=== PATIENT | female | born 1945 | race Caucasian/White ===

== ENCOUNTER → 2016-10-05 | Outpatient (CLI) | payer OTHER ==
[~2016-10-05] MED LIST: ACET-1311 PO; ADVIN50050 INH; AMLO-114 PO; ASCA500 PO; ASCO1CAP3 PO; BACL10TA PO; CALCTAB5 PO; CEFD1CAP14 PO; CEFD300C2 PO; CHOL1CAP57 PO; CLC100X PO; CLON0.2T PO; CRDCD120 PO; DILT120C68 PO; DOCU-94 PO; FELO5TAB PO; FLM4 PO; FRS/40 PO; GABA-113 PO; HYDR500C PO; HYDR500C3 PO; IPRA1AER2 INH; LEVO25TA PO; METO50TA16 PO; MONT1TAB5 PO; OXYBPOW PO; OXYBUTYNIN PO; OXYC1TAB3 PO; POLY335019 PO; POLY335040 PO; POTA20TA16 PO; TRAM-10 PO; ULT50 PO; VENL100T2 PO; VTMD1000 PO; ZNTT/150 PO; [UNRECOGNIZED DRUG - OTHER] PO; metoprolol PO
[2016-10-05 08:37] LABS: BASO % 0.1 %; BASO ABS # 0.01 K/uL (0-0.2); COMPLETE YES; HEMATOCRIT 39.6 % (37-47); IG% 0.4 %; LYMPH % 28.3 %; LYMPH ABS # 2.22 K/uL (1.2-3.4); MEAN CELL VOLUME 96.8 fL (80-100); MEAN CORPUSCULAR HGB CONC 34.1 g/dl (32-36); MEAN PLATELET VOLUME 9.8 fL (7.4-10.4); MONO % 12.8 %; NEUT % 56.4 %; PLATELET COUNT 373 K/uL (130-400); RED BLOOD COUNT 4.09 M/uL (4.2-5.4); WHITE BLOOD COUNT 7.84 K/uL (4.8-10.8)
[2016-10-05 08:49] LABS: ALT/SGPT 16 U/L (12-78); BLOOD UREA NITROGEN 21 mg/dl (7-18); BUN/CREATININE RATIO 21.6 (10-20); CARBON DIOXIDE 27 mmol/L (21-32); CHLORIDE 106 mmol/L (98-107); CREATININE 0.97 mg/dl (0.60-1.20); GLUCOSE 85 mg/dl (70-99); POTASSIUM 3.3 mmol/L (3.5-5.1); SODIUM 143 mmol/L (136-145)
[2016-10-05 08:52] LABS: ALB/GLOB RATIO 0.9 (0.9-2); ALKALINE PHOSPHATASE 112 U/L (45-117); AST/SGOT 15 U/L (15-37)
== END ==
LOC: C.LABCC 08:25
PROVIDERS: ATTEND Internal Medicine
DX: D64.89 Other specified anemias (principal)

== ENCOUNTER → 2016-10-27 | Outpatient (CLI) | payer OTHER ==
[2016-10-27 08:24] LABS: THYROID STIMULATING HORMONE 2.61 uIu/ml (0.300-4.500)
== END ==
LOC: C.LABCC 07:38
PROVIDERS: ATTEND Internal Medicine
DX: E03.9 Hypothyroidism, unspecified (principal)

== ENCOUNTER → 2016-11-24 | Outpatient (CLI) | payer OTHER ==
[2016-11-24 18:48] LABS: URINE APPEARANCE CLOUDY (CLEAR); URINE BILIRUBIN NEG (NEG); URINE COLOR YELLOW; URINE NITRITE POS (NEG); URINE SPECIFIC GRAVITY 1.022 (1.000-1.030); UROBILINOGEN NEG (NEG)
[2016-11-24 18:53] LABS: MANUAL MICROSCOPIC REQUIRED? NO; REVIEW REQ? YES
== END ==
LOC: C.LABCC 17:38
PROVIDERS: ATTEND Internal Medicine
DX: M54.5 Low back pain (principal)

== ENCOUNTER → 2016-11-25 | Outpatient (CLI) | payer OTHER ==
[2016-11-25 08:49] LABS: HEMATOCRIT 37.7 % (37-47); MEAN CELL VOLUME 97.7 fL (80-100); MEAN CORPUSCULAR HEMOGLOBIN 33.7 pg (25-34); MEAN CORPUSCULAR HGB CONC 34.5 g/dl (32-36); MEAN PLATELET VOLUME 10.4 fL (7.4-10.4); PLATELET COUNT 359 K/uL (130-400); RED BLOOD COUNT 3.86 M/uL (4.2-5.4); WHITE BLOOD COUNT 8.18 K/uL (4.8-10.8)
[2016-11-25 08:56] LABS: ALT/SGPT 14 U/L (12-78); BLOOD UREA NITROGEN 26 mg/dl (7-18); BUN/CREATININE RATIO 26.9 (10-20); CARBON DIOXIDE 28 mmol/L (21-32); CHLORIDE 104 mmol/L (98-107); CREATININE 0.98 mg/dl (0.60-1.20); GLUCOSE 89 mg/dl (70-99); POTASSIUM 2.9 mmol/L (3.5-5.1); SODIUM 141 mmol/L (136-145)
[2016-11-25 08:59] LABS: ALB/GLOB RATIO 0.7 (0.9-2); ALKALINE PHOSPHATASE 112 U/L (45-117); AST/SGOT 14 U/L (15-37)
== END ==
LOC: C.LABCC 08:07
PROVIDERS: ATTEND Internal Medicine
DX: M54.5 Low back pain (principal)

== ENCOUNTER → 2016-11-27 | Outpatient (CLI) | payer OTHER ==
[2016-11-27 08:57] LABS: MEAN CELL VOLUME 95.4 fL (80-100); MEAN CORPUSCULAR HEMOGLOBIN 32.5 pg (25-34); MEAN CORPUSCULAR HGB CONC 34.1 g/dl (32-36); MEAN PLATELET VOLUME 9.9 fL (7.4-10.4); PLATELET COUNT 370 K/uL (130-400); RED BLOOD COUNT 3.88 M/uL (4.2-5.4); WHITE BLOOD COUNT 8.35 K/uL (4.8-10.8)
[2016-11-27 09:10] LABS: ALT/SGPT 13 U/L (12-78); BLOOD UREA NITROGEN 23 mg/dl (7-18); BUN/CREATININE RATIO 25.3 (10-20); CALCIUM 9.3 mg/dl (8.5-10.1); CARBON DIOXIDE 27 mmol/L (21-32); CHLORIDE 105 mmol/L (98-107); GLUCOSE 87 mg/dl (70-99); POTASSIUM 3.1 mmol/L (3.5-5.1); SODIUM 141 mmol/L (136-145)
[2016-11-27 09:13] LABS: ALB/GLOB RATIO 0.6 (0.9-2); ALKALINE PHOSPHATASE 119 U/L (45-117); AST/SGOT 13 U/L (15-37)
--- NOTE | 2016-12-02 11:09 | CODING QUERY MEDICAL NECESSITY ---
SUPPORTING DIAGNOSIS NEEDED A supporting diagnosis is required for the test/procedure performed on this patient in order for us to be reimbursed by the patient's insurance. Please provide a supporting diagnosis for the following test/procedure listed below next to the test name along with your signature. *If there is no additional diagnosis for this patient that would support the following test/procedure please document that below next to the test/procedure. Test(s)/Procedure(s) that require a supporting diagnosis: DOS 11/27 * Vitamin D DIAGNOSIS: Provider Signature: Date: Thank you Myrtle Griffin [facility] Information Management Once completed, please kindly fax back to [phone] For questions please call [phone]
== END ==
LOC: C.LABCC 08:35
PROVIDERS: ATTEND Internal Medicine
DX: R60.9 Edema, unspecified (principal); R63.5 Abnormal weight gain; I10 Essential (primary) hypertension; R33.9 Retention of urine, unspecified; N26.1 Atrophy of kidney (terminal)

== ENCOUNTER → 2016-12-03 | Outpatient (CLI) | payer OTHER ==
[2016-12-03 09:06] LABS: BLOOD UREA NITROGEN 17 mg/dl (7-18); BUN/CREATININE RATIO 21.4 (10-20); CALCIUM 9.2 mg/dl (8.5-10.1); CARBON DIOXIDE 28 mmol/L (21-32); CHLORIDE 106 mmol/L (98-107); CREATININE 0.78 mg/dl (0.60-1.20); GLUCOSE 88 mg/dl (70-99); POTASSIUM 3.6 mmol/L (3.5-5.1); SODIUM 141 mmol/L (136-145)
== END ==
LOC: C.LABCC 08:12
PROVIDERS: ATTEND Internal Medicine
DX: E87.6 Hypokalemia (principal)

== ENCOUNTER → 2016-12-07 | Outpatient (CLI) | payer OTHER ==
[~2016-12-07] MED LIST changes: -CRDCD120 PO; +DILT120C50 PO
[2016-12-07 08:46] LABS: BLOOD UREA NITROGEN 17 mg/dl (7-18); BUN/CREATININE RATIO 20.9 (10-20); CARBON DIOXIDE 28 mmol/L (21-32); CHLORIDE 105 mmol/L (98-107); GLUCOSE 90 mg/dl (70-99); POTASSIUM 3.2 mmol/L (3.5-5.1); SODIUM 143 mmol/L (136-145)
== END ==
LOC: C.LABCC 08:12
PROVIDERS: ATTEND Internal Medicine
DX: E87.6 Hypokalemia (principal)

== ENCOUNTER → 2016-12-15 | Outpatient (CLI) | payer OTHER ==
[2016-12-15 09:09] LABS: BLOOD UREA NITROGEN 21 mg/dl (7-18); BUN/CREATININE RATIO 24.1 (10-20); CALCIUM 8.8 mg/dl (8.5-10.1); CARBON DIOXIDE 27 mmol/L (21-32); CHLORIDE 106 mmol/L (98-107); CREATININE 0.86 mg/dl (0.60-1.20); GLUCOSE 86 mg/dl (70-99); POTASSIUM 3.5 mmol/L (3.5-5.1); SODIUM 142 mmol/L (136-145)
== END ==
LOC: C.LABCC 08:30
PROVIDERS: ATTEND Internal Medicine
DX: E87.6 Hypokalemia (principal)

== ENCOUNTER 2017-03-24 10:15 | Inpatient (IN) | payer OTHER ==
[2017-03-24] VITALS (9 sets, daily range): BP systolic 113–139; BP diastolic 69–100; PULSE 99–144; TEMP 37.1–37.6; O2SAT 92–95; Ht 152.4 cm; Wt 70.9 kg
[~2017-03-24] VITALS: Ht 152.4 cm; Wt 70.9 kg
[~2017-03-24 10:15] MED LIST changes: -ASCA500 PO; -CEFD1CAP14 PO; -CEFD300C2 PO; -CRDCD120 PO; -DILT120C68 PO; -DOCU-94 PO; -HYDR500C3 PO; -METO50TA16 PO; -OXYBUTYNIN PO; -OXYC1TAB3 PO; -POLY335019 PO; -POTA20TA16 PO; -ULT50 PO; -VTMD1000 PO
[2017-03-24] MEDS ORDERED: POTA20TA16 PO (10:50)
[2017-03-24] MEDS ORDERED: IBUPROFEN 600 MG TAB PO STA (10:59)
[2017-03-24 11:05] LABS: BASO % 0.1 %; BASO ABS # 0.02 K/uL (0-0.2); COMPLETE YES; HEMATOCRIT 36.8 % (37-47); IG% 0.3 %; LYMPH % 5.7 %; LYMPH ABS # 0.91 K/uL (1.2-3.4); MEAN CELL VOLUME 98.9 fL (80-100); MEAN CORPUSCULAR HEMOGLOBIN 32.8 pg (25-34); MEAN CORPUSCULAR HGB CONC 33.2 g/dl (32-36); MEAN PLATELET VOLUME 9.8 fL (7.4-10.4); MONO % 8.4 %; NEUT % 85.5 %; PLATELET COUNT 293 K/uL (130-400); RED BLOOD COUNT 3.72 M/uL (4.2-5.4); WHITE BLOOD COUNT 15.98 K/uL (4.8-10.8)
[2017-03-24 11:22] LABS: ALT/SGPT 36 U/L (12-78); BLOOD UREA NITROGEN 30 mg/dl (7-18); BUN/CREATININE RATIO 18.9 (10-20); CALCIUM 9.5 mg/dl (8.5-10.1); CARBON DIOXIDE 26 mmol/L (21-32); CHLORIDE 103 mmol/L (98-107); GLUCOSE 114 mg/dl (70-99); POTASSIUM 3.8 mmol/L (3.5-5.1); SODIUM 137 mmol/L (136-145)
[2017-03-24 11:27] LABS: ALB/GLOB RATIO 0.6 (0.9-2); ALKALINE PHOSPHATASE 135 U/L (45-117); AST/SGOT 31 U/L (15-37)
[2017-03-24 11:40] LABS: MANUAL MICROSCOPIC REQUIRED? YES; URINE APPEARANCE SL CLOUDY (CLEAR); URINE BILIRUBIN NEG (NEG); URINE COLOR YELLOW; URINE NITRITE POS (NEG); URINE PH 7.5 (4.5-7.5); URINE SPECIFIC GRAVITY 1.015 (1.000-1.030); UROBILINOGEN NEG (NEG)
[2017-03-24 11:49] LABS: SULFASALICYLIC ACID POS (NEG)
[2017-03-24 11:50] LABS: REVIEW REQ? NO; URINE BACTERIA 2+ (NEG); URINE RBC 0-4 /hpf (0-4); URINE WBC >30 /hpf (0-5); ZZURINE CULT IF INDIC CATH YES
--- NOTE | 2017-03-24 12:11 | DIAGNOSTIC IMAGING REPORT ---
CHEST 2 VIEWS ROUTINE CLINICAL HISTORY: Back pain. COMPARISON STUDY: Chest radiograph April 22, 2016. FINDINGS: Incidental note is made of an anterior cervical spine fusion. There is no pneumothorax or pleural effusion. Mild left basilar opacity favors atelectasis. Interstitial prominence is unchanged. There is no evidence for pulmonary edema. Cardiomediastinal silhouette is stable. IMPRESSION: No acute cardiopulmonary findings. No significant change in appearance of the chest. Electronically signed by: Eddy Sellers M.D. 03/24/2017 12:09 PM Dictated Date/Time: 03/24/2017 12:08 PM
--- NOTE | 2017-03-24 12:11 | DIAGNOSTIC IMAGING REPORT ---
PELVIS 1 OR 2 VIEW ROUTINE HISTORY: 72 years Female acute back and pelvic pain status post fall. COMPARISON: CT abdomen and pelvis 01/24/2016 TECHNIQUE: Single AP view the pelvis FINDINGS: There are 2 cannulated screws seen fixating a remote subcapital left femoral fracture. No evidence of hardware complication. There is moderate to severe left and moderate right degenerative changes of the bilateral hips. The bones are moderately demineralized which limits evaluation for acute nondisplaced fracture. No acute fracture or dislocation is identified. Degenerative changes are also noted within the lower lumbar spine. Moderate volume of formed stool seen within the rectosigmoid. Vascular calcifications are seen. IMPRESSION: 1. Moderate bone demineralization limits evaluation for acute nondisplaced fracture. 2. No acute fracture or dislocation is identified. The above report was generated using voice recognition software. It may contain grammatical, syntax or spelling errors. Electronically signed by: Harsha Sams M.D. 03/24/2017 12:09 PM Dictated Date/Time: 03/24/2017 12:07 PM
[2017-03-24] MEDS ORDERED: CIPROFLOXACIN 400MG / 200ML D5W IV STA (12:56)
--- NOTE | 2017-03-24 13:31 | EMERGENCY ROOM VISIT NOTE ---
History Report prepared by Sofia: Urszula Acuna Under the Supervision of: Dr. Dre Olmos M.D. First contact with patient: 10:49 Chief Complaint: ILLNESS Stated Complaint: Altered Mental Status History of Present Illness The patient is a 72 year old female who presents to the Emergency Room with complaints of multiple falls over the past 2 days. The patient presents to the ED by EMS from [facility]. She is there because she has difficulty walking. She can ambulate with a walker. She has been there for 3 years. She fell 2 times yesterday and 1 time today. She reports back pain and hip pain. The pain is worst in her upper back. She has been taking Tylenol to no significant relief. She has had some cough recently. She denies any fever or chills. She has a history of COPD, hepatitis C, and bipolar disorder. The patient is normally on room air. She had an O2 sat of 76% yesterday and was started on 4 L oxygen. Source of History: patient Onset: 2 days Position: other (global) Quality: other (fall) Timing: other (multiple) Associated Symptoms: + cough, + back pain, No fevers, No chills Note: Pt reports hip pain. Review of Systems All systems have been listed, reviewed, and are negative other than those previously mentioned. Please see Additional Medical History Sheet. Past Medical & Surgical Medical Problems: (1) Altered mental status (2) Anemia (3) Cervical disc disease (4) Hypercalcemia (5) Iron deficiency anemia (6) Mental status change (7) Urinary incontinence (8) Urosepsis (9) UTI (urinary tract infection) Surgical Problems: (1) Status post hip surgery Social History Problems: (1) Hepatitis C Family History Diabetes mellitus Hypertension Social History Smoking Status: Current Every Day Smoker Alcohol Use: none Drug Use: none Marital Status: single Housing Status: assisted living Occupation Status: disabled Current/Historical Medications Scheduled Acetaminophen (Tylenol), 650 MG PO Q4 Amlodipine (Norvasc), 10 MG PO QAM Ascorbic Acid (Vitamin C), 500 MG PO BID Baclofen (Lioresal), 5 MG PO QPM Calcium (Caltrate), 600 MG PO QAM Cholecalciferol (Vitamin D3), 1 CAP PO HS Docusate Sodium (Colace), 100 MG PO QPM Felodipine (Plendil Er), 10 MG PO HS Fluticasone Prop/Salmeterol (Advair Diskus 500-50 Mcg/Dose), 1 PUFF INH BID Furosemide (Lasix), 40 MG PO BID Gabapentin (Neurontin), 300 MG PO TID Hydroxyurea (Hydrea), 500 MG PO 3XWK Ipratropium-Albuterol (Combivent Respimat), 1 PUFFS INH Q6 Levothyroxine Sodium (Synthroid), 25 MCG PO QAM Montelukast Sodium (Montelukast Sodium), 10 MG PO QPM Oxybutynin Chloride (Oxybutinin Chloride), 5 MG PO TID Polyethylene (Miralax Powder Packet), 17 GM PO QAM Potassium Ext Rel (Klor-Con), 40 MEQ PO BID Ranitidine (Zantac), 150 MG PO HS Tamsulosin HCl (Tamsulosin HCl), 0.4 MG PO HS Venlafaxine Hcl (Effexor), 187.5 MG PO HS [Thera-Beta Carotene], 1 TAB PO HS [metoprolol], 75 MG PO BID Scheduled PRN Tramadol (Ultram), 50 MG PO Q12 PRN for Pain Allergies Coded Allergies: Dust Mite Extract (Verified Allergy, Unknown, DUST MITES, 03/24/17) Hydrochlorothiazide (Verified Allergy, Unknown, PT UNSURE, 03/24/17) POLLEN (Verified Allergy, Unknown, HAYFEVER, 03/24/17) Penicillins (Verified Allergy, Unknown, PT UNSURE, 03/24/17) Physical Exam Vital Signs Date Time Temp Pulse Resp B/P (MAP) Pulse Ox O2 Delivery O2 Flow Rate FiO2 03/24/17 14:12 99 20 147/76 92 Nasal Cannula 2.0 03/24/17 13:10 93 Nasal Cannula 2.0 03/24/17 13:06 112 20 147/76 89 Room Air 03/24/17 12:58 90 Room Air 03/24/17 12:57 103 03/24/17 12:32 36.9 03/24/17 12:01 102 20 147/76 94 Nasal Cannula 2.0 03/24/17 10:33 92 Nasal Cannula 2.0 03/24/17 10:32 92 Nasal Cannula 2.0 03/24/17 10:31 37.9 91 22 145/77 88 Room Air 03/24/17 10:21 92 Physical Exam GENERAL: Patient is confused, but oriented to time, place, and person. Patient follows commands. Patient does not appear toxic. Patient is adequately hydrated and well-nourished. SKIN: No erythema, pallor, cyanosis or rash HEENT: Normal head, pupils equal, reactive to light and accommodation. Ears normal. Oral cavity and posterior pharynx appear normal. Neck: Without adenopathy, no neck vein distention. LUNGS: Clear to auscultation. No wheezes, no rales, no rhonchi. HEART: Irregularly irregular rhythm. ABDOMEN: No masses, no rebound, no hepatomegaly or splenomegaly. Two scars on mid abdomen. BACK: Patient has no signs of trauma or erythema, no deformity seen. EXTREMITIES: No signs of trauma. No pedal or pretibial edema. No calf or thigh tenderness. NEUROLOGIC: Cranial nerves II-XII within normal limits. No gross motor sensory function deficits. Medical Decision & Procedures ER Provider Diagnostic Interpretation: X ray results are stated below per my interpretation and the radiologist's interpretation. PELVIS 1 OR 2 VIEW ROUTINE HISTORY: 72 years Female acute back and pelvic pain status post fall. COMPARISON: CT abdomen and pelvis 01/24/2016 TECHNIQUE: Single AP view the pelvis FINDINGS: There are 2 cannulated screws seen fixating a remote subcapital left femoral fracture. No evidence of hardware complication. There is moderate to severe left and moderate right degenerative changes of the bilateral hips. The bones are moderately demineralized which limits evaluation for acute nondisplaced fracture. No acute fracture or dislocation is identified. Degenerative changes are also noted within the lower lumbar spine. Moderate volume of formed stool seen within the rectosigmoid. Vascular calcifications are seen. IMPRESSION: 1. Moderate bone demineralization limits evaluation for acute nondisplaced fracture. 2. No acute fracture or dislocation is identified. The above report was generated using voice recognition software. It may contain grammatical, syntax or spelling errors. Electronically signed by: Harsha Sams M.D. 03/24/2017 12:09 PM Dictated Date/Time: 03/24/2017 12:07 PM CHEST 2 VIEWS ROUTINE CLINICAL HISTORY: Back pain. COMPARISON STUDY: Chest radiograph April 22, 2016. FINDINGS: Incidental note is made of an anterior cervical spine fusion. There is no pneumothorax or pleural effusion. Mild left basilar opacity favors atelectasis. Interstitial prominence is unchanged. There is no evidence for pulmonary edema. Cardiomediastinal silhouette is stable. IMPRESSION: No acute cardiopulmonary findings. No significant change in appearance of the chest. Electronically signed by: Eddy Sellers M.D. 03/24/2017 12:09 PM Dictated Date/Time: 03/24/2017 12:08 PM Laboratory Results 03/24/17 10:25 Red Blood Count 3.72, Mean Corpuscular Volume 98.9, Mean Corpuscular Hemoglobin 32.8, Mean Corpuscular Hemoglobin Concent 33.2, Mean Platelet Volume 9.8, Neutrophils (%) (Auto) 85.5, Lymphocytes (%) (Auto) 5.7, Monocytes (%) (Auto) 8.4, Eosinophils (%) (Auto) 0.0, Basophils (%) (Auto) 0.1, Neutrophils # (Auto) 13.66, Lymphocytes # (Auto) 0.91, Monocytes # (Auto) 1.35, Eosinophils # (Auto) 0.00, Basophils # (Auto) 0.02 03/24/17 10:25 Test 03/24/17 10:25 03/24/17 11:11 03/24/17 11:21 White Blood Count 15.98 K/uL (4.8-10.8) Red Blood Count 3.72 M/uL (4.2-5.4) Hemoglobin 12.2 g/dL (12.0-16.0) Hematocrit 36.8 % (37-47) Mean Corpuscular Volume 98.9 fL (80-100) Mean Corpuscular Hemoglobin 32.8 pg (25-34) Mean Corpuscular Hemoglobin Concent 33.2 g/dl (32-36) Platelet Count 293 K/uL (130-400) Mean Platelet Volume 9.8 fL (7.4-10.4) Neutrophils (%) (Auto) 85.5 % Lymphocytes (%) (Auto) 5.7 % Monocytes (%) (Auto) 8.4 % Eosinophils (%) (Auto) 0.0 % Basophils (%) (Auto) 0.1 % Neutrophils # (Auto) 13.66 K/uL (1.4-6.5) Lymphocytes # (Auto) 0.91 K/uL (1.2-3.4) Monocytes # (Auto) 1.35 K/uL (0.11-0.59) Eosinophils # (Auto) 0.00 K/uL (0-0.5) Basophils # (Auto) 0.02 K/uL (0-0.2) RDW Standard Deviation 53.7 fL (36.4-46.3) RDW Coefficient of Variation 14.9 % (11.5-14.5) Immature Granulocyte % (Auto) 0.3 % Immature Granulocyte # (Auto) 0.04 K/uL (0.00-0.02) Anion Gap 8.0 mmol/L (3-11) Est Creatinine Clear Calc Drug Dose 28.6 ml/min Estimated GFR () 37.4 Estimated GFR (Non- 32.3 BUN/Creatinine Ratio 18.9 (10-20) Calcium Level 9.5 mg/dl (8.5-10.1) Total Bilirubin 0.3 mg/dl (0.2-1) Aspartate Amino Transf (AST/SGOT) 31 U/L (15-37) Alanine Aminotransferase (ALT/SGPT) 36 U/L (12-78) Alkaline Phosphatase 135 U/L (45-117) Troponin I < 0.015 ng/ml (0-0.045) Total Protein 7.8 gm/dl (6.4-8.2) Albumin 3.0 gm/dl (3.4-5.0) Globulin 4.8 gm/dl (2.5-4.0) Albumin/Globulin Ratio 0.6 (0.9-2) Lactic Acid Level 0.8 mmol/L (0.4-2.0) Urine Color YELLOW Urine Appearance SL CLOUDY (CLEAR) Urine pH 7.5 (4.5-7.5) Urine Specific [place] 1.015 (1.000-1.030) Urine Protein 2+ (NEG) Urine Glucose (UA) NEG (NEG) Urine Ketones NEG (NEG) Urine Occult Blood 2+ (NEG) Urine Nitrite POS (NEG) Urine Bilirubin NEG (NEG) Urine Urobilinogen NEG (NEG) Urine Leukocyte Esterase LARGE (NEG) Urine RBC 0-4 /hpf (0-4) Urine WBC >30 /hpf (0-5) Urine Epithelial Cells 0-5 /lpf (0-5) Urine Bacteria 2+ (NEG) Laboratory results as stated above per my review. Medications Administered Medications (Trade) Dose Ordered Sig/[place] Route Start Time Stop Time Status Last Admin Dose Admin Ibuprofen (Motrin Tab) 600 mg NOW STAT PO 03/24/17 10:59 03/24/17 11:00 DC 03/24/17 11:08 600 MG Ciprofloxacin/ Dextrose (Cipro / D5W) 400 mg NOW STAT IV 03/24/17 12:56 03/24/17 12:57 DC 03/24/17 13:06 400 MG ECG Indication: other (fall) Rate (beats per minute): 87 Rhythm: sinus rhythm Findings: PAC, no acute ischemic change, other (bigeminy) ED Course 1053: Past medical records reviewed. The patient was evaluated in room A12B. A complete history and physical examination was performed. 1059: Ibuprofen 600 mg PO. 1256: Ciprofloxacin/Dextrose 400 mg IV. 1311: I discussed the patient's case with ISAAC Quiles - hospitalist. The patient will be evaluated for further management. Medical Decision Nurses notes reviewed. Medical history sheet reviewed. Differential diagnosis includes but is not limited to: musculoskeletal back pain, pneumonia, hypoxemia , CVA, TIA, metabolic disorder. The patient was sent here from [facility] with slight mental status change and hypoxemia. The patient is currently alert and oriented 3. Her pulse ox fell below 90% whenever she she was taken off oxygen. Urinalysis reveals a urinary tract infection. Her white count is elevated. Other labs were also evaluated. Please see above. Patient does not appear to have pneumonia. Her lactic acid is not elevated. I discussed care with the patient and with the hospitalist. The patient was started on IV ciprofloxacin here in the ED. Patient will require further evaluation and treatment in the hospital. Medication Reconcilliation Current Medication List: was personally reviewed by me Blood Pressure Screening Patient's blood pressure: Elevated blood pressure Will be addressed by hospitalist. Consults Time Called: 1308 Consulting Physician: ISAAC Quiles - hospitalist Returned Call: [phone] I discussed the patient's case with her. The patient will be evaluated for further management. Impression Primary Impression: UTI (urinary tract infection) Additional Impressions: Hypoxemia Leukocytosis Scribe Attestation The scribe's documentation has been prepared under my direction and personally reviewed by me in its entirety. I confirm that the note above accurately reflects all work, treatment, procedures, and medical decision making performed by me. Departure Information Dispostion Being Evaluated By Hospitalist Referrals [facility] (PCP) Patient Instructions My [facility] Health Problem Qualifiers
[2017-03-24] MEDS ORDERED: POLYETHYLENE (MIRALAX) 17 GM PACK PO PRN (14:15)
[2017-03-24] MEDS ORDERED: ONDANSETRON INJ 2 MG/ML 2 ML VIAL IV PRN (14:15)
[2017-03-24] MEDS ORDERED: CHOL1CAP57 PO (14:20)
[2017-03-24] MEDS ORDERED: FELO5TAB PO (14:20)
[2017-03-24] MEDS ORDERED: BISACODYL 10 MG SUPP PR STA (14:35)
[2017-03-24] MEDS ORDERED: DILTIAZEM HCL 5 MG/ML 5 ML VIAL ONE (15:04)
[2017-03-24] MEDS ORDERED: TRAM-10 PO (15:08)
[2017-03-24] MEDS ORDERED: DILTIAZEM BOLUS / DRIP IV STA (15:13)
[2017-03-24] MEDS ORDERED: NURSING VERBAL MED ORDER ONE (15:15)
--- NOTE | 2017-03-24 15:15 | History and Physical ---
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 The patient is awake and able to answer some of my questions. She reports remembering falling yesterday once in the morning and twice in the afternoon. She was sitting in a wheelchair and slid forward, she did not lose consciousness or feel dizzy or lightheaded prior to this, she did not sustain and trauma or injury to the head. She does complain of bilateral hip pain currently. She had like she had a fever yesterday although nobody to the temperature. She has been afebrile in the ER it is diaphoretic on exam. She t is unsure of the last time the harris catheter was changed. She did not take any of her morning medications per med rec from SNF. Here in the ER pelvis x-ray was obtained and shows . Moderate bone demineralization limits evaluation for acute nondisplaced fracture. 2. No acute fracture or dislocation is identified. Leukocytosis of 15.90, her creatinine is elevated at 1.6 with a baseline of 0.8. Patient is acutely tachycardic in the 120s while it at bedside laying flat, it it acutely increases when she is set up to listen to posterior lung spencer in the 150s to 160s. She is currently satting 93% on 2 L, and does not wear supplement oxygen at baseline. UA positive for nitrate large esterase, WBC >30, and 2+ bacteria. Past Medical/Surgical History Medical Problems: (1) Anemia Status: Chronic (2) Cervical disc disease Status: Chronic (3) Iron deficiency anemia Status: Chronic (4) Urinary incontinence Status: Chronic leukoencephalopathy and possible PLANT [employer] MACHIN[employer] VALUER lymphoma anemia of chronic disease cervical disk disease chronic hep C hx of PE hx of stroke hypercalcemia hx of esophageal ulcers left hydronephrosis in Jul 2016 with chronic indwelling harris hx of depression with suicidal attempt via narcotic pill overdose Surgical Problems: (1) Status post hip surgery Status: Resolved Back surgery C section Exploratory Lap with gastric surgery Neck surgery for cervical disk disease Family History Diabetes mellitus Hypertension Social History Smoking Status: Current Every Day Smoker Drug Use: marijuana, other (narcotic pill abuse hx) Marital Status: single [facility] status[facility] Occupational Status: disabled Immunizations History of Influenza Vaccine: Yes Influenza Vaccine Date: Apr 07, 2013 History of Tetanus Vaccine?: No History of Pneumococcal: Yes Pneumococcal Date: Apr 07, 2013 History of Hepatitis B Vaccine: No Multi-Drug Resistant Organisms History of MDRO: No Allergies Coded Allergies: Dust Mite Extract (Verified Allergy, Unknown, DUST MITES, 03/24/17) Hydrochlorothiazide (Verified Allergy, Unknown, PT UNSURE, 03/24/17) POLLEN (Verified Allergy, Unknown, HAYFEVER, 03/24/17) Home Medications Scheduled Acetaminophen (Tylenol), 650 MG PO Q4 Amlodipine (Norvasc), 10 MG PO QAM Ascorbic Acid (Vitamin C), 500 MG PO BID Baclofen (Lioresal), 5 MG PO QPM Calcium (Caltrate), 600 MG PO QAM Cholecalciferol (Vitamin D3), 2 CAP PO HS Docusate Sodium (Colace), 100 MG PO QPM Felodipine (Plendil Er), 2.5 MG PO HS Fluticasone Prop/Salmeterol (Advair Diskus 500-50 Mcg/Dose), 1 PUFF INH BID Furosemide (Lasix), 40 MG PO BID Gabapentin (Neurontin), 300 MG PO TID Hydroxyurea (Hydrea), 500 MG PO 3XWK Ipratropium-Albuterol (Combivent Respimat), 1 PUFFS INH Q6 Levothyroxine Sodium (Synthroid), 25 MCG PO QAM Montelukast Sodium (Montelukast Sodium), 10 MG PO QPM Oxybutynin Chloride (Oxybutinin Chloride), 5 MG PO TID Polyethylene (Miralax Powder Packet), 17 GM PO QAM Potassium Ext Rel (Klor-Con), 40 MEQ PO BID Ranitidine (Zantac), 150 MG PO HS Tamsulosin HCl (Tamsulosin HCl), 0.4 MG PO HS Venlafaxine Hcl (Effexor), 187.5 MG PO HS [Thera-Beta Carotene], 1 TAB PO HS [metoprolol], 75 MG PO BID Scheduled PRN Tramadol (Ultram), 1 TAB PO BID PRN for Pain Review of Systems Constitutional: + fever + sweats or chills Eyes: No diplopia, no worsening or blurred vision ENT: normal hearing, no trouble swallowing Respiratory: No cough, sputum, dyspnea at rest or on exertion Cardiovascular: No chest pain, tightness or palpitations Abdomen: No pain, nausea, vomiting, diarrhea or constipation : Indwelling Harris in place Musculoskeletal: No joint pain, calf pain, swelling Neurologic: + weakness, uses wheelchair at baseline. No numbness/tingling Psychiatric: No anxiety or depression Skin: No rash or itch Physical Exam Vital Signs Date Time Temp Pulse Resp B/P (MAP) Pulse Ox O2 Delivery O2 Flow Rate FiO2 03/24/17 14:12 99 20 147/76 92 Nasal Cannula 2.0 03/24/17 13:10 93 Nasal Cannula 2.0 03/24/17 13:08 88 Room Air 03/24/17 13:06 112 20 147/76 89 Room Air 03/24/17 12:58 90 Room Air 03/24/17 12:57 103 03/24/17 12:32 36.9 03/24/17 12:01 102 20 147/76 94 Nasal Cannula 2.0 03/24/17 10:33 92 Nasal Cannula 2.0 03/24/17 10:32 92 Nasal Cannula 2.0 03/24/17 10:31 37.9 91 22 145/77 88 Room Air 03/24/17 10:21 92 General: awakens to verbal stimuli, alert at times but falls asleep easily during exam, no apparent distress Head: Normocephalic, atraumatic ENT: PERRL, EOMI, no pharyngeal exudate, mucous membranes moist Chest: Diminished breath sounds throughout, on 2 L via NC, no adventitious breath sounds Cardiac: + Tachycardic with few extra beats but NSR, no murmur, no JVD, normal peripheral pulses, good capillary refill Abdominal: NABS x 4 quadrants, soft, nontender to palpation, no rebound, guarding or tenderness Extremities: Normal inspection, no peripheral edema or erythema, calfs nontender to palpation Skin: no ecchymosis or skin tears from fall Neuro: Awake, oriented to place and time, knows why she came to the hospital, speech is clear, no peripheral sensory deficits Diagnostics Laboratory Results Results Past 24 Hours Test 03/24/17 10:25 03/24/17 11:11 03/24/17 11:21 Range/Units White Blood Count 15.98 4.8-10.8 K/uL Red Blood Count 3.72 4.2-5.4 M/uL Hemoglobin 12.2 12.0-16.0 g/dL Hematocrit 36.8 37-47 % Mean Corpuscular Volume 98.9 80-100 fL Mean Corpuscular Hemoglobin 32.8 25-34 pg Mean Corpuscular Hemoglobin Concent 33.2 32-36 g/dl Platelet Count 293 130-400 K/uL Mean Platelet Volume 9.8 7.4-10.4 fL Neutrophils (%) (Auto) 85.5 % Lymphocytes (%) (Auto) 5.7 % Monocytes (%) (Auto) 8.4 % Eosinophils (%) (Auto) 0.0 % Basophils (%) (Auto) 0.1 % Neutrophils # (Auto) 13.66 1.4-6.5 K/uL Lymphocytes # (Auto) 0.91 1.2-3.4 K/uL Monocytes # (Auto) 1.35 0.11-0.59 K/uL Eosinophils # (Auto) 0.00 0-0.5 K/uL Basophils # (Auto) 0.02 0-0.2 K/uL RDW Standard Deviation 53.7 36.4-46.3 fL RDW Coefficient of Variation 14.9 11.5-14.5 % Immature Granulocyte % (Auto) 0.3 % Immature Granulocyte # (Auto) 0.04 0.00-0.02 K/uL Sodium Level 137 136-145 mmol/L Potassium Level 3.8 3.5-5.1 mmol/L Chloride Level 103 98-107 mmol/L Carbon Dioxide Level 26 21-32 mmol/L Anion Gap 8.0 3-11 mmol/L Blood Urea Nitrogen 30 7-18 mg/dl Creatinine 1.60 0.60-1.20 mg/dl Est Creatinine Clear Calc Drug Dose 28.6 ml/min Estimated GFR () 37.4 Estimated GFR (Non- 32.3 BUN/Creatinine Ratio 18.9 10-20 Random Glucose 114 70-99 mg/dl Calcium Level 9.5 8.5-10.1 mg/dl Total Bilirubin 0.3 0.2-1 mg/dl Aspartate Amino Transf (AST/SGOT) 31 15-37 U/L Alanine Aminotransferase (ALT/SGPT) 36 12-78 U/L Alkaline Phosphatase 135 45-117 U/L Troponin I < 0.015 0-0.045 ng/ml Total Protein 7.8 6.4-8.2 gm/dl Albumin 3.0 3.4-5.0 gm/dl Globulin 4.8 2.5-4.0 gm/dl Albumin/Globulin Ratio 0.6 0.9-2 Lactic Acid Level 0.8 0.4-2.0 mmol/L Urine Color YELLOW Urine Appearance SL CLOUDY CLEAR Urine pH 7.5 4.5-7.5 Urine Specific [place] 1.015 1.000-1.030 Urine Protein 2+ NEG Urine Glucose (UA) NEG NEG Urine Ketones NEG NEG Urine Occult Blood 2+ NEG Urine Nitrite POS NEG Urine Bilirubin NEG NEG Urine Urobilinogen NEG NEG Urine Leukocyte Esterase LARGE NEG Urine RBC 0-4 0-4 /hpf Urine WBC >30 0-5 /hpf Urine Epithelial Cells 0-5 0-5 /lpf Urine Bacteria 2+ NEG Microbiology Results 03/24/17 Blood Culture, Received Pending 03/24/17 Blood Culture, Received Pending 03/24/17 Urine Culture, Received Pending Diagnostic Radiology PELVIS 1 OR 2 VIEW ROUTINE HISTORY: 72 years Female acute back and pelvic pain status post fall. COMPARISON: CT abdomen and pelvis 01/24/2016 TECHNIQUE: Single AP view the pelvis FINDINGS: There are 2 cannulated screws seen fixating a remote subcapital left femoral fracture. No evidence of hardware complication. There is moderate to severe left and moderate right degenerative changes of the bilateral hips. The bones are moderately demineralized which limits evaluation for acute nondisplaced fracture. No acute fracture or dislocation is identified. Degenerative changes are also noted within the lower lumbar spine. Moderate volume of formed stool seen within the rectosigmoid. Vascular calcifications are seen. IMPRESSION: 1. Moderate bone demineralization limits evaluation for acute nondisplaced fracture. 2. No acute fracture or dislocation is identified. The above report was generated using voice recognition software. It may contain grammatical, syntax or spelling errors. Electronically signed by: Harsha Sams M.D. 03/24/2017 12:09 PM Dictated Date/Time: 03/24/2017 12:07 PM The status of this report is Signed. CHEST 2 VIEWS ROUTINE CLINICAL HISTORY: Back pain. COMPARISON STUDY: Chest radiograph April 22, 2016. FINDINGS: Incidental note is made of an anterior cervical spine fusion. There is no pneumothorax or pleural effusion. Mild left basilar opacity favors atelectasis. Interstitial prominence is unchanged. There is no evidence for pulmonary edema. Cardiomediastinal silhouette is stable. IMPRESSION: No acute cardiopulmonary findings. No significant change in appearance of the chest. Electronically signed by: Eddy Sellers M.D. 03/24/2017 12:09 PM Dictated Date/Time: 03/24/2017 12:08 PM The status of this report is Signed. 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 Urosepsis -Admit to telemetry for tachycardia and O2 monitoring - UA is grossly dirty, follow urine culture - Patient was started on Cipro in the ER, continue for now - Blood cultures obtained after first dose of Cipro given, follow, lactic acid was negative - Leukocytosis 15.98 - CXR reviewed showing mild left basilar opacity favors atelectasis - will order repeat CXR for tomorrow morning with complaints of hypoxia at SNF, possible that there could be pneumonia but more likely that this is urosepsis. Tachycardia in the setting of essential hypertension New onset afib with RVR - Patient did not receive any morning medications today, will give 1 dose of metoprolol tartrate 75 mg now, and continue metoprolol tartrate 75 mg BID - 12-lead EKG repeat ordered and showing afib with RVR - Continue amlodipine 10 mg daily, patient is also on felodipine 2.5 mg QHS - unsure why she is on both of these agents - Started on cardizem 5 mg IV, continue gtt and increase by 5 mg every 15 min until target HR < 100. - 2D echo ordered - Cardiology consult placed MONA Chronic indwelling catheter - Patient baseline of 0.8, acutely elevated at 1.6 - IVF with NSS at 100ml/hr - Hold Lasix and other nephrotoxins - Consult urology as she follows with Dr. 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 Hypothyroidism - Continue levothyroxine 25 g Depression Bipolar disorder - continue Effexor XR 187.5 mg daily at bedtime - Patient has a history of drug use: During her last admission in January 2016 seen she attempted suicide via narcotic overdose and marijuana metabolites found in urine. With her altered mental status will check a drug screen to rule out this cause. - Holding DISPLAY TRIMMER tramadol with AMS. GERD - Continue ranitidine 150 mg daily DVT prophylaxis: Teds, SCDs, subcutaneous heparin CODE STATUS: DO NOT RESUSCITATE Disposition: [facility]/OT jamarcus CM to assist with discharge planning Level of Care Telemetry Resuscitation Status DO NOT RESUSCITATE VTE Prophylaxis VTE Risk Assessment Done? Y/N: Yes Risk Level: Low Given or contraindicated: Unfractionated heparin SQ, T.E.D. Stockings, SCD's Reviewed: Pt Seen/Exam by Me History Physician [employer] Note: I interviewed and examined the patient. Discussed with RALPH España and agree with findings and plan as documented in the note. Any exceptions or clarifications are listed here: Pt presented with altered mental status and hypoxia to 88% with several falls at the NH today. Found to have a UTI, low grade fever, and then subsequently went into rapid atrial fibrillation in the ER. She denies CP or SOB, no palpitations. Started her on a diltiazem gtt in the ER. No previous h/o A-fib that she is aware of. Vital sreviewed, rapid a-fib on ECG and tele Irreg irreg, tachycardic, no murmur Lungs with exp wheezes, decreased BS Abd +BS soft NT ND Ext no edema 72 yo chronically ill-appearing female here with UTI and sepsis, and new onset rapid atrial fibrillation. -diltiazem gtt and hold her amlodipine and filiodipine from home (and unclear why on two different calcium channel blockers-needs to be clarified with NH) -check ECHO and Consult Cardiology, trend troponin, hopefully will convert back to NSR on her own after treatment of infection -treat with Rocephin for UTI and follow cultures -need to ensure Harris was changed out since admission -She DOES NOT HAVE PLANT AND MACHINERY VALUER LYMPHOMA, she has a h/o myeloproliferative disorder, treated with Hydrea--> unclear if has had any f/u with Hematology since 2014 Documented By: Kelly Hines
[2017-03-24] MEDS: DILTIAZEM HCL INJ 125 MG in DEXTROSE 5% 100ML IV PRN ×5 (15:20→21:36)
[2017-03-24] MEDS ORDERED: ACETAMINOPHEN 325 MG TAB PO SCH (16:00)
[2017-03-24] MEDS ORDERED: CEFTRIAXONE SOD INJ 2000 MG in DEXTROSE 5% 50ML IV SCH (16:30)
[2017-03-24] MEDS: SODIUM CHLORIDE 0.9% 1000ML 1,000 ML IV SCH (17:05)
[2017-03-24] MEDS ORDERED: BISACODYL 10 MG SUPP ONE (17:33)
[2017-03-24] MEDS: METOPROLOL TARTRATE 25 MG TAB PO SCH (18:53)
[2017-03-24] MEDS: HYDROXYUREA 500 MG CAP PO SCH (18:56)
[2017-03-24 19:15] LABS: PROTHROMBIN TIME (PATIENT) 10.7 SECONDS (9.0-12.0)
[2017-03-24] MEDS: IPRATROPIUM BROMIDE/ALBUTEROL respimat INH INH SCH (19:30)
[2017-03-24 19:43] LABS: BENZODIAZEPINE, URINE NEG (NEG); COCAINE,URINE NEG (NEG); PHENCYCLIDINE, URINE NEG (NEG)
[2017-03-24] MEDS: FLUTICASONE/SALMETEROL (ADVAIR) 500/50 INH 14 PUFF INH SCH (20:32)
[2017-03-24] MEDS: ASCORBIC ACID 500 MG TAB PO SCH (20:32)
[2017-03-24] MEDS: MONTELUKAST SOD 10 MG TAB PO SCH (20:33)
[2017-03-24] MEDS: DOCUSATE SODIUM 100 MG CAP PO SCH (20:33)
[2017-03-24] MEDS: BACLOFEN 10 MG TAB PO SCH (20:33)
[2017-03-24] MEDS: TAMSULOSIN HCL 0.4 MG CAP PO SCH (20:35)
[2017-03-24] MEDS: GABAPENTIN 300 MG CAP PO SCH (20:35)
[2017-03-24] MEDS: RANITIDINE HCL 150 MG TAB PO SCH (20:35)
[2017-03-24] MEDS: VENLAFAXINE HCL XR 37.5 MG CAPXR PO SCH (20:36)
[2017-03-24] MEDS ORDERED: CIPROFLOXACIN / D5W 400 MG in PREMIXED IN D5W 200 ML IV SCH (21:00)
[2017-03-24] MEDS ORDERED: FELODIPINE 2.5 MG TABCR PO SCH (21:00)
[2017-03-24] MEDS: CHOLECALCIFEROL 1000 INTER.UNIT TAB PO SCH (21:21)
[2017-03-24] MEDS: HEPARIN SOD 5000 UNIT/0.5 ML CARP SQ SCH (21:23)
[2017-03-25] VITALS (21 sets, daily range): BP systolic 92–144; BP diastolic 51–88; PULSE 78–113; TEMP 36.8–37.6; O2SAT 85–95
[2017-03-25] MEDS: DILTIAZEM HCL INJ 125 MG in DEXTROSE 5% 100ML IV PRN ×2 (01:18→19:02)
[2017-03-25] MEDS: HEPARIN SOD 5000 UNIT/0.5 ML CARP SQ SCH ×3 (05:35→22:13)
[2017-03-25] MEDS: SODIUM CHLORIDE 0.9% 1000ML 1,000 ML IV SCH ×3 (05:36→22:41)
[2017-03-25] MEDS: LEVOTHYROXINE 25 MCG TAB PO SCH (05:37)
[2017-03-25] MEDS: IPRATROPIUM BROMIDE/ALBUTEROL respimat INH INH SCH ×5 (06:00→23:48)
[2017-03-25] MEDS ORDERED: PERFLUTREN LIPID MICROSPHERE (DEFINITY) IV ONE (06:51)
[2017-03-25 06:53] LABS: EOS % 0.1 %; HEMATOCRIT 36.5 % (37-47); IG% 0.3 %; LYMPH % 6.6 %; LYMPH ABS # 0.78 K/uL (1.2-3.4); MEAN CELL VOLUME 98.1 fL (80-100); MEAN CORPUSCULAR HEMOGLOBIN 32.3 pg (25-34); MEAN CORPUSCULAR HGB CONC 32.9 g/dl (32-36); MEAN PLATELET VOLUME 10.1 fL (7.4-10.4); MONO % 9.3 %; NEUT % 83.7 %; PLATELET COUNT 268 K/uL (130-400); RED BLOOD COUNT 3.72 M/uL (4.2-5.4); WHITE BLOOD COUNT 11.86 K/uL (4.8-10.8)
[2017-03-25 07:23] LABS: BUN/CREATININE RATIO 19.7 (10-20); CALCIUM 8.7 mg/dl (8.5-10.1); CREATININE 1.4 mg/dl (0.60-1.20); POTASSIUM 3.4 mmol/L (3.5-5.1)
[2017-03-25 07:34] LABS: COMPLETE YES
[2017-03-25] MEDS: POLYETHYLENE (MIRALAX) 17 GM PACK PO SCH (08:14)
[2017-03-25] MEDS: FLUTICASONE/SALMETEROL (ADVAIR) 500/50 INH 14 PUFF INH SCH ×2 (08:14→21:02)
[2017-03-25] MEDS: GABAPENTIN 300 MG CAP PO SCH ×3 (08:14→21:06)
[2017-03-25] MEDS: ASCORBIC ACID 500 MG TAB PO SCH ×2 (08:15→21:07)
[2017-03-25] MEDS: METOPROLOL TARTRATE 25 MG TAB PO SCH ×2 (08:15→21:05)
[2017-03-25] MEDS ORDERED: AMLODIPINE BESYLATE 5 MG TAB PO SCH (09:00)
[2017-03-25] MEDS ORDERED: DIGOXIN IV 250 MCG in SYRINGE 9 ML IV ONE ×2 (09:15→12:00)
[2017-03-25] MEDS ORDERED: POTASSIUM CHLORIDE 20 MEQ TABCR PO ONE (09:30)
[2017-03-25] MEDS: CALCIUM 600MG + VIT D 400 IU TAB PO SCH (09:52)
--- NOTE | 2017-03-25 09:55 | Urology Consultation ---
History General Date of Service: Mar 25, 2017. Chief Complaint: chronic schuster, UTI Primary Care Physician: Braeden Ojeda Pt seen a urologist before?: Yes (Dr. Kirby) If yes, why?: hydronephrosis, History of Present Illness 72 yo female admitted s/p fall. Suspected sepsis. UC&S preliminarily growing Proteus. Blood cultures pending. She has a chronic indwelling schuster catheter. Last saw Dr. Kirby in July 2016 for hydronephrosis. Resolved after schuster placement, and she has had a chronic indwelling schuster since that time. She is slightly confused this morning, but does know that she is in [place] and it is 2017. Temp of 37.6 this morning. White count has improved to 11.86. Cr is now 1.4. 1.6 on admission. Baseline of 0.8 previously noted. Schuster in place draining clear, yellow urine. Laboratory Last 24 Hours Test 03/24/17 10:25 03/24/17 11:11 03/24/17 11:21 03/24/17 18:10 White Blood Count 15.98 K/uL Red Blood Count 3.72 M/uL Hemoglobin 12.2 g/dL Hematocrit 36.8 % Mean Corpuscular Volume 98.9 fL Mean Corpuscular Hemoglobin 32.8 pg Mean Corpuscular Hemoglobin Concent 33.2 g/dl Platelet Count 293 K/uL Mean Platelet Volume 9.8 fL Neutrophils (%) (Auto) 85.5 % Lymphocytes (%) (Auto) 5.7 % Monocytes (%) (Auto) 8.4 % Eosinophils (%) (Auto) 0.0 % Basophils (%) (Auto) 0.1 % Neutrophils # (Auto) 13.66 K/uL Lymphocytes # (Auto) 0.91 K/uL Monocytes # (Auto) 1.35 K/uL Eosinophils # (Auto) 0.00 K/uL Basophils # (Auto) 0.02 K/uL RDW Standard Deviation 53.7 fL RDW Coefficient of Variation 14.9 % Immature Granulocyte % (Auto) 0.3 % Immature Granulocyte # (Auto) 0.04 K/uL Prothrombin Time 10.7 SECONDS Prothromb Time International Ratio 1.0 Sodium Level 137 mmol/L Potassium Level 3.8 mmol/L Chloride Level 103 mmol/L Carbon Dioxide Level 26 mmol/L Anion Gap 8.0 mmol/L Blood Urea Nitrogen 30 mg/dl Creatinine 1.60 mg/dl Est Creatinine Clear Calc Drug Dose 28.6 ml/min Estimated GFR () 37.4 Estimated GFR (Non- 32.3 BUN/Creatinine Ratio 18.9 Random Glucose 114 mg/dl Calcium Level 9.5 mg/dl Total Bilirubin 0.3 mg/dl Aspartate Amino Transf (AST/SGOT) 31 U/L Alanine Aminotransferase (ALT/SGPT) 36 U/L Alkaline Phosphatase 135 U/L Troponin I < 0.015 ng/ml < 0.015 ng/ml Total Protein 7.8 gm/dl Albumin 3.0 gm/dl Globulin 4.8 gm/dl Albumin/Globulin Ratio 0.6 Lactic Acid Level 0.8 mmol/L Urine Color YELLOW Urine Appearance SL CLOUDY Urine pH 7.5 Urine Specific [place] 1.015 Urine Protein 2+ Urine Glucose (UA) NEG Urine Ketones NEG Urine Occult Blood 2+ Urine Nitrite POS Urine Bilirubin NEG Urine Urobilinogen NEG Urine Leukocyte Esterase LARGE Urine RBC 0-4 /hpf Urine WBC >30 /hpf Urine Epithelial Cells 0-5 /lpf Urine Bacteria 2+ Test 03/25/17 01:52 03/25/17 06:20 Troponin I < 0.015 ng/ml White Blood Count 11.86 K/uL Red Blood Count 3.72 M/uL Hemoglobin 12.0 g/dL Hematocrit 36.5 % Mean Corpuscular Volume 98.1 fL Mean Corpuscular Hemoglobin 32.3 pg Mean Corpuscular Hemoglobin Concent 32.9 g/dl Platelet Count 268 K/uL Mean Platelet Volume 10.1 fL Neutrophils (%) (Auto) 83.7 % Lymphocytes (%) (Auto) 6.6 % Monocytes (%) (Auto) 9.3 % Eosinophils (%) (Auto) 0.1 % Basophils (%) (Auto) 0.0 % Neutrophils # (Auto) 9.94 K/uL Lymphocytes # (Auto) 0.78 K/uL Monocytes # (Auto) 1.10 K/uL Eosinophils # (Auto) 0.01 K/uL Basophils # (Auto) 0.00 K/uL RDW Standard Deviation 52.0 fL RDW Coefficient of Variation 14.7 % Immature Granulocyte % (Auto) 0.3 % Immature Granulocyte # (Auto) 0.03 K/uL Red Blood Cell Morphology Unremarkable Sodium Level 139 mmol/L Potassium Level 3.4 mmol/L Chloride Level 105 mmol/L Carbon Dioxide Level 25 mmol/L Anion Gap 9.0 mmol/L Blood Urea Nitrogen 28 mg/dl Creatinine 1.40 mg/dl Est Creatinine Clear Calc Drug Dose 32.9 ml/min Estimated GFR () 44.0 Estimated GFR (Non- 38.0 BUN/Creatinine Ratio 19.7 Random Glucose 103 mg/dl Calcium Level 8.7 mg/dl Problem List Medical Problems: (1) Altered mental status Status: Acute (2) Hypoxemia Status: Acute (3) Leukocytosis Status: Acute Past History CVA/TIA/stroke, depression (with suicidal attempt with narcotic pill overdose), pulmonary embolism, other (anemia, iron deficiency anemia, incontinence, chronic hep C, hypercalcemia, hx of esophageal ulcers, 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) Past Surgical History: , exploratory laparotomy (with gastric surgery) , orthopedic surgery (hip surgery), spinal surgery Family History Diabetes mellitus Hypertension Social History Hx Tobacco Use In Past Year?: Yes Smoking: other (current everyday smoker) Drug use: marijuana, other (narcotic pills abuse) Marital status: single Housing status: prison Occupation status: disabled Immunizations History of Influenza Vaccine: Yes Influenza Vaccine Date: Apr 07, 2013 History of Tetanus Vaccine?: No History of Pneumococcal: Yes Pneumococcal Date: Apr 07, 2013 History of Hepatitis B Vaccine: No History of MDRO No Allergies Coded Allergies: Dust Mite Extract (Verified Allergy, Unknown, DUST MITES, 03/24/17) Hydrochlorothiazide (Verified Allergy, Unknown, PT UNSURE, 03/24/17) POLLEN (Verified Allergy, Unknown, HAYFEVER, 03/24/17) Medications Home Medications: Home Meds and Scripts Medications Dose Route/Sig Max Daily Dose Days Date Category Dose Instructions Ultram (Tramadol HCl) 50 Mg Tab 1 Tab PO BID PRN 30 03/24/17 Reported Vitamin D3 (Cholecalciferol) 1,000 Unit Cap 2 Cap PO HS 30 03/24/17 Rx Plendil Er (Felodipine) 5 Mg Tab 2.5 Mg PO HS 30 03/24/17 Rx Oxybutinin Chloride (Oxybutynin Chloride) 1 Pow Pow 5 Mg PO TID 03/24/17 Reported Klor-Con (Potassium Chloride) 20 Meq Tabcr 40 Meq PO BID 03/24/17 Reported Lasix (Furosemide) 40 Mg Tab 40 Mg PO BID 11/23/16 Reported [metoprolol] 75 Mg PO BID 11/23/16 Reported Neurontin (Gabapentin) 300 Mg Cap 300 Mg PO TID 11/23/16 Reported Tylenol (Acetaminophen) 325 Mg Tab 650 Mg PO Q4 05/04/16 Reported [Thera-Beta Carotene] 1 Tab PO HS 04/22/16 Reported Tamsulosin HCl 0.4 Mg Cap 0.4 Mg PO HS 04/22/16 Reported Norvasc (Amlodipine Besylate) 10 Mg Tab 10 Mg PO QAM 04/22/16 Reported Montelukast Sodium 10 Mg Tab 10 Mg PO QPM 01/13/16 Reported Synthroid (Levothyroxine Sodium) 25 Mcg Tab 25 Mcg PO QAM 01/13/16 Reported Effexor (Venlafaxine Hcl) 100 Mg Tab 187.5 Mg PO HS 01/12/16 Reported Zantac (Ranitidine HCl) 150 Mg Tab 150 Mg PO HS 07/02/15 Reported Hydrea (Hydroxyurea) 500 Mg Cap 500 Mg PO 3XWK 09/26/14 Reported Mon, Wed, Fri HOLD IF WBC < 6.000 Lioresal (Baclofen) 10 Mg Tab 5 Mg PO QPM 07/24/14 Reported Vitamin C (Ascorbic Acid) 500 Mg Cap 500 Mg PO BID 05/29/14 Reported Colace (Docusate Sodium) 100 Mg Cap 100 Mg PO QPM 04/01/14 Reported Advair Diskus 500-50 Mcg/Dose (Fluticasone Prop/Salmeterol) 14 Puff/1 Inhaler Aerp 1 Puff INH BID 01/12/14 Reported Caltrate (Calcium) 600 Mg Tab 600 Mg PO QAM 11/06/13 Reported Combivent Respimat (Ipratropium-Albuterol) 1 Aer Aer 1 Puffs INH Q6 11/06/13 Reported GIVE WHILE AWAKE Miralax Powder Packet (Polyethylene) 17 Gm Pack 17 Gm PO QAM 09/27/13 Reported Inpatient Medications: Current Inpatient Medications Medications (Trade) Dose Ordered Sig/[place] Route Start Time Stop Time Status Last Admin Dose Admin Heparin Sodium (Porcine) (Heparin Sq 5000 Unit/0.5ml) 5,000 unit Q8 SQ 03/24/17 22:00 04/23/17 21:59 03/25/17 05:35 5,000 UNIT Sodium Chloride 1,000 ml @ 100 mls/hr Q10H IV 03/24/17 14:06 04/23/17 14:05 03/25/17 05:36 100 MLS/HR Acetaminophen (Tylenol Tab) 650 mg Q4H PRN PO 03/24/17 14:15 04/23/17 14:14 Ondansetron HCl (Zofran Inj) 4 mg Q6H PRN IV 03/24/17 14:15 04/23/17 14:14 Polyethylene (Miralax Powder Packet) 17 gm DAILY PRN PO 03/24/17 14:15 04/23/17 14:14 Baclofen (Lioresal Tab) 5 mg QPM PO 03/24/17 21:00 04/23/17 20:59 03/24/17 20:33 5 MG Docusate Sodium (coLACE CAP) 100 mg QPM PO 03/24/17 21:00 04/23/17 20:59 03/24/17 20:33 100 MG Felodipine (Plendil Tabcr) 2.5 mg HS PO 03/24/17 21:00 04/23/17 20:59 Future Hold 03/24/17 21:21 2.5 MG Salmeterol Xinafoate/ Fluticasone (Advair Diskus 500/50 Inh) 1 puff BID INH 03/24/17 21:00 04/23/17 20:59 03/25/17 08:14 1 PUFF Gabapentin (Neurontin Cap) 300 mg TID PO 03/24/17 21:00 04/23/17 20:59 03/25/17 08:14 300 MG Hydroxyurea (Hydrea Cap) 500 mg MoWeFr@0900 PO 03/24/17 18:00 04/23/17 17:59 03/24/17 18:56 500 MG Albuterol/ Ipratropium (Combivent Respimat Inh) 1 puffs Q6 INH 03/24/17 18:00 04/23/17 17:59 Levothyroxine Sodium (Synthroid Tab) 25 mcg DAILYBB PO 03/25/17 06:00 04/24/17 06:59 03/25/17 05:37 25 MCG Montelukast Sodium (Singulair Tab) 10 mg QPM PO 03/24/17 21:00 04/23/17 20:59 03/24/17 20:33 10 MG Polyethylene (Miralax Powder Packet) 17 gm QAM PO 03/25/17 09:00 04/24/17 08:59 03/25/17 08:14 17 GM Ranitidine HCl (zANTac TAB) 150 mg HS PO 03/24/17 21:00 04/23/17 20:59 03/24/17 20:35 150 MG Tamsulosin HCl (Flomax Cap) 0.4 mg HS PO 03/24/17 21:00 04/23/17 20:59 03/24/17 20:35 0.4 MG Venlafaxine HCl (effeXOR EXTENDED REL CAP) 187.5 mg HS PO 03/24/17 21:00 04/23/17 20:59 03/24/17 20:36 187.5 MG Ascorbic Acid (Vitamin C Tab) 500 mg BID PO 03/24/17 21:00 04/23/17 20:59 03/25/17 08:15 500 MG Calcium/Vitamin D (Caltrate Plus Tab) 1 tab QAM PO 03/25/17 09:00 04/24/17 08:59 Cholecalciferol (Vitamin D Tab) 2,000 inter.unit HS PO 03/24/17 21:00 04/23/17 20:59 03/24/17 21:21 2,000 INTER.UNIT Metoprolol Tartrate (Lopressor Tab) 75 mg BID PO 03/24/17 18:00 04/23/17 17:59 03/25/17 08:15 75 MG Diltiazem HCl 125 mg/Dextrose 125 ml @ 0 mls/hr Q0M PRN IV 03/24/17 15:15 04/23/17 15:14 03/25/17 01:18 10 MLS/HR Ceftriaxone Sodium 2000 mg/ Dextrose 70 ml @ 140 mls/hr Q24H IV 03/24/17 16:30 04/03/17 16:29 03/24/17 17:05 140 MLS/HR Potassium Chloride (Klor-Con Tab) 20 meq QAM ONCE PO 03/25/17 09:30 03/25/17 09:31 Digoxin 250 mcg/ Syringe 10 ml @ 2 mls/min TODAY@1200 ONCE IV 03/25/17 12:00 03/25/17 12:04 Digoxin (Lanoxin Tab) 0.125 mg TODAY@1600 ONCE PO 03/26/17 16:00 03/26/17 16:01 Review of Systems Review of Systems Constitutional: No fever, No chills Eyes: No double vision Neurological: No dizzy Endocrine: No excessive thirst Gastrointestinal: No abdominal pain, No nausea, No vomiting Cardiovascular: No chest pain Respiratory: + shortness of breath (O2 sat of 88. Nasal cannula O2 started by RN during my visit. Hospitalist to be notified. ) Skin: No rash Musculoskeletal: + arthritis Female : No painful urination, No blood in urine Physical Exam Vital Signs: Vital Signs Past 12 Hours Date Time Temp Pulse Resp B/P (MAP) Pulse Ox O2 Delivery O2 Flow Rate FiO2 03/25/17 07:35 37.6 113 20 124/72 (89) 93 Mask 2.0 03/25/17 04:12 123/67 (85) 03/25/17 04:00 Oxymask 2.0 03/25/17 03:40 36.9 106 20 98/67 (77) 92 Mask 03/24/17 23:59 Oxymask 2.0 03/24/17 23:49 37.6 99 20 125/90 (102) 93 Mask Physical Exam: General Appearance: no apparent distress Eyes: bilateral eyes normal inspection ENT: hearing grossly normal Neck: no JVD Respiratory/Chest: no respiratory distress, no accessory muscle use Cardiovascular: no JVD Extremities: normal inspection Neurologic/Psychiatric: alert, normal mood/affect Skin: warm/dry Assessment & Plan Assessment & Plan A/P: UTI, chronic indwelling schuster catheter, hx of hydronephrosis, ARF Continue IV abx pending culture sensitivities. Given her hx of hydronephrosis and current renal insufficiency, will check a CT of the abd/pelvis to r/o hydro or stone. Will leave schuster catheter in place for now. Thanks for the consult. Will continue to follow along with primary service at this time.
--- NOTE | 2017-03-25 10:35 | Clinical Documentation Query ---
QUERY 1 OF [address] LONGO, In your clinical opinion is this patient being managed for: ( x ) UTI due to chronic schuster catheter ( ) Other explanation of clinical findings (Please Explain) ( ) Unable to determine (Please Define) ( ) Need to Discuss ( ) Not Agree The medical record reflects the following clinical findings, treatment, and risk factors. Clinical Indicators: 72 yo female presenting with UTI and sepsis. Noted to have a chronic Schuster catheter. Treatment: IV cipro, blood and urine cx, IV rocephin, urology consult, IV fluids, change schuster catheter Risk Factors:chronic schuster catheter QUERY 2 OF 2 In your clinical opinion is this patient being managed for: ( x) Metabolic encephalopathy ( ) Other explanation of clinical findings (Please Explain) ( ) Unable to determine (Please Define) ( ) Need to Discuss ( ) Not Agree The medical record reflects the following clinical findings, treatment, and risk factors. Clinical Indicators: Documentation reflects pt with confusion. O2 sat 88% on RA in ER, WBC 15.98, Cr 1.60. Tachycardic with heart rate as high as 144 Treatment: tele, IV cipro, IV rocephin, IV fluids, change schuster, cardiology and urology consults, IV cardizem, O2 support Risk Factors: hypoxia, sepsis, UTI, Afib RVR, MONA Please clarify and document your clinical opinion in the progress notes and discharge summary. Terms such as "probable", "suspected", "likely", "questionable", "possible", or "still to be ruled out" are acceptable. IF IN AGREEMENT, YOU MUST DOCUMENT ABOVE DIAGNOSTIC STATEMENT IN DAILY PROGRESS NOTES AND DISCHARGE SUMMARY. This document is not part of the patient's record. Thank You, Crista Manrique, RN [phone]
--- NOTE | 2017-03-25 10:56 | DIAGNOSTIC IMAGING REPORT ---
ABD/PELVIS WITHOUT FOR STONE CLINICAL HISTORY: 72 years-old Female presenting with sepsis, ARF, hx of hydro. TECHNIQUE: Multidetector CT of the abdomen and pelvis was performed without the use of intravenous contrast. IV contrast: None. A dose lowering technique was used consistent with the principles of ALARA (as low as reasonably achievable). COMPARISON: CT from 01/24/2016. CT DOSE: The estimated cumulative dose is 926.33 mGycm. FINDINGS: House Shorer topogram: 2 lag screws across the left femoral neck noted, the more inferior of which is not flush with the cortical surface. Lung bases: Dependent consolidation bilaterally. Normal heart size. No pericardial or pleural effusion. Aortic valve calcification. Liver: Normal morphology. Normal density. Few parenchymal calcifications noted, possibly prior granulomatous disease. Biliary: No gross evidence of significant biliary ductal dilatation. Layering density within the gallbladder likely indicate sludge. Pancreas: Coarse calcification may be present within the uncinate, nonspecific and possibly vascular in etiology. Spleen: Normal. Adrenal glands: Normal. Kidneys and ureters: Severe atrophy of the right kidney relative to the left. Multiple nonobstructing calculi noted within the left renal collecting system at the lower pole, the largest measuring 7 mm. Mild left pelvocaliectasis. Dilatation of the proximal left ureter with 2 adjacent stones, the larger measuring 7 mm and the smaller immediately superior to this. Distal left ureter clear of calculi is not significantly distended. Gastrointestinal tract: Moderate stool burden throughout the normal caliber colon. No significant bowel wall thickening. No significant distention of small bowel. No bowel obstruction. Peritoneal cavity: No free fluid or intraperitoneal gas. Bladder: Decompressed with a Cotto catheter. Pelvic organs: Normal uterus. No adnexal masses. Vasculature: Atherosclerosis of the abdominal aorta. Focal outpouching along the left posterior-lateral aspect in the infrarenal aorta. This outpouching extends 10 mm beyond the expected confines of the lumen along proximally 12 mm of the circumference. No periaortic inflammatory change to suggest rupture. Lymph nodes: No enlarged lymph nodes in the abdomen or pelvis. Abdominal wall: Normal. Musculoskeletal: Sclerosis and mild erosive changes noted with near complete loss of disc height at T8-9. No other significant degenerative change. 2 lag screws noted across the left femoral neck. IMPRESSION: 1. Sclerosis and mild erosive changes with complete loss of disc height at T8-9. This appearance may represent erosive degenerative change, although discitis osteomyelitis could also have this appearance in the appropriate clinical setting. Further evaluation with contrast-enhanced MR of the spine could be obtained if clinically warranted. 2. Dependent bibasilar consolidation may represent atelectasis. 3. Mild left hydronephrosis with obstructing 7 mm proximal left ureteral calculus. Adjacent smaller proximal left ureteral calculus. Additional nonobstructing left renal calculi. 4. Severe atrophy of the right kidney. 5. 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 No periaortic inflammatory change to suggest rupture. The report will be called/faxed according to standard departmental protocol. Electronically signed by: Asad Mina M.D. 03/25/2017 10:55 AM Dictated Date/Time: 03/25/2017 10:39 AM
--- NOTE | 2017-03-25 11:14 | Cardiology Consultation ---
Cardiology Consultation Date of Consultation: Mar 25, 2017. Requesting Physician: Dr. España Reason for Consultation: Atrial fibrillation with rapid ventricular response Pt evaluation today including: conversation w/ patient, physical exam, lab review, review of studies, review of inpatient medication list History of Present Illness This is a 72-year-old woman with a history of hepatitis, pulmonary emboli, bipolar disorder with depression, myeloproliferative disorder, hypertension and COPD. She also has history of renal insufficiency. She does have a history of atrial fibrillation which was identified on September 2013 admission, although there is no mention of it in her discharge summary from that admission. She was however discharged on metoprolol 100 mg twice a day from that admission. Her presentation now was prompted by an altered mental status and 3 falls within the last 2 days. She denies loss of consciousness but apparently slid out of her wheelchair and did not sustain any significant injury. In the emergency room she was observed to have atrial fibrillation with a rapid heart rate, this appears to be paroxysmal. She was started on intravenous Cardizem. She is on 2 different calcium blockers at [facility], amlodipine and felodipine, but not on any AV fabiana blocking medications. She does answer questions, but does not appear to be oriented in the room this morning. She tells me she can feel her heart beat, but she cannot describe it. She denies chest discomfort or shortness of breath. She doesn't recall having palpitations in the past. Past Medical/Surgical History (1) Anemia (2) Monoclonal B-cell lymphocytosis of unknown significance (3) Thrombocytopenia (4) Hypercalcemia (5) Atrial flutter Family History Diabetes mellitus Hypertension Social History Smoking Status: Current Every Day Smoker History of Alcohol Use: No Review of Systems Constitutional: No fever, No weight loss, No weakness Respiratory: No cough, No wheezing, No shortness of breath, No dyspnea on exertion Cardiac: No chest pain, No orthopnea, No PND, No edema, No palpitations Abdomen: No pain, No nausea, No vomiting, No diarrhea, No GI bleeding Female : No problem reported Neurologic: No paralysis, No weakness, No numbness/tingling, No balance problems Heme: No abnormal bleeding/bruising, No clotting problems Endo: No fatigue Skin: No problem reported Her review of systems may not be reliable due to mental status issues All Other Systems: Reviewed and Negative Allergies Coded Allergies: Dust Mite Extract (Verified Allergy, Unknown, DUST MITES, 03/24/17) Hydrochlorothiazide (Verified Allergy, Unknown, PT UNSURE, 03/24/17) POLLEN (Verified Allergy, Unknown, HAYFEVER, 03/24/17) Medications Current Inpatient Medications Medications (Trade) Dose Ordered Sig/Lee Ann Route Start Time Stop Time Status Last Admin Dose Admin Heparin Sodium (Porcine) (Heparin Sq 5000 Unit/0.5ml) 5,000 unit Q8 SQ 03/24/17 22:00 04/23/17 21:59 03/25/17 05:35 5,000 UNIT Sodium Chloride 1,000 ml @ 100 mls/hr Q10H IV 03/24/17 14:06 04/23/17 14:05 03/25/17 05:36 100 MLS/HR Acetaminophen (Tylenol Tab) 650 mg Q4H PRN PO 03/24/17 14:15 04/23/17 14:14 Ondansetron HCl (Zofran Inj) 4 mg Q6H PRN IV 03/24/17 14:15 04/23/17 14:14 Polyethylene (Miralax Powder Packet) 17 gm DAILY PRN PO 03/24/17 14:15 04/23/17 14:14 Baclofen (Lioresal Tab) 5 mg QPM PO 03/24/17 21:00 04/23/17 20:59 03/24/17 20:33 5 MG Docusate Sodium (coLACE CAP) 100 mg QPM PO 03/24/17 21:00 04/23/17 20:59 03/24/17 20:33 100 MG Felodipine (Plendil Tabcr) 2.5 mg HS PO 03/24/17 21:00 04/23/17 20:59 Future Hold 03/24/17 21:21 2.5 MG Salmeterol Xinafoate/ Fluticasone (Advair Diskus 500/50 Inh) 1 puff BID INH 03/24/17 21:00 04/23/17 20:59 03/25/17 08:14 1 PUFF Gabapentin (Neurontin Cap) 300 mg TID PO 03/24/17 21:00 04/23/17 20:59 03/25/17 08:14 300 MG Hydroxyurea (Hydrea Cap) 500 mg MoWeFr@0900 PO 03/24/17 18:00 8/18/17 17:59 03/24/17 18:56 500 MG Albuterol/ Ipratropium (Combivent Respimat Inh) 1 puffs Q6 INH 03/24/17 18:00 04/23/17 17:59 Levothyroxine Sodium (Synthroid Tab) 25 mcg DAILYBB PO 03/25/17 06:00 04/24/17 06:59 03/25/17 05:37 25 MCG Montelukast Sodium (Singulair Tab) 10 mg QPM PO 03/24/17 21:00 04/23/17 20:59 03/24/17 20:33 10 MG Polyethylene (Miralax Powder Packet) 17 gm QAM PO 03/25/17 09:00 04/24/17 08:59 03/25/17 08:14 17 GM Ranitidine HCl (zANTac TAB) 150 mg HS PO 03/24/17 21:00 04/23/17 20:59 03/24/17 20:35 150 MG Tamsulosin HCl (Flomax Cap) 0.4 mg HS PO 03/24/17 21:00 04/23/17 20:59 03/24/17 20:35 0.4 MG Venlafaxine HCl (effeXOR EXTENDED REL CAP) 187.5 mg HS PO 03/24/17 21:00 04/23/17 20:59 03/24/17 20:36 187.5 MG Ascorbic Acid (Vitamin C Tab) 500 mg BID PO 03/24/17 21:00 04/23/17 20:59 03/25/17 08:15 500 MG Calcium/Vitamin D (Caltrate Plus Tab) 1 tab QAM PO 03/25/17 09:00 04/24/17 08:59 03/25/17 09:52 1 TAB Cholecalciferol (Vitamin D Tab) 2,000 inter.unit HS PO 03/24/17 21:00 04/23/17 20:59 03/24/17 21:21 2,000 INTER.UNIT Metoprolol Tartrate (Lopressor Tab) 75 mg BID PO 03/24/17 18:00 04/23/17 17:59 03/25/17 08:15 75 MG Diltiazem HCl 125 mg/Dextrose 125 ml @ 0 mls/hr Q0M PRN IV 03/24/17 15:15 04/23/17 15:14 03/25/17 01:18 10 MLS/HR Ceftriaxone Sodium 2000 mg/ Dextrose 70 ml @ 140 mls/hr Q24H IV 03/24/17 16:30 04/03/17 16:29 03/24/17 17:05 140 MLS/HR Digoxin 250 mcg/ Syringe 10 ml @ 2 mls/min TODAY@1200 ONCE IV 03/25/17 12:00 03/25/17 12:04 Digoxin (Lanoxin Tab) 0.125 mg TODAY@1600 ONCE PO 03/26/17 16:00 03/26/17 16:01 Physical Exam Vital Signs Past 12 Hours Date Time Temp Pulse Resp B/P (MAP) Pulse Ox O2 Delivery O2 Flow Rate FiO2 03/25/17 09:53 113 03/25/17 08:00 Nasal Cannula 03/25/17 07:35 37.6 113 20 124/72 (89) 93 Mask 2.0 03/25/17 04:12 123/67 (85) 03/25/17 04:00 Oxymask 2.0 03/25/17 03:40 36.9 106 20 98/67 (77) 92 Mask 03/24/17 23:59 Oxymask 2.0 03/24/17 23:49 37.6 99 20 125/90 (102) 93 Mask Constitutional: Level of Distress: mild distress Psychiatric: Mental Status: active & alert Head: normocephalic Eyes: EOM: EOMI ENMT: normal ENT inspection, hearing grossly normal Neck: supple, no masses Lungs: Respiratory effort: no dyspnea, good air movement Auscultation: breath sounds normal, no wheezing, dry rales/crackles Cardiovascular: Heart Auscultation: no murmurs, no rubs, no gallops, tachycardia, irregular rate rhythm Peripheral Pulses: Bruits: none appreciated Abdomen: Bowel Sounds: normal Inspection & Palpation: soft, no tenderness, guarding & rebound, no masses Musculoskeletal: normal strength (5/5 throughout) Extremities: no edema Neurologic: Cranial Nerves: grossly intact Sensation: grossly intact Data Laboratory Results: Last 24 Hours Test 03/24/17 11:11 03/24/17 11:21 03/24/17 18:10 03/25/17 01:52 Lactic Acid Level 0.8 mmol/L Urine Color YELLOW Urine Appearance SL CLOUDY Urine pH 7.5 Urine Specific [place] 1.015 Urine Protein 2+ Urine Glucose (UA) NEG Urine Ketones NEG Urine Occult Blood 2+ Urine Nitrite POS Urine Bilirubin NEG Urine Urobilinogen NEG Urine Leukocyte Esterase LARGE Urine RBC 0-4 /hpf Urine WBC >30 /hpf Urine Epithelial Cells 0-5 /lpf Urine Bacteria 2+ Troponin I < 0.015 ng/ml < 0.015 ng/ml Test 03/25/17 06:20 White Blood Count 11.86 K/uL Red Blood Count 3.72 M/uL Hemoglobin 12.0 g/dL Hematocrit 36.5 % Mean Corpuscular Volume 98.1 fL Mean Corpuscular Hemoglobin 32.3 pg Mean Corpuscular Hemoglobin Concent 32.9 g/dl Platelet Count 268 K/uL Mean Platelet Volume 10.1 fL Neutrophils (%) (Auto) 83.7 % Lymphocytes (%) (Auto) 6.6 % Monocytes (%) (Auto) 9.3 % Eosinophils (%) (Auto) 0.1 % Basophils (%) (Auto) 0.0 % Neutrophils # (Auto) 9.94 K/uL Lymphocytes # (Auto) 0.78 K/uL Monocytes # (Auto) 1.10 K/uL Eosinophils # (Auto) 0.01 K/uL Basophils # (Auto) 0.00 K/uL RDW Standard Deviation 52.0 fL RDW Coefficient of Variation 14.7 % Immature Granulocyte % (Auto) 0.3 % Immature Granulocyte # (Auto) 0.03 K/uL Red Blood Cell Morphology Unremarkable Sodium Level 139 mmol/L Potassium Level 3.4 mmol/L Chloride Level 105 mmol/L Carbon Dioxide Level 25 mmol/L Anion Gap 9.0 mmol/L Blood Urea Nitrogen 28 mg/dl Creatinine 1.40 mg/dl Est Creatinine Clear Calc Drug Dose 32.9 ml/min Estimated GFR () 44.0 Estimated GFR (Non- 38.0 BUN/Creatinine Ratio 19.7 Random Glucose 103 mg/dl Calcium Level 8.7 mg/dl Imaging: No evidence of congestive heart failure or other significant abnormality. EKG: Several echocardiograms are available for review, one shows atrial fibrillation converting to sinus rhythm toward the end of the recording, the other shows atrial fibrillation with rapid ventricular response. No acute changes. Telemetry reviewed: Initially she was in sinus rhythm followed quickly by atrial fibrillation with a rapid ventricular response on arrival. The rate as been variable since on intravenous Cardizem. She has had intermittent episodes of sinus rhythm in addition to her atrial fibrillation. Assessment & Plan #1. Atrial fibrillation with rapid ventricular response, paroxysmal: She has a history of atrial fibrillation, he was identified in September 2013, and I suspect she has had it in the interim as well although perhaps not documented. Options include rate control versus rhythm control, plus anticoagulation. I would recommend rate control at the moment, on Cardizem 10 mg per hour in addition to her beta blockade she does not have adequate rate control. I'm going to go up to 15 mg per hour now and add digoxin (her blood pressure is borderline low at times) was a loading dose of 0.5 mg today. If we do not get adequate rate control at this we can go up on the diltiazem or increase her beta blockade. If we have difficulty with rate control or if we develop bradycardia during sinus rhythm we will need to consider rhythm control (I would use amiodarone) or pacemaker implantation with creation of AV block. For now however I will try rate control. Thank you for allowing me to participate in her care.
--- NOTE | 2017-03-25 11:22 | Hospitalist Progress Note ---
Hospitalist Progress Note Date of Service Mar 25, 2017. (Venecia Lucas ., PA-C) Subjective Pt evaluation today including: conversation w/ patient, conversation w/ family (son- on phone), physical exam, chart review, lab review, review of studies, review of inpatient medication list Voiding: schuster catheter in place (draining concentrated yellow urine ) Patient voices no complaints this AM. Admits to frequent falls over the last few days. States she just fell out of her wheelchair. Does not know how/why she fell. Admits to bilateral lower extremity and neck pain due to falls. +weakness. Oriented to person/place, knows why she presented to the hospital. Tolerated breakfast well. Patient denies any fever, chills, sweats, lightheadedness, dizziness, vision changes, CP, palpitations, edema, SOB, wheezing, cough, abdominal pain, nausea, vomiting, diarrhea, urinary symptoms, melena, numbness/tingling, anxiety/ depression, active bleeding, or new skin discoloration/changes. (Venecia Lucas ., PA-C) Medications Current Inpatient Medications Medications (Trade) Dose Ordered Sig/Lee Ann Route Start Time Stop Time Status Last Admin Dose Admin Heparin Sodium (Porcine) (Heparin Sq 5000 Unit/0.5ml) 5,000 unit Q8 SQ 03/24/17 22:00 04/23/17 21:59 03/25/17 05:35 5,000 UNIT Sodium Chloride 1,000 ml @ 100 mls/hr Q10H IV 03/24/17 14:06 04/23/17 14:05 03/25/17 05:36 100 MLS/HR Acetaminophen (Tylenol Tab) 650 mg Q4H PRN PO 03/24/17 14:15 04/23/17 14:14 Ondansetron HCl (Zofran Inj) 4 mg Q6H PRN IV 03/24/17 14:15 04/23/17 14:14 Polyethylene (Miralax Powder Packet) 17 gm DAILY PRN PO 03/24/17 14:15 04/23/17 14:14 Baclofen (Lioresal Tab) 5 mg QPM PO 03/24/17 21:00 04/23/17 20:59 03/24/17 20:33 5 MG Docusate Sodium (coLACE CAP) 100 mg QPM PO 03/24/17 21:00 04/23/17 20:59 03/24/17 20:33 100 MG Felodipine (Plendil Tabcr) 2.5 mg HS PO 03/24/17 21:00 04/23/17 20:59 Future Hold 03/24/17 21:21 2.5 MG Salmeterol Xinafoate/ Fluticasone (Advair Diskus 500/50 Inh) 1 puff BID INH 03/24/17 21:00 04/23/17 20:59 03/25/17 08:14 1 PUFF Gabapentin (Neurontin Cap) 300 mg TID PO 03/24/17 21:00 04/23/17 20:59 03/25/17 08:14 300 MG Hydroxyurea (Hydrea Cap) 500 mg MoWeFr@0900 PO 03/24/17 18:00 04/23/17 17:59 03/24/17 18:56 500 MG Albuterol/ Ipratropium (Combivent Respimat Inh) 1 puffs Q6 INH 03/24/17 18:00 04/23/17 17:59 Levothyroxine Sodium (Synthroid Tab) 25 mcg DAILYBB PO 03/25/17 06:00 04/24/17 06:59 03/25/17 05:37 25 MCG Montelukast Sodium (Singulair Tab) 10 mg QPM PO 03/24/17 21:00 04/23/17 20:59 03/24/17 20:33 10 MG Polyethylene (Miralax Powder Packet) 17 gm QAM PO 03/25/17 09:00 04/24/17 08:59 03/25/17 08:14 17 GM Ranitidine HCl (zANTac TAB) 150 mg HS PO 03/24/17 21:00 04/23/17 20:59 03/24/17 20:35 150 MG Tamsulosin HCl (Flomax Cap) 0.4 mg HS PO 03/24/17 21:00 04/23/17 20:59 03/24/17 20:35 0.4 MG Venlafaxine HCl (effeXOR EXTENDED REL CAP) 187.5 mg HS PO 03/24/17 21:00 04/23/17 20:59 03/24/17 20:36 187.5 MG Ascorbic Acid (Vitamin C Tab) 500 mg BID PO 03/24/17 21:00 04/23/17 20:59 03/25/17 08:15 500 MG Calcium/Vitamin D (Caltrate Plus Tab) 1 tab QAM PO 03/25/17 09:00 04/24/17 08:59 03/25/17 09:52 1 TAB Cholecalciferol (Vitamin D Tab) 2,000 inter.unit HS PO 03/24/17 21:00 04/23/17 20:59 03/24/17 21:21 2,000 INTER.UNIT Metoprolol Tartrate (Lopressor Tab) 75 mg BID PO 03/24/17 18:00 04/23/17 17:59 03/25/17 08:15 75 MG Diltiazem HCl 125 mg/Dextrose 125 ml @ 0 mls/hr Q0M PRN IV 03/24/17 15:15 04/23/17 15:14 03/25/17 01:18 10 MLS/HR Ceftriaxone Sodium 2000 mg/ Dextrose 70 ml @ 140 mls/hr Q24H IV 03/24/17 16:30 04/03/17 16:29 03/24/17 17:05 140 MLS/HR Digoxin 250 mcg/ Syringe 10 ml @ 2 mls/min TODAY@1200 ONCE IV 03/25/17 12:00 03/25/17 12:04 Digoxin (Lanoxin Tab) 0.125 mg TODAY@1600 ONCE PO 03/26/17 16:00 03/26/17 16:01 (Venecia Lucas, PA-C) Objective Vital Signs Date Time Temp Pulse Resp B/P (MAP) Pulse Ox O2 Delivery O2 Flow Rate FiO2 03/25/17 09:53 113 03/25/17 08:00 Nasal Cannula 03/25/17 07:35 37.6 113 20 124/72 (89) 93 Mask 2.0 03/25/17 04:12 123/67 (85) 03/25/17 04:00 Oxymask 2.0 03/25/17 03:40 36.9 106 20 98/67 (77) 92 Mask 03/24/17 23:59 Oxymask 2.0 03/24/17 23:49 37.6 99 20 125/90 (102) 93 Mask 03/24/17 20:00 94 Oxymask 2.0 03/24/17 19:52 37.4 121 18 139/89 (106) 94 Nasal Cannula 2.0 03/24/17 18:57 124 138/69 (92) 95 Oxymask 2.0 03/24/17 17:34 125 124/92 (103) 03/24/17 17:06 144 118/100 (106) 03/24/17 16:55 113/74 (87) 03/24/17 16:18 94 Nasal Cannula 2.0 03/24/17 16:13 37.1 138 21 131/75 (93) 92 03/24/17 15:46 98 20 120/74 92 Nasal Cannula 2.0 03/24/17 15:40 109 20 128/74 91 Nasal Cannula 2.0 03/24/17 15:35 122 20 89/64 92 Nasal Cannula 2.0 03/24/17 15:20 95 20 106/78 92 Nasal Cannula 2.0 03/24/17 15:09 97 20 104/65 93 Nasal Cannula 2.0 03/24/17 14:47 92 20 137/73 94 Nasal Cannula 2.0 03/24/17 14:12 99 20 147/76 92 Nasal Cannula 2.0 03/24/17 13:10 93 Nasal Cannula 2.0 03/24/17 13:08 88 Room Air 03/24/17 13:06 112 20 147/76 89 Room Air 03/24/17 12:58 90 Room Air 03/24/17 12:57 103 03/24/17 12:32 36.9 03/24/17 12:01 102 20 147/76 94 Nasal Cannula 2.0 (Venecia Lucas, PA-C) Physical Exam General Appearance: no apparent distress, + pertinent finding (2L O2 NC ) Eyes: PERRL ENT: hearing grossly normal Neck: supple Respiratory/Chest: no respiratory distress, no accessory muscle use, + decreased breath sounds Cardiovascular: + irregularly irregular (rate controlled ) Abdomen: normal bowel sounds, non tender, soft Extremities: normal range of motion, no pedal edema, no calf tenderness Neurologic/Psychiatric: alert, normal mood/affect Skin: normal color, warm/dry, no rash (Venecia Lucas, PA-C) Laboratory Results Last 24 Hours Test 03/24/17 11:11 03/24/17 11:21 03/24/17 18:10 03/25/17 01:52 Lactic Acid Level 0.8 mmol/L Urine Color YELLOW Urine Appearance SL CLOUDY Urine pH 7.5 Urine Specific [place] 1.015 Urine Protein 2+ Urine Glucose (UA) NEG Urine Ketones NEG Urine Occult Blood 2+ Urine Nitrite POS Urine Bilirubin NEG Urine Urobilinogen NEG Urine Leukocyte Esterase LARGE Urine RBC 0-4 /hpf Urine WBC >30 /hpf Urine Epithelial Cells 0-5 /lpf Urine Bacteria 2+ Troponin I < 0.015 ng/ml < 0.015 ng/ml Test 03/25/17 06:20 White Blood Count 11.86 K/uL Red Blood Count 3.72 M/uL Hemoglobin 12.0 g/dL Hematocrit 36.5 % Mean Corpuscular Volume 98.1 fL Mean Corpuscular Hemoglobin 32.3 pg Mean Corpuscular Hemoglobin Concent 32.9 g/dl Platelet Count 268 K/uL Mean Platelet Volume 10.1 fL Neutrophils (%) (Auto) 83.7 % Lymphocytes (%) (Auto) 6.6 % Monocytes (%) (Auto) 9.3 % Eosinophils (%) (Auto) 0.1 % Basophils (%) (Auto) 0.0 % Neutrophils # (Auto) 9.94 K/uL Lymphocytes # (Auto) 0.78 K/uL Monocytes # (Auto) 1.10 K/uL Eosinophils # (Auto) 0.01 K/uL Basophils # (Auto) 0.00 K/uL RDW Standard Deviation 52.0 fL RDW Coefficient of Variation 14.7 % Immature Granulocyte % (Auto) 0.3 % Immature Granulocyte # (Auto) 0.03 K/uL Red Blood Cell Morphology Unremarkable Sodium Level 139 mmol/L Potassium Level 3.4 mmol/L Chloride Level 105 mmol/L Carbon Dioxide Level 25 mmol/L Anion Gap 9.0 mmol/L Blood Urea Nitrogen 28 mg/dl Creatinine 1.40 mg/dl Est Creatinine Clear Calc Drug Dose 32.9 ml/min Estimated GFR () 44.0 Estimated GFR (Non- 38.0 BUN/Creatinine Ratio 19.7 Random Glucose 103 mg/dl Calcium Level 8.7 mg/dl (Venecia Lucas, RONANC) Assessment and Plan This is 72 y/o F with PMHx of HTN, COPD, anemia of chronic disease, cervical disk disease, chronic hep C, hx of PE, hx of stroke, hypercalcemia, hx of esophageal ulcers, left hydronephrosis in Jul 2016 with chronic indwelling schuster , hx of depression with suicidal attempt via narcotic pill overdose, who presents from [facility] s/p 3 falls in the past two days and altered mental status. Metabolic encephalopathy, likely secondary to urosepsis: - Admit to telemetry for cardiac monitoring- a.fib, rate trending down - UCx- growing Proteus species - IV Cipro 400 mg x1 dose on 03/24 in ED- d/'d; IV Rocephin 2g started on 03/24- d /c'd; IV Ertapenem started in 03/25 -- Leukocytosis- IMPROVING, follow CBC - BCx pending; lactic acid negative - Consult infectious disease, appreciate recommendations Paroxysmal a.fib w/ RVR, likely secondary to acute infectious process: - Tele for cardiac monitoring - IV Cardizem gtt protocol - Continue Metoprolol 75 mg BID - Check mag level tomorrow AM - ECHO - Cardiology consult, appreciate recommendations -- Rate control w/ IV Cardizem and IV Digoxin 250 mcg x2 doses, then PO Digoxin 0.125 mg x1 dose- if unsuccessful, rhythm control vs pacemaker Mild hypokalemia: Replace w/ 20 mEq KCL x1 on 03/25- follow PRP and replace PRN Acute hypoxic respiratory failure, likely secondary to sepsis, vs less likely PNA, COPD exacerbation, or PE/chronic COPD: - O2 protocol, wean as tolerated- currently requiring 2L NC- does NOT wear O2 supplement at home - CXR on 03/24- mild left basilar opacity favors atelectasis. No acute cardiopulmonary findings. No significant change in appearance of the chest -- Repeat CXR on 03/25- negative for acute processes - Abdominal/pelvic CT on 03/25- Dependent bibasilar consolidation may represent atelectasis. - h/o PE/CVA- on no outpatient anticoagulation- low threshold, continue to monitor; if O2 does not improve, consider CTA - Continue Advair and Combivent MONA on CKD stage III, baseline Cr. 0.8- IMPROVING/chronic indwelling catheter- changed 03/24: - IVF with NSS at 100ml/hr - Lasix 40 mg BID held- monitor I&Os and daily weights, watch for fluid overload - Continue Flomax 0.4 mg QHS - Consult urology, appreciate recommendations -- CT of the abd/pelvis to r/o hydro or stone- Mild left hydronephrosis with obstructing 7 mm proximal left ureteral calculus. -- Planning for L cysto/stent on 03/25 HTN- STABLE: Hold Amlodipine 10 mg daily and Felodipine 2.5 mg HS due IV Cardizem drip Hypothyroidism: - Continue Levothyroxine 25 mcg daily - TSH on 03/24/17- WNL Depression, bipolar disorder- STABLE: - Continue Effexor XR 187.5 mg HS - h/o drug use- drug screen negative h/o myeloproliferative disorder: Continue Hydrea 500 mg M,W,F Cervical disk disease: - Tramadol 50 mg BID PRN held due to AMS - Continue Baclofen 5 mg HS, Gabapentin 300 mg TID GERD, h/o esophageal ulcers: Continue Ranitidine 150 mg daily DVT prophylaxis: Heparin SQ q8 hrs Code Status: LEVEL V, DNR Disposition: Resident of [facility]- return once medically stable- social media community manager following (Venecia Lucas ., PA-C) PA Physician Supervision Note: I interviewed and examined the patient. Discussed with Venecia Lucas PAC and agree with findings and plan as documented in the note. Any exceptions or clarifications are listed here: None Patient is much more appropriate and oriented, she has no real complaints, she is updated on her plan of care including the hydronephrosis and renal stone Vital signs are reviewed she remains in A. 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, anemia of chronic disease, cervical disk disease, chronic hep C, hx of PE, hx of stroke, hypercalcemia, hx of esophageal ulcers, left hydronephrosis in Jul 2016 with chronic indwelling schuster, hx of depression with suicidal attempt via narcotic pill overdose Metabolic encephalopathy from uti associated with chronic schuster catheter use New onset afib with RVR metoprolol tartrate 75 mg BID, cardiology consult is adding digoxin OMNA IVF - Hold Lasix and other nephrotoxins, does have history of a left- sided hydronephrosis last July associated with UTI and MONA Flomax 0.4 mg QHS, CT shows left sided hydro and stone. 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 GERD ranitidine 150 mg daily DVT prophylaxis: Teds, SCDs, subcutaneous heparin CODE STATUS: DO NOT RESUSCITATE Disposition: Patient from [facility], PT/OT eval's, CM to assist with discharge planning Documented By: Brady Hall (Brady Hall M.D.)
[2017-03-25] MEDS ORDERED: ERTAPENEM IV 1 GM in SODIUM CHLOR 0.9% AD-VAN 50ML 50 ML IV SCH (13:00)
--- NOTE | 2017-03-25 14:04 | DIAGNOSTIC IMAGING REPORT ---
CHEST 2 VIEWS ROUTINE CLINICAL HISTORY: assess for pneumonia dyspnea COMPARISON STUDY: No previous studies for comparison. FINDINGS: Mild bibasilar platelike atelectasis. Heart top limits normal terms of size. Upper lungs are clear. IMPRESSION: Mild basilar atelectasis. Otherwise negative study. The above report was generated using voice recognition software. It may contain grammatical, syntax or spelling errors. Electronically signed by: Nikolas Parada M.D. 03/25/2017 2:02 PM Dictated Date/Time: 03/25/2017 1:49 PM
--- NOTE | 2017-03-25 15:02 | ECHOCARDIOGRAM REPORT ---
*NOTICE TO RECEIVING REPUBLICAN AGENCY This information is strictly Confidential and protected under [place] law. [place] law prohibits you from making any further disclosure of this information unless further disclosure is expressly permitted by the written consent of the person to whom it pertains or is authorized by law. A general authorization for the release of medical or other information is not sufficient for this purpose. Hospital accepts no responsibility if the information is made available to any other person, INCLUDING THE PATIENT. Interpretation Summary * Name: BRAULIO BUSBY Study Date: 03/25/2017 06:33 AM * Patient Location: [facility] HR: 121 * : 1945 (M/d/yyyy) Gender: Female Height: 60 in * Age: 72 yrs Ethnicity: [place] Weight: 154 lb * Ordering Physician: Bianca España * Referring Physician: Braeden Ojeda * Performed By: Jarvis Styles RCS * * Reason For Study: A-Fib * BSA: 1.7 * -- Conclusions -- * Left ventricular systolic function is normal. * The left atrium is mildly dilated. * The right atrium is mild to moderately dilated. Procedure Details * The study was technically difficult. * A contrast injection of Definity was performed to improve assessment of LV function. * Contrast was injected into an intravenous site in the left arm. * One vial of Definity ultrasound contrast was diluted in normal saline to a total volume of 10 ml. A total of '3' ml of solution was administered during imaging. * Lot # [id number] of Definity utilized for procedure. * Expiration date 1A. * The attending nurse who injected the contrast agent was Agnes Pope RN. * Overall image quallity was sub-optimal. Left Ventricle * The left ventricle is normal in size. * There is normal left ventricular wall thickness. * Ejection Fraction = >70 %. * Left ventricular systolic function is normal. Right Ventricle * The right ventricle is grossly normal size. * The right ventricular systolic function is normal. Atria * The left atrium is mildly dilated. * The right atrium is mild to moderately dilated. Mitral Valve * The mitral valve is grossly normal. * There is no mitral regurgitation noted. Tricuspid Valve * The tricuspid valve is not well visualized. Aortic Valve * The aortic valve is not well visualized. * No hemodynamically significant valvular aortic stenosis. * There is no significant aortic regurgitation. Great Vessels * The aortic root is normal size. Pericardium/Pleural * There is no pericardial effusion. MMode 2D Measurements and Calculations IVSd 0.82 cm LVIDd 3.7 cm LVIDs 2.0 cm LVPWd 0.97 cm IVS/LVPW 0.84 FS 45.4 % EDV(Teich) 57.0 ml ESV(Teich) 12.8 ml EF(Teich) 77.6 % EDV(cubed) 49.4 ml ESV(cubed) 8.0 ml EF(cubed) 83.7 % LV mass(C)d 94.5 grams LV mass(C)dI 56.6 grams/m\S\2 SV(Teich) 44.2 ml SI(Teich) 26.5 ml/m\S\2 SV(cubed) 41.4 ml SI(cubed) 24.8 ml/m\S\2 Ao root diam 3.0 cm Ao root area 6.9 cm\S\2 LVOT diam 2.0 cm LVOT area 3.0 cm\S\2 LVAd ap4 18.8 cm\S\2 LVLd ap4 7.7 cm EDV(MOD-sp4) 37.7 ml EDV(sp4-el) 38.7 ml LVAs ap4 6.7 cm\S\2 LVLs ap4 6.7 cm ESV(MOD-sp4) 6.0 ml ESV(sp4-el) 5.7 ml EF(MOD-sp4) 84.0 % EF(sp4-el) 85.4 % LVAd ap2 18.8 cm\S\2 LVLd ap2 7.6 cm EDV(MOD-sp2) 38.5 ml EDV(sp2-el) 39.5 ml LVAs ap2 9.4 cm\S\2 LVLs ap2 6.3 cm ESV(MOD-sp2) 11.8 ml ESV(sp2-el) 11.9 ml EF(MOD-sp2) 69.2 % EF(sp2-el) 69.8 % LVLd %diff -1.85 % EDV(MOD-bp) 38.3 ml LVLs %diff -5.68 % ESV(MOD-bp) 8.5 ml EF(MOD-bp) 77.8 % SV(MOD-sp4) 31.7 ml SI(MOD-sp4) 19.0 ml/m\S\2 SV(MOD-sp2) 26.6 ml SI(MOD-sp2) 15.9 ml/m\S\2 SV(MOD-bp) 29.8 ml SI(MOD-bp) 17.9 ml/m\S\2 SV(sp4-el) 33.0 ml SI(sp4-el) 19.8 ml/m\S\2 SV(sp2-el) 27.6 ml SI(sp2-el) 16.5 ml/m\S\2 Doppler Measurements and Calculations Ao V2 max 101.9 cm/sec Ao max PG 4.2 mmHg Ao max PG (full) 1.7 mmHg NATALEE(V,A) 2.3 cm\S\2 NATALEE(V,D) 2.3 cm\S\2 LV V1 max PG 2.4 mmHg LV V1 max 77.8 cm/sec
[2017-03-25] MEDS ORDERED: FENTANYL CITRATE INJ 50 MCG/1 ML 2 ML VIAL ONE (17:28)
[2017-03-25] MEDS ORDERED: MIDAZOLAM HCL 1 MG/ML 2ML VIAL ONE (17:29)
[2017-03-25] MEDS ORDERED: CONRAY 30% 150ML BOTTLE ONE (17:32)
--- NOTE | 2017-03-25 17:32 | History & Physical Bridge Note ---
H&P Re-Evaluation Bridge Note: I have examined the patient, reviewed the History & Physical and in the interval since the performance of the History & Physical I have noted the following changes of clinical significance: No changes noted
--- NOTE | 2017-03-25 18:33 | [facility] Post Operative Brief Note ---
Immediate Operative Summary Operative Date Mar 25, 2017. Pre-Operative Diagnosis Obstructing left proximal left ureteral stone with urosepsis Post-Operative Diagnosis Same Procedure(s) Performed Cystoscopy, Left Ureteral Stent Insertion Surgeon Dr. Kirby Collection Coordinator Surgeon(s) none Estimated Blood Loss 0mL Findings left hydronephrosis Specimens none, Per Surgeon Drains 6x26 left stent Anesthesia gen Complication(s) None Disposition Recovery Room / PACU
[2017-03-25] MEDS ORDERED: PROPOFOL IV EMULSION 10 MG/ML 20 ML VIAL IV ONE (18:39)
--- NOTE | 2017-03-25 18:42 | DIAGNOSTIC IMAGING REPORT ---
FLUOROSCOPIC IMAGES FROM LEFT RETROGRADE EXAM CLINICAL HISTORY: Cystoscopy. Stent placement. COMPARISON STUDY: CT of the abdomen and pelvis March 25, 2017. Fluoroscopy time: 35.7 seconds. FINDINGS: Single fluoroscopic image from a left retrograde exam demonstrates a left ureteral stent within a left lower pole calyx. There is left hydronephrosis. IMPRESSION: Fluoroscopic images from left retrograde exam with stent insertion. Electronically signed by: Eddy Sellers M.D. 03/25/2017 6:41 PM Dictated Date/Time: 03/25/2017 6:39 PM
--- NOTE | 2017-03-25 18:47 | Anesthesiology Progress Note ---
Anesthesia Post Op Note Date & Time Mar 25, 2017 at 18:47 Vital Signs Pain Intensity: 8.0 Vital Signs Past 12 Hours Date Time Temp Pulse Resp B/P (MAP) Pulse Ox O2 Delivery O2 Flow Rate FiO2 03/25/17 16:00 Nasal Cannula 03/25/17 15:44 37.3 106 18 101/81 (88) 95 Nasal Cannula 2.0 03/25/17 15:30 37.3 102 18 101/81 94 Nasal Cannula 2.0 03/25/17 14:53 95 92 03/25/17 12:00 Nasal Cannula 03/25/17 11:41 82 03/25/17 11:09 36.9 82 20 92/62 (72) 91 High Flow Oxygen 03/25/17 09:53 113 03/25/17 08:00 Nasal Cannula 03/25/17 07:35 37.6 113 20 124/72 (89) 93 Mask 2.0 Notes Mental Status: alert / awake / arousable, participated in evaluation Pt Amnestic to Procedure: Yes Nausea / Vomiting: adequately controlled Pain: adequately controlled Airway Patency, RR, SpO2: stable & adequate BP & HR: stable & adequate Hydration State: stable & adequate Anesthetic Complications: no major complications apparent
--- NOTE | 2017-03-25 18:59 | [facility] Operative Report ---
Operative Report Operative Date Mar 25, 2017. Pre-Operative Diagnosis Obstructing left proximal left ureteral stone with urosepsis Post-Operative Diagnosis Same Procedure(s) Performed Cystoscopy, Left Ureteral Stent Insertion Surgeon Dr. Kirby Tariff Clerk Surgeon(s) none Estimated Blood Loss 0mL Findings Cystoscopic exam revealed a normal urethra and bladder showed some inflammation there were no bladder tumors seen. Left retrograde showed an obstructing 7 mm proximal stone with hydronephrosis Specimens none, Per Surgeon Drains 6x26 left stent Anesthesia gen Complication(s) None Disposition Recovery Room / PACU Indications Patient is a 72 year-old white female was admitted to the hospital with urosepsis secondary to a 7 mm proximal left ureteral stone. She is being brought to the operating room for left stent placement. Description of Procedure After the induction of an adequate general anesthesia and appropriate timeout patient was placed in the dorsal lithotomy position. Lower abdomen and genitalia were prepped with Hibiclens draped in a sterile fashion. Using a 22 Urdu cystoscope routine cystoscopic exam was performed with the above-noted findings. Next using a 5 Urdu open-ended catheter left retrograde pyelogram was performed and then through this catheter a 0.038 guidewire was passed up the left ureter to position in the renal pelvis confirmed by fluoroscopy. A 6 Urdu by 26 cm stent was then passed over the guidewire under fluoroscopic guidance still positioned in the renal pelvis confirmed by fluoroscopy. The guidewire was removed and there was good curl at the bladder level. The cystoscope was then removed and a Cotto catheter was placed and hooked to gravity drainage. All needle sponge and instrument counts were correct at the end of the case. The patient tolerated the procedure well and was taken to the recovery room in stable condition I attest to the content of the Intraoperative Record and any orders documented therein. Any exceptions are noted below.
[2017-03-25] MEDS: DOCUSATE SODIUM 100 MG CAP PO SCH (21:02)
[2017-03-25] MEDS: VENLAFAXINE HCL XR 37.5 MG CAPXR PO SCH (21:04)
[2017-03-25] MEDS: TAMSULOSIN HCL 0.4 MG CAP PO SCH (21:04)
[2017-03-25] MEDS: BACLOFEN 10 MG TAB PO SCH (21:05)
[2017-03-25] MEDS: RANITIDINE HCL 150 MG TAB PO SCH (21:06)
[2017-03-25] MEDS: MONTELUKAST SOD 10 MG TAB PO SCH (21:06)
[2017-03-25] MEDS: CHOLECALCIFEROL 1000 INTER.UNIT TAB PO SCH (21:08)
[2017-03-26] VITALS (8 sets, daily range): BP systolic 122–150; BP diastolic 59–80; PULSE 57–80; TEMP 36.8–37.6; O2SAT 93–96
[2017-03-26] MEDS: IPRATROPIUM BROMIDE/ALBUTEROL respimat INH INH SCH ×4 (06:11→23:48)
[2017-03-26] MEDS: LEVOTHYROXINE 25 MCG TAB PO SCH (06:11)
[2017-03-26] MEDS: HEPARIN SOD 5000 UNIT/0.5 ML CARP SQ SCH ×3 (06:13→22:02)
[2017-03-26 06:27] LABS: COMPLETE YES; EOS % 1.5 %; HEMATOCRIT 31.6 % (37-47); IG% 0.3 %; LYMPH % 13.4 %; LYMPH ABS # 0.96 K/uL (1.2-3.4); MEAN CELL VOLUME 99.4 fL (80-100); MEAN CORPUSCULAR HEMOGLOBIN 32.4 pg (25-34); MEAN CORPUSCULAR HGB CONC 32.6 g/dl (32-36); MEAN PLATELET VOLUME 9.9 fL (7.4-10.4); MONO % 16.4 %; NEUT % 68.4 %; PLATELET COUNT 260 K/uL (130-400); RED BLOOD COUNT 3.18 M/uL (4.2-5.4); WHITE BLOOD COUNT 7.14 K/uL (4.8-10.8)
[2017-03-26 06:51] LABS: CALCIUM 8.1 mg/dl (8.5-10.1); CREATININE 1.1 mg/dl (0.60-1.20); MAGNESIUM 2.1 mg/dl (1.8-2.4); POTASSIUM 3.5 mmol/L (3.5-5.1)
[2017-03-26] MEDS: ASCORBIC ACID 500 MG TAB PO SCH ×2 (07:42→20:56)
[2017-03-26] MEDS: FLUTICASONE/SALMETEROL (ADVAIR) 500/50 INH 14 PUFF INH SCH ×2 (07:42→20:56)
[2017-03-26] MEDS: POLYETHYLENE (MIRALAX) 17 GM PACK PO SCH (07:42)
[2017-03-26] MEDS: GABAPENTIN 300 MG CAP PO SCH ×3 (07:43→20:56)
[2017-03-26] MEDS: HYDROXYUREA 500 MG CAP PO SCH (07:43)
[2017-03-26] MEDS: CALCIUM 600MG + VIT D 400 IU TAB PO SCH (07:44)
[2017-03-26] MEDS: METOPROLOL TARTRATE 25 MG TAB PO SCH ×2 (07:44→20:57)
--- NOTE | 2017-03-26 08:03 | Anesthesiology Progress Note ---
Anesthesia Post Op Note Date & Time Mar 26, 2017 at 08:02 Vital Signs Pain Intensity: 0 Vital Signs Past 12 Hours Date Time Temp Pulse Resp B/P (MAP) Pulse Ox O2 Delivery O2 Flow Rate FiO2 03/26/17 07:43 37.0 78 16 141/72 (95) 96 3.0 03/26/17 04:00 93 Nasal Cannula 2.0 03/26/17 03:28 37.2 78 20 145/80 (101) 93 Room Air 03/26/17 00:03 37.6 80 21 141/61 (87) 94 Nasal Cannula 3.0 03/26/17 00:00 94 Nasal Cannula 2.0 03/25/17 23:00 78 21 137/73 (94) 94 03/25/17 22:30 81 19 142/74 (96) 85 03/25/17 22:15 83 20 133/73 (93) 85 03/25/17 22:01 85 19 132/79 (96) 88 03/25/17 21:46 94 23 134/81 (98) 88 03/25/17 21:31 95 18 144/74 (97) 88 03/25/17 21:01 88 24 112/51 (71) 89 03/25/17 20:47 90 16 128/73 (91) 88 03/25/17 20:47 90 16 128/73 (91) 88 03/25/17 20:45 90 17 90 03/25/17 20:30 88 15 129/82 (98) 86 03/25/17 20:15 86 17 119/71 (87) 95 Notes Mental Status: alert / awake / arousable, participated in evaluation Pt Amnestic to Procedure: Yes Nausea / Vomiting: adequately controlled Pain: adequately controlled Airway Patency, RR, SpO2: stable & adequate BP & HR: stable & adequate Hydration State: stable & adequate Anesthetic Complications: no major complications apparent
--- NOTE | 2017-03-26 08:23 | Cardiology Follow-Up ---
Subjective Date of Service: Mar 26, 2017. Pt evaluation today including: conversation w/ patient, physical exam, lab review, review of studies, review of inpatient medication list History of Present Illness This is a 72-year-old woman with a history of hepatitis, pulmonary emboli, bipolar disorder with depression, myeloproliferative disorder, hypertension and COPD. She also has history of renal insufficiency. She does have a history of atrial fibrillation which was identified on September 2013 admission, although there is no mention of it in her discharge summary from that admission. She was however discharged on metoprolol 100 mg twice a day from that admission. Her presentation now was prompted by an altered mental status and 3 falls within the last 2 days. She denies loss of consciousness but apparently slid out of her wheelchair and did not sustain any significant injury. In the emergency room she was observed to have atrial fibrillation with a rapid heart rate, this appears to be paroxysmal. She was started on intravenous Cardizem. She is on 2 different calcium blockers at [facility], amlodipine and felodipine, but not on any AV fabiana blocking medications. She is in good spirits today, she has no complaints.. She denies chest discomfort or shortness of breath. She doesn't recall having palpitations now or in the past. Social History Smoking Status: Current Every Day Smoker History of Alcohol Use: No Review of Systems Respiratory: No cough, No wheezing, No shortness of breath, No dyspnea on exertion Cardiac: No chest pain, No orthopnea, No PND, No edema, No palpitations Her review of systems may not be reliable due to mental status issues Medications Cardiovascular: Item Value Date Time Metoprolol 75 mg 03/24/17 1800 Tartrate BID/PO 03/26/17 0744 (Lopressor Tab) Diltiazem HCl 125 125 ml @ 0 mls/hr 03/24/17 1515 mg/Dextrose .Q0M PRN/IV 03/25/17 1902 Objective Vital Signs Past 12 Hours Date Time Temp Pulse Resp B/P (MAP) Pulse Ox O2 Delivery O2 Flow Rate FiO2 03/26/17 07:43 37.0 78 16 141/72 (95) 96 3.0 03/26/17 04:00 93 Nasal Cannula 2.0 03/26/17 03:28 37.2 78 20 145/80 (101) 93 Room Air 03/26/17 00:03 37.6 80 21 141/61 (87) 94 Nasal Cannula 3.0 03/26/17 00:00 94 Nasal Cannula 2.0 03/25/17 23:00 78 21 137/73 (94) 94 03/25/17 22:30 81 19 142/74 (96) 85 03/25/17 22:15 83 20 133/73 (93) 85 03/25/17 22:01 85 19 132/79 (96) 88 03/25/17 21:46 94 23 134/81 (98) 88 03/25/17 21:31 95 18 144/74 (97) 88 03/25/17 21:01 88 24 112/51 (71) 89 03/25/17 20:47 90 16 128/73 (91) 88 03/25/17 20:47 90 16 128/73 (91) 88 03/25/17 20:45 90 17 90 03/25/17 20:30 88 15 129/82 (98) 86 Last Recorded Weight-Kilograms: 73.000 Physical Exam Constitutional: Level of Distress: mild distress Lungs: Respiratory effort: no dyspnea, good air movement Auscultation: breath sounds normal, no wheezing, dry rales/crackles Cardiovascular: Heart Auscultation: RRR, no murmurs, no rubs, no gallops Peripheral Pulses: Bruits: none appreciated Extremities: no edema Data Laboratory Results: Last 24 Hours Test 03/26/17 06:09 White Blood Count 7.14 K/uL Red Blood Count 3.18 M/uL Hemoglobin 10.3 g/dL Hematocrit 31.6 % Mean Corpuscular Volume 99.4 fL Mean Corpuscular Hemoglobin 32.4 pg Mean Corpuscular Hemoglobin Concent 32.6 g/dl Platelet Count 260 K/uL Mean Platelet Volume 9.9 fL Neutrophils (%) (Auto) 68.4 % Lymphocytes (%) (Auto) 13.4 % Monocytes (%) (Auto) 16.4 % Eosinophils (%) (Auto) 1.5 % Basophils (%) (Auto) 0.0 % Neutrophils # (Auto) 4.88 K/uL Lymphocytes # (Auto) 0.96 K/uL Monocytes # (Auto) 1.17 K/uL Eosinophils # (Auto) 0.11 K/uL Basophils # (Auto) 0.00 K/uL RDW Standard Deviation 53.6 fL RDW Coefficient of Variation 14.7 % Immature Granulocyte % (Auto) 0.3 % Immature Granulocyte # (Auto) 0.02 K/uL Sodium Level 144 mmol/L Potassium Level 3.5 mmol/L Chloride Level 113 mmol/L Carbon Dioxide Level 23 mmol/L Anion Gap 8.0 mmol/L Blood Urea Nitrogen 24 mg/dl Creatinine 1.10 mg/dl Est Creatinine Clear Calc Drug Dose 42.4 ml/min Estimated GFR () 58.9 Estimated GFR (Non- 50.8 BUN/Creatinine Ratio 22.0 Random Glucose 95 mg/dl Calcium Level 8.1 mg/dl Magnesium Level 2.1 mg/dl Digoxin Level 1.0 ng/ml Imaging: Echocardiography shows normal left ventricular systolic function with mild left atrial dilatation. Telemetry reviewed: Atrial fibrillation yesterday afternoon with a well- controlled heart rate after addition of digoxin and on IV diltiazem and oral beta blockade. Overnight in sinus rhythm. Assessment and Plan #1. Atrial fibrillation with rapid ventricular response, paroxysmal: She has a history of atrial fibrillation, this was identified in September 2013, and I suspect she has had it in the interim as well although perhaps not documented or symptomatic. Options include rate control versus rhythm control, plus anticoagulation. I would recommend rate control, on Cardizem 5 mg per hour in addition to her beta blockade and digoxin she seems to have adequate rate control. I am going to discontinue her IV diltiazem and add an oral dose, I will start with a low dose and I would recommend giving her digoxin 0.125 mg Wednesday and Wednesday (starting today) and continuing her beta blockade. Thank you for allowing me to participate in her care.
[2017-03-26] MEDS ORDERED: DIGOXIN 0.125 MG TAB PO ONE ×2 (09:15→16:00)
--- NOTE | 2017-03-26 10:19 | Medical Consult ---
Consultation Date of Consultation: Mar 26, 2017. Attending Physician: Brady Hall M.D. Reason for Consultation: Invanz History of Present Illness Patient is a 72-year-old female who presented to the emergency department with multiple falls prior to admission. The patient resides at [facility] Due to difficulty with walking. She states that prior to admission, she became very weak and fatigued. Since admission, the patient had blood cultures which are showing no growth. She had a urine culture which is growing Proteus mirabilis which is resistant to quinolones and Bactrim only. Her white blood cell count on admission was 15.98. Her creatinine was mildly elevated to 1.60. The patient did have an abdominal/pelvic CT scan completed which showed sclerosis and mild erosive changes of the ANDRE 8 to T9 disc space along with mild left hydronephrosis with obstructing a 7 mm left ureteral calculus. The patient states that she has no history of prior stones that she knows of. She denies previous fever, sweats, or chills. She has had low-grade fever on and off since admission. She was placed on IV ertapenem pending urine culture results. She overall is feeling much improved. Past Medical/Surgical History Medical Problems: (1) Altered mental status Status: Acute (2) Hypoxemia Status: Acute (3) Leukocytosis Status: Acute Medical Problems: (1) Altered mental status (2) Anemia (3) Anemia (4) Atrial flutter (5) Cervical disc disease (6) Hypercalcemia (7) Iron deficiency anemia (8) Mental status change (9) Monoclonal B-cell lymphocytosis of unknown significance (10) Thrombocytopenia (11) Urinary incontinence (12) Urosepsis (13) UTI (urinary tract infection) Surgical Problems: (1) Status post hip surgery Social History Problems: (1) Hepatitis C Family History Diabetes mellitus Hypertension Noncontributory Social History Smoking Status: Current Every Day Smoker Drug Use: marijuana, other (narcotic pill abuse hx) Marital Status: single Housing Status: assisted living Occupation Status: disabled Allergies Coded Allergies: Dust Mite Extract (Verified Allergy, Unknown, DUST MITES, 04/02/17) Hydrochlorothiazide (Verified Allergy, Unknown, PT UNSURE, 04/02/17) POLLEN (Verified Allergy, Unknown, HAYFEVER, 04/02/17) Home Medications Reported Home Medications Medications Dose Route/Sig Max Daily Dose Days Date Category Dose Instructions Ultram (Tramadol HCl) 50 Mg Tab 1 Tab PO BID PRN 30 03/24/17 Reported Vitamin D3 (Cholecalciferol) 1,000 Unit Cap 2 Cap PO HS 30 03/24/17 Rx Plendil Er (Felodipine) 5 Mg Tab 2.5 Mg PO HS 30 03/24/17 Rx Oxybutinin Chloride (Oxybutynin Chloride) 1 Pow Pow 5 Mg PO TID 03/24/17 Reported Klor-Con (Potassium Chloride) 20 Meq Tabcr 40 Meq PO BID 03/24/17 Reported Lasix (Furosemide) 40 Mg Tab 40 Mg PO BID 11/23/16 Reported [metoprolol] 75 Mg PO BID 11/23/16 Reported Neurontin (Gabapentin) 300 Mg Cap 300 Mg PO TID 11/23/16 Reported Tylenol (Acetaminophen) 325 Mg Tab 650 Mg PO Q4 05/04/16 Reported [Thera-Beta Carotene] 1 Tab PO HS 04/22/16 Reported Tamsulosin HCl 0.4 Mg Cap 0.4 Mg PO HS 04/22/16 Reported Norvasc (Amlodipine Besylate) 10 Mg Tab 10 Mg PO QAM 04/22/16 Reported Montelukast Sodium 10 Mg Tab 10 Mg PO QPM 01/13/16 Reported Synthroid (Levothyroxine Sodium) 25 Mcg Tab 25 Mcg PO QAM 01/13/16 Reported Effexor (Venlafaxine Hcl) 100 Mg Tab 187.5 Mg PO HS 01/12/16 Reported Zantac (Ranitidine HCl) 150 Mg Tab 150 Mg PO HS 07/02/15 Reported Hydrea (Hydroxyurea) 500 Mg Cap 500 Mg PO 3XWK 09/26/14 Reported Mon, Wed, Fri HOLD IF WBC < 6.000 Lioresal (Baclofen) 10 Mg Tab 5 Mg PO QPM 07/24/14 Reported Vitamin C (Ascorbic Acid) 500 Mg Cap 500 Mg PO BID 05/29/14 Reported Colace (Docusate Sodium) 100 Mg Cap 100 Mg PO QPM 04/01/14 Reported Advair Diskus 500-50 Mcg/Dose (Fluticasone Prop/Salmeterol) 14 Puff/1 Inhaler Aerp 1 Puff INH BID 01/12/14 Reported Caltrate (Calcium) 600 Mg Tab 600 Mg PO QAM 11/06/13 Reported Combivent Respimat (Ipratropium-Albuterol) 1 Aer Aer 1 Puffs INH Q6 11/06/13 Reported GIVE WHILE AWAKE Miralax Powder Packet (Polyethylene) 17 Gm Pack 17 Gm PO QAM 09/27/13 Reported Current Inpatient Medications Current Inpatient Medications Medications (Trade) Dose Ordered Sig/Lee Ann Route Start Time Stop Time Status Last Admin Dose Admin Heparin Sodium (Porcine) (Heparin Sq 5000 Unit/0.5ml) 5,000 unit Q8 SQ 03/24/17 22:00 04/23/17 21:59 03/26/17 06:13 5,000 UNIT Sodium Chloride 1,000 ml @ 100 mls/hr Q10H IV 03/24/17 14:06 04/23/17 14:05 03/25/17 22:41 100 MLS/HR Acetaminophen (Tylenol Tab) 650 mg Q4H PRN PO 03/24/17 14:15 04/23/17 14:14 Ondansetron HCl (Zofran Inj) 4 mg Q6H PRN IV 03/24/17 14:15 04/23/17 14:14 Polyethylene (Miralax Powder Packet) 17 gm DAILY PRN PO 03/24/17 14:15 04/23/17 14:14 Baclofen (Lioresal Tab) 5 mg QPM PO 03/24/17 21:00 04/23/17 20:59 03/25/17 21:05 5 MG Docusate Sodium (coLACE CAP) 100 mg QPM PO 03/24/17 21:00 04/23/17 20:59 03/25/17 21:02 100 MG Felodipine (Plendil Tabcr) 2.5 mg HS PO 03/24/17 21:00 04/23/17 20:59 Future Hold 03/24/17 21:21 2.5 MG Salmeterol Xinafoate/ Fluticasone (Advair Diskus 500/50 Inh) 1 puff BID INH 03/24/17 21:00 04/23/17 20:59 03/26/17 07:42 1 PUFF Gabapentin (Neurontin Cap) 300 mg TID PO 03/24/17 21:00 04/23/17 20:59 03/26/17 07:43 300 MG Hydroxyurea (Hydrea Cap) 500 mg MoWeFr@0900 PO 03/24/17 18:00 04/23/17 17:59 03/26/17 07:43 500 MG Albuterol/ Ipratropium (Combivent Respimat Inh) 1 puffs Q6 INH 03/24/17 18:00 04/23/17 17:59 03/26/17 06:11 1 PUFFS Levothyroxine Sodium (Synthroid Tab) 25 mcg DAILYBB PO 03/25/17 06:00 04/24/17 06:59 03/26/17 06:11 25 MCG Montelukast Sodium (Singulair Tab) 10 mg QPM PO 03/24/17 21:00 04/23/17 20:59 03/25/17 21:06 10 MG Polyethylene (Miralax Powder Packet) 17 gm QAM PO 03/25/17 09:00 04/24/17 08:59 03/26/17 07:42 17 GM Ranitidine HCl (zANTac TAB) 150 mg HS PO 03/24/17 21:00 04/23/17 20:59 03/25/17 21:06 150 MG Tamsulosin HCl (Flomax Cap) 0.4 mg HS PO 03/24/17 21:00 04/23/17 20:59 03/25/17 21:04 0.4 MG Venlafaxine HCl (effeXOR EXTENDED REL CAP) 187.5 mg HS PO 03/24/17 21:00 04/23/17 20:59 03/25/17 21:04 187.5 MG Ascorbic Acid (Vitamin C Tab) 500 mg BID PO 03/24/17 21:00 04/23/17 20:59 03/26/17 07:42 500 MG Calcium/Vitamin D (Caltrate Plus Tab) 1 tab QAM PO 03/25/17 09:00 04/24/17 08:59 03/26/17 07:44 1 TAB Cholecalciferol (Vitamin D Tab) 2,000 inter.unit HS PO 03/24/17 21:00 04/23/17 20:59 03/25/17 21:08 2,000 INTER.UNIT Metoprolol Tartrate (Lopressor Tab) 75 mg BID PO 03/24/17 18:00 04/23/17 17:59 03/26/17 07:44 75 MG Digoxin (Lanoxin Tab) 0.125 mg TODAY@1600 ONCE PO 03/26/17 16:00 03/26/17 16:01 Ertapenem 1 gm/ Sodium Chloride 50 ml @ 100 mls/hr Q24H IV 03/25/17 13:00 04/04/17 12:59 03/25/17 13:15 100 MLS/HR Diltiazem HCl (Cardizem Cd Cap) 120 mg QAM PO 03/26/17 09:00 04/25/17 08:59 Review of Systems Constitutional: + fever (mild), + weakness, + fatigue, No chills Eyes: No worsening of vision ENT: No hearing loss Respiratory: No cough, No shortness of breath Cardiovascular: No chest pain Abdomen: No pain, No nausea, No vomiting Musculoskeletal: + muscle pain (legs), No joint pain Genitourinary - Female: + problem reported (chronic Cotto cath x 1 year) Neurologic: No numbness/tingling Integumentary: No rash, No itch Physical Exam Date Time Temp Pulse Resp B/P (MAP) Pulse Ox O2 Delivery O2 Flow Rate FiO2 03/26/17 08:00 Nasal Cannula 03/26/17 07:43 37.0 78 16 141/72 (95) 96 3.0 03/26/17 04:00 93 Nasal Cannula 2.0 03/26/17 03:28 37.2 78 20 145/80 (101) 93 Room Air 03/26/17 00:03 37.6 80 21 141/61 (87) 94 Nasal Cannula 3.0 03/26/17 00:00 94 Nasal Cannula 2.0 03/25/17 23:00 78 21 137/73 (94) 94 03/25/17 22:30 81 19 142/74 (96) 85 03/25/17 22:15 83 20 133/73 (93) 85 03/25/17 22:01 85 19 132/79 (96) 88 03/25/17 21:46 94 23 134/81 (98) 88 03/25/17 21:31 95 18 144/74 (97) 88 03/25/17 21:01 88 24 112/51 (71) 89 03/25/17 20:47 90 16 128/73 (91) 88 03/25/17 20:47 90 16 128/73 (91) 88 20/17 20:45 90 17 90 7/20/17 20:30 88 15 129/82 (98) 86 720/17 20:15 86 17 119/71 (87) 95 720/17 20:01 36.9 91 15 112/85 (94) 94 7/20/17 20:00 93 Nasal Cannula 20/17 19:45 36.8 96 18 129/88 (102) 93 Nasal Cannula 2.0 2017 19:32 91 15 20/17 19:32 92 15 93 720/17 19:30 37.6 720/17 19:27 84 19 720/17 19:27 85 19 94 720/17 19:22 91 17 720/17 19:22 89 17 95 20/17 19:21 122/66 720/17 19:17 93 16 20/17 19:17 94 16 91 20/17 19:16 121/79 720/17 19:12 100 15 20/17 19:12 95 15 90 20/17 19:11 116/67 20/17 19:08 37.6 20/17 19:07 97 19 20/17 19:07 90 19 95 20/17 19:06 122/62 720/17 19:03 94 18 94 20/17 19:03 97 18 20/17 19:01 115/92 720/17 18:58 95 15 20/17 18:58 95 15 92 720/17 18:57 122 19 20/17 18:57 94 19 94 7/20/17 18:56 105/84 720/17 18:52 95 20 95 7/20/17 18:52 96 20 7/20/17 18:51 112/73 720/17 18:47 94 23 95 7/20/17 18:47 116 23 7/20/17 18:46 117/67 7/20/17 18:44 95 19 94 7/20/17 18:44 108 19 7/20/17 18:41 123/68 720/17 18:39 96 16 7/20/17 18:39 94 16 96 7/20/17 18:36 109/70 03/25/17 18:34 94 22 93 03/25/17 18:34 106 22 03/25/17 18:31 118/72 03/25/17 18:29 97 14 03/25/17 18:29 94 14 101/80 94 03/25/17 18:29 37.6 94 16 118/72 96 Mask 10 03/25/17 16:00 Nasal Cannula 03/25/17 15:44 37.3 106 18 101/81 (88) 95 Nasal Cannula 2.0 03/25/17 15:30 37.3 102 18 101/81 94 Nasal Cannula 2.0 03/25/17 14:53 95 92 03/25/17 12:00 Nasal Cannula 03/25/17 11:41 82 03/25/17 11:09 36.9 82 20 92/62 (72) 91 High Flow Oxygen General Appearance: WD/WN, no apparent distress Head: normocephalic, atraumatic Eyes: normal inspection, sclerae normal ENT: hearing grossly normal Neck: supple, trachea midline Respiratory/Chest: chest non-tender, normal breath sounds, no respiratory distress, no accessory muscle use, + wheezing (very mild bilateral bases) Cardiovascular: regular rate, rhythm Abdomen/GI: normal bowel sounds, non tender, soft Back: normal inspection Extremities/Musculoskelatal: + pertinent finding (very mild edema of b/l feet) Neurologic/Psych: alert, normal mood/affect Skin: normal color, warm/dry, no rash Laboratory Results RUN DATE: 03/26/17 [facility] LAB PAGE 1 RUN TIME: 806 Specimen Inquiry PATIENT: BRAULIO BUSBY LOC: Jaun U # : [id number] AGE/SX: 72/F ROOM: [facility] REG : 03/24/[address]: Brady Hall M : 1945 BED: 1 DIS : STATUS: ADM IN TLOC: SPEC #: [id number] SHIVANI: 03/24/17 STATUS: RES REQ #: [id number] RECD: 03/24/[address]: Dre Olmos M.D. SOURCE: URINE CATH ENTR: 03/24/171154 SAI DR: Braeden Ojeda [facility]: ORDERED: CULTURE UR CATH Procedure Result Verified Site URINE CULTURE Preliminary 07/21/17-0807 Organism 1 PROTEUS MIRABILIS COLONY COUNT >100,000 CFU/ml SENS SENSITIVITY TO FOLLOW 1. PROTEUS MIRABILIS Target Route Dose RX AB Cost M.I.C. IQ ------ ----- ------ -- ------ -------- - ------ TRIMET/SULFA R >2/38 AMPICILLIN S <=8 AMPICILLIN/SUL S <=8/4 CEFAZOLIN S <=8 CEFOTAXIME S <=2 CEFTRIAXONE S <=1 CEFEPIME S <=4 CEFUROXIME S <=4 GENTAMICIN S <=4 TOBRAMYCIN S <=4 AMIKACIN S <=16 CIPROFLOXACIN R >2 LEVOFLOXACIN R >4 ERTAPENEM S <=1 PIP/TAZO S <=16 S = SENSITIVE I = INTERMEDIATE R = RESISTANT Item Value Date Time Urine Culture - Preliminary Resulted 03/24/17 1121 Urine,Catheterized Proteus Mirabilis Blood Culture - Preliminary Resulted 03/24/17 1030 Blood NO GROWTH TO DATE. Blood Culture - Preliminary Resulted 03/24/17 1025 Blood NO GROWTH TO DATE. MRSA DNA Surveillance Screen - Final Complete 03/24/17 0000 Nasal Specimen Negative for MRSA by DNA Probe ABD/PELVIS WITHOUT FOR STONE CLINICAL HISTORY: 72 years-old Female presenting with sepsis, ARF, hx of hydro. TECHNIQUE: Multidetector CT of the abdomen and pelvis was performed without the use of intravenous contrast. IV contrast: None. A dose lowering technique was used consistent with the principles of ALARA (as low as reasonably achievable). COMPARISON: CT from 01/24/2016. CT DOSE: The estimated cumulative dose is 926.33 mGycm. FINDINGS: Reservoir Caretaker topogram: 2 lag screws across the left femoral neck noted, the more inferior of which is not flush with the cortical surface. Lung bases: Dependent consolidation bilaterally. Normal heart size. No pericardial or pleural effusion. Aortic valve calcification. Liver: Normal morphology. Normal density. Few parenchymal calcifications noted, possibly prior granulomatous disease. Biliary: No gross evidence of significant biliary ductal dilatation. Layering density within the gallbladder likely indicate sludge. Pancreas: Coarse calcification may be present within the uncinate, nonspecific and possibly vascular in etiology. Spleen: Normal. Adrenal glands: Normal. Kidneys and ureters: Severe atrophy of the right kidney relative to the left. Multiple nonobstructing calculi noted within the left renal collecting system at the lower pole, the largest measuring 7 mm. Mild left pelvocaliectasis. Dilatation of the proximal left ureter with 2 adjacent stones, the larger measuring 7 mm and the smaller immediately superior to this. Distal left ureter clear of calculi is not significantly distended. Gastrointestinal tract: Moderate stool burden throughout the normal caliber colon. No significant bowel wall thickening. No significant distention of small bowel. No bowel obstruction. Peritoneal cavity: No free fluid or intraperitoneal gas. Bladder: Decompressed with a Cotto catheter. Pelvic organs: Normal uterus. No adnexal masses. Vasculature: Atherosclerosis of the abdominal aorta. Focal outpouching along the left posterior-lateral aspect in the infrarenal aorta. This outpouching extends 10 mm beyond the expected confines of the lumen along proximally 12 mm of the circumference. No periaortic inflammatory change to suggest rupture. Lymph nodes: No enlarged lymph nodes in the abdomen or pelvis. Abdominal wall: Normal. Musculoskeletal: Sclerosis and mild erosive changes noted with near complete loss of disc height at T8-9. No other significant degenerative change. 2 lag screws noted across the left femoral neck. IMPRESSION: 1. Sclerosis and mild erosive changes with complete loss of disc height at T8-9. This appearance may represent erosive degenerative change, although discitis osteomyelitis could also have this appearance in the appropriate clinical setting. Further evaluation with contrast-enhanced MR of the spine could be obtained if clinically warranted. 2. Dependent bibasilar consolidation may represent atelectasis. 3. Mild left hydronephrosis with obstructing 7 mm proximal left ureteral calculus. Adjacent smaller proximal left ureteral calculus. Additional nonobstructing left renal calculi. 4. Severe atrophy of the right kidney. 5. 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 No periaortic inflammatory change to suggest rupture. The report will be called/faxed according to standard departmental protocol. Last 24 Hours Test 03/26/17 06:09 White Blood Count 7.14 K/uL Red Blood Count 3.18 M/uL Hemoglobin 10.3 g/dL Hematocrit 31.6 % Mean Corpuscular Volume 99.4 fL Mean Corpuscular Hemoglobin 32.4 pg Mean Corpuscular Hemoglobin Concent 32.6 g/dl Platelet Count 260 K/uL Mean Platelet Volume 9.9 fL Neutrophils (%) (Auto) 68.4 % Lymphocytes (%) (Auto) 13.4 % Monocytes (%) (Auto) 16.4 % Eosinophils (%) (Auto) 1.5 % Basophils (%) (Auto) 0.0 % Neutrophils # (Auto) 4.88 K/uL Lymphocytes # (Auto) 0.96 K/uL Monocytes # (Auto) 1.17 K/uL Eosinophils # (Auto) 0.11 K/uL Basophils # (Auto) 0.00 K/uL RDW Standard Deviation 53.6 fL RDW Coefficient of Variation 14.7 % Immature Granulocyte % (Auto) 0.3 % Immature Granulocyte # (Auto) 0.02 K/uL Sodium Level 144 mmol/L Potassium Level 3.5 mmol/L Chloride Level 113 mmol/L Carbon Dioxide Level 23 mmol/L Anion Gap 8.0 mmol/L Blood Urea Nitrogen 24 mg/dl Creatinine 1.10 mg/dl Est Creatinine Clear Calc Drug Dose 42.4 ml/min Estimated GFR () 58.9 Estimated GFR (Non- 50.8 BUN/Creatinine Ratio 22.0 Random Glucose 95 mg/dl Calcium Level 8.1 mg/dl Magnesium Level 2.1 mg/dl Digoxin Level 1.0 ng/ml Assessment & Plan Patient with Proteus UTI, obstructing left renal stone s/p stent placement, and possible infected renal stone/stones. The patient has had the same proteus multiple times in her urine over the past 6 months. She is currently on IV Invanz. Will change to IV Ceftriaxone. Likely will be able to transition to PO Omnicef if she tolerates this medication and continues to improve. She will need 14 days total. We will follow. Case reviewed and agree with above assessment.
[2017-03-26] MEDS: DILTIAZEM HCL 120 MG CAPCR PO SCH (10:29)
[2017-03-26] MEDS: SODIUM CHLORIDE 0.9% 1000ML 1,000 ML IV SCH ×2 (10:31→16:06)
--- NOTE | 2017-03-26 10:55 | Progress Note ---
Subjective Date of Service: Mar 26, 2017. Subjective Pt evaluation today including: conversation w/ patient, chart review, lab review 72 year old female s/p cystoscopy with left ureteral stent placement for urosepsis by Dr. Kirby last evening. She is doing better post op. Sitting up in chair, tolerating diet. Denies stent discomfort. Nausea or vomiting. Reviewed chart- Had low grade temp over night 37.6 Her white count has normalized. Creatinine also has normalized. ID was consulted and is treating her proteus infection. Stopped IV Invanz and started IV ceftriaxone with the hopes of transitioning to oral Omnicef. Chronic indwelling schuster. Problem List Medical Problems: (1) Altered mental status Status: Acute (2) Hypoxemia Status: Acute (3) Leukocytosis Status: Acute Review of Systems Constitutional: + see HPI, No chills Respiratory: No cough, No shortness of breath Cardiac: No chest pain Abdomen: + see HPI, No pain, No nausea Female : + see HPI (Schuster) Heme: No abnormal bleeding/bruising Objective Vital Signs Date Time Temp Pulse Resp B/P (MAP) Pulse Ox O2 Delivery O2 Flow Rate FiO2 03/26/17 10:28 78 03/26/17 08:00 Nasal Cannula 03/26/17 07:43 37.0 78 16 141/72 (95) 96 3.0 03/26/17 04:00 93 Nasal Cannula 2.0 03/26/17 03:28 37.2 78 20 145/80 (101) 93 Room Air 03/26/17 00:03 37.6 80 21 141/61 (87) 94 Nasal Cannula 3.0 03/26/17 00:00 94 Nasal Cannula 2.0 03/25/17 23:00 78 21 137/73 (94) 94 03/25/17 22:30 81 19 142/74 (96) 85 03/25/17 22:15 83 20 133/73 (93) 85 03/25/17 22:01 85 19 132/79 (96) 88 03/25/17 21:46 94 23 134/81 (98) 88 03/25/17 21:31 95 18 144/74 (97) 88 03/25/17 21:01 88 24 112/51 (71) 89 03/25/17 20:47 90 16 128/73 (91) 88 7/20/17 20:47 90 16 128/73 (91) 88 720/17 20:45 90 17 90 720/17 20:30 88 15 129/82 (98) 86 720/17 20:15 86 17 119/71 (87) 95 720/17 20:01 36.9 91 15 112/85 (94) 94 720/17 20:00 93 Nasal Cannula 17 19:45 36.8 96 18 129/88 (102) 93 Nasal Cannula 2.0 20/17 19:32 91 15 720/17 19:32 92 15 93 720/17 19:30 37.6 20/17 19:27 84 19 720/17 19:27 85 19 94 20/17 19:22 91 17 20/17 19:22 89 17 95 20/17 19:21 122/66 20/17 19:17 93 16 03/25/17 19:17 94 16 91 2017 19:16 121/79 20/17 19:12 100 15 20/17 19:12 95 15 90 20/17 19:11 116/67 20/17 19:08 37.6 03/25/17 19:07 97 19 03/25/17 19:07 90 19 95 20/17 19:06 122/62 20/17 19:03 94 18 94 20/17 19:03 97 18 17 19:01 115/92 720/17 18:58 95 15 20/17 18:58 95 15 92 20/17 18:57 122 19 20/17 18:57 94 19 94 720/17 18:56 105/84 720/17 18:52 95 20 95 720/17 18:52 96 20 /20/17 18:51 112/73 720/17 18:47 94 23 95 7/20/17 18:47 116 23 720/17 18:46 117/67 720/17 18:44 95 19 94 720/17 18:44 108 19 720/17 18:41 123/68 720/17 18:39 96 16 7/20/17 18:39 94 16 96 03/25/17 18:36 109/70 03/25/17 18:34 94 22 93 03/25/17 18:34 106 22 03/25/17 18:31 118/72 03/25/17 18:29 97 14 03/25/17 18:29 94 14 101/80 94 03/25/17 18:29 37.6 94 16 118/72 96 Mask 10 03/25/17 16:00 Nasal Cannula 03/25/17 15:44 37.3 106 18 101/81 (88) 95 Nasal Cannula 2.0 03/25/17 15:30 37.3 102 18 101/81 94 Nasal Cannula 2.0 03/25/17 14:53 95 92 03/25/17 12:00 Nasal Cannula 03/25/17 11:41 82 03/25/17 11:09 36.9 82 20 92/62 (72) 91 High Flow Oxygen Physical Exam General Appearance: WD/WN, no apparent distress ENT: hearing grossly normal Respiratory/Chest: no respiratory distress, no accessory muscle use Extremities: no calf tenderness Neurologic/Psychiatric: alert, normal mood/affect Skin: warm/dry Laboratory Results Last 24 Hours Test 03/26/17 06:09 White Blood Count 7.14 K/uL Red Blood Count 3.18 M/uL Hemoglobin 10.3 g/dL Hematocrit 31.6 % Mean Corpuscular Volume 99.4 fL Mean Corpuscular Hemoglobin 32.4 pg Mean Corpuscular Hemoglobin Concent 32.6 g/dl Platelet Count 260 K/uL Mean Platelet Volume 9.9 fL Neutrophils (%) (Auto) 68.4 % Lymphocytes (%) (Auto) 13.4 % Monocytes (%) (Auto) 16.4 % Eosinophils (%) (Auto) 1.5 % Basophils (%) (Auto) 0.0 % Neutrophils # (Auto) 4.88 K/uL Lymphocytes # (Auto) 0.96 K/uL Monocytes # (Auto) 1.17 K/uL Eosinophils # (Auto) 0.11 K/uL Basophils # (Auto) 0.00 K/uL RDW Standard Deviation 53.6 fL RDW Coefficient of Variation 14.7 % Immature Granulocyte % (Auto) 0.3 % Immature Granulocyte # (Auto) 0.02 K/uL Sodium Level 144 mmol/L Potassium Level 3.5 mmol/L Chloride Level 113 mmol/L Carbon Dioxide Level 23 mmol/L Anion Gap 8.0 mmol/L Blood Urea Nitrogen 24 mg/dl Creatinine 1.10 mg/dl Est Creatinine Clear Calc Drug Dose 42.4 ml/min Estimated GFR () 58.9 Estimated GFR (Non- 50.8 BUN/Creatinine Ratio 22.0 Random Glucose 95 mg/dl Calcium Level 8.1 mg/dl Magnesium Level 2.1 mg/dl Digoxin Level 1.0 ng/ml Assessment and Plan Left ureteral stone, urosepsis, s/p left ureteral stent. She continues to improve since stent placement. Tolerating stent well. ID following infection. Recommend observation until afebrile for 24 hours. We will treat her stone on an outpt basis. Our office will call her to set appointment. Continued [facility] stay due to: fever, multiple IV medications needed
[2017-03-26] MEDS: CEFTRIAXONE SOD INJ 2,000 MG in DEXTROSE 5% 50ML 50 ML IV SCH (12:21)
--- NOTE | 2017-03-26 13:10 | Hospitalist Progress Note ---
Hospitalist Progress Note Date of Service Mar 26, 2017. (Venecia Lucas ., PA-C) Subjective Pt evaluation today including: conversation w/ patient, physical exam, chart review, lab review, review of studies, review of inpatient medication list Voiding: schuster catheter in place (draining clear/yellow urine ) Patient states she is feeling well this AM. Sitting in bedside chair w/ 3L NC O2. Oriented to person/place. Can state why she came to the hospital. Lower extremity pain has completely resolved. She is eating and drinking OK. Patient denies any fever, chills, sweats, lightheadedness, dizziness, vision changes, CP, palpitations, edema, SOB, wheezing, cough, abdominal pain, nausea, vomiting, diarrhea, urinary symptoms, melena, numbness/tingling, weakness, muscle/joint pain, anxiety/depression, active bleeding, or new skin discoloration/changes. Talked to RN: patient doing well, no acute events. Trying to wean from O2. (Venecia Lucas ., PA-C) Medications Current Inpatient Medications Medications (Trade) Dose Ordered Sig/Lee Ann Route Start Time Stop Time Status Last Admin Dose Admin Heparin Sodium (Porcine) (Heparin Sq 5000 Unit/0.5ml) 5,000 unit Q8 SQ 03/24/17 22:00 04/23/17 21:59 03/26/17 06:13 5,000 UNIT Sodium Chloride 1,000 ml @ 100 mls/hr Q10H IV 03/24/17 14:06 04/23/17 14:05 03/26/17 10:31 100 MLS/HR Acetaminophen (Tylenol Tab) 650 mg Q4H PRN PO 03/24/17 14:15 04/23/17 14:14 Ondansetron HCl (Zofran Inj) 4 mg Q6H PRN IV 03/24/17 14:15 04/23/17 14:14 Polyethylene (Miralax Powder Packet) 17 gm DAILY PRN PO 03/24/17 14:15 04/23/17 14:14 Baclofen (Lioresal Tab) 5 mg QPM PO 03/24/17 21:00 04/23/17 20:59 03/25/17 21:05 5 MG Docusate Sodium (coLACE CAP) 100 mg QPM PO 03/24/17 21:00 04/23/17 20:59 03/25/17 21:02 100 MG Felodipine (Plendil Tabcr) 2.5 mg HS PO 03/24/17 21:00 04/23/17 20:59 Future Hold 03/24/17 21:21 2.5 MG Salmeterol Xinafoate/ Fluticasone (Advair Diskus 500/50 Inh) 1 puff BID INH 03/24/17 21:00 04/23/17 20:59 03/26/17 07:42 1 PUFF Gabapentin (Neurontin Cap) 300 mg TID PO 03/24/17 21:00 04/23/17 20:59 03/26/17 07:43 300 MG Hydroxyurea (Hydrea Cap) 500 mg MoWeFr@0900 PO 03/24/17 18:00 04/23/17 17:59 03/26/17 07:43 500 MG Albuterol/ Ipratropium (Combivent Respimat Inh) 1 puffs Q6 INH 03/24/17 18:00 04/23/17 17:59 03/26/17 12:21 1 PUFFS Levothyroxine Sodium (Synthroid Tab) 25 mcg DAILYBB PO 03/25/17 06:00 04/24/17 06:59 03/26/17 06:11 25 MCG Montelukast Sodium (Singulair Tab) 10 mg QPM PO 03/24/17 21:00 04/23/17 20:59 03/25/17 21:06 10 MG Polyethylene (Miralax Powder Packet) 17 gm QAM PO 03/25/17 09:00 04/24/17 08:59 03/26/17 07:42 17 GM Ranitidine HCl (zANTac TAB) 150 mg HS PO 03/24/17 21:00 04/23/17 20:59 03/25/17 21:06 150 MG Tamsulosin HCl (Flomax Cap) 0.4 mg HS PO 03/24/17 21:00 04/23/17 20:59 03/25/17 21:04 0.4 MG Venlafaxine HCl (effeXOR EXTENDED REL CAP) 187.5 mg HS PO 03/24/17 21:00 04/23/17 20:59 03/25/17 21:04 187.5 MG Ascorbic Acid (Vitamin C Tab) 500 mg BID PO 03/24/17 21:00 04/23/17 20:59 03/26/17 07:42 500 MG Calcium/Vitamin D (Caltrate Plus Tab) 1 tab QAM PO 03/25/17 09:00 04/24/17 08:59 03/26/17 07:44 1 TAB Cholecalciferol (Vitamin D Tab) 2,000 inter.unit HS PO 03/24/17 21:00 04/23/17 20:59 03/25/17 21:08 2,000 INTER.UNIT Metoprolol Tartrate (Lopressor Tab) 75 mg BID PO 03/24/17 18:00 04/23/17 17:59 03/26/17 07:44 75 MG Digoxin (Lanoxin Tab) 0.125 mg TODAY@1600 ONCE PO 03/26/17 16:00 03/26/17 16:01 Diltiazem HCl (Cardizem Cd Cap) 120 mg QAM PO 03/26/17 09:00 04/25/17 08:59 03/26/17 10:29 120 MG Ceftriaxone Sodium 2000 mg/ Dextrose 70 ml @ 100 mls/hr Q24H IV 03/26/17 12:00 04/05/17 11:59 03/26/17 12:21 100 MLS/HR (Venecia Lucas, PA-C) Objective Vital Signs Date Time Temp Pulse Resp B/P (MAP) Pulse Ox O2 Delivery O2 Flow Rate FiO2 03/26/17 12:00 Nasal Cannula 03/26/17 11:06 37.1 65 18 122/59 (80) 93 3.0 03/26/17 10:28 78 03/26/17 08:00 Nasal Cannula 03/26/17 07:43 37.0 78 16 141/72 (95) 96 3.0 03/26/17 04:00 93 Nasal Cannula 2.0 03/26/17 03:28 37.2 78 20 145/80 (101) 93 Room Air 03/26/17 00:03 37.6 80 21 141/61 (87) 94 Nasal Cannula 3.0 03/26/17 00:00 94 Nasal Cannula 2.0 03/25/17 23:00 78 21 137/73 (94) 94 03/25/17 22:30 81 19 142/74 (96) 85 7/20/17 22:15 83 20 133/73 (93) 85 720/17 22:01 85 19 132/79 (96) 88 720/17 21:46 94 23 134/81 (98) 88 720/17 21:31 95 18 144/74 (97) 88 72017 21:01 88 24 112/51 (71) 89 720/17 20:47 90 16 128/73 (91) 88 720/17 20:47 90 16 128/73 (91) 88 720/17 20:45 90 17 90 72017 20:30 88 15 129/82 (98) 86 2017 20:15 86 17 119/71 (87) 95 17 20:01 36.9 91 15 112/85 (94) 94 2017 20:00 93 Nasal Cannula 03/25/17 19:45 36.8 96 18 129/88 (102) 93 Nasal Cannula 2.0 03/25/17 19:32 91 15 03/25/17 19:32 92 15 93 17 19:30 37.6 03/25/17 19:27 84 19 20 19:27 85 19 94 03/25/17 19:22 91 17 03/25/17 19:22 89 17 95 17 19:21 122/66 2017 19:17 93 16 17 19:17 94 16 91 17 19:16 121/79 17 19:12 100 15 17 19:12 95 15 90 2017 19:11 116/67 20/17 19:08 37.6 17 19:07 97 19 20/17 19:07 90 19 95 2017 19:06 122/62 17 19:03 94 18 94 2017 19:03 97 18 2017 19:01 115/92 2017 18:58 95 15 20/17 18:58 95 15 92 2017 18:57 122 19 2017 18:57 94 19 94 2017 18:56 105/84 03/25/17 18:52 95 20 95 03/25/17 18:52 96 20 03/25/17 18:51 112/73 03/25/17 18:47 94 23 95 03/25/17 18:47 116 23 03/25/17 18:46 117/67 03/25/17 18:44 95 19 94 03/25/17 18:44 108 19 03/25/17 18:41 123/68 03/25/17 18:39 96 16 03/25/17 18:39 94 16 96 03/25/17 18:36 109/70 03/25/17 18:34 94 22 93 03/25/17 18:34 106 22 03/25/17 18:31 118/72 03/25/17 18:29 97 14 03/25/17 18:29 94 14 101/80 94 03/25/17 18:29 37.6 94 16 118/72 96 Mask 10 03/25/17 16:00 Nasal Cannula 03/25/17 15:44 37.3 106 18 101/81 (88) 95 Nasal Cannula 2.0 03/25/17 15:30 37.3 102 18 101/81 94 Nasal Cannula 2.0 03/25/17 14:53 95 92 (Venecia Lucas ., PA-C) Physical Exam General Appearance: no apparent distress, + pertinent finding (3L O2 NC) Eyes: normal inspection, PERRL ENT: hearing grossly normal Neck: supple Respiratory/Chest: lungs clear, no respiratory distress, no accessory muscle use, + decreased breath sounds Cardiovascular: regular rate, rhythm Abdomen: normal bowel sounds, non tender, soft Extremities: non-tender, no pedal edema, no calf tenderness Neurologic/Psychiatric: alert, normal mood/affect Skin: normal color, warm/dry, no rash (Venecia Lucas ., PA-C) Laboratory Results Last 24 Hours Test 03/26/17 06:09 White Blood Count 7.14 K/uL Red Blood Count 3.18 M/uL Hemoglobin 10.3 g/dL Hematocrit 31.6 % Mean Corpuscular Volume 99.4 fL Mean Corpuscular Hemoglobin 32.4 pg Mean Corpuscular Hemoglobin Concent 32.6 g/dl Platelet Count 260 K/uL Mean Platelet Volume 9.9 fL Neutrophils (%) (Auto) 68.4 % Lymphocytes (%) (Auto) 13.4 % Monocytes (%) (Auto) 16.4 % Eosinophils (%) (Auto) 1.5 % Basophils (%) (Auto) 0.0 % Neutrophils # (Auto) 4.88 K/uL Lymphocytes # (Auto) 0.96 K/uL Monocytes # (Auto) 1.17 K/uL Eosinophils # (Auto) 0.11 K/uL Basophils # (Auto) 0.00 K/uL RDW Standard Deviation 53.6 fL RDW Coefficient of Variation 14.7 % Immature Granulocyte % (Auto) 0.3 % Immature Granulocyte # (Auto) 0.02 K/uL Sodium Level 144 mmol/L Potassium Level 3.5 mmol/L Chloride Level 113 mmol/L Carbon Dioxide Level 23 mmol/L Anion Gap 8.0 mmol/L Blood Urea Nitrogen 24 mg/dl Creatinine 1.10 mg/dl Est Creatinine Clear Calc Drug Dose 42.4 ml/min Estimated GFR () 58.9 Estimated GFR (Non- 50.8 BUN/Creatinine Ratio 22.0 Random Glucose 95 mg/dl Calcium Level 8.1 mg/dl Magnesium Level 2.1 mg/dl Digoxin Level 1.0 ng/ml (Venecia Lucas, PA-C) Assessment and Plan This is 72 y/o F with PMHx of HTN, COPD, anemia of chronic disease, cervical disk disease, chronic hep C, hx of PE, hx of stroke, hypercalcemia, hx of esophageal ulcers, left hydronephrosis in Jul 2016 with chronic indwelling schuster , hx of depression with suicidal attempt via narcotic pill overdose, who presents from [place] s/p 3 falls in the past two days and altered mental status. Metabolic encephalopathy, likely secondary to sepsis from chronic indwelling Schuster associated UTI- IMPROVING: - Admit to telemetry for cardiac monitoring- converted to NSR on 03/25 @2157- rate maintained at NSR in the 60s - UCx- growing Proteus mirabilis - IV Cipro 400 mg x1 dose on 03/24 in ED- d/'d; IV Rocephin 2g started on 03/24- d /c'd; IV Ertapenem 03/25-03/26 -- Leukocytosis- RESOLVED -- ID consulted, appreciate recommendations- transitioned back to IV Rocephin on 03/26, likely transition to PO Omnicef- complete 14 days of treatment (last day 04/07) - BCx- NGTD; lactic acid negative Paroxysmal a.fib w/ RVR, likely secondary to acute infectious process- CONVERTED ON 03/25: - Tele for cardiac monitoring - IV Cardizem gtt protocol- d/c'd on 03/26- started Cardizem 120 mg QAM - Continue Metoprolol 75 mg BID - Mag level- WNL - ECHO on 03/24- * Left ventricular systolic function is normal. * The left atrium is mildly dilated. * The right atrium is mild to moderately dilated. - Cardiology consult, appreciate recommendations -- Rate control w/ IV Cardizem and IV Digoxin 250 mcg x2 doses, then PO Digoxin 0.125 mg x1 dose- if unsuccessful, rhythm control vs pacemaker -- Transition to oral regimen on 03/26- Cardizem 120 mg QAM, Metoprolol 75 mg BID, and Digoxin 0.125 mcg on MWF Mild hypokalemia- RESOLVED: Replace w/ 20 mEq KCL x1 on 03/25- follow PRP and replace PRN Acute hypoxic respiratory failure, likely secondary to sepsis vs ?baseline vs less likely PNA, COPD exacerbation, or PE/chronic COPD: - O2 protocol, wean as tolerated- currently requiring 2L NC- does NOT wear O2 supplement at home - CXR on 03/24- mild left basilar opacity favors atelectasis. No acute cardiopulmonary findings. No significant change in appearance of the chest -- Repeat CXR on 03/25- negative for acute processes - Abdominal/pelvic CT on 03/25- Dependent bibasilar consolidation may represent atelectasis. - h/o PE/CVA- on no outpatient anticoagulation- low threshold, continue to monitor; if O2 does not improve, consider CTA - Continue Advair and Combivent MONA on CKD stage III, baseline Cr. 0.8- IMPROVING/chronic indwelling catheter- changed 03/24: - IVF with NSS at 100ml/hr - Lasix 40 mg BID held- monitor I&Os and daily weights, watch for fluid overload - Continue Flomax 0.4 mg QHS - Consult urology, appreciate recommendations -- CT of the abd/pelvis to r/o hydro or stone- Mild left hydronephrosis with obstructing 7 mm proximal left ureteral calculus. -- L cysto/stent on 03/25 -- Remain inpatient until afebrile for 24 hrs, f/u outpatient HTN- STABLE: Hold Amlodipine 10 mg daily and Felodipine 2.5 mg HS due IV Cardizem drip Hypothyroidism: - Continue Levothyroxine 25 mcg daily - TSH on 03/24/17- WNL Depression, bipolar disorder- STABLE: - Continue Effexor XR 187.5 mg HS - h/o drug use- drug screen negative h/o myeloproliferative disorder: Continue Hydrea 500 mg M,W,F Cervical disk disease: - Tramadol 50 mg BID PRN held due to AMS - Continue Baclofen 5 mg HS, Gabapentin 300 mg TID GERD, h/o esophageal ulcers: Continue Ranitidine 150 mg daily DVT prophylaxis: Heparin SQ q8 hrs Code Status: LEVEL V, DNR Disposition: Resident of [facility]- return once medically stable, hopefully within the next 1-2 days- psychiatric social worker supervisor following (Venecia Lucas ., PASalazarC) PA Physician Supervision Note: I interviewed and examined the patient. Discussed with Venecia PALACIOS and agree with findings and plan as documented in the note. 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
[2017-03-26] MEDS: DOCUSATE SODIUM 100 MG CAP PO SCH (20:58)
[2017-03-26] MEDS: RANITIDINE HCL 150 MG TAB PO SCH (20:58)
[2017-03-26] MEDS: MONTELUKAST SOD 10 MG TAB PO SCH (20:58)
[2017-03-26] MEDS: BACLOFEN 10 MG TAB PO SCH (20:58)
[2017-03-26] MEDS: TAMSULOSIN HCL 0.4 MG CAP PO SCH (20:59)
[2017-03-26] MEDS: CHOLECALCIFEROL 1000 INTER.UNIT TAB PO SCH (21:00)
[2017-03-26] MEDS: VENLAFAXINE HCL XR 37.5 MG CAPXR PO SCH (21:00)
[2017-03-26] MEDS: ACETAMINOPHEN 325 MG TAB PO PRN (22:37)
[2017-03-27 00:01] VITALS: BP 132/71; PULSE 59; TEMP 36.8; O2SAT 92
[2017-03-27 04:26] VITALS: BP 147/66; PULSE 59; TEMP 36.8; O2SAT 93
[2017-03-27] MEDS: SODIUM CHLORIDE 0.9% 1000ML 1,000 ML IV SCH ×2 (04:59→12:06)
[2017-03-27] MEDS: HEPARIN SOD 5000 UNIT/0.5 ML CARP SQ SCH (05:00)
[2017-03-27] MEDS: LEVOTHYROXINE 25 MCG TAB PO SCH (05:00)
[2017-03-27] MEDS: IPRATROPIUM BROMIDE/ALBUTEROL respimat INH INH SCH ×2 (05:00→13:41)
[2017-03-27 06:27] LABS: BASO % 0.1 %; EOS % 2.3 %; HEMATOCRIT 32.7 % (37-47); IG% 0.8 %; LYMPH % 9.9 %; LYMPH ABS # 0.72 K/uL (1.2-3.4); MEAN CORPUSCULAR HEMOGLOBIN 32.7 pg (25-34); MEAN CORPUSCULAR HGB CONC 32.7 g/dl (32-36); MEAN PLATELET VOLUME 9.8 fL (7.4-10.4); MONO % 16.2 %; NEUT % 70.7 %; PLATELET COUNT 261 K/uL (130-400); RED BLOOD COUNT 3.27 M/uL (4.2-5.4); WHITE BLOOD COUNT 7.24 K/uL (4.8-10.8)
[2017-03-27 06:28] LABS: BASO ABS # 0.01 K/uL (0-0.2); COMPLETE YES
[2017-03-27 07:09] LABS: CALCIUM 8.4 mg/dl (8.5-10.1); CREATININE 0.97 mg/dl (0.60-1.20); POTASSIUM 3.1 mmol/L (3.5-5.1)
[2017-03-27 07:16] VITALS: BP 135/59; PULSE 61; TEMP 36.8; O2SAT 93
[2017-03-27] MEDS: FLUTICASONE/SALMETEROL (ADVAIR) 500/50 INH 14 PUFF INH SCH (07:41)
[2017-03-27] MEDS: METOPROLOL TARTRATE 25 MG TAB PO SCH (07:42)
[2017-03-27] MEDS: DILTIAZEM HCL 120 MG CAPCR PO SCH (07:43)
[2017-03-27] MEDS: CALCIUM 600MG + VIT D 400 IU TAB PO SCH (07:43)
[2017-03-27] MEDS: ASCORBIC ACID 500 MG TAB PO SCH (07:43)
[2017-03-27] MEDS: GABAPENTIN 300 MG CAP PO SCH ×2 (07:44→14:00)
[2017-03-27] MEDS: POLYETHYLENE (MIRALAX) 17 GM PACK PO SCH (07:44)
[2017-03-27] MEDS: ACETAMINOPHEN 325 MG TAB PO PRN ×2 (07:47→13:43)
--- NOTE | 2017-03-27 10:47 | Progress Note ---
Subjective Date of Service: Mar 27, 2017. Subjective Pt evaluation today including: conversation w/ patient, physical exam, chart review, lab review Voiding: schuster catheter in place s/p cysto and stent for stone and urosepsis - has improved appropriately - presumably nearing baseline function 03/27/17 06:07 Red Blood Count 3.27, Mean Corpuscular Volume 100.0, Mean Corpuscular Hemoglobin 32.7, Mean Corpuscular Hemoglobin Concent 32.7, Mean Platelet Volume 9.8, Neutrophils (%) (Auto) 70.7, Lymphocytes (%) (Auto) 9.9, Monocytes (%) ( Auto) 16.2, Eosinophils (%) (Auto) 2.3, Basophils (%) (Auto) 0.1, Neutrophils # (Auto) 5.11, Lymphocytes # (Auto) 0.72, Monocytes # (Auto) 1.17, Eosinophils # ( Auto) 0.17, Basophils # (Auto) 0.01 03/27/17 06:07 Test 03/27/17 06:07 White Blood Count 7.24 K/uL (4.8-10.8) Red Blood Count 3.27 M/uL (4.2-5.4) Hemoglobin 10.7 g/dL (12.0-16.0) Hematocrit 32.7 % (37-47) Mean Corpuscular Volume 100.0 fL (80-100) Mean Corpuscular Hemoglobin 32.7 pg (25-34) Mean Corpuscular Hemoglobin Concent 32.7 g/dl (32-36) Platelet Count 261 K/uL (130-400) Mean Platelet Volume 9.8 fL (7.4-10.4) Neutrophils (%) (Auto) 70.7 % Lymphocytes (%) (Auto) 9.9 % Monocytes (%) (Auto) 16.2 % Eosinophils (%) (Auto) 2.3 % Basophils (%) (Auto) 0.1 % Neutrophils # (Auto) 5.11 K/uL (1.4-6.5) Lymphocytes # (Auto) 0.72 K/uL (1.2-3.4) Monocytes # (Auto) 1.17 K/uL (0.11-0.59) Eosinophils # (Auto) 0.17 K/uL (0-0.5) Basophils # (Auto) 0.01 K/uL (0-0.2) RDW Standard Deviation 53.4 fL (36.4-46.3) RDW Coefficient of Variation 14.6 % (11.5-14.5) Immature Granulocyte % (Auto) 0.8 % Immature Granulocyte # (Auto) 0.06 K/uL (0.00-0.02) Anion Gap 10.0 mmol/L (3-11) Est Creatinine Clear Calc Drug Dose 47.4 ml/min Estimated GFR () 68.6 Estimated GFR (Non- 59.2 BUN/Creatinine Ratio 18.0 (10-20) Calcium Level 8.4 mg/dl (8.5-10.1) Vital Signs Past 12 Hours Date Time Temp Pulse Resp B/P (MAP) Pulse Ox O2 Delivery O2 Flow Rate FiO2 03/27/17 08:00 Nasal Cannula 1.0 03/27/17 07:16 36.8 61 20 135/59 (84) 93 Nasal Cannula 2.0 03/27/17 04:26 36.8 59 17 147/66 (93) 93 Nasal Cannula 1.0 03/27/17 04:00 Nasal Cannula 1.0 03/27/17 00:01 36.8 59 17 132/71 (91) 92 Nasal Cannula 1.0 03/27/17 00:00 Nasal Cannula 1.0 Problem List Medical Problems: (1) Altered mental status Status: Acute (2) Hypoxemia Status: Acute (3) Leukocytosis Status: Acute Review of Systems Constitutional: No see HPI, No fever, No chills, No sweats, No weight loss, No weakness, No fatigue, No problem reported Eyes: No see HPI, No worsening of vision, No eye pain, No redness, No discharge , No diplopia, No problem reported Cardiac: No see HPI, No chest pain, No orthopnea, No PND, No edema, No claudication, No palpitations, No problem reported Abdomen: No see HPI, No pain, No nausea, No vomiting, No diarrhea, No constipation, No GI bleeding, No problem reported Objective Vital Signs Date Time Temp Pulse Resp B/P (MAP) Pulse Ox O2 Delivery O2 Flow Rate FiO2 03/27/17 08:00 Nasal Cannula 1.0 03/27/17 07:16 36.8 61 20 135/59 (84) 93 Nasal Cannula 2.0 03/27/17 04:26 36.8 59 17 147/66 (93) 93 Nasal Cannula 1.0 03/27/17 04:00 Nasal Cannula 1.0 03/27/17 00:01 36.8 59 17 132/71 (91) 92 Nasal Cannula 1.0 03/27/17 00:00 Nasal Cannula 1.0 03/26/17 20:00 Nasal Cannula 03/26/17 19:47 36.8 67 18 150/67 (94) 94 Nasal Cannula 2.0 03/26/17 16:00 Nasal Cannula 03/26/17 15:55 37.1 57 20 135/61 (85) 93 Nasal Cannula 2.0 03/26/17 15:17 65 03/26/17 12:00 Nasal Cannula 03/26/17 11:06 37.1 65 18 122/59 (80) 93 3.0 Physical Exam General Appearance: no apparent distress Eyes: normal inspection ENT: hearing grossly normal Abdomen: non tender, soft Neurologic/Psychiatric: alert, normal mood/affect, oriented x 3 Skin: warm/dry Laboratory Results Last 24 Hours Test 03/27/17 06:07 White Blood Count 7.24 K/uL Red Blood Count 3.27 M/uL Hemoglobin 10.7 g/dL Hematocrit 32.7 % Mean Corpuscular Volume 100.0 fL Mean Corpuscular Hemoglobin 32.7 pg Mean Corpuscular Hemoglobin Concent 32.7 g/dl Platelet Count 261 K/uL Mean Platelet Volume 9.8 fL Neutrophils (%) (Auto) 70.7 % Lymphocytes (%) (Auto) 9.9 % Monocytes (%) (Auto) 16.2 % Eosinophils (%) (Auto) 2.3 % Basophils (%) (Auto) 0.1 % Neutrophils # (Auto) 5.11 K/uL Lymphocytes # (Auto) 0.72 K/uL Monocytes # (Auto) 1.17 K/uL Eosinophils # (Auto) 0.17 K/uL Basophils # (Auto) 0.01 K/uL RDW Standard Deviation 53.4 fL RDW Coefficient of Variation 14.6 % Immature Granulocyte % (Auto) 0.8 % Immature Granulocyte # (Auto) 0.06 K/uL Sodium Level 143 mmol/L Potassium Level 3.1 mmol/L Chloride Level 110 mmol/L Carbon Dioxide Level 23 mmol/L Anion Gap 10.0 mmol/L Blood Urea Nitrogen 18 mg/dl Creatinine 0.97 mg/dl Est Creatinine Clear Calc Drug Dose 47.4 ml/min Estimated GFR () 68.6 Estimated GFR (Non- 59.2 BUN/Creatinine Ratio 18.0 Random Glucose 89 mg/dl Calcium Level 8.4 mg/dl Assessment and Plan Urosepsis and stone s/p stent - d/c to home facility today - cont abx (proteus on culture - senstive to keflex and cerfuroxime orally) - plan for f/u next week to arrange further treatment Continued [facility] stay due to: fever, multiple IV medications needed
[2017-03-27 11:05] VITALS: BP 129/78; PULSE 58; TEMP 36.9; O2SAT 91
[2017-03-27 12:00] VITALS: O2SAT 90
[2017-03-27] MEDS ORDERED: CRDCD120 PO (12:31)
[2017-03-27] MEDS ORDERED: CEFD300C2 PO (12:31)
--- NOTE | 2017-03-27 12:32 | Discharge Instructions ---
Discharge Instructions Date of Service Mar 27, 2017. Admission Reason for Admission: Urosepsis Activity Recommendations . Instructions / Follow-Up Instructions / Follow-Up Call your Primary Care doctor if any of the following symptoms or problems start or get worse: * Shortness of breath or difficulty breathing * Wake up at night short of breath * Chest pain * Cough * Swelling of your hands, feet, or legs * More fatigued or tired with your normal activity * Palpitations - sudden fast heart beats WEIGHT * Weigh yourself every morning after using the bathroom. * Use the same scale. * Wear the same amount of clothing. * Write your weight down on a chart. * Call your Primary Care doctor if you gain more than 2-3 pounds in 1-2 days. MEDICATIONS * Use this discharge instruction sheet for medication instructions. * Take your medications at the time your doctor ordered. * Do not skip a dose of your medicines. * If you miss a dose of medicine, take it as soon as possible, but DO NOT DOUBLE A DOSE. * Read your medicine information when you get home. * Know all of the side effects of your medicine. If in doubt, ask your pharmacist * Call your Primary Care doctor's office if you have any side effects. * Be sure all of your doctors know what medicine and herbs you take (including cold, flu, and herbal medicine). Take the following with you to your follow-up doctor appointments: * Weight Chart * Medication List * List of questions Do not drink excessive alcohol, beer or wine. Current Hospital Diet Patient's current hospital diet: AHA Diet (Heart Healthy) Procedures Procedures Performed: Cystoscopy, Left Ureteral Stent Insertion Medical Emergencies . Who to Call and When: Call 911 or go to the Emergency Room if: * If at any time you feel your situation is an emergency * You have tightness or pain in your chest that does not go away with rest or Nitroglycerin * You are very short of breath even with rest . Non-Emergent Contact . . "Provider Documentation" section prepared by Brady Hall. . VTE Core Measure Inpt VTE Proph given/why not?: Unfractionated heparin SQ, T.E.D. Julianaings, SCD 's
--- NOTE | 2017-03-27 12:43 | Discharge Instructions ---
Discharge Instructions Date of Service Mar 27, 2017. Admission Reason for Admission: Urosepsis Discharge Discharge Diagnosis / Problem: pyelonephritis Discharge Goals Goal(s): Diagnostic testing, Therapeutic intervention Activity Recommendations Activity Level: Assistance Required Therapies: Physical Therapy, Occupational Therapy . Additional Information Patient informed of condition: Yes Advance Directives: Yes DNR: Yes Level of Care: Skilled Communicable Disease: No Prognosis: Stable Schuster Catheter: Yes Instructions / Follow-Up Instructions / Follow-Up This is 72 y/o F with PMHx of HTN, COPD, anemia of chronic disease, cervical disk disease, chronic hep C, hx of PE, hx of stroke, hypercalcemia, hx of esophageal ulcers, left hydronephrosis in Jul 2016 with chronic indwelling schuster , hx of depression with suicidal attempt via narcotic pill overdose, who presents from [facility] s/p 3 falls in the past two days and altered mental status. Metabolic encephalopathy, likely secondary to sepsis from chronic indwelling Schuster associated UTI- - UCx- growing Proteus mirabilis - IV Cipro 400 mg x1 dose on 03/24 in ED- d/'d; IV Rocephin 2g started on 03/24- d /c'd; IV Ertapenem 03/25-03/26 -- Leukocytosis- RESOLVED -- ID consulted, appreciate recommendations- transitioned back to IV Rocephin on 03/26, likely transition to PO cefdinir- complete 14 days of treatment (last day 04/07) Paroxysmal a.fib w/ RVR, likely secondary to acute infectious process- CONVERTED ON 03/25: -transition to Cardizem 120 mg QAM - Continue Metoprolol 75 mg BID - ECHO on 03/24- * Left ventricular systolic function is normal. * The left atrium is mildly dilated. * The right atrium is mild to moderately dilated. - Cardiology consult, appreciate recommendations -- Rate control w/ IV Cardizem and IV Digoxin 250 mcg x2 doses, then PO Digoxin 0.125 mg x1 dose- if unsuccessful, rhythm control vs pacemaker -- Transition to oral regimen on 03/26- Cardizem 120 mg QAM, Metoprolol 75 mg BID, and Digoxin 0.125 mcg on MWF Mild hypokalemia- RESOLVED: Replace w/ 20 mEq KCL x1 on 03/25- follow PRP and replace PRN Acute hypoxic respiratory failure, likely secondary to sepsis vs ?baseline vs less likely PNA, COPD exacerbation, or PE/chronic COPD: - CXR on 03/24- mild left basilar opacity favors atelectasis. No acute cardiopulmonary findings. No significant change in appearance of the chest -- Repeat CXR on 03/25- negative for acute processes - Abdominal/pelvic CT on 03/25- Dependent bibasilar consolidation may represent atelectasis. - h/o PE/CVA- on no outpatient anticoagulation- - Continue Advair and Combivent MONA on CKD stage III, baseline Cr. 0.8- IMPROVING/chronic indwelling catheter- changed 03/24: - Lasix 40 mg BID - Continue Flomax 0.4 mg QHS - Consult urology, - Mild left hydronephrosis with obstructing 7 mm proximal left ureteral calculus. -- L cysto/stent on 03/25, will follow up in office for outpt litho and eventual stent removal HTN- STABLE: stop Amlodipine as started diltiazem, Felodipine 2.5 mg HS Hypothyroidism:Levothyroxine 25 mcg daily Depression, bipolar disorder- STABLE: Effexor XR 187.5 mg HS h/o myeloproliferative disorder: Continue Hydrea 500 mg M,W,F Cervical disk disease: Tramadol 50 mg BID PRN held due to AMS Baclofen 5 mg HS , Gabapentin 300 mg TID GERD, h/o esophageal ulcers: Continue Ranitidine 150 mg daily Code Status: LEVEL V, DNR Disposition: Resident of [facility]- Current Hospital Diet Patient's current hospital diet: AHA Diet (Heart Healthy) Discharge Diet Recommended Diet: Regular Diet Procedures Procedures Performed: Cystoscopy, Left Ureteral Stent Insertion Pending Studies Studies pending at discharge: no Medical Emergencies . Who to Call and When: Medical Emergencies: If at any time you feel your situation is an emergency, please call 911 immediately. . Non-Emergent Contact Non-Emergency issues call your: Urologist (will need urology follow up) Call Non-Emergent contact if: temperature is above 101, your pain is unusual for you . . "Provider Documentation" section prepared by Brady Hall. . Core Measure Problem Core Measures: None
--- NOTE | 2017-03-27 12:45 | Discharge Summary ---
Discharge Summary Date of Service Mar 27, 2017. Discharge Summary Admission Date: Mar 24, 2017 at 14:11 Discharge Date: Mar 27, 2017 [facility]position[facility] Principal Diagnosis: pyelonephritis, afib rvr Immunizations: Have You Had Influenza Vaccine: Yes Influenza Vaccine Date: Apr 07, 2013 History of Tetanus Vaccine?: No History of Pneumococcal: Yes Pneumococcal Date: Apr 07, 2013 History of Hepatitis B Vaccine: No Medication Reconciliation New Medications: Cefdinir (Omnicef) 300 Mg Cap 300 MG PO Q12H for 10 Days, #20 CAP Diltiazem HCl (Diltiazem Cd) 120 Mg Capcr 120 MG PO QAM, #30 DOSE 6 Refills Continued Medications: Acetaminophen (Tylenol) 325 Mg Tab 650 MG PO Q4 Ascorbic Acid (Vitamin C) 500 Mg Cap 500 MG PO BID Baclofen (Lioresal) 10 Mg Tab 5 MG PO QPM Calcium (Caltrate) 600 Mg Tab 600 MG PO QAM Cholecalciferol (Vitamin D3) 1,000 Unit Cap 2 CAP PO HS for 30 Days, #60 TAB Docusate Sodium (Colace) 100 Mg Cap 100 MG PO QPM Felodipine (Plendil Er) 5 Mg Tab 2.5 MG PO HS for 30 Days, #30 TAB Fluticasone Prop/Salmeterol (Advair Diskus 500-50 Mcg/Dose) 14 Puff/1 Inhaler Aerp 1 PUFF INH BID Furosemide (Lasix) 40 Mg Tab 40 MG PO BID Gabapentin (Neurontin) 300 Mg Cap 300 MG PO TID Hydroxyurea (Hydrea) 500 Mg Cap 500 MG PO 3XWK Mon, Wed, Fri HOLD IF WBC < 6.000 Ipratropium-Albuterol (Combivent Respimat) 1 Aer Aer 1 PUFFS INH Q6 GIVE WHILE AWAKE Levothyroxine Sodium (Synthroid) 25 Mcg Tab 25 MCG PO QAM Montelukast Sodium (Montelukast Sodium) 10 Mg Tab 10 MG PO QPM, 3 Refills Oxybutynin Chloride (Oxybutinin Chloride) 1 Pow Pow 5 MG PO TID for CATH Polyethylene (Miralax Powder Packet) 17 Gm Pack 17 GM PO QAM Potassium Ext Rel (Klor-Con) 20 Meq Tabcr 40 MEQ PO BID Ranitidine (Zantac) 150 Mg Tab 150 MG PO HS Tamsulosin HCl (Tamsulosin HCl) 0.4 Mg Cap 0.4 MG PO HS Tramadol (Ultram) 50 Mg Tab 1 TAB PO BID PRN for Pain for 30 Days, #60 TAB Venlafaxine Hcl (Effexor) 100 Mg Tab 187.5 MG PO HS [metoprolol] () 75 MG PO BID [Thera-Beta Carotene] () 1 TAB PO HS Discontinued Medications: Amlodipine (Norvasc) 10 Mg Tab 10 MG PO QAM Discharge Exam Review of Systems: Constitutional: No fever, No chills Respiratory: No cough, No dyspnea on exertion Cardiovascular: No chest pain, No edema Abdomen: No pain, No nausea Physical Exam: General Appearance: WD/WN, + mild distress Eyes: PERRL, EOMI Neck: supple, no JVD Respiratory/Chest: chest non-tender, lungs clear, normal breath sounds Cardiovascular: regular rate, rhythm, no murmur Abdomen / GI: normal bowel sounds, non tender, soft Neurologic/Psychiatric: alert, oriented x 3 Hospital Course This is 72 y/o F with PMHx of HTN, COPD, anemia of chronic disease, cervical disk disease, chronic hep C, hx of PE, hx of stroke, hypercalcemia, hx of esophageal ulcers, left hydronephrosis in Jul 2016 with chronic indwelling schuster , hx of depression with suicidal attempt via narcotic pill overdose, who presents from [facility] s/p 3 falls in the past two days and altered mental status. Metabolic encephalopathy, likely secondary to sepsis from chronic indwelling Schuster associated UTI- - UCx- growing Proteus mirabilis - IV Cipro 400 mg x1 dose on 03/24 in ED- d/'d; IV Rocephin 2g started on 03/24- d /c'd; IV Ertapenem 03/25-03/26 -- Leukocytosis- RESOLVED -- ID consulted, appreciate recommendations- transitioned back to IV Rocephin on 03/26, likely transition to PO cefdinir- complete 14 days of treatment (last day 04/07) Paroxysmal a.fib w/ RVR, likely secondary to acute infectious process- CONVERTED ON 03/25: -transition to Cardizem 120 mg QAM - Continue Metoprolol 75 mg BID - ECHO on 03/24- * Left ventricular systolic function is normal. * The left atrium is mildly dilated. * The right atrium is mild to moderately dilated. - Cardiology consult, appreciate recommendations -- Rate control w/ IV Cardizem and IV Digoxin 250 mcg x2 doses, then PO Digoxin 0.125 mg x1 dose- if unsuccessful, rhythm control vs pacemaker -- Transition to oral regimen on 03/26- Cardizem 120 mg QAM, Metoprolol 75 mg BID, and Digoxin 0.125 mcg on MWF Mild hypokalemia- RESOLVED: Replace w/ 20 mEq KCL x1 on 03/25- follow PRP and replace PRN Acute hypoxic respiratory failure, likely secondary to sepsis vs ?baseline vs less likely PNA, COPD exacerbation, or PE/chronic COPD: - CXR on 03/24- mild left basilar opacity favors atelectasis. No acute cardiopulmonary findings. No significant change in appearance of the chest -- Repeat CXR on 03/25- negative for acute processes - Abdominal/pelvic CT on 03/25- Dependent bibasilar consolidation may represent atelectasis. - h/o PE/CVA- on no outpatient anticoagulation- - Continue Advair and Combivent MONA on CKD stage III, baseline Cr. 0.8- IMPROVING/chronic indwelling catheter- changed 03/24: - Lasix 40 mg BID - Continue Flomax 0.4 mg QHS - Consult urology, - Mild left hydronephrosis with obstructing 7 mm proximal left ureteral calculus. -- L cysto/stent on 03/25, will follow up in office for outpt litho and eventual stent removal HTN- STABLE: stop Amlodipine as started diltiazem, Felodipine 2.5 mg HS Hypothyroidism:Levothyroxine 25 mcg daily Depression, bipolar disorder- STABLE: Effexor XR 187.5 mg HS h/o myeloproliferative disorder: Continue Hydrea 500 mg M,W,F Cervical disk disease: Tramadol 50 mg BID PRN held due to AMS Baclofen 5 mg HS , Gabapentin 300 mg TID GERD, h/o esophageal ulcers: Continue Ranitidine 150 mg daily Code Status: LEVEL V, DNR Disposition: Resident of [facility]- Total Time Spent: Greater than 30 minutes This includes examination of the patient, discharge planning, medication reconciliation, and communication with other providers. Discharge Instructions Please refer to the electronic Patient Visit Report (Discharge Instructions) for additional information.
[2017-03-27] MEDS: CEFTRIAXONE SOD INJ 2,000 MG in DEXTROSE 5% 50ML 50 ML IV SCH (13:43)
[2017-03-27 13:59] VITALS: BP 129/78; PULSE 58; TEMP 36.9; O2SAT 90
[2017-03-27] MEDS ORDERED: ULT50 PO (16:31)
[2017-04-02] MEDS ORDERED: CEFD1CAP14 PO (11:08)
[2017-04-02] MEDS ORDERED: METO50TA16 PO (11:08)
[2017-04-02] MEDS ORDERED: HYDR500C3 PO (11:08)
[2017-04-02] MEDS ORDERED: LEVO25TA PO (11:08)
[2017-04-02] MEDS ORDERED: GABA-113 PO (11:08)
[2017-04-02] MEDS ORDERED: BACL10TA PO (11:08)
[2017-04-02] MEDS ORDERED: FRS/40 PO (11:08)
[2017-04-02] MEDS ORDERED: IPRA1AER2 INH (11:08)
[2017-04-02] MEDS ORDERED: VTMD1000 PO (11:08)
[2017-04-02] MEDS ORDERED: MONT1TAB5 PO (11:08)
[2017-04-02] MEDS ORDERED: ASCA500 PO (11:08)
[2017-04-02] MEDS ORDERED: DILT120C68 PO (11:08)
[2017-04-02] MEDS ORDERED: TRAM-10 PO (11:08)
[2017-04-02] MEDS ORDERED: DOCU-94 PO (11:08)
[2017-04-02] MEDS ORDERED: POLY335019 PO (11:08)
[2017-04-02] MEDS ORDERED: OXYBUTYNIN PO (11:08)
[2017-04-09] MEDS ORDERED: OXYC1TAB3 PO (09:30)
== END 2017-03-27 14:31 | DRG 659 ==
LOC: EDBD 10:15 → C.EDA 10:16 → C.2E 14:11 → ENRESERV 14:41
PROVIDERS: ADMIT Family Medicine; ATTEND Internal Medicine
PROC: 0TH Urinary System, Insertion (ICD-10-PCS; principal; 2017-03-25 12:15)
DX: T83.518A Infection and inflammatory reaction due to other urinary catheter, initial encounter (principal); A41.9 Sepsis, unspecified organism; G93.41 Metabolic encephalopathy; N17.9 Acute kidney failure, unspecified; N39.0 Urinary tract infection, site not specified; D64.9 Anemia, unspecified; B19.20 Unspecified viral hepatitis C without hepatic coma; F17.200 Nicotine dependence, unspecified, uncomplicated; I48.91 Unspecified atrial fibrillation; R41.82 Altered mental status, unspecified; R29.6 Repeated falls

== ENCOUNTER → 2017-03-24 | Outpatient (CLI) | payer OTHER ==
[~2017-03-24] MED LIST changes: +CRDCD120 PO; -DILT120C50 PO
[2017-03-24 09:27] LABS: BASO % 0.1 %; BASO ABS # 0.01 K/uL (0-0.2); COMPLETE YES; HEMATOCRIT 36.9 % (37-47); IG% 0.3 %; LYMPH % 7.3 %; LYMPH ABS # 1.18 K/uL (1.2-3.4); MEAN CELL VOLUME 100.5 fL (80-100); MEAN CORPUSCULAR HEMOGLOBIN 33.2 pg (25-34); MEAN CORPUSCULAR HGB CONC 33.1 g/dl (32-36); MEAN PLATELET VOLUME 10.5 fL (7.4-10.4); MONO % 8.6 %; NEUT % 83.7 %; PLATELET COUNT 292 K/uL (130-400); RED BLOOD COUNT 3.67 M/uL (4.2-5.4); WHITE BLOOD COUNT 16.22 K/uL (4.8-10.8)
[2017-03-24 09:53] LABS: ALT/SGPT 37 U/L (12-78); AST/SGOT 34 U/L (15-37); BLOOD UREA NITROGEN 30 mg/dl (7-18); BUN/CREATININE RATIO 20.1 (10-20); CALCIUM 9.2 mg/dl (8.5-10.1); CARBON DIOXIDE 26 mmol/L (21-32); CHLORIDE 104 mmol/L (98-107); GLUCOSE 102 mg/dl (70-99); POTASSIUM 3.6 mmol/L (3.5-5.1); SODIUM 138 mmol/L (136-145)
[2017-03-24 10:04] LABS: ALB/GLOB RATIO 0.6 (0.9-2); ALKALINE PHOSPHATASE 132 U/L (45-117); THYROID STIMULATING HORMONE 0.881 uIu/ml (0.300-4.500)
== END ==
LOC: C.LABCC 09:10
DX: R41.82 Altered mental status, unspecified (principal); R29.6 Repeated falls

== ENCOUNTER → 2017-03-25 | Outpatient (CLI) | payer OTHER ==
[~2017-03-25] MED LIST changes: +ASCA500 PO; +CEFD1CAP14 PO; +CEFD300C2 PO; -CLON0.2T PO; +CRDCD120 PO; +DILT120C68 PO; +DOCU-94 PO; +HYDR500C3 PO; +METO50TA16 PO; +OXYBUTYNIN PO; +OXYC1TAB3 PO; +POLY335019 PO; +POTA20TA16 PO; +ULT50 PO; +VTMD1000 PO
[2017-03-25 10:34] LABS: MANUAL MICROSCOPIC REQUIRED? YES; URINE APPEARANCE CLEAR (CLEAR); URINE BILIRUBIN NEG (NEG); URINE COLOR YELLOW; URINE NITRITE NEG (NEG); URINE SPECIFIC GRAVITY <= 1.005 (1.000-1.030); UROBILINOGEN NEG (NEG)
[2017-03-25 10:37] LABS: REVIEW REQ? NO
[2017-03-25 10:53] LABS: URINE BACTERIA 1+ (NEG); URINE RBC 0-4 /hpf (0-4)
== END ==
LOC: C.LABCC 09:56
PROVIDERS: ATTEND Internal Medicine
DX: R41.82 Altered mental status, unspecified (principal); Z91.81 History of falling

== ENCOUNTER → 2017-03-31 | Outpatient (CLI) | payer OTHER ==
[~2017-03-31] MED LIST changes: -AMLO-114 PO
[2017-03-31 09:06] LABS: BLOOD UREA NITROGEN 33 mg/dl (7-18); BUN/CREATININE RATIO 27.3 (10-20); CALCIUM 9.4 mg/dl (8.5-10.1); CARBON DIOXIDE 24 mmol/L (21-32); CHLORIDE 109 mmol/L (98-107); GLUCOSE 91 mg/dl (70-99); POTASSIUM 3.8 mmol/L (3.5-5.1); SODIUM 142 mmol/L (136-145)
== END ==
LOC: C.LABCC 07:51
PROVIDERS: ATTEND Internal Medicine
DX: N18.9 Chronic kidney disease, unspecified (principal); N20.0 Calculus of kidney; Z96.0 Presence of urogenital implants

== ENCOUNTER → 2017-03-31 | Outpatient (CLI) | payer OTHER ==
--- NOTE | 2017-03-31 11:40 | DIAGNOSTIC IMAGING REPORT ---
KUB CLINICAL HISTORY: Nephrolithiasis. FINDINGS: 2 AP supine abdominal radiographs are correlated with abdominal CT dated 03/25/2017. There is a nonobstructed abdominal bowel gas pattern noting moderate colonic fecal retention. A left ureteral stent has been placed. There is a questionable 7 mm calcification projecting over the proximal end of the stent seen on one view only. This is located at the level of L4. An 11 mm calcification projects over the lower pole of the left kidney. No calcifications are clearly seen projecting over the right kidney. Phleboliths are observed in the pelvis. The skeletal structures are osteopenic. Lumbar sacral spondylosis is observed. Chronic posttraumatic and postoperative change is seen in the left femur. IMPRESSION: 1. A left ureteral stent has been placed. There is a questionable 7 mm calcification projecting over the proximal end of the stent. This was only seen on one view and may represent the tip of the left transverse process of L4. Clinical correlation will be required. 2. A nonobstructing calculus projects over the lower pole of the left kidney. 3. No right renal calculi are clearly seen. Electronically signed by: Madan Torres M.D. 03/31/2017 11:39 AM Dictated Date/Time: 03/31/2017 11:36 AM
== END ==
LOC: C.RADBC 10:24
PROVIDERS: ATTEND Urology
DX: N20.0 Calculus of kidney (principal); Z96.0 Presence of urogenital implants

== ENCOUNTER → 2017-04-06 | Outpatient (CLI) | payer OTHER ==
[~2017-04-06] MED LIST changes: -ASCO1CAP3 PO; -CALCTAB5 PO; -CEFD300C2 PO; -CHOL1CAP57 PO; -CLC100X PO; -CRDCD120 PO; -HYDR500C PO; -OXYBPOW PO; -POLY335040 PO; -ULT50 PO; -metoprolol PO
[2017-04-06 08:41] LABS: BLOOD UREA NITROGEN 36 mg/dl (7-18); BUN/CREATININE RATIO 30.3 (10-20); CALCIUM 9.7 mg/dl (8.5-10.1); CARBON DIOXIDE 26 mmol/L (21-32); CHLORIDE 109 mmol/L (98-107); GLUCOSE 86 mg/dl (70-99); POTASSIUM 3.8 mmol/L (3.5-5.1); SODIUM 143 mmol/L (136-145)
== END ==
LOC: C.LABCC 07:43
PROVIDERS: ATTEND Internal Medicine
DX: N28.9 Disorder of kidney and ureter, unspecified (principal)

== ENCOUNTER → 2017-04-08 | Outpatient (CLI) | payer OTHER ==
--- NOTE | 2017-04-08 16:01 | DIAGNOSTIC IMAGING REPORT ---
KUB CLINICAL HISTORY: 72 years-old Female presenting with nephrolithiasis. TECHNIQUE: Single supine view of the abdomen was obtained. COMPARISON: 03/31/2017. FINDINGS: Left ureteral calculus remains in place. Previously noted calcification along the proximal course of the stent persists, unchanged in position. Multiple phleboliths again noted. Evaluation of the kidneys for calcification is limited by the presence of moderate stool burden. Nonobstructive bowel gas pattern. Osseous structures are unremarkable for 2 lag screw fixation across the left femoral neck. IMPRESSION: 1. Stable appearance of the calcification along the course of the proximal left ureteral stent, presumed ureteral calculus. 2. Evaluation for renal calculus limited due to extensive stool burden. Electronically signed by: Asad Mina M.D. 04/08/2017 4:00 PM Dictated Date/Time: 04/08/2017 3:58 PM
== END | disposition home or self-care (01) ==
LOC: C.RAD1850 15:09
PROVIDERS: ATTEND Urology
DX: N20.0 Calculus of kidney (principal)

== ENCOUNTER → 2017-04-09 | Day surgery (SDC) | payer OTHER ==
[2017-04-02 11:09] VITALS: Ht 152.4 cm; Wt 69.6 kg
[~2017-04-09] VITALS: Ht 152.4 cm; Wt 69.6 kg
[~2017-04-09] MED LIST changes: +ATROPINE SULFATE 0.1 MG/ML 5ML SYR IV PRN; +CIPROFLOXACIN / D5W 400 MG IV SCH; +EpHEDrine SULFATE INJ 50 MG/ML AMP IV PRN; +EpHEDrine SULFATE INJ 50 MG/ML AMP ONE; +FENTANYL CITRATE INJ 50 MCG/1 ML 2 ML VIAL IV PRN; +FENTANYL CITRATE INJ 50 MCG/1 ML 2 ML VIAL ONE; +FLUMAZENIL 0.1 MG/1 ML 10 ML VIAL IV PRN; +HYDROmorphone INJ 2 MG/ML SYR/VIAL IV PRN; +LABETALOL HCL IV 5 MG/ML 20ML IV PRN; +LACTATED RINGER'S 1000ML 1,000 ML IV SCH; +LIDOCAINE HCL 2% 2 ML VIAL (20MG/ML) ONE; +MEPERIDINE HCL 25 MG/ML CARP IV PRN; +NALOXONE HCL 0.4 MG/1 ML VIAL/CARP IV PRN; +ONDANSETRON INJ 2 MG/ML 2 ML VIAL IV PRN; +ONDANSETRON INJ 2 MG/ML 2 ML VIAL ONE; +OXYCODONE/ACETAMINOPHEN 5-325 TAB ONE; +OXYCODONE/ACETAMINOPHEN 5-325 TAB PO PRN; +PHENYLEPHRINE 100MCG/ML 5ML SYR IV PRN; +PROPOFOL IV EMULSION 10 MG/ML 20 ML VIAL IV ONE; +SODIUM CHLORIDE 0.9% INJ 10 ML VIAL ONE
--- NOTE | 2017-04-09 09:33 | Discharge Instructions ---
Discharge Instructions Date of Service Apr 09, 2017. Admission Reason for Admission: Stones Discharge Discharge Diagnosis / Problem: L ureteral stone with indwelling stent s/p ESWL Discharge Goals Goal(s): Improve function, Improve disease control, Therapeutic intervention Activity Recommendations Activity Limitations: as noted below Lifting Limitations: no more than 25 pounds, gradually increase as tolerated ( over 3 days) Exercise/Sports Limitations: rest today, gradually increase as tolerated (over 3 days) May Resume Sexual Activity: when tolerated Shower/Bathe: no limitations . Instructions / Follow-Up Instructions / Follow-Up Strain urine as instructed Follow-up in office on Apr 20 at 13:10 for possible stent removal - KUB Xray before visit Discharge Diet Recommended Diet: Regular Diet (good fluid intake) Procedures Procedures Performed: Left Extracorporeal Shock Wave Lithotripsy - Ureteral Pending Studies Studies pending at discharge: no Medical Emergencies . Who to Call and When: Medical Emergencies: If at any time you feel your situation is an emergency, please call 911 immediately. . Non-Emergent Contact Non-Emergency issues call your: Urologist Call Non-Emergent contact if: you have a fever, temperature is above 101, your pain is not controlled, your pain is worsening, your pain is unusual for you, your pain is concerning you, you have any medication questions . . "Provider Documentation" section prepared by Kyaw Mckoy. . VTE Core Measure Inpt VTE Proph given/why not?: SCD's [place] Drug Monitoring Program Search Results: patient reviewed within database, see additional documentation (past tramadol Rx noted, last in January 2017)
--- NOTE | 2017-04-09 09:37 | [facility] Post Operative Brief Note ---
Immediate Operative Summary Operative Date Apr 09, 2017. Pre-Operative Diagnosis Left ureteral calculi Post-Operative Diagnosis Same as pre-op Procedure(s) Performed Left Extracorporeal Shock Wave Lithotripsy - Ureteral Surgeon Dr. Levy Mckoy Artificial Candy Maker Surgeon(s) None Estimated Blood Loss 0 mL Findings Excellent fragmentation of stone on fluoro Specimens None Drains Indwelling stent Anesthesia GALMA Complication(s) None Disposition Recovery Room / PACU
--- NOTE | 2017-04-09 09:39 | [facility] Operative Report ---
Operative Report Operative Date Apr 09, 2017. Pre-Operative Diagnosis Left ureteral calculi Post-Operative Diagnosis Same as pre-op Procedure(s) Performed Left Extracorporeal Shock Wave Lithotripsy - Ureteral Surgeon Dr. Levy Mckoy Supervisor Underwriting Clerks Surgeon(s) None Estimated Blood Loss 0 mL Findings Excellent stone fragmentation on fluoro Specimens None Drains Indwelling stent Anesthesia GALMA Complication(s) None Disposition Recovery Room / PACU Indications 72 yo female with indwelling stent, history of ureteral stone and sepsis here for ESWL of residual stone. See H&P for further details. Description of Procedure The patient was brought to the litho suite. He was correctly identified and the stone was visualized on his most recent x-rays. After the correct time out was performed the patient was positioned over the therapy head. An adequate level of anesthesia was administered. The extracorporeal shockwave lithotripsy treatment was then commenced. Please see the [facility] sheet for complete treatment summary. After completion of the procedure the patient was taken to the recovery room in stable condition. I attest to the content of the Intraoperative Record and any orders documented therein. Any exceptions are noted below.
[2017-04-09 10:30] VITALS: TEMP 36.5
--- NOTE | 2017-04-09 10:32 | Anesthesia Progress Nt - [facility] ---
Anesthesia Post Op Note Date & Time Apr 09, 2017 at 10:32 Vital Signs Pain Intensity: 0 Vital Signs Past 12 Hours Date Time Temp Pulse Resp B/P (MAP) Pulse Ox O2 Delivery O2 Flow Rate FiO2 04/09/17 10:16 137/65 04/09/17 10:15 56 16 98 04/09/17 10:15 57 16 04/09/17 10:14 130/65 04/09/17 10:12 62 17 04/09/17 10:12 62 17 89 04/09/17 10:10 37.2 64 14 119/73 92 Room Air 04/09/17 10:07 58 19 04/09/17 10:07 58 19 97 04/09/17 10:06 119/73 04/09/17 10:04 55 16 96 04/09/17 10:04 56 16 04/09/17 10:02 138/57 04/09/17 09:59 58 17 144/78 99 04/09/17 09:59 58 17 04/09/17 09:54 60 19 04/09/17 09:54 60 19 96 04/09/17 09:51 118/68 04/09/17 09:49 67 16 97 04/09/17 09:49 61 16 04/09/17 09:45 112/84 04/09/17 09:44 64 17 95 04/09/17 09:44 64 17 04/09/17 09:41 128/83 04/09/17 09:40 130/58 04/09/17 09:39 59 94 04/09/17 09:39 36.3 58 12 130/58 98 Diffusion Mask 6 04/09/17 09:39 59 04/09/17 07:08 37.4 61 18 124/59 (80) 94 Room Air Notes Mental Status: alert / awake / arousable, participated in evaluation Pt Amnestic to Procedure: Yes Nausea / Vomiting: adequately controlled Pain: adequately controlled Airway Patency, RR, SpO2: stable & adequate BP & HR: stable & adequate Hydration State: stable & adequate Anesthetic Complications: no major complications apparent
[2017-04-09 11:29] VITALS: BP 117/68; PULSE 62; O2SAT 94
== END | disposition home or self-care (01) ==
LOC: X.SURG 06:56
PROVIDERS: ATTEND Urology
DX: N20.0 Calculus of kidney (principal); M19.90 Unspecified osteoarthritis, unspecified site; N26.1 Atrophy of kidney (terminal); J44.9 Chronic obstructive pulmonary disease, unspecified; B18.2 Chronic viral hepatitis C; F32.9 Major depressive disorder, single episode, unspecified; I10 Essential (primary) hypertension; M11.20 Other chondrocalcinosis, unspecified site; J45.909 Unspecified asthma, uncomplicated; Z85.828 Personal history of other malignant neoplasm of skin; Z86.73 Personal history of transient ischemic attack (TIA), and cerebral infarction without residual deficits; Z82.49 Family history of ischemic heart disease and other diseases of the circulatory system; F17.200 Nicotine dependence, unspecified, uncomplicated

== ENCOUNTER → 2017-04-19 | Outpatient (CLI) | payer OTHER ==
[~2017-04-19] MED LIST changes: -ATROPINE SULFATE 0.1 MG/ML 5ML SYR IV PRN; -CEFD1CAP14 PO; -CIPROFLOXACIN / D5W 400 MG IV SCH; -EpHEDrine SULFATE INJ 50 MG/ML AMP IV PRN; -EpHEDrine SULFATE INJ 50 MG/ML AMP ONE; -FENTANYL CITRATE INJ 50 MCG/1 ML 2 ML VIAL IV PRN; -FENTANYL CITRATE INJ 50 MCG/1 ML 2 ML VIAL ONE; -FLUMAZENIL 0.1 MG/1 ML 10 ML VIAL IV PRN; -HYDROmorphone INJ 2 MG/ML SYR/VIAL IV PRN; -LABETALOL HCL IV 5 MG/ML 20ML IV PRN; -LACTATED RINGER'S 1000ML 1,000 ML IV SCH; -LIDOCAINE HCL 2% 2 ML VIAL (20MG/ML) ONE; -MEPERIDINE HCL 25 MG/ML CARP IV PRN; -NALOXONE HCL 0.4 MG/1 ML VIAL/CARP IV PRN; -ONDANSETRON INJ 2 MG/ML 2 ML VIAL IV PRN; -ONDANSETRON INJ 2 MG/ML 2 ML VIAL ONE; -OXYCODONE/ACETAMINOPHEN 5-325 TAB ONE; -OXYCODONE/ACETAMINOPHEN 5-325 TAB PO PRN; -PHENYLEPHRINE 100MCG/ML 5ML SYR IV PRN; -PROPOFOL IV EMULSION 10 MG/ML 20 ML VIAL IV ONE; -SODIUM CHLORIDE 0.9% INJ 10 ML VIAL ONE
--- NOTE | 2017-04-19 13:19 | DIAGNOSTIC IMAGING REPORT ---
KUB CLINICAL HISTORY: 72 years-old Female presenting with kidney stones, low back pain. TECHNIQUE: Single supine view of the abdomen was obtained. COMPARISON: 04/08/2017. FINDINGS: Left double-J ureteral stent remains in place. The previously noted calcification projecting over the proximal left ureter is poorly visualized if it remains present. Moderate stool burden and gaseous distention of the stomach degrade evaluation. Few pelvic phleboliths noted. 2 lag screw fixation across the left femoral neck percent visualized. IMPRESSION: 1. Limited evaluation secondary to moderate stool burden. Previously noted left ureteral calculus is either not well depicted or has passed. Additional previously noted left renal calculi also not well detected. Electronically signed by: Asad Mina M.D. 04/19/2017 1:18 PM Dictated Date/Time: 04/19/2017 1:15 PM
== END | disposition home or self-care (01) ==
LOC: C.RAD 12:41
PROVIDERS: ATTEND Urology
DX: N20.0 Calculus of kidney (principal)

== ENCOUNTER → 2017-04-19 | Outpatient (CLI) | payer OTHER ==
[2017-04-19 10:09] LABS: HEMATOCRIT 33.6 % (37-47); MEAN CELL VOLUME 99.7 fL (80-100); MEAN CORPUSCULAR HEMOGLOBIN 30.9 pg (25-34); MEAN PLATELET VOLUME 9.9 fL (7.4-10.4); PLATELET COUNT 450 K/uL (130-400); RED BLOOD COUNT 3.37 M/uL (4.2-5.4); WHITE BLOOD COUNT 10.57 K/uL (4.8-10.8)
[2017-04-19 10:15] LABS: ALT/SGPT 11 U/L (12-78); BLOOD UREA NITROGEN 24 mg/dl (7-18); BUN/CREATININE RATIO 24.8 (10-20); CALCIUM 9.3 mg/dl (8.5-10.1); CARBON DIOXIDE 27 mmol/L (21-32); CHLORIDE 106 mmol/L (98-107); CREATININE 0.96 mg/dl (0.60-1.20); GLUCOSE 89 mg/dl (70-99); POTASSIUM 3.4 mmol/L (3.5-5.1); SODIUM 140 mmol/L (136-145)
[2017-04-19 10:18] LABS: ALB/GLOB RATIO 0.6 (0.9-2); ALKALINE PHOSPHATASE 117 U/L (45-117); AST/SGOT 12 U/L (15-37)
== END ==
LOC: C.LABCC 09:25
PROVIDERS: ATTEND Internal Medicine
DX: D64.9 Anemia, unspecified (principal); I10 Essential (primary) hypertension; N20.0 Calculus of kidney

== ENCOUNTER → 2017-04-27 | Outpatient (CLI) | payer OTHER ==
[2017-04-27 13:01] LABS: BLOOD UREA NITROGEN 24 mg/dl (7-18); BUN/CREATININE RATIO 24.8 (10-20); CALCIUM 9.1 mg/dl (8.5-10.1); CARBON DIOXIDE 27 mmol/L (21-32); CHLORIDE 107 mmol/L (98-107); CREATININE 0.96 mg/dl (0.60-1.20); GLUCOSE 81 mg/dl (70-99); POTASSIUM 3.7 mmol/L (3.5-5.1); SODIUM 142 mmol/L (136-145)
== END ==
LOC: C.LABCC 12:52
PROVIDERS: ATTEND Internal Medicine
DX: E87.6 Hypokalemia (principal)

== ENCOUNTER → 2017-05-26 | Outpatient (CLI) | payer OTHER ==
--- NOTE | 2017-05-26 13:03 | DIAGNOSTIC IMAGING REPORT ---
KUB CLINICAL HISTORY: Nephrolithiasis. Anemia. Acute kidney injury. COMPARISON STUDY: CT of the abdomen and pelvis March 25, 2017 and KUB April 19, 2017. FINDINGS: 2 cannulated screws within the proximal left femur are noted. 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 The left ureteral stent has been removed since exam of April 19, 2017. Several left renal calculi measure up to 8 mm. The left ureteral calculus shown on prior exams is not visualized on this exam. Pelvic calcifications reflect phleboliths. There is a moderate amount of stool within the colon and rectum. IMPRESSION: 1. Interval removal of left ureteral stent. Previously described left ureteral calculus not identified although could be obscured by stool. 2. Left-sided nephrolithiasis. Electronically signed by: Eddy Sellers M.D. 05/26/2017 1:01 PM Dictated Date/Time: 05/26/2017 12:48 PM
== END | disposition home or self-care (01) ==
LOC: C.LAB1850 12:29
PROVIDERS: ATTEND Urology
DX: D64.9 Anemia, unspecified (principal); N17.9 Acute kidney failure, unspecified; N26.1 Atrophy of kidney (terminal); N20.0 Calculus of kidney; M19.90 Unspecified osteoarthritis, unspecified site

== ENCOUNTER → 2017-06-29 | Outpatient (CLI) | payer OTHER ==
[2017-06-29 08:21] LABS: BLOOD UREA NITROGEN 22 mg/dl (7-18); CREATININE 0.82 mg/dl (0.60-1.20); GLUCOSE 87 mg/dl (70-99)
[2017-06-29 08:22] LABS: BUN/CREATININE RATIO 26.2 (10-20); CARBON DIOXIDE 29 mmol/L (21-32); CHLORIDE 104 mmol/L (98-107); POTASSIUM 3.5 mmol/L (3.5-5.1); SODIUM 140 mmol/L (136-145)
== END ==
LOC: C.LABCC 07:51
PROVIDERS: ATTEND Internal Medicine
DX: M81.0 Age-related osteoporosis without current pathological fracture (principal)

== ENCOUNTER → 2017-10-07 | Outpatient (CLI) | payer OTHER ==
[2017-10-07 08:53] LABS: HEMOGLOBIN 12.9 g/dL (12.0-16.0); MEAN CELL VOLUME 99.2 fL (80-100); MEAN CORPUSCULAR HEMOGLOBIN 32.8 pg (25-34); MEAN CORPUSCULAR HGB CONC 33.1 g/dl (32-36); MEAN PLATELET VOLUME 10.1 fL (7.4-10.4); PLATELET COUNT 315 K/uL (130-400); RED CELL DISTRIBUTION WIDTH CV 15.2 % (11.5-14.5); RED CELL DISTRIBUTION WIDTH SD 55.2 fL (36.4-46.3)
[2017-10-07 08:59] LABS: ALBUMIN 3.3 gm/dl (3.4-5.0); ALT/SGPT 21 U/L (12-78); BLOOD UREA NITROGEN 30 mg/dl (7-18); CARBON DIOXIDE 28 mmol/L (21-32); CREATININE 1.19 mg/dl (0.60-1.20); GLUCOSE 88 mg/dl (70-99); POTASSIUM 3.8 mmol/L (3.5-5.1); SODIUM 139 mmol/L (136-145)
[2017-10-07 09:02] LABS: ALKALINE PHOSPHATASE 89 U/L (45-117); AST/SGOT 17 U/L (15-37); TOTAL PROTEIN 7.5 gm/dl (6.4-8.2)
== END ==
LOC: C.LABCC 08:33
PROVIDERS: ATTEND Internal Medicine
DX: D64.9 Anemia, unspecified (principal); C91.00 Acute lymphoblastic leukemia not having achieved remission

== ENCOUNTER → 2017-11-08 | Outpatient (CLI) | payer OTHER ==
[~2017-11-08] MED LIST changes: -OXYC1TAB3 PO; +RANI150T85 PO; -ZNTT/150 PO
== END ==
LOC: C.LABCC 08:19
PROVIDERS: ATTEND Internal Medicine
DX: E03.9 Hypothyroidism, unspecified (principal)

== ENCOUNTER → 2018-01-24 | Outpatient (CLI) | payer OTHER ==
[~2018-01-24] MED LIST changes: +POTA-639 PO; -POTA20TA16 PO
[2018-01-24 08:56] LABS: BLOOD UREA NITROGEN 24 mg/dl (7-18); CARBON DIOXIDE 26 mmol/L (21-32); CREATININE 0.97 mg/dl (0.60-1.20); GLUCOSE 84 mg/dl (70-99); POTASSIUM 3.5 mmol/L (3.5-5.1); SODIUM 141 mmol/L (136-145)
== END ==
LOC: C.LABCC 08:35
PROVIDERS: ATTEND Internal Medicine
DX: N18.9 Chronic kidney disease, unspecified (principal); I10 Essential (primary) hypertension

== ENCOUNTER 2019-10-31 06:22 | Inpatient (IN) ==
[2019-10-31] MEDS ORDERED: PIPERACILLIN/TAZOBACTAM 4.5 GM/120 ML BAG IV STA (06:52)
[2019-10-31] MEDS ORDERED: SODIUM CHLORIDE 0.9% 1000ML 1,000 ML IV SCH (07:00)
[2019-10-31 07:03] LABS: Hematocrit (blood only) 34.6 % (37-47); Hemoglobin 11.6 g/dL (12.0-16.0); Mean Corpuscular Hemoglobin 31.4 pg (25-34); Mean Corpuscular Hgb Conc 33.5 g/dL (32-36); Mean Corpuscular Volume 93.5 fL (80-100); Mean Platelet Volume 10.6 fL (7.4-10.4); Platelet Count 334 K/uL (130-400); RDW Coefficient of Variation 15.9 % (11.5-14.5); White Blood Count 23.07 K/uL (4.8-10.8)
[2019-10-31 07:08] LABS: Prothrombin Time 10.7 Seconds (9.0-12.0)
[2019-10-31 07:10] LABS: Alanine Aminotransferase 22 U/L (12-78); Albumin Level 2.8 gm/dl (3.4-5.0); Aspartate Aminotransferase 18 U/L (15-37); BUN Creatinine Ratio 24.7 (10-20); Blood Urea Nitrogen 51 mg/dl (7-18); Calcium 9.6 mg/dl (8.5-10.1); Carbon Dioxide 22 mmol/L (21-32); Chloride 106 mmol/L (98-107); Creatinine Clr Calc Pharmacy 22.4 ml/min; Est GFR (African American) 27.2; Est GFR (Non-African American) 23.5; Glucose 116 mg/dl (70-99); Lipase 57 U/L (73-393); Potassium 4.7 mmol/L (3.5-5.1); Sodium 136 mmol/L (136-145)
[2019-10-31 07:15] LABS: Albumin Globulin Ratio 0.5 (0.9-2); Alkaline Phosphatase 253 U/L (45-117); Bilirubin,Total 0.4 mg/dl (0.2-1); Globulin 5.7 gm/dl (2.5-4.0); Total Protein 8.5 gm/dl (6.4-8.2); Troponin I < 0.015 ng/ml (0-0.045)
--- NOTE | 2019-10-31 07:21 | XRay Report ---
XR chest 1V portable CLINICAL HISTORY: fever dyspnea COMPARISON STUDY: 04/22/2016 FINDINGS: Mild cardiomegaly. Platelike atelectasis left lung base. Lungs otherwise appear clear. IMPRESSION: Minimal infiltrate and/or platelike atelectasis left base. ACT 112: Negative or not required by law. The above report was generated using voice recognition software. It may contain grammatical, syntax or spelling errors. Electronically signed by: Nikolas Parada M.D. 10/31/2019 7:20 AM
[2019-10-31 07:29] LABS: Basophils # (auto) 0.02 K/uL (0-0.2); Basophils % (auto) 0.1 %; Eosinophils # (auto) 0.06 K/uL (0-0.5); Eosinophils % (auto) 0.3 %; Immature Granulocytes # (auto) 0.08 K/uL (0.00-0.02); Immature Granulocytes % (auto) 0.3 %; Lymphocytes # (auto) 1.85 K/uL (1.2-3.4); Monocytes # (auto) 2.03 K/uL (0.11-0.59); Monocytes % (auto) 8.8 %; Neutrophils # (auto) 19.03 K/uL (1.4-6.5); Neutrophils % (auto) 82.5 %
[2019-10-31 07:39] LABS: Appearance Urine Turbid (Clear); Bilirubin Urine Negative (Negative); Blood Urine 1+ (Negative); Color Urine Yellow; Glucose Urine UA Negative (Negative); Ketones Urine Negative (Negative); Leukocyte Esterase Urine 2+ (Negative); Nitrite Urine Negative (Negative); Protein Urine 2+ (Negative); Urobilinogen Urine Negative (Negative); pH Urine 6.5 (4.5-7.5)
[2019-10-31 07:48] LABS: Epithelial Cell Urine 0-5 /lpf (0-5)
[2019-10-31 07:49] LABS: Bacteria Urine 4+ (Negative); WBC Urine >30 /hpf (0-5)
[2019-10-31 08:06] LABS: Influenza A virus by PCR Neg for Influ A (Neg); Influenza B virus by PCR Neg for Influ B (Neg)
[2019-10-31] MEDS ORDERED: ERTAPENEM SODIUM 10 ML IV STA (09:51)
--- NOTE | 2019-10-31 10:10 | Emergency Department Note ---
Entered by Christina Quintana acting as a scribe for John Gonzalez DO History of Present Illness General Chief complaint: Altered Mental Status Stated complaint: ALTERED MENTAL STATUS Time Seen by Provider: 10/31/19 06:27 Source: other (Nurse) Mode of arrival: EMS History of Present Illness Onset (ago): hour(s) less than 1 Location: head (Altered Mental Status) Pain Consistency: + other (sudden) Quality: + other (Altered Mental Status) Associated symptoms: + confusion and + fever/chills; no other (abdominal pain) Treatments prior to arrival: other (supplemental oxygen) The patient is a 74 year old female presenting to the Emergency Department via EMS complaining of sudden altered mental status starting less than 1 hour ago. The patients nurse reports that the patient woke up this morning at to receive her morning medications and was confused according to [facility] staff. She states that the patient resides at [facility] and according to staff is normally alert and oriented x 4. She explains that the patients temperature [employer]IST[employer] was 103F. She notes that the patients oxygen saturation dropped to 88% on room air and that the patient normally doesnt use supplemental oxygen. She adds that patient received supplemental oxygen from EMS [employer]. The patient denies abdominal pain. Home Medications Home Medications Medication Instructions Recorded Confirmed Type ascorbic acid (vitamin C) 500 mg 500 mg PO BID cap 07/03/19 10/31/19 History capsule baclofen 10 mg tablet 5 mg PO HS tab 07/03/19 10/31/19 History calcium carbonate 600 mg calcium 600 mg PO QAM tab 07/03/19 10/31/19 History (1,500 mg) tablet docusate sodium 100 mg capsule 100 mg PO HS cap 07/03/19 10/31/19 History furosemide 40 mg tablet 40 mg PO BID tab 07/03/19 10/31/19 History gabapentin 300 mg capsule 300 mg PO TID cap 07/03/19 10/31/19 History levothyroxine 25 mcg tablet 25 mcg PO DAILY tab 07/03/19 10/31/19 History metoprolol tartrate 75 mg tablet 75 mg PO BID tab 07/03/19 10/31/19 History montelukast 10 mg tablet 10 mg PO HS tab 07/03/19 10/31/19 History oxybutynin chloride 5 mg tablet 5 mg PO TID #90 tab 07/03/19 10/31/19 History polyethylene glycol 3350 17 17 g PO DAILY gm 07/03/19 10/31/19 History gram/dose oral powder potassium chloride 20 mEq 40 meq PO BID tab 07/03/19 10/31/19 History tablet,extended release ranitidine HCl 150 mg tablet 150 mg PO HS tab 07/03/19 10/31/19 History tamsulosin 0.4 mg capsule 0.4 mg PO HS cap 07/03/19 10/31/19 History acetaminophen 1,000 mg PO TID 10/31/19 10/31/19 History amiloride 5 mg PO DAILY 10/31/19 10/31/19 History cholecalciferol (vitamin D3) 50 mcg PO HS 10/31/19 10/31/19 History [Vitamin D3] diltiazem HCl 180 mg PO DAILY 10/31/19 10/31/19 History donepezil 10 mg PO HS 10/31/19 10/31/19 History felodipine 2.5 mg PO HS 10/31/19 10/31/19 History fluticasone propion-salmeterol 1 inh INHALATION Q12 10/31/19 10/31/19 History [Advair Diskus] ipratropium-albuterol [Combivent 1 puff INHALATION Q6 10/31/19 10/31/19 History Respimat] therapeutic multivitamin [Thera] 1 tab PO HS 10/31/19 10/31/19 History venlafaxine 37.5 mg PO HS 10/31/19 10/31/19 History venlafaxine 150 mg PO HS 10/31/19 10/31/19 History Allergies Allergy/AdvReac Type Severity Reaction Status Date / Time hydrochlorothiazide Allergy Unknown PT UNSURE Verified 10/31/19 07:02 pollen extracts Allergy Unknown HAYFEVER Verified 10/31/19 07:02 house dust mite Allergy Unknown Verified 10/31/19 07:02 Penicillins Allergy Unknown Verified 10/31/19 07:02 Past Med/Surg History Medical History Atrial fibrillation, rapid (Acute) Atrial flutter (Chronic 09/27/13) Cervical disc disease (Chronic) Hepatitis C (Chronic ~12/1995) Hypotension (Acute) Iron deficiency anemia (Chronic) 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) Sepsis (Acute) Thrombocytopenia (Chronic) Thrombocytosis (Acute) Surgical History History of bilateral carpal tunnel release History of cervical spinal surgery 2006, 2013 History of hip surgery ORIF, LEFT HIP- APRIL 2013 @ [facility] History of laparoscopy Status post hip surgery (Resolved) Family History Other No family history of adverse response to anesthesia No family history of bleeding disorder Social History Preferred Language: Afghan marital status: current occupational status: retired Feels Safe at Home: Yes Smoking Status: Current every day smoker Tobacco Type: cigarettes ; Age Started Using Tobacco: 19 ; Cigarettes Per Day: < 1/2 PPD ; Second Hand Exposure: Yes ; Hx Substance Use: Yes (Patient would not elaborate) Review of Systems See HPI for pertinent positives & negatives. and A total of 10 systems reviewed and were otherwise negative Physical Exam Vital Signs Vital Signs - 24 hr 10/31/19 06:42 10/31/19 07:00 10/31/19 07:04 Temperature 38.5 C H Temperature Source Oral Pulse Rate 88 83 84 Pulse Rate from SpO2 Sensor 84 86 Pulse Rhythm Regular Pulse Strength Normal Respiratory Rate 22 20 20 Respiratory Effort / Characteristics Non-Labored Spontaneous Respiratory Depth Normal Respiratory Pattern Regular Blood Pressure 124/65 128/56 L 128/49 L Blood Pressure Mean 84 80 72 Blood Pressure Position Lying Pulse Oximetry 88 L 98 97 Oxygen Delivery Method Nasal Cannula Oxygen Flow Rate 0 Sepsis Recent Fever Within 48 Hours Yes Sepsis New/Unexplained Change in Mental Status Yes Sepsis Action Taken by Nursing Physician Notified Oxygen Flow Rate - Titration 3 Pulse Oximetry Post Tiitration 98 10/31/19 07:15 10/31/19 07:34 10/31/19 07:45 Temperature Temperature Source Pulse Rate 82 78 79 Pulse Rate from SpO2 Sensor 83 79 80 Pulse Rhythm Pulse Strength Respiratory Rate 17 18 18 Respiratory Effort / Characteristics Respiratory Depth Respiratory Pattern Blood Pressure 115/56 L 120/58 L 133/70 Blood Pressure Mean 80 84 77 Blood Pressure Position Pulse Oximetry 97 97 97 Oxygen Delivery Method Oxygen Flow Rate Sepsis Recent Fever Within 48 Hours Sepsis New/Unexplained Change in Mental Status Sepsis Action Taken by Nursing Oxygen Flow Rate - Titration Pulse Oximetry Post Tiitration 10/31/19 08:00 10/31/19 08:15 10/31/19 08:28 Temperature Temperature Source Pulse Rate 79 78 77 Pulse Rate from SpO2 Sensor 78 75 78 Pulse Rhythm Pulse Strength Respiratory Rate 18 19 17 Respiratory Effort / Characteristics Respiratory Depth Respiratory Pattern Blood Pressure 133/64 132/69 132/69 Blood Pressure Mean 80 76 76 Blood Pressure Position Pulse Oximetry 97 97 97 Oxygen Delivery Method Oxygen Flow Rate Sepsis Recent Fever Within 48 Hours Sepsis New/Unexplained Change in Mental Status Sepsis Action Taken by Nursing Oxygen Flow Rate - Titration Pulse Oximetry Post Tiitration 10/31/19 08:30 10/31/19 08:45 10/31/19 09:00 Temperature Temperature Source Pulse Rate 77 81 79 Pulse Rate from SpO2 Sensor 77 80 79 Pulse Rhythm Pulse Strength Respiratory Rate 18 16 17 Respiratory Effort / Characteristics Respiratory Depth Respiratory Pattern Blood Pressure 120/64 122/63 139/64 Blood Pressure Mean 70 85 83 Blood Pressure Position Pulse Oximetry 97 97 98 Oxygen Delivery Method Oxygen Flow Rate Sepsis Recent Fever Within 48 Hours Sepsis New/Unexplained Change in Mental Status Sepsis Action Taken by Nursing Oxygen Flow Rate - Titration Pulse Oximetry Post Tiitration 10/31/19 09:15 10/31/19 09:30 10/31/19 09:45 Temperature Temperature Source Pulse Rate 79 75 76 Pulse Rate from SpO2 Sensor 79 75 76 Pulse Rhythm Pulse Strength Respiratory Rate 17 16 18 Respiratory Effort / Characteristics Respiratory Depth Respiratory Pattern Blood Pressure 122/63 126/61 139/62 Blood Pressure Mean 84 88 90 Blood Pressure Position Pulse Oximetry 98 98 98 Oxygen Delivery Method Oxygen Flow Rate Sepsis Recent Fever Within 48 Hours Sepsis New/Unexplained Change in Mental Status Sepsis Action Taken by Nursing Oxygen Flow Rate - Titration Pulse Oximetry Post Tiitration 10/31/19 10:00 Temperature Temperature Source Pulse Rate 77 Pulse Rate from SpO2 Sensor 77 Pulse Rhythm Pulse Strength Respiratory Rate 22 Respiratory Effort / Characteristics Respiratory Depth Respiratory Pattern Blood Pressure 134/60 Blood Pressure Mean 67 Blood Pressure Position Pulse Oximetry 98 Oxygen Delivery Method Oxygen Flow Rate Sepsis Recent Fever Within 48 Hours Sepsis New/Unexplained Change in Mental Status Sepsis Action Taken by Nursing Oxygen Flow Rate - Titration Pulse Oximetry Post Tiitration CONSTITUTIONAL/VITAL SIGNS: Reviewed / noted above. GENERAL: Non-toxic in appearance. INTEGUMENTARY: Warm, dry, and [place]. HEAD: Normocephalic. EYES: without scleral icterus or trauma. ENT/OROPHARYNX: clear and moist. LYMPHADENOPATHY/NECK: Is supple without lymphadenopathy or meningismus. RESPIRATORY: Lungs clear and equal. CARDIOVASCULAR: Regular rate and rhythm. GI/ABDOMEN: Soft and nontender. No organomegaly or pulsatile mass. No rebound or guarding. Normal bowel sounds. : Chronic indwelling Cotto catheter in place. EXTREMITIES: Warm and well perfused. BACK: No CVA tenderness. NEUROLOGICAL: Intact without focal deficits. PSYCHIATRIC: normal affect. MUSCULOSKELETAL: Normally developed with good muscle tone. Course Course 06: Previous medical records were reviewed. The patient was evaluated in room B6. A complete history and physical examination was performed. 0912: I reevaluated the patient at this time. 1028: I discussed the patient's case with Dr. Sy [facility] hospitalist. He will evaluate the patient for further management. Administered Medications Discontinued Medications Sodium Chloride (Nss 1000ml) 1,000 mls @ 999 mls/hr IV .Q1H1M HOLA Stop: 10/31/19 08:00 Last Infusion: 10/31/19 07:37 Dose: 0 mls/hr Documented by: [id number] Admin: 10/31/19 07:00 Dose: 999 mls/hr Documented by: [id number] Piperacillin Sod/Tazobactam Sod (Zosyn) 4.5 gm in 120 mls @ 200 mls/hr IV NOW STA Stop: 10/31/19 07:27 Last Admin: 10/31/19 08:01 Dose: Not Given Documented by: [id number] Ertapenem (Invanz) 10 mls @ 2 mls/min IV NOW STA Stop: 10/31/19 09:55 Last Admin: 10/31/19 10:05 Dose: 2 mls/min Documented by: [id number] Medical Decision Making Differential Diagnosis Differential Diagnosis includes but is not limited to dehydration, stroke, anemia, hypoglycemia, hyponatremia, hypernatremia, urinary tract infection, pneumonia, bronchitis, sepsis, gastroenteritis, additional abdominal pathology, metabolic abnormalities and infections. Medical Records Attestation: I reviewed the patient's medical records. Home Medications Current Medication List: was personally reviewed by me Laboratory Data Attestation: I reviewed the patient's lab results. Result diagrams: 10/31/19 06:10 10/31/19 06:10 Lab Results 10/31/19 10/31/19 10/31/19 Range/Units 06:10 06:10 06:10 WBC 23.07 H (4.8-10.8) K/uL RBC 3.70 L (4.2-5.4) M/uL Hgb 11.6 L (12.0-16.0) g/dL Hct 34.6 L (37-47) % MCV 93.5 (80-100) fL MCH 31.4 (25-34) pg MCHC 33.5 (32-36) g/dL RDW Std Deviation 55.0 H (36.4-46.3) fL RDW Coeff of Rene 15.9 H (11.5-14.5) % Plt Count 334 (130-400) K/uL MPV 10.6 H (7.4-10.4) fL Immature Gran % (Auto) 0.3 % Neut % (Auto) 82.5 % Lymph % (Auto) 8.0 % [place] % (Auto) 8.8 % Eos % (Auto) 0.3 % Baso % (Auto) 0.1 % Immature Gran # (Auto) 0.08 H (0.00-0.02) K/uL Neut # (Auto) 19.03 H (1.4-6.5) K/uL Lymph # (Auto) 1.85 (1.2-3.4) K/uL [place] # (Auto) 2.03 H (0.11-0.59) K/uL Eos # (Auto) 0.06 (0-0.5) K/uL Baso # (Auto) 0.02 (0-0.2) K/uL PT 10.7 (9.0-12.0) Seconds INR 1.0 (0.9-1.1) Sodium 136 (136-145) mmol/L Potassium 4.7 (3.5-5.1) mmol/L Chloride 106 (98-107) mmol/L Carbon Dioxide 22 (21-32) mmol/L Anion Gap 9.0 (3-11) BUN 51 H (7-18) mg/dl Creatinine 2.06 H (0.6-1.2) mg/dl Est Cr Clr Drug Dosing 22.4 ml/min Est GFR ( Amer) 27.2 Est GFR (Non-Af Amer) 23.5 BUN/Creatinine Ratio 24.7 H (10-20) Glucose 116 H (70-99) mg/dl POC Glucose (70-99) mg/dl Lactate (0.4-2.0) mmol/L Calcium 9.6 (8.5-10.1) mg/dl Total Bilirubin 0.4 (0.2-1) mg/dl AST 18 (15-37) U/L ALT 22 (12-78) U/L Alkaline Phosphatase 253 H (45-117) U/L Troponin I < 0.015 (0-0.045) ng/ml Total Protein 8.5 H (6.4-8.2) gm/dl Albumin 2.8 L (3.4-5.0) gm/dl Globulin 5.7 H (2.5-4.0) gm/dl Albumin/Globulin Ratio 0.5 L (0.9-2) Lipase 57 L (73-393) U/L Urine Color Urine Appearance (Clear) Urine pH (4.5-7.5) Ur Specific [place] (1.000-1.030) Urine Protein (Negative) Urine Glucose (UA) (Negative) Urine Ketones (Negative) Urine Blood (Negative) Urine Nitrite (Negative) Urine Bilirubin (Negative) Urine Urobilinogen (Negative) Ur Leukocyte Esterase (Negative) Urine RBC (0-4) /hpf Urine WBC (0-5) /hpf Ur Epithelial Cells (0-5) /lpf Urine Bacteria (Negative) Influenza Type A Ag (Neg) Influenza Type A (PCR) (Neg) Influenza Type B Ag (Neg) Influenza Type B (PCR) (Neg) 10/31/19 10/31/19 10/31/19 Range/Units 06:39 06:39 07:21 WBC (4.8-10.8) K/uL RBC (4.2-5.4) M/uL Hgb (12.0-16.0) g/dL Hct (37-47) % MCV (80-100) fL MCH (25-34) pg MCHC (32-36) g/dL RDW Std Deviation (36.4-46.3) fL RDW Coeff of Rene (11.5-14.5) % Plt Count (130-400) K/uL MPV (7.4-10.4) fL Immature Gran % (Auto) % Neut % (Auto) % Lymph % (Auto) % [place] % (Auto) % Eos % (Auto) % Baso % (Auto) % Immature Gran # (Auto) (0.00-0.02) K/uL Neut # (Auto) (1.4-6.5) K/uL Lymph # (Auto) (1.2-3.4) K/uL [place] # (Auto) (0.11-0.59) K/uL Eos # (Auto) (0-0.5) K/uL Baso # (Auto) (0-0.2) K/uL PT (9.0-12.0) Seconds INR (0.9-1.1) Sodium (136-145) mmol/L Potassium (3.5-5.1) mmol/L Chloride (98-107) mmol/L Carbon Dioxide (21-32) mmol/L Anion Gap (3-11) BUN (7-18) mg/dl Creatinine (0.6-1.2) mg/dl Est Cr Clr Drug Dosing ml/min Est GFR ( Amer) Est GFR (Non-Af Amer) BUN/Creatinine Ratio (10-20) Glucose (70-99) mg/dl POC Glucose 118 H (70-99) mg/dl Lactate (0.4-2.0) mmol/L Calcium (8.5-10.1) mg/dl Total Bilirubin (0.2-1) mg/dl AST (15-37) U/L ALT (12-78) U/L Alkaline Phosphatase (45-117) U/L Troponin I (0-0.045) ng/ml Total Protein (6.4-8.2) gm/dl Albumin (3.4-5.0) gm/dl Globulin (2.5-4.0) gm/dl Albumin/Globulin Ratio (0.9-2) Lipase (73-393) U/L Urine Color Yellow Urine Appearance Turbid A (Clear) Urine pH 6.5 (4.5-7.5) Ur Specific [place] 1.010 (1.000-1.030) Urine Protein 2+ H (Negative) Urine Glucose (UA) Negative (Negative) Urine Ketones Negative (Negative) Urine Blood 1+ H (Negative) Urine Nitrite Negative (Negative) Urine Bilirubin Negative (Negative) Urine Urobilinogen Negative (Negative) Ur Leukocyte Esterase 2+ H (Negative) Urine RBC 5-10 H (0-4) /hpf Urine WBC >30 H (0-5) /hpf Ur Epithelial Cells 0-5 (0-5) /lpf Urine Bacteria 4+ H (Negative) Influenza Type A Ag See Comment (Neg) Influenza Type A (PCR) Neg for Influ A (Neg) Influenza Type B Ag See Comment (Neg) Influenza Type B (PCR) Neg for Influ B (Neg) 10/31/19 Range/Units 07:26 WBC (4.8-10.8) K/uL RBC (4.2-5.4) M/uL Hgb (12.0-16.0) g/dL Hct (37-47) % MCV (80-100) fL MCH (25-34) pg MCHC (32-36) g/dL RDW Std Deviation (36.4-46.3) fL RDW Coeff of Rene (11.5-14.5) % Plt Count (130-400) K/uL MPV (7.4-10.4) fL Immature Gran % (Auto) % Neut % (Auto) % Lymph % (Auto) % [place] % (Auto) % Eos % (Auto) % Baso % (Auto) % Immature Gran # (Auto) (0.00-0.02) K/uL Neut # (Auto) (1.4-6.5) K/uL Lymph # (Auto) (1.2-3.4) K/uL [place] # (Auto) (0.11-0.59) K/uL Eos # (Auto) (0-0.5) K/uL Baso # (Auto) (0-0.2) K/uL PT (9.0-12.0) Seconds INR (0.9-1.1) Sodium (136-145) mmol/L Potassium (3.5-5.1) mmol/L Chloride (98-107) mmol/L Carbon Dioxide (21-32) mmol/L Anion Gap (3-11) BUN (7-18) mg/dl Creatinine (0.6-1.2) mg/dl Est Cr Clr Drug Dosing ml/min Est GFR ( Amer) Est GFR (Non-Af Amer) BUN/Creatinine Ratio (10-20) Glucose (70-99) mg/dl POC Glucose (70-99) mg/dl Lactate 0.4 (0.4-2.0) mmol/L Calcium (8.5-10.1) mg/dl Total Bilirubin (0.2-1) mg/dl AST (15-37) U/L ALT (12-78) U/L Alkaline Phosphatase (45-117) U/L Troponin I (0-0.045) ng/ml Total Protein (6.4-8.2) gm/dl Albumin (3.4-5.0) gm/dl Globulin (2.5-4.0) gm/dl Albumin/Globulin Ratio (0.9-2) Lipase (73-393) U/L Urine Color Urine Appearance (Clear) Urine pH (4.5-7.5) Ur Specific [place] (1.000-1.030) Urine Protein (Negative) Urine Glucose (UA) (Negative) Urine Ketones (Negative) Urine Blood (Negative) Urine Nitrite (Negative) Urine Bilirubin (Negative) Urine Urobilinogen (Negative) Ur Leukocyte Esterase (Negative) Urine RBC (0-4) /hpf Urine WBC (0-5) /hpf Ur Epithelial Cells (0-5) /lpf Urine Bacteria (Negative) Influenza Type A Ag (Neg) Influenza Type A (PCR) (Neg) Influenza Type B Ag (Neg) Influenza Type B (PCR) (Neg) Imaging Data Radiologist's Impression: Radiology results as stated below per my review and the radiologist's interpretation: XR chest 1V portable CLINICAL HISTORY: fever dyspnea COMPARISON STUDY: 04/22/2016 FINDINGS: Mild cardiomegaly. Platelike atelectasis left lung base. Lungs otherwise appear clear. IMPRESSION: Minimal infiltrate and/or platelike atelectasis left base. ACT 112: Negative or not required by law. The above report was generated using voice recognition software. It may contain grammatical, syntax or spelling errors. Electronically signed by: Nikolas Parada M.D. 10/31/2019 7:20 AM ECG Data Attestation: I personally reviewed and interpreted this ECG as follows: Indication: + altered mental status and + SOB/dyspnea Rate (beats per minute): 95 Rhythm: + sinus rhythm ECG Intervals/blocks: + Right Bundle branch block ECG ST segments: no ST elevation ECG Findings: + PACs Comparison ECG Date: from (03/24/17) Change: the following changes noted (Sinus rhythm has replaced A-fib. RBBB is new. ) Blood Pressure Blood Pressure Findings: Elevated blood pressure Blood Pressure Disposition: further management by hospitalist MDM Narrative This is a 74-year-old female who presents to the ED with a chief complaint of confused this morning coming from [facility]. The patient was f ebrile here and had oxygen saturations of 88%. She was a poor historian. She did answer basic questions appropriately. She is in no distress. Physical exam as noted above. The white blood cell count is 23,000. BUN is 51 and creatinine is 2.06. Baseline creatinine is 0.97. Troponin was negative, urine is questionable for infection. The patient does have an indwelling Cotto catheter. Flu swab was negative. BUN is 51. Chest x-ray reveals a left base pneumonia. EKG shows a sinus rhythm at a rate of 95 with a right bundle branch block. The patient was treated with empiric antibiotics. She was given IV Invanz. She was given a liter of normal saline IV. She will be seen by the hospitalist for further evaluation and care. Impression & Plan Pneumonia, Hypoxia, Acute renal failure Discharge Plan Visit Data Chief Complaint: Altered Mental Status Stated Complaint: ALTERED MENTAL STATUS ED Provider: John Gonzalez Discharge Problem: Pneumonia, Hypoxia, Acute renal failure Patient Disposition: Being Evaluated by Hospitalist Forms Stand Alone Forms: [facility] Prescriptions Prescriptions: No Action metoprolol tartrate 75 mg tablet 75 mg PO BID RF: 0 potassium chloride 20 mEq tablet extended release 40 meq PO BID RF: 0 ascorbic acid (vitamin C) 500 mg capsule 500 mg PO BID RF: 0 furosemide 40 mg tablet 40 mg PO BID RF: 0 oxybutynin chloride 5 mg tablet 5 mg PO TID Qty: 90 RF: 0 levothyroxine 25 mcg tablet 25 mcg PO DAILY RF: 0 tamsulosin 0.4 mg capsule 0.4 mg PO HS RF: 0 baclofen 10 mg tablet 5 mg PO HS RF: 0 ranitidine HCl 150 mg tablet 150 mg PO HS RF: 0 gabapentin 300 mg capsule 300 mg PO TID RF: 0 docusate sodium 100 mg capsule 100 mg PO HS RF: 0 montelukast 10 mg tablet 10 mg PO HS RF: 0 polyethylene glycol 3350 17 gram/dose powder 17 g PO DAILY RF: 0 calcium carbonate 600 mg calcium (1,500 mg) tablet 600 mg PO QAM RF: 0 diltiazem HCl 180 mg capsule,extended release 24 hr 180 mg PO DAILY RF: 0 felodipine 2.5 mg tablet extended release 24 hr 2.5 mg PO HS RF: 0 donepezil 10 mg tablet 10 mg PO HS RF: 0 amiloride 5 mg tablet 5 mg PO DAILY RF: 0 fluticasone propion-salmeterol [Advair Diskus] 500-50 mcg/dose blister with device 1 inh INHALATION Q12 RF: 0 Combivent Respimat 20-100 mcg/actuation mist 1 puff INHALATION Q6 RF: 0 acetaminophen 500 mg Tablet 1,000 mg PO TID RF: 0 cholecalciferol (vitamin D3) [Vitamin D3] 50 mcg (2,000 unit) Tablet 50 mcg PO HS RF: 0 venlafaxine 37.5 mg capsule,extended release 24hr 37.5 mg PO HS RF: 0 venlafaxine 150 mg capsule,extended release 24hr 150 mg PO HS RF: 0 Thera Tablet 1 tab PO HS RF: 0 Referrals Referrals: Braeden Ojeda [Primary Care Provider] - Discharge Problem: Pneumonia Qualifiers: Pneumonia type: due to unspecified organism Laterality: left Lung location: lower lobe of lung Qualified Code(s): J18.9 - Pneumonia, unspecified organism Acute renal failure Qualifiers: Acute renal failure type: unspecified Qualified Code(s): N17.9 - Acute kidney failure, unspecified The scribe's documentation has been prepared under my direction and personally reviewed by me in its entirety. I confirm that the note above accurately reflects all work, treatment, procedures, and medical decision making performed by me.
--- NOTE | 2019-10-31 10:54 | History & Physical Report ---
Date of Service October 31, 2019 Assessment & Plan (1) Pneumonia: Suspect patient may have pneumonia. This could be community-acquired versus aspiration. Chest x-ray on review showed very questionable left lower lobe infiltrate. Will patient was given Invanz in the emergency room, can co ntinue this for now. Would add renal dosing of vancomycin pending cultures. Will obtain sputum culture if possible. Will ask speech to evaluate prior to diet release. (2) UTI (urinary tract infection): Question urinary tract infection and patient with chronic Cotto. I do see patient had seen urology as an outpatient on 10/09 for evaluation of chronic in continence although no mention of catheter change on that visit. Patient is being covered with Invanz and vancomycin, should cover urine as well empirically until cultures can be resulted. Will ask urology to evaluate for possible catheter change and further work-up is suggested in their note. (3) Hypoxia: Secondary to pneumonia. Patient is on home oxygen and should continue on nasal cannula at 3 L. (4) Acute renal failure: May represent dehydration, can give slow IV hydration for now. Will hold Lasix and amiloride for now. Can change analyst to oral hydration once patient is evaluated by speech. (5) Atrial fibrillation, rapid: Patient has history of atrial fibrillation, pulses last documented 77. Continue diltiazem at 180 mg daily. Patient is not on chronic anticoagulation, will need to investigate why this was held and consider full dose anticoagulation prior to discharge. (6) Mental status change: Toxic/metabolic encephalopathy, likely secondary to acute renal failure and infections as documented above. History of Present Illness Primary Care Provider: [facility] This is a 74-year-old residential patient with past medical history of atrial fibrillation, iron deficiency anemia, chronic hepatitis C that presents today with change in mental status and fever. Patient was seen alone in the room, she is very confused unable provide much history. Therefore history as per ER documentation. Patient is a resident of [facility]. She was brought to the emergency room by EMS after having sudden altered mental status that started approximately an hour prior to presentation. During the work-up, patient was found to have possible urinary tract infection as well as pneumonia. She was febrile on presentation as well. Laboratory work was all grossly abnormal with a positive urinalysis and significant leukocytosis. Patient was also hypoxic but is saturating well on 3 L. During my interview, patient is oriented to person and place. She cannot tell me why she is in the hospital. She does not appear to be in any distress. Further history cannot be obtained. Allergies Allergy/AdvReac Type Severity Reaction Status Date / Time hydrochlorothiazide Allergy Unknown PT UNSURE Verified 10/31/19 07:02 pollen extracts Allergy Unknown HAYFEVER Verified 10/31/19 07:02 house dust mite Allergy Unknown Verified 10/31/19 07:02 Penicillins Allergy Unknown Verified 10/31/19 07:02 Home Medications Home Medications Medication Instructions Recorded Confirmed Type ascorbic acid (vitamin C) 500 mg 500 mg PO BID cap 07/03/19 10/31/19 History capsule baclofen 10 mg tablet 5 mg PO HS tab 07/03/19 10/31/19 History calcium carbonate 600 mg calcium 600 mg PO QAM tab 07/03/19 10/31/19 History (1,500 mg) tablet docusate sodium 100 mg capsule 100 mg PO HS cap 07/03/19 10/31/19 History furosemide 40 mg tablet 40 mg PO BID tab 07/03/19 10/31/19 History gabapentin 300 mg capsule 300 mg PO TID cap 07/03/19 10/31/19 History levothyroxine 25 mcg tablet 25 mcg PO DAILY tab 07/03/19 10/31/19 History metoprolol tartrate 75 mg tablet 75 mg PO BID tab 07/03/19 10/31/19 History montelukast 10 mg tablet 10 mg PO HS tab 07/03/19 10/31/19 History oxybutynin chloride 5 mg tablet 5 mg PO TID #90 tab 07/03/19 10/31/19 History polyethylene glycol 3350 17 17 g PO DAILY gm 07/03/19 10/31/19 History gram/dose oral powder potassium chloride 20 mEq 40 meq PO BID tab 07/03/19 10/31/19 History tablet,extended release ranitidine HCl 150 mg tablet 150 mg PO HS tab 07/03/19 10/31/19 History tamsulosin 0.4 mg capsule 0.4 mg PO HS cap 07/03/19 10/31/19 History acetaminophen 1,000 mg PO TID 10/31/19 10/31/19 History amiloride 5 mg PO DAILY 10/31/19 10/31/19 History cholecalciferol (vitamin D3) 50 mcg PO HS 10/31/19 10/31/19 History [Vitamin D3] diltiazem HCl 180 mg PO DAILY 10/31/19 10/31/19 History donepezil 10 mg PO HS 10/31/19 10/31/19 History felodipine 2.5 mg PO HS 10/31/19 10/31/19 History fluticasone propion-salmeterol 1 inh INHALATION Q12 10/31/19 10/31/19 History [Advair Diskus] ipratropium-albuterol [Combivent 1 puff INHALATION Q6 10/31/19 10/31/19 History Respimat] therapeutic multivitamin [Thera] 1 tab PO HS 10/31/19 10/31/19 History venlafaxine 37.5 mg PO HS 10/31/19 10/31/19 History venlafaxine 150 mg PO HS 10/31/19 10/31/19 History Past Med/Surg History Medical History Atrial fibrillation, rapid (Acute) Atrial flutter (Chronic 09/27/13) Cervical disc disease (Chronic) Hepatitis C (Chronic ~12/1995) Hypotension (Acute) Iron deficiency anemia (Chronic) 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) Sepsis (Acute) Thrombocytopenia (Chronic) Thrombocytosis (Acute) Surgical History History of bilateral carpal tunnel release History of cervical spinal surgery 2006, 2013 History of hip surgery ORIF, LEFT HIP- APRIL 2013 @ [facility] History of laparoscopy Status post hip surgery (Resolved) Family History Other No family history of adverse response to anesthesia No family history of bleeding disorder Social History Preferred Language: Uzbek Communication Ability: Effective Pick Up Attendant Required: No Beliefs That Will Affect Care: None marital status: Current Living Situation: Alf current occupational status: retired Other Information That Helps Us Care for You: No Feels Safe at Home: Yes Safety Concerns: Feels Safe At This Time Smoking Status: Current every day smoker Tobacco Type: cigarettes ; Age Started Using Tobacco: 19 ; Cigarettes Per Day: 10 ; Do You Dip or Chew Tobacco: No ; Second Hand Exposure: No ; Tobacco Cessation Education Requested by Patient: No Hx Alcohol Use: No Hx Substance Use: No Review of Systems Review of Systems: Unobtainable due to cognitive status Physical Exam Constitutional: + altered mental status; no acute distress Awake and alert, very confused. Oriented to person and place only. Neck: trachea midline, no thyromegaly Respiratory: normal respiratory effort Very limited exam, poor excursion. Possible faint rhonchi at bases. Cardiovascular: Rate/Rhythm: regular rate and regular rhythm Heart Sounds: normal S1 and normal S2 Gastrointestinal (Abdomen): Inspection/Auscultation: abdomen normal to inspection Percussion/Palpation: abdomen soft; abdomen nontender, no guarding, abdomen not rigid and no hepatosplenomegaly Skin: no rashes, warm and dry Psychiatric: Orientation: oriented to person and oriented to place ("the hospital") Results & Data Vital Signs (Past 12 Hours) Vital Signs Temp Pulse Resp BP Pulse Ox 10/31/19 10:00 77 22 134/60 98 10/31/19 09:45 76 18 139/62 98 10/31/19 09:30 75 16 126/61 98 10/31/19 09:15 79 17 122/63 98 10/31/19 09:00 79 17 139/64 98 10/31/19 08:45 81 16 122/63 97 10/31/19 08:30 77 18 120/64 97 10/31/19 08:28 77 17 132/69 97 10/31/19 08:15 78 19 132/69 97 10/31/19 08:00 79 18 133/64 97 10/31/19 07:45 79 18 133/70 97 10/31/19 07:34 78 18 120/58 L 97 10/31/19 07:15 82 17 115/56 L 97 10/31/19 07:04 84 20 128/49 L 97 10/31/19 07:00 83 20 128/56 L 98 10/31/19 06:42 38.5 C H 88 22 124/65 88 L Laboratory Results WBC of 23.07. Hemoglobin 11.6 hematocrit of 34.6. Platelet count of 334. There is a left shift. INR is 1. Electrolytes are normal. BUN is 51 with creatinine 2.06 which is markedly elevated from previous value on 07/24/2019 of 30 and 0.97. Glucose is 116. Alk phos is 253. Urine has 2+ protein, 1+ blood. 2+ leuk esterases and over 30 WBCs. There is also 4+ bacteria. Flu swabs are negative. Diagnostic Findings XR chest 1V portable CLINICAL HISTORY: fever dyspnea COMPARISON STUDY: 04/22/2016 FINDINGS: Mild cardiomegaly. Platelike atelectasis left lung base. Lungs otherwise appear clear. IMPRESSION: Minimal infiltrate and/or platelike atelectasis left base PG Care Time/CCT Total # of Minutes Spent Total Time Spent with Patient: Total time spent is greater than 50% in coordination of care (as documented) at patient's floor/unit and/or counseling patient: Coding Level of Care Code 31743 Initial Inpt Care Lvl 3 Diagnoses Pneumonia J18.9 Laterality: left Lung location: lower lobe of lung Pneumonia type: due to unspecified organism UTI (urinary tract infection) N39.0 Hypoxia R09.02 Acute renal failure N17.9 Acute renal failure type: unspecified Atrial fibrillation, rapid I48.91 Mental status change R41.82 (1) Acute renal failure Acute renal failure type: unspecified Qualified Code(s): N17.9 - Acute kidney failure, unspecified (2) Pneumonia Laterality: left Lung location: lower lobe of lung Pneumonia type: due to unspecified organism Qualified Code(s): J18.9 - Pneumonia, unspecified organism
--- NOTE | 2019-10-31 14:41 | Electrocardiogram Report ---
Test Reason : Blood Pressure : / mmHG Vent. Rate : 095 BPM Atrial Rate : 095 BPM P-R Int : 180 ms QRS Dur : 140 ms QT Int : 386 ms P-R-T Axes : 059 044 024 degrees QTc Int : 485 ms Sinus rhythm with Premature atrial complexes Right bundle branch block Abnormal ECG When compared with ECG of 24-MAR-2017 15:39, Sinus rhythm has replaced Atrial fibrillation Right bundle branch block is now Present Confirmed by Octaviano Alvarado ([id number]) on 10/31/2019 2:40:27 PM Referred By: [facility] Confirmed By:Didier Alvarado
[2019-10-31] MEDS ORDERED: VANCOMYCIN CONSULT ACTIVE PRN (14:51)
[2019-10-31] MEDS ORDERED: ONDANSETRON INJ 2 MG/ML 2 ML VIAL IV PRN (14:51)
[2019-10-31] MEDS ORDERED: VANCOMYCIN HCL 1,500 MG in SODIUM CHLORIDE 0.9% 500 ML IV ONE (15:30)
[2019-10-31] MEDS: SODIUM CHLORIDE 0.9% 1000ML 1,000 ML IV SCH (16:00)
[2019-10-31] MEDS: GABAPENTIN 300 MG CAP PO SCH ×2 (16:05→20:32)
[2019-10-31] MEDS: OXYBUTYNIN CHLORIDE 5 MG TAB PO SCH ×2 (16:06→20:31)
[2019-10-31] MEDS: HEPARIN SOD 5,000 UNIT/0.5 ML VIAL SQ SCH ×2 (16:07→21:24)
[2019-10-31] MEDS: IPRATROPIUM BROMIDE/ALBUTEROL respimat INH INH SCH (19:24)
[2019-10-31] MEDS ORDERED: MICONAZOLE NITRATE POWDER 43 GM EXT PRN (20:13)
[2019-10-31] MEDS: DONEPEZIL HCL 10 MG TAB PO SCH (20:31)
[2019-10-31] MEDS: METOPROLOL TARTRATE 25 MG TAB PO SCH (20:31)
[2019-10-31] MEDS: POTASSIUM CHLORIDE 20 MEQ TABCR PO SCH (20:32)
[2019-10-31] MEDS: VENLAFAXINE HCL XR 150 MG CAPXR PO SCH (20:32)
[2019-10-31] MEDS: CEROVITE ADV FORMULA TAB PO SCH (20:32)
[2019-10-31] MEDS: FELODIPINE 2.5 MG TABCR PO SCH (20:33)
[2019-10-31] MEDS: MONTELUKAST SODIUM 10 MG TABLET PO SCH (20:33)
[2019-10-31] MEDS: TAMSULOSIN HCL 0.4 MG CAP PO SCH (20:33)
[2019-10-31] MEDS: DOCUSATE SODIUM 100 MG CAP PO SCH (20:33)
[2019-10-31] MEDS: VENLAFAXINE HCL XR 37.5 MG CAPXR PO SCH (20:33)
[2019-10-31] MEDS: ASCORBIC ACID 500 MG TAB PO SCH (20:34)
[2019-10-31] MEDS: CHOLECALCIFEROL 1,000 UNITS 25 MCG TAB PO SCH (20:34)
[2019-10-31] MEDS: BACLOFEN 10 MG TAB PO SCH (20:34)
[2019-10-31] MEDS: ACETAMINOPHEN 325 MG TAB PO PRN (22:40)
[2019-11-01] MEDS: IPRATROPIUM BROMIDE/ALBUTEROL respimat INH INH SCH ×5 (00:13→23:18)
[2019-11-01] MEDS: ACETAMINOPHEN 325 MG TAB PO PRN ×3 (02:44→20:16)
[2019-11-01] MEDS: SODIUM CHLORIDE 0.9% 1000ML 1,000 ML IV SCH ×3 (04:40→22:29)
[2019-11-01] MEDS: HEPARIN SOD 5,000 UNIT/0.5 ML VIAL SQ SCH ×3 (06:14→20:45)
[2019-11-01 06:15] LABS: Basophils # (auto) 0.01 K/uL (0-0.2); Basophils % (auto) 0.1 %; Eosinophils # (auto) 0.14 K/uL (0-0.5); Eosinophils % (auto) 0.9 %; Hematocrit (blood only) 30.8 % (37-47); Hemoglobin 9.9 g/dL (12.0-16.0); Immature Granulocytes % (auto) 0.6 %; Lymphocytes % (auto) 9.5 %; Mean Corpuscular Hemoglobin 30.5 pg (25-34); Mean Corpuscular Hgb Conc 32.1 g/dL (32-36); Mean Corpuscular Volume 94.8 fL (80-100); Mean Platelet Volume 10.5 fL (7.4-10.4); Monocytes # (auto) 2.61 K/uL (0.11-0.59); Monocytes % (auto) 16.5 %; Neutrophils # (auto) 11.42 K/uL (1.4-6.5); Neutrophils % (auto) 72.4 %; Platelet Count 271 K/uL (130-400); RDW Coefficient of Variation 16.1 % (11.5-14.5); RDW Standard Deviation 56.3 fL (36.4-46.3); Red Blood Count 3.25 M/uL (4.2-5.4); White Blood Count 15.78 K/uL (4.8-10.8)
[2019-11-01] MEDS: LEVOTHYROXINE SODIUM 25 MCG TABLET PO SCH (06:15)
[2019-11-01 06:46] LABS: BUN Creatinine Ratio 23.1 (10-20); Calcium 8.5 mg/dl (8.5-10.1); Creatinine Clr Calc Pharmacy 32.4 ml/min; Est GFR (Non-African American) 37.1; Magnesium 2.6 mg/dl (1.8-2.4); Potassium 4.4 mmol/L (3.5-5.1)
[2019-11-01] MEDS: FLUTICASONE/VILANTEROL 200/25MCG 14 PUFFS/INHALER INH SCH (08:13)
[2019-11-01] MEDS: POTASSIUM CHLORIDE 20 MEQ TABCR PO SCH ×2 (08:14→20:40)
[2019-11-01] MEDS: OXYBUTYNIN CHLORIDE 5 MG TAB PO SCH ×3 (08:14→20:38)
[2019-11-01] MEDS: CALCIUM CARBONATE 1250MG TAB PO SCH (08:15)
[2019-11-01] MEDS: METOPROLOL TARTRATE 25 MG TAB PO SCH ×2 (08:15→20:38)
[2019-11-01] MEDS: POLYETHYLENE (MIRALAX) 17 GM PACK PO SCH (08:15)
[2019-11-01] MEDS: GABAPENTIN 300 MG CAP PO SCH ×3 (08:15→20:38)
[2019-11-01] MEDS: dilTIAZem ER 180 MG CAPCR PO SCH (08:16)
[2019-11-01] MEDS: ASCORBIC ACID 500 MG TAB PO SCH ×2 (08:16→20:40)
[2019-11-01] MEDS: ERTAPENEM SODIUM 500 MG in SODIUM CHLORIDE 0.9% 50 ML IV SCH (09:47)
--- NOTE | 2019-11-01 10:04 | Urology Consultation ---
Date of Consultation November 01, 2019 Assessment & Plan (1) UTI (urinary tract infection): (2) Acute renal failure: 74 year-old female patient admitted with pneumonia, hypoxia, acute renal failure, and acute UTI. -Case reviewed with Dr. Walter -Patient with suspected UTI, culture showing high counts of three organisms. -Initial blood culture prelim positive for gram negative bacilli, repeat prelim no growth. -IV antibiotics per primary team. -Recommend routine catheter changes, one month intervals. -Will reach out to [facility] to verify monthly catheter changes. -Plan to treat UTI with antibiotics for total of 10-14 days. -Creatinine improving with IV hydration. -Patient has outpatient abd/pelvis CT scheduled November 19, given elevated creatinine, will hold on obtaining inpatient unless acute changes. -Recommend outpatient cystoscopy as scheduled in addition to routine follow-up with urology service. Thank you for allowing us to participate in the acute care of Mrs. Vela. Please reconsult us with additional questions, concerns or changes in patient status. History of Present Illness Reason for Consultation: Chronic schuster, UTI Attending Physician: Dragan Farias History of Present Illness 74-year-old female patient, who resides at [facility], with past medical history of atrial fibrillation, iron deficiency anemia, and chronic hepatitis C admitted 10/31/19 with complaints of altered mental status and fever occurring one hour prior to hospital arrival. During work-up, patient was found to have possible UTI in addition to pneumonia. Urology services were consulted due to chronic schuster catheter and UTI. Patient is [place]. [place] [facility], last office visit was October 09 for urinary incontinence. It was recommended at that time patient undergo CT abdomen/pelvis in addition to cystoscopy. Chart review: Patient febrile on admission of 38.3. Most recent temperature 37.2. WBC currently 15.78 (previously 23.07) Creatinine 1.41 (previously 2.06) Hemoglobin 9.9 Urinalysis positive for 5-10 rbc, >30 wbc, 4+ bacteria, +2 leukocytes, negative nitrite. Initial blood culture from 10/31 prelim positive for gram negative bacilli, repeat blood culture prelim no growth. Urine culture with three types of organisms present, all high counts, repeat recommended - patient started on IV Ertapenem. Imaging includes chest x-ray - reviewed. Patient examined this morning. She is feeling better overall since admission. Reports she does have chronic urinary catheter at [facility]. She believes that her nurses exchange catheter on a monthly basis but cannot be certain. When catheter is not present, she "pees all over". Currently on Oxybutynin. Does report she is continent of bowel, however patient incontinent at time of exam. Denies hematuria or dysuria when catheter not in place. Denies abdominal pain. Denies fevers or chills. Denies nausea or vomiting. She does not recall details from her last urology office visit. Denies additional acute urologic concerns today. Allergies Allergy/AdvReac Type Severity Reaction Status Date / Time hydrochlorothiazide Allergy Unknown PT UNSURE Verified 10/31/19 07:02 pollen extracts Allergy Unknown HAYFEVER Verified 10/31/19 07:02 house dust mite Allergy Unknown Verified 10/31/19 07:02 Penicillins Allergy Unknown Verified 10/31/19 07:02 Home Medications Home Medications Medication Instructions Recorded Confirmed Type ascorbic acid (vitamin C) 500 mg 500 mg PO BID cap 07/03/19 10/31/19 History capsule baclofen 10 mg tablet 5 mg PO HS tab 07/03/19 10/31/19 History calcium carbonate 600 mg calcium 600 mg PO QAM tab 07/03/19 10/31/19 History (1,500 mg) tablet docusate sodium 100 mg capsule 100 mg PO HS cap 07/03/19 10/31/19 History furosemide 40 mg tablet 40 mg PO BID tab 07/03/19 10/31/19 History gabapentin 300 mg capsule 300 mg PO TID cap 07/03/19 10/31/19 History levothyroxine 25 mcg tablet 25 mcg PO DAILY tab 07/03/19 10/31/19 History metoprolol tartrate 75 mg tablet 75 mg PO BID tab 07/03/19 10/31/19 History montelukast 10 mg tablet 10 mg PO HS tab 07/03/19 10/31/19 History oxybutynin chloride 5 mg tablet 5 mg PO TID #90 tab 07/03/19 10/31/19 History polyethylene glycol 3350 17 17 g PO DAILY gm 07/03/19 10/31/19 History gram/dose oral powder potassium chloride 20 mEq 40 meq PO BID tab 07/03/19 10/31/19 History tablet,extended release ranitidine HCl 150 mg tablet 150 mg PO HS tab 07/03/19 10/31/19 History tamsulosin 0.4 mg capsule 0.4 mg PO HS cap 07/03/19 10/31/19 History acetaminophen 1,000 mg PO TID 10/31/19 10/31/19 History amiloride 5 mg PO DAILY 10/31/19 10/31/19 History cholecalciferol (vitamin D3) 50 mcg PO HS 10/31/19 10/31/19 History [Vitamin D3] diltiazem HCl 180 mg PO DAILY 10/31/19 10/31/19 History donepezil 10 mg PO HS 10/31/19 10/31/19 History felodipine 2.5 mg PO HS 10/31/19 10/31/19 History fluticasone propion-salmeterol 1 inh INHALATION Q12 10/31/19 10/31/19 History [Advair Diskus] ipratropium-albuterol [Combivent 1 puff INHALATION Q6 10/31/19 10/31/19 History Respimat] therapeutic multivitamin [Thera] 1 tab PO HS 10/31/19 10/31/19 History venlafaxine 37.5 mg PO HS 10/31/19 10/31/19 History venlafaxine 150 mg PO HS 10/31/19 10/31/19 History Patient History Medical History Atrial fibrillation, rapid (Acute) Atrial flutter (Chronic 09/27/13) Cervical disc disease (Chronic) Hepatitis C (Chronic ~12/1995) Hypotension (Acute) Iron deficiency anemia (Chronic) 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) Sepsis (Acute) Thrombocytopenia (Chronic) Thrombocytosis (Acute) Surgical History History of bilateral carpal tunnel release History of cervical spinal surgery 2006, 2013 History of hip surgery ORIF, LEFT HIP- APRIL 2013 @ [facility] History of laparoscopy Status post hip surgery (Resolved) Family History Other No family history of adverse response to anesthesia No family history of bleeding disorder Social History Preferred Language: Tajik Communication Ability: Effective Rn Pediatric Required: No Beliefs That Will Affect Care: None marital status: Current Living Situation: [facility] current occupational status: retired Other Information That Helps Us Care for You: No Feels Safe at Home: Yes Safety Concerns: Feels Safe At This Time Smoking Status: Current every day smoker Tobacco Type: cigarettes ; Age Started Using Tobacco: 19 ; Cigarettes Per Day: 10 ; Do You Dip or Chew Tobacco: No ; Second Hand Exposure: No ; Tobacco Cessation Education Requested by Patient: No Hx Alcohol Use: No Hx Substance Use: No Review of Systems Constitutional: as per Subjective / HPI and + fever; no chills Respiratory: as per Subjective / HPI, + cough and + dyspnea Cardiovascular: no lightheadedness and no syncope Gastrointestinal: as per Subjective / HPI; no nausea and no vomiting Genitourinary: as per Subjective / HPI Neurologic: no dizziness and no syncope Physical Exam Constitutional: well developed, well nourished and comfortable; no acute distress ENMT: Ears: no external ear abnormality Nose: no external nose abnormality Neck: normal visual inspection and trachea midline Respiratory: normal respiratory effort and able to speak in complete sentences; no respiratory distress and no audible wheezes Patient on 3L oxygen via nasal cannula. Cardiovascular: Extremities: no calf tenderness and no edema Gastrointestinal (Abdomen): Abdomen soft, non-tender, non distended. Incontinent of stool at time of exam. Musculoskeletal: Able to move all extremities without difficulty. Skin: Dressings noted to bilateral heels. Neurologic: moves all extremities and awake Psychiatric: Orientation: alert, oriented to person, oriented to place and oriented to time Genitourinary: Schuster catheter patent, intact, draining clear yellow urine with sediment. Results & Data Vital Signs (Past 12 Hours) Vital Signs Temp Pulse Pulse Resp BP Pulse Ox 11/01/19 09:24 68 11/01/19 07:36 36.7 C 55 L 20 101/60 95 11/01/19 04:28 37 C 72 20 124/67 94 11/01/19 00:31 38.4 C H 11/01/19 00:00 83 10/31/19 22:26 38.3 C H 81 18 150/71 H 92 Laboratory Results Laboratory Results - last 48 hr 10/31/19 10/31/19 10/31/19 06:10 06:10 06:10 WBC 23.07 H RBC 3.70 L Hgb 11.6 L Hct 34.6 L MCV 93.5 MCH 31.4 MCHC 33.5 RDW Std Deviation 55.0 H RDW Coeff of Rene 15.9 H Plt Count 334 MPV 10.6 H Immature Gran % (Auto) 0.3 Neut % (Auto) 82.5 Lymph % (Auto) 8.0 Leslie % (Auto) 8.8 Eos % (Auto) 0.3 Baso % (Auto) 0.1 Immature Gran # (Auto) 0.08 H Neut # (Auto) 19.03 H Lymph # (Auto) 1.85 Leslie # (Auto) 2.03 H Eos # (Auto) 0.06 Baso # (Auto) 0.02 PT 10.7 INR 1.0 Sodium 136 Potassium 4.7 Chloride 106 Carbon Dioxide 22 Anion Gap 9.0 BUN 51 H Creatinine 2.06 H Est Cr Clr Drug Dosing 22.4 Est GFR ( Amer) 27.2 Est GFR (Non-Af Amer) 23.5 BUN/Creatinine Ratio 24.7 H Glucose 116 H POC Glucose Lactate Calcium 9.6 Magnesium Total Bilirubin 0.4 AST 18 ALT 22 Alkaline Phosphatase 253 H Troponin I < 0.015 Total Protein 8.5 H Albumin 2.8 L Globulin 5.7 H Albumin/Globulin Ratio 0.5 L Lipase 57 L Urine Color Urine Appearance Urine pH Ur Specific Powell Urine Protein Urine Glucose (UA) Urine Ketones Urine Blood Urine Nitrite Urine Bilirubin Urine Urobilinogen Ur Leukocyte Esterase Urine RBC Urine WBC Ur Epithelial Cells Urine Bacteria Nasal Screen MRSA (PCR) Random Vancomycin Influenza Type A Ag Influenza Type A (PCR) Influenza Type B Ag Influenza Type B (PCR) 10/31/19 10/31/19 10/31/19 06:39 06:39 07:21 WBC RBC Hgb Hct MCV MCH MCHC RDW Std Deviation RDW Coeff of Rene Plt Count MPV Immature Gran % (Auto) Neut % (Auto) Lymph % (Auto) Leslie % (Auto) Eos % (Auto) Baso % (Auto) Immature Gran # (Auto) Neut # (Auto) Lymph # (Auto) Leslie # (Auto) Eos # (Auto) Baso # (Auto) PT INR Sodium Potassium Chloride Carbon Dioxide Anion Gap BUN Creatinine Est Cr Clr Drug Dosing Est GFR ( Amer) Est GFR (Non-Af Amer) BUN/Creatinine Ratio Glucose POC Glucose 118 H Lactate Calcium Magnesium Total Bilirubin AST ALT Alkaline Phosphatase Troponin I Total Protein Albumin Globulin Albumin/Globulin Ratio Lipase Urine Color Yellow Urine Appearance Turbid A Urine pH 6.5 Ur Specific Powell 1.010 Urine Protein 2+ H Urine Glucose (UA) Negative Urine Ketones Negative Urine Blood 1+ H Urine Nitrite Negative Urine Bilirubin Negative Urine Urobilinogen Negative Ur Leukocyte Esterase 2+ H Urine RBC 5-10 H Urine WBC >30 H Ur Epithelial Cells 0-5 Urine Bacteria 4+ H Nasal Screen MRSA (PCR) Random Vancomycin Influenza Type A Ag See Comment Influenza Type A (PCR) Neg for Influ A Influenza Type B Ag See Comment Influenza Type B (PCR) Neg for Influ B 10/31/19 10/31/19 11/01/19 07:26 16:00 05:52 WBC 15.78 H RBC 3.25 L Hgb 9.9 L Hct 30.8 L MCV 94.8 MCH 30.5 MCHC 32.1 RDW Std Deviation 56.3 H RDW Coeff of Rene 16.1 H Plt Count 271 MPV 10.5 H Immature Gran % (Auto) 0.6 Neut % (Auto) 72.4 Lymph % (Auto) 9.5 Leslie % (Auto) 16.5 Eos % (Auto) 0.9 Baso % (Auto) 0.1 Immature Gran # (Auto) 0.10 H Neut # (Auto) 11.42 H Lymph # (Auto) 1.50 Leslie # (Auto) 2.61 H Eos # (Auto) 0.14 Baso # (Auto) 0.01 PT INR Sodium Potassium Chloride Carbon Dioxide Anion Gap BUN Creatinine Est Cr Clr Drug Dosing Est GFR ( Amer) Est GFR (Non-Af Amer) BUN/Creatinine Ratio Glucose POC Glucose Lactate 0.4 Calcium Magnesium Total Bilirubin AST ALT Alkaline Phosphatase Troponin I Total Protein Albumin Globulin Albumin/Globulin Ratio Lipase Urine Color Urine Appearance Urine pH Ur Specific Powell Urine Protein Urine Glucose (UA) Urine Ketones Urine Blood Urine Nitrite Urine Bilirubin Urine Urobilinogen Ur Leukocyte Esterase Urine RBC Urine WBC Ur Epithelial Cells Urine Bacteria Nasal Screen MRSA (PCR) Negative Random Vancomycin Influenza Type A Ag Influenza Type A (PCR) Influenza Type B Ag Influenza Type B (PCR) 11/01/19 11/01/19 11/01/19 05:52 05:52 07:36 WBC RBC Hgb Hct MCV MCH MCHC RDW Std Deviation RDW Coeff of Rene Plt Count MPV Immature Gran % (Auto) Neut % (Auto) Lymph % (Auto) Leslie % (Auto) Eos % (Auto) Baso % (Auto) Immature Gran # (Auto) Neut # (Auto) Lymph # (Auto) Leslie # (Auto) Eos # (Auto) Baso # (Auto) PT INR Sodium 139 Potassium 4.4 Chloride 112 H Carbon Dioxide 20 L Anion Gap 7.0 BUN 33 H Creatinine 1.41 H D Est Cr Clr Drug Dosing 32.4 Est GFR ( Amer) 43.0 Est GFR (Non-Af Amer) 37.1 BUN/Creatinine Ratio 23.1 H Glucose 86 POC Glucose 91 Lactate Calcium 8.5 Magnesium 2.6 H Total Bilirubin AST ALT Alkaline Phosphatase Troponin I Total Protein Albumin Globulin Albumin/Globulin Ratio Lipase Urine Color Urine Appearance Urine pH Ur Specific Powell Urine Protein Urine Glucose (UA) Urine Ketones Urine Blood Urine Nitrite Urine Bilirubin Urine Urobilinogen Ur Leukocyte Esterase Urine RBC Urine WBC Ur Epithelial Cells Urine Bacteria Nasal Screen MRSA (PCR) Random Vancomycin 14.7 Influenza Type A Ag Influenza Type A (PCR) Influenza Type B Ag Influenza Type B (PCR) PG Care Time/CCT Total # of Minutes Spent Total Time Spent with Patient: Total time spent is greater than 50% in coordination of care (as documented) at patient's floor/unit and/or counseling patient: Coding Level of Care Code 86073 Initial Inpt Care Lvl 2 Diagnoses UTI (urinary tract infection) N39.0 Acute renal failure N17.9 Acute renal failure type: unspecified (1) Acute renal failure Acute renal failure type: unspecified Qualified Code(s): N17.9 - Acute kidney failure, unspecified
[2019-11-01] MEDS: CHOLECALCIFEROL 1,000 UNITS 25 MCG TAB PO SCH (20:38)
[2019-11-01] MEDS: DOCUSATE SODIUM 100 MG CAP PO SCH (20:38)
[2019-11-01] MEDS: TAMSULOSIN HCL 0.4 MG CAP PO SCH (20:38)
[2019-11-01] MEDS: VENLAFAXINE HCL XR 150 MG CAPXR PO SCH (20:38)
[2019-11-01] MEDS: MONTELUKAST SODIUM 10 MG TABLET PO SCH (20:38)
[2019-11-01] MEDS: VENLAFAXINE HCL XR 37.5 MG CAPXR PO SCH (20:40)
[2019-11-01] MEDS: DONEPEZIL HCL 10 MG TAB PO SCH (20:40)
[2019-11-01] MEDS: BACLOFEN 10 MG TAB PO SCH (20:42)
[2019-11-01] MEDS: CEROVITE ADV FORMULA TAB PO SCH (20:43)
[2019-11-01] MEDS: FELODIPINE 2.5 MG TABCR PO SCH (20:44)
--- NOTE | 2019-11-01 21:57 | Hospitalist Progress Note ---
Date of Service November 01, 2019 Assessment & Plan (1) Pneumonia: Patient is admitted with pneumonia. Which is likely the cause of mental status changed. Chest x ray shows left lower lobe infiltrate. Will continue with Invanz as she appears to be improving: her WBC looks better. (2) UTI (urinary tract infection): Question urinary tract infection and patient with chronic Cotto. I do see patient had seen urology as an outpatient on 10/09 for evaluation of chronic incontinence although no mention of catheter change on that visit. Patient is being covered with Invanz and vancomycin, should cover urine as well empirically until cultures can be resulted. Appreciate input from Urology. (3) Hypoxia: Secondary to pneumonia. Patient is on home oxygen and should continue on nasal cannula at 3 L. (4) Acute renal failure: May represent dehydration, can give slow IV hydration for now. Will hold Lasix and amiloride for now. Can change house attendant to oral hydration once patient is evaluated by speech. (5) Atrial fibrillation, rapid: Patient has history of atrial fibrillation, pulses last documented 77. Continue diltiazem at 180 mg daily. Patient is not on chronic anticoagulation, will need to investigate why this was held and consider full dose anticoagulation prior to discharge. (6) Mental status change: Toxic/metabolic encephalopathy, likely secondary to acute renal failure and infections as documented above. Admission and Anticipated Discharge Date Admission Date: October 31, 2019 Subjective 74 yo female is a poor historian. Patient states she knows she is in the hospital. Does not recall why. Review of Systems Review of Systems: Unobtainable due to cognitive status Physical Exam Physical Exam: Constitutional: + altered mental status; no acute distress Awake and alert, remains confused. Oriented to person and place only. Neck: trachea midline, no thyromegaly Respiratory: normal respiratory effort Very limited exam, poor excursion. Possible faint rhonchi at bases. Cardiovascular: Rate/Rhythm: regular rate and regular rhythm Heart Sounds: normal S1 and normal S2 Gastrointestinal (Abdomen): Inspection/Auscultation: abdomen normal to inspection Percussion/Palpation: abdomen soft; abdomen nontender, no guarding, abdomen not rigid and no hepatosplenomegaly Skin: no rashes, warm and dry Psychiatric: Orientation: oriented to person and oriented to place ("the hospital") Results & Data ([facility]) Vital Signs (Past 12 Hours) Vital Signs Temp Pulse Pulse Resp BP Pulse Ox 11/01/19 15:59 70 11/01/19 15:57 38.0 C H 70 18 136/68 91 11/01/19 11:30 37.2 C 68 16 121/56 L 93 PG Care Time/CCT Total # of Minutes Spent Total Time Spent with Patient: Total time spent is greater than 50% in coordination of care (as documented) at patient's floor/unit and/or counseling patient: Coding Level of Care Code 50037 Subseq Hosp Care Lvl 2 Diagnoses Pneumonia J18.9 Laterality: left Lung location: lower lobe of lung Pneumonia type: due to unspecified organism UTI (urinary tract infection) N39.0 Hypoxia R09.02 Acute renal failure N17.9 Acute renal failure type: unspecified Atrial fibrillation, rapid I48.91 Mental status change R41.82 Time Spent (min) 30 (1) Acute renal failure Acute renal failure type: unspecified Qualified Code(s): N17.9 - Acute kidney failure, unspecified (2) Pneumonia Laterality: left Lung location: lower lobe of lung Pneumonia type: due to unspecified organism Qualified Code(s): J18.9 - Pneumonia, unspecified organism
[2019-11-02] MEDS: IPRATROPIUM BROMIDE/ALBUTEROL respimat INH INH SCH ×4 (06:04→23:59)
[2019-11-02] MEDS: HEPARIN SOD 5,000 UNIT/0.5 ML VIAL SQ SCH ×3 (06:04→21:14)
[2019-11-02] MEDS: LEVOTHYROXINE SODIUM 25 MCG TABLET PO SCH (06:05)
[2019-11-02] MEDS: SODIUM CHLORIDE 0.9% 1000ML 1,000 ML IV SCH ×2 (07:48→19:13)
[2019-11-02] MEDS: FLUTICASONE/VILANTEROL 200/25MCG 14 PUFFS/INHALER INH SCH (07:49)
[2019-11-02] MEDS: POLYETHYLENE (MIRALAX) 17 GM PACK PO SCH (07:50)
[2019-11-02] MEDS: ASCORBIC ACID 500 MG TAB PO SCH ×2 (07:50→21:13)
[2019-11-02] MEDS: OXYBUTYNIN CHLORIDE 5 MG TAB PO SCH ×3 (07:50→21:12)
[2019-11-02] MEDS: dilTIAZem ER 180 MG CAPCR PO SCH (07:51)
[2019-11-02] MEDS: GABAPENTIN 300 MG CAP PO SCH ×3 (07:51→21:12)
[2019-11-02] MEDS: METOPROLOL TARTRATE 25 MG TAB PO SCH ×2 (07:51→21:12)
[2019-11-02] MEDS: CALCIUM CARBONATE 1250MG TAB PO SCH (07:51)
[2019-11-02] MEDS: POTASSIUM CHLORIDE 20 MEQ TABCR PO SCH (07:52)
[2019-11-02] MEDS: ACETAMINOPHEN 325 MG TAB PO PRN ×3 (08:00→21:14)
[2019-11-02] MEDS: ERTAPENEM SODIUM 500 MG in SODIUM CHLORIDE 0.9% 50 ML IV SCH (09:56)
[2019-11-02 12:53] LABS: Basophils # (auto) 0.02 K/uL (0-0.2); Basophils % (auto) 0.2 %; Eosinophils # (auto) 0.15 K/uL (0-0.5); Eosinophils % (auto) 1.2 %; Hematocrit (blood only) 32.5 % (37-47); Hemoglobin 10.4 g/dL (12.0-16.0); Immature Granulocytes # (auto) 0.22 K/uL (0.00-0.02); Immature Granulocytes % (auto) 1.8 %; Lymphocytes # (auto) 2.33 K/uL (1.2-3.4); Lymphocytes % (auto) 19.3 %; Mean Corpuscular Hemoglobin 30.6 pg (25-34); Mean Corpuscular Volume 95.6 fL (80-100); Mean Platelet Volume 10.2 fL (7.4-10.4); Monocytes # (auto) 1.18 K/uL (0.11-0.59); Monocytes % (auto) 9.8 %; Neutrophils # (auto) 8.17 K/uL (1.4-6.5); Neutrophils % (auto) 67.7 %; Platelet Count 291 K/uL (130-400); RDW Coefficient of Variation 16.6 % (11.5-14.5); RDW Standard Deviation 58.6 fL (36.4-46.3); White Blood Count 12.07 K/uL (4.8-10.8)
[2019-11-02 13:16] LABS: Albumin Globulin Ratio 0.4 (0.9-2); Albumin Level 2.3 gm/dl (3.4-5.0); Bilirubin,Total 0.2 mg/dl (0.2-1); Calcium 9.1 mg/dl (8.5-10.1); Creatinine Clr Calc Pharmacy 40.1 ml/min; Est GFR (African American) 55.6; Globulin 5.3 gm/dl (2.5-4.0); Potassium 5.4 mmol/L (3.5-5.1); Total Protein 7.6 gm/dl (6.4-8.2)
--- NOTE | 2019-11-02 17:25 | XCELERA ---
[id number] \\[id number]\PDF_[id number]
[2019-11-02] MEDS: FELODIPINE 2.5 MG TABCR PO SCH (21:12)
[2019-11-02] MEDS: VENLAFAXINE HCL XR 150 MG CAPXR PO SCH (21:12)
[2019-11-02] MEDS: DONEPEZIL HCL 10 MG TAB PO SCH (21:12)
[2019-11-02] MEDS: VENLAFAXINE HCL XR 37.5 MG CAPXR PO SCH (21:12)
[2019-11-02] MEDS: CHOLECALCIFEROL 1,000 UNITS 25 MCG TAB PO SCH (21:12)
[2019-11-02] MEDS: BACLOFEN 10 MG TAB PO SCH (21:12)
[2019-11-02] MEDS: CEROVITE ADV FORMULA TAB PO SCH (21:13)
[2019-11-02] MEDS: TAMSULOSIN HCL 0.4 MG CAP PO SCH (21:13)
[2019-11-02] MEDS: DOCUSATE SODIUM 100 MG CAP PO SCH (21:13)
[2019-11-02] MEDS: MONTELUKAST SODIUM 10 MG TABLET PO SCH (21:14)
--- NOTE | 2019-11-02 22:17 | Hospitalist Progress Note ---
Date of Service November 02, 2019 Assessment & Plan (1) Pneumonia: Gram-negative sepsis in the setting of possible aspiration pneumonia and UTI Patient is showing bacteremia in one culture. May be either a urine or lung origin. Patient is admitted with pneumonia. Which is likely the cause of the mental status change. Chest x ray shows left lower lobe infiltrate. Will continue with Invanz as she appears to be improving: her WBC looks better. Will likely transition to a fluoroquinolone at discharge. Echo cardiogram wa schecked to ensure patient does now have signs of CHF. Her did not show any systlic dysfunction (2) UTI (urinary tract infection): Question urinary tract infection and patient with chronic Cotto. I do see patient had seen urology as an outpatient on 10/09 for evaluation of chronic incontinence although no mention of catheter change on that visit. Patient is being covered with Invanz and vancomycin, should cover urine as well empirically until cultures can be resulted. Appreciate input from Urology. (3) Hypoxia: Secondary to pneumonia. Patient is on home oxygen and should continue on nasal cannula at 3 L. (4) Acute renal failure: May represent dehydration, can give slow IV hydration for now. Will hold Lasix and amiloride for now. Can change release manager to oral hydration once patient is evaluated by speech. (5) Atrial fibrillation, rapid: Patient has history of atrial fibrillation, pulses last documented 77. Continue diltiazem at 180 mg daily. Patient is not on chronic anticoagulation, will need to investigate why this was held and consider full dose anticoagulation prior to discharge. (6) Mental status change: Toxic/metabolic encephalopathy, likely secondary to acute renal failure and infections as documented above. Admission and Anticipated Discharge Date Admission Date: October 31, 2019 Subjective Patient appears more awake. She is still a poor historian and states that she does not know why she is in the hospital. She is more conversant however, and does not have any complaints. She states she does not use oxygen at home however. Review of Systems Review of Systems: All systems reviewed & are unremarkable except as noted in HPI & below Physical Exam Physical Exam: Constitutional: + altered mental status; no acute distress Awake and alert, remains confused. Oriented to person and place only. Neck: trachea midline, no thyromegaly Respiratory: normal respiratory effort Very limited exam, poor excursion. Possible faint rhonchi at bases. Cardiovascular: Rate/Rhythm: regular rate and regular rhythm Heart Sounds: normal S1 and normal S2 Gastrointestinal (Abdomen): Inspection/Auscultation: abdomen normal to inspection Percussion/Palpation: abdomen soft; abdomen nontender, no guarding, abdomen not rigid and no hepatosplenomegaly Skin: no rashes, warm and dry Psychiatric: Orientation: oriented to person and oriented to place ("the hospital") Results & Data ([facility]) Vital Signs (Past 12 Hours) Vital Signs Temp Pulse Pulse Resp BP BP Pulse Ox 11/02/19 20:00 37.2 C 75 20 139/72 95 11/02/19 18:25 62 11/02/19 15:07 37.0 C 60 18 120/77 92 11/02/19 11:23 36.9 C 66 18 124/69 94 PG Care Time/CCT Total # of Minutes Spent Total Time Spent with Patient: Total time spent is greater than 50% in coordination of care (as documented) at patient's floor/unit and/or counseling patient: Coding Level of Care Code 51363 Subseq Hosp Care Lvl 3 Diagnoses Pneumonia J18.9 Laterality: left Lung location: lower lobe of lung Pneumonia type: due to unspecified organism UTI (urinary tract infection) N39.0 Hypoxia R09.02 Acute renal failure N17.9 Acute renal failure type: unspecified Atrial fibrillation, rapid I48.91 Mental status change R41.82 Time Spent (min) 35 (1) Acute renal failure Acute renal failure type: unspecified Qualified Code(s): N17.9 - Acute kidney failure, unspecified (2) Pneumonia Laterality: left Lung location: lower lobe of lung Pneumonia type: due to unspecified organism Qualified Code(s): J18.9 - Pneumonia, unspecified organism
[2019-11-03] MEDS: SODIUM CHLORIDE 0.9% 1000ML 1,000 ML IV SCH ×2 (04:50→15:41)
[2019-11-03] MEDS: IPRATROPIUM BROMIDE/ALBUTEROL respimat INH INH SCH ×2 (05:41→11:42)
[2019-11-03] MEDS: LEVOTHYROXINE SODIUM 25 MCG TABLET PO SCH (05:42)
[2019-11-03] MEDS: HEPARIN SOD 5,000 UNIT/0.5 ML VIAL SQ SCH ×3 (05:42→20:17)
[2019-11-03] MEDS: GABAPENTIN 300 MG CAP PO SCH ×3 (08:34→20:16)
[2019-11-03] MEDS: CALCIUM CARBONATE 1250MG TAB PO SCH (08:35)
[2019-11-03] MEDS: dilTIAZem ER 180 MG CAPCR PO SCH (08:35)
[2019-11-03] MEDS: ASCORBIC ACID 500 MG TAB PO SCH ×2 (08:35→20:15)
[2019-11-03] MEDS: METOPROLOL TARTRATE 25 MG TAB PO SCH ×2 (08:35→20:13)
[2019-11-03] MEDS: OXYBUTYNIN CHLORIDE 5 MG TAB PO SCH ×3 (08:36→20:13)
[2019-11-03] MEDS: POLYETHYLENE (MIRALAX) 17 GM PACK PO SCH (08:37)
[2019-11-03] MEDS: FLUTICASONE/VILANTEROL 200/25MCG 14 PUFFS/INHALER INH SCH (08:37)
[2019-11-03] MEDS: ACETAMINOPHEN 325 MG TAB PO PRN ×2 (08:38→19:04)
[2019-11-03 10:42] LABS: Hematocrit (blood only) 32.1 % (37-47); Hemoglobin 10.3 g/dL (12.0-16.0); Mean Corpuscular Hemoglobin 30.7 pg (25-34); Mean Corpuscular Hgb Conc 32.1 g/dL (32-36); Mean Corpuscular Volume 95.8 fL (80-100); Mean Platelet Volume 10.3 fL (7.4-10.4); Platelet Count 342 K/uL (130-400); RDW Coefficient of Variation 16.4 % (11.5-14.5); Red Blood Count 3.35 M/uL (4.2-5.4); White Blood Count 12.72 K/uL (4.8-10.8)
[2019-11-03] MEDS: ERTAPENEM SODIUM 500 MG in SODIUM CHLORIDE 0.9% 50 ML IV SCH (11:00)
[2019-11-03 11:04] LABS: Basophils # (auto) 0.05 K/uL (0-0.2); Basophils % (auto) 0.4 %; Eosinophils # (auto) 0.15 K/uL (0-0.5); Eosinophils % (auto) 1.2 %; Immature Granulocytes # (auto) 0.74 K/uL (0.00-0.02); Immature Granulocytes % (auto) 5.8 %; Lymphocytes # (auto) 1.99 K/uL (1.2-3.4); Lymphocytes % (auto) 15.6 %; Monocytes # (auto) 1.03 K/uL (0.11-0.59); Monocytes % (auto) 8.1 %; Neutrophils # (auto) 8.76 K/uL (1.4-6.5); Neutrophils % (auto) 68.9 %
[2019-11-03 11:19] LABS: BUN Creatinine Ratio 17.1 (10-20); Blood Urea Nitrogen 16 mg/dl (7-18); Calcium 8.8 mg/dl (8.5-10.1); Carbon Dioxide 24 mmol/L (21-32); Chloride 111 mmol/L (98-107); Creatinine Clr Calc Pharmacy 48.1 ml/min; Est GFR (African American) 69.4; Est GFR (Non-African American) 59.8; Glucose 101 mg/dl (70-99); Potassium 4.4 mmol/L (3.5-5.1); Sodium 139 mmol/L (136-145)
[2019-11-03 12:16] LABS: Alanine Aminotransferase 35 U/L (12-78); Albumin Level 2.2 gm/dl (3.4-5.0); Alkaline Phosphatase 295 U/L (45-117); Aspartate Aminotransferase 26 U/L (15-37); Bilirubin Direct < 0.1 mg/dl (0-0.2); Bilirubin,Total 0.2 mg/dl (0.2-1); Total Protein 7.4 gm/dl (6.4-8.2)
[2019-11-03] MEDS: LEVALBUTEROL HCL 1.25 MG/3 ML NEB NEB SCH ×2 (13:45→20:04)
--- NOTE | 2019-11-03 14:06 | XRay Report ---
XR chest 2V PA/lateral CLINICAL HISTORY: sob dyspnea COMPARISON STUDY: 10/31/2019 FINDINGS: Unchanged minimal parenchymal infiltrate/atelectatic change left base. Prominent pulmonary vasculature. Mild stable cardiomegaly. Diaphragms are smooth. IMPRESSION: Unchanged minimal infiltrate/atelectasis left base. Mild stable cardiomegaly. ACT 112: Negative or not required by law. The above report was generated using voice recognition software. It may contain grammatical, syntax or spelling errors. Electronically signed by: Nikolas Parada M.D. 11/03/2019 2:04 PM
[2019-11-03] MEDS: CEROVITE ADV FORMULA TAB PO SCH (20:13)
[2019-11-03] MEDS: BACLOFEN 10 MG TAB PO SCH (20:14)
[2019-11-03] MEDS: DOCUSATE SODIUM 100 MG CAP PO SCH (20:14)
[2019-11-03] MEDS: MONTELUKAST SODIUM 10 MG TABLET PO SCH (20:15)
[2019-11-03] MEDS: TAMSULOSIN HCL 0.4 MG CAP PO SCH (20:15)
[2019-11-03] MEDS: DONEPEZIL HCL 10 MG TAB PO SCH (20:15)
[2019-11-03] MEDS: CHOLECALCIFEROL 1,000 UNITS 25 MCG TAB PO SCH (20:16)
[2019-11-03] MEDS: VENLAFAXINE HCL XR 150 MG CAPXR PO SCH (20:16)
[2019-11-03] MEDS: VENLAFAXINE HCL XR 37.5 MG CAPXR PO SCH (20:16)
[2019-11-03] MEDS: FELODIPINE 2.5 MG TABCR PO SCH (20:16)
--- NOTE | 2019-11-03 22:19 | Hospitalist Progress Note ---
Date of Service November 03, 2019 Assessment & Plan (1) Pneumonia: Gram-negative sepsis in the setting of possible aspiration pneumonia and UTI Patient is showing bacteremia in one culture. May be either a urine or lung origin. Patient is admitted with pneumonia. Which is likely the cause of the mental status change. Chest x ray shows left lower lobe infiltrate. Will continue with Invanz as she appears to be improving: her WBC looks better. Will likely transition to a fluoroquinolone at discharge. Echo cardiogram was checked to ensure patient does now have signs of CHF. Her did not show any systolic dysfunction. Patient though appears improved on 11/03, is still requiring oxygen. WOULD LIKE TO DISCHARGE HER ONCE HER she is saturating well on room air. will get flutter valve and have patient sitting up to see if this may help expland her lungs and prevent atelectasis. (2) UTI (urinary tract infection): Question urinary tract infection and patient with chronic Schuster. I do see patient had seen urology as an outpatient on 10/09 for evaluation of chronic incontinence although no mention of catheter change on that visit. Patient is being covered with Invanz and vancomycin, should cover urine as well empirically until cultures can be resulted. Appreciate input from Urology. (3) Hypoxia: Secondary to pneumonia. Confirmed with nursing facility, patient is not on oxygen at home. (4) Acute renal failure: Patient is improving. Still on IV fluids. will likely stop on . No signs of fluid overload (5) Atrial fibrillation, rapid: Patient has history of atrial fibrillation, pulses last documented 77. Continue diltiazem at 180 mg daily. Patient is not on chronic anticoagulation, will need to investigate why this was held and consider full dose anticoagulation prior to discharge. (6) Mental status change: Toxic/metabolic encephalopathy, likely secondary to acute renal failure and infections as documented above. Appears improved. Admission and Anticipated Discharge Date Admission Date: October 31, 2019 Subjective 74 yo female reports feeling beter. She states that she gets her schuster changed every 15th of the month. She states that she does not use oxygen at her nursing facility. She normally sits up in her chair. Review of Systems Review of Systems: All systems reviewed & are unremarkable except as noted in HPI & below Physical Exam Physical Exam: Constitutional: no acute distress Awake and alert. Oriented to person and place only. Neck: trachea midline, no thyromegaly Respiratory: normal respiratory effort decreased breath sounds at bases Cardiovascular: Rate/Rhythm: regular rate and regular rhythm Heart Sounds: normal S1 and normal S2 Gastrointestinal (Abdomen): Inspection/Auscultation: abdomen normal to inspection Percussion/Palpation: abdomen soft; abdomen nontender, no guarding, abdomen not rigid and no hepatosplenomegaly Skin: no rashes, warm and dry Psychiatric: Orientation: oriented to person and oriented to place. Remembers more details about her past, like when schuster needs to be replaced. Results & Data ([facility]) Vital Signs (Past 12 Hours) Vital Signs Temp Pulse Pulse Resp BP Pulse Ox 11/03/19 20:04 61 16 94 11/03/19 19:00 36.8 C 60 18 152/72 H 95 11/03/19 16:52 58 L 11/03/19 15:00 36.9 C 60 18 119/55 L 97 PG Care Time/CCT Total # of Minutes Spent Total Time Spent with Patient: Total time spent is greater than 50% in coordination of care (as documented) at patient's floor/unit and/or counseling patient: Coding Level of Care Code 68865 Subseq Hosp Care Lvl 2 Diagnoses Pneumonia J18.9 Laterality: left Lung location: lower lobe of lung Pneumonia type: due to unspecified organism UTI (urinary tract infection) N39.0 Hypoxia R09.02 Acute renal failure N17.9 Acute renal failure type: unspecified Atrial fibrillation, rapid I48.91 Mental status change R41.82 Time Spent (min) 25 (1) Acute renal failure Acute renal failure type: unspecified Qualified Code(s): N17.9 - Acute kidney failure, unspecified (2) Pneumonia Laterality: left Lung location: lower lobe of lung Pneumonia type: due to unspecified organism Qualified Code(s): J18.9 - Pneumonia, unspecified organism
[2019-11-04] MEDS: SODIUM CHLORIDE 0.9% 1000ML 1,000 ML IV SCH (00:15)
[2019-11-04] MEDS: LEVALBUTEROL HCL 1.25 MG/3 ML NEB NEB SCH ×2 (02:47→07:26)
[2019-11-04] MEDS: LEVOTHYROXINE SODIUM 25 MCG TABLET PO SCH (05:09)
[2019-11-04] MEDS: HEPARIN SOD 5,000 UNIT/0.5 ML VIAL SQ SCH (05:09)
[2019-11-04] MEDS: FLUTICASONE/VILANTEROL 200/25MCG 14 PUFFS/INHALER INH SCH (07:53)
[2019-11-04] MEDS: OXYBUTYNIN CHLORIDE 5 MG TAB PO SCH (07:53)
[2019-11-04] MEDS: METOPROLOL TARTRATE 25 MG TAB PO SCH (07:53)
[2019-11-04] MEDS: CALCIUM CARBONATE 1250MG TAB PO SCH (07:54)
[2019-11-04] MEDS: POLYETHYLENE (MIRALAX) 17 GM PACK PO SCH (07:54)
[2019-11-04] MEDS: dilTIAZem ER 180 MG CAPCR PO SCH (07:54)
[2019-11-04] MEDS: GABAPENTIN 300 MG CAP PO SCH (07:54)
[2019-11-04] MEDS: ACETAMINOPHEN 325 MG TAB PO PRN ×2 (07:55→13:14)
[2019-11-04] MEDS: ASCORBIC ACID 500 MG TAB PO SCH (07:55)
[2019-11-04] MEDS: ERTAPENEM SODIUM 500 MG in SODIUM CHLORIDE 0.9% 50 ML IV SCH (09:58)
[2019-11-04 11:22] LABS: BUN Creatinine Ratio 13.4 (10-20); Calcium 8.5 mg/dl (8.5-10.1); Creatinine Clr Calc Pharmacy 48.5 ml/min; Est GFR (African American) 68.5; Est GFR (Non-African American) 59.1; Potassium 4.2 mmol/L (3.5-5.1)
--- NOTE | 2019-11-10 07:36 | Discharge Summary ---
Date of Service November 04, 2019 Admission HPI Per Admitting Provider This is a 74-year-old [facility] patient with past medical history of atrial fibrillation, iron deficiency anemia, chronic hepatitis C that presents today with change in mental status and fever. Patient was seen alone in the room, she is very confused unable provide much history. Therefore history as per ER documentation. Patient is a resident of [facility]. She was brought to the emergency room by EMS after having sudden altered mental status that started approximately an hour prior to presentation. During the work-up, patient was found to have possible urinary tract infection as well as pneumonia. She was febrile on presentation as well. Laboratory work was all grossly abnormal with a positive urinalysis and significant leukocytosis. Patient was also hypoxic but is saturating well on 3 L. During my interview, patient is oriented to person and place. She cannot tell me why she is in the hospital. She does not appear to be in any distress. Further history cannot be obtained. Principal Diagnosis Pneumonia Discharge Exam Constitutional: no acute distress Awake and alert. Oriented to person and place only. Neck: trachea midline, no thyromegaly Respiratory: normal respiratory effort decreased breath sounds at bases Cardiovascular: Rate/Rhythm: regular rate and regular rhythm Heart Sounds: normal S1 and normal S2 Gastrointestinal (Abdomen): Inspection/Auscultation: abdomen normal to inspection Percussion/Palpation: abdomen soft; abdomen nontender, no guarding, abdomen not rigid and no hepatosplenomegaly Skin: no rashes, warm and dry Psychiatric: Orientation: oriented to person and oriented to place. Remembers more details about her past. Discharge Data Allergies Allergy/AdvReac Type Severity Reaction Status Date / Time hydrochlorothiazide Allergy Unknown PT UNSURE Verified 11/02/19 11:33 pollen extracts Allergy Unknown HAYFEVER Verified 10/31/19 07:02 house dust mite Allergy Unknown Verified 10/31/19 07:02 Penicillins Allergy Unknown Verified 11/02/19 11:33 Consultations 10/31/19 10:30 ED Decision to Admit Stat 10/31/19 15:41 Consult Urology Routine Hospital Course (1) Pneumonia: Gram-negative sepsis in the setting of possible aspiration pneumonia and UTI Patient is showing bacteremia in one culture. May be either a urine or lung origin. Patient is admitted with pneumonia. Which is likely the cause of the mental status change. Chest x ray shows left lower lobe infiltrate. Will continue with Invanz as she appears to be improving: her WBC looks better. Will likely transition to a fluoroquinolone at discharge. Echo cardiogram was checked to ensure patient does now have signs of CHF. Her did not show any systolic dysfunction. Patient though appears improved on 11/03, is still requiring oxygen. WOULD LIKE TO DISCHARGE HER ONCE HER she is saturating well on room air. will get flutter valve and have patient sitting up to see if this may help explained her lungs and prevent atelectasis. The following day on , patient was saturating well on room air and she was able to be discharged. Family was updated. (2) UTI (urinary tract infection): Question urinary tract infection and patient with chronic Schuster. I do see patient had seen urology as an outpatient on 10/09 for evaluation of chronic incontinence although no mention of catheter change on that visit. Patient is being covered with Invanz and vancomycin, should cover urine as well empirically until cultures can be resulted. Appreciate input from Urology. (3) Hypoxia: Secondary to pneumonia. Confirmed with nursing facility, patient is not on oxygen at home. (4) Acute renal failure: Patient is improving. Still on IV fluids. will likely stop on . No signs of fluid overload (5) Atrial fibrillation, rapid: Patient has history of atrial fibrillation, pulses last documented 77. Continue diltiazem at 180 mg daily. Patient is not on chronic anticoagulation, will need to investigate why this was held and consider full dose anticoagulation prior to discharge. (6) Mental status change: Toxic/metabolic encephalopathy, likely secondary to acute renal failure and infections as documented above. Appears improved. Total Time Total Time Spent Total Time Spent (In Minutes): 32 Total Time Includes: Examination of the Patient, Discharge Planning and Medication Reconciliation Discharge Plan Discharge Items Patient Disposition: Transfer [facility] Fac Reason For Visit: AMS,PNA,UTI Discharge Diagnosis: Sepsis Activity: Resume your previous activity Non-emergency contact: Primary Care Provider Call non-emergency contact if: you have any medication questions Follow-up/Referrals: Braeden Ojeda [Primary Care Provider] - Diet: Regular Diet Texture: Dental soft (bite-sized) Diet Comment: minced and moist Addtl Attending Provider Instructions: You have been hospitalized for an acute medical problem. During your stay at [facility], we have made an effort to correct the problem that brought you to the hospital while keeping you as comfortable as possible. Medications were used to bring your condition under control and your discharge instructions will include directions for any medications you should take after leaving the hospital. Please make sure you see your Primary Care Provider as part of your follow up plan. Continue with antibiotics for 3 more doses. Levofloxacin q48h Continue with incentive spirometry. ChecK BMP in 1 week. Followup with PCP in 1-2 weeks. -Patient has outpatient abd/pelvis CT scheduled November 19, given elevated creatinine, will hold on obtaining inpatient unless acute changes. -Recommend outpatient cystoscopy as scheduled in addition to routine follow-up with urology service. Pending Studies at Discharge: No Stand-Alone Forms: [facility] Skilled Items Patient informed of condition?: Yes DNR: No Discharge Level of Care: Skilled Communicable Disease: No Discharge Prognosis: Stable Lines: None Urinary Catheter: Yes (chronic schuster) Medications and DC Order Prescriptions: Continued metoprolol tartrate 75 mg tablet 75 mg PO BID RF: 0 potassium chloride 20 mEq tablet extended release 40 meq PO BID RF: 0 ascorbic acid (vitamin C) 500 mg capsule 500 mg PO BID RF: 0 furosemide 40 mg tablet 40 mg PO BID RF: 0 oxybutynin chloride 5 mg tablet 5 mg PO TID Qty: 90 RF: 0 levothyroxine 25 mcg tablet 25 mcg PO DAILY RF: 0 tamsulosin 0.4 mg capsule 0.4 mg PO HS RF: 0 baclofen 10 mg tablet 5 mg PO HS RF: 0 ranitidine HCl 150 mg tablet 150 mg PO HS RF: 0 gabapentin 300 mg capsule 300 mg PO TID RF: 0 docusate sodium 100 mg capsule 100 mg PO HS RF: 0 montelukast 10 mg tablet 10 mg PO HS RF: 0 polyethylene glycol 3350 17 gram/dose powder 17 g PO DAILY RF: 0 calcium carbonate 600 mg calcium (1,500 mg) tablet 600 mg PO QAM RF: 0 diltiazem HCl 180 mg capsule,extended release 24 hr 180 mg PO DAILY RF: 0 felodipine 2.5 mg tablet extended release 24 hr 2.5 mg PO HS RF: 0 donepezil 10 mg tablet 10 mg PO HS RF: 0 amiloride 5 mg tablet 5 mg PO DAILY RF: 0 fluticasone propion-salmeterol [Advair Diskus] 500-50 mcg/dose blister with device 1 inh INHALATION Q12 RF: 0 Combivent Respimat 20-100 mcg/actuation mist 1 puff INHALATION Q6 RF: 0 acetaminophen 500 mg Tablet 1,000 mg PO TID RF: 0 cholecalciferol (vitamin D3) [Vitamin D3] 50 mcg (2,000 unit) Tablet 50 mcg PO HS RF: 0 venlafaxine 37.5 mg capsule,extended release 24hr 37.5 mg PO HS RF: 0 venlafaxine 150 mg capsule,extended release 24hr 150 mg PO HS RF: 0 Thera Tablet 1 tab PO HS RF: 0 Discharge Orders: Discharge Order (Routine); Ordered 11/04/19 Ordered By: Dragan Farias Admission Data Admit Date/Time: 10/31/19 11:09 Attending Provider: Dragan Farias Admit Provider: Thomas Sy Primary Care Provider: Braeden Ojeda Other Providers: Jean Kirby Other Interventions: Discharge Summary Assessment (RN) Last Done: 11/04/19 11:04 DC Date/Time DO NOT enter until pt leaves facility: 11/04/19 13:15 Coding Level of Care Code D/C Day Management >30 mins Diagnoses Pneumonia J18.9 Laterality: left Lung location: lower lobe of lung Pneumonia type: due to unspecified organism UTI (urinary tract infection) N39.0 Hypoxia R09.02 Acute renal failure N17.9 Acute renal failure type: unspecified Atrial fibrillation, rapid I48.91 Mental status change R41.82
== END 2019-11-04 13:15 | DRG 871 ==
LOC: ED 06:22 → SUATTDRO 11:09 → 2W 13:17

== ENCOUNTER 2020-06-21 09:27 | Inpatient (IN) ==
[2020-06-21 10:00] LABS: Hematocrit (blood only) 39.4 % (37-47); Hemoglobin 12.9 g/dL (12.0-16.0); Mean Corpuscular Hemoglobin 30.8 pg (25-34); Mean Corpuscular Hgb Conc 32.7 g/dL (32-36); Mean Platelet Volume 10.1 fL (7.4-10.4); Platelet Count 471 K/uL (130-400); RDW Coefficient of Variation 15.1 % (11.5-14.5); RDW Standard Deviation 51.8 fL (36.4-46.3); Red Blood Count 4.19 M/uL (4.2-5.4); White Blood Count 26.32 K/uL (4.8-10.8)
--- NOTE | 2020-06-21 10:05 | Emergency Department Note ---
History of Present Illness General Chief complaint: Illness Stated complaint: AMS Fever Time Seen by Provider: 06/21/20 09:36 Source: other (Razia MORTON) Mode of arrival: EMS Limitations: altered mental status History of Present Illness Provider complaint: Fever Onset (ago): hour(s) Location: head Severity: moderate Maximum Pain Intensity: 0 Quality: + other (38.5 F) History is limited as the patient is nonverbal. According to the nurse the patient was brought over from [facility] for a fever of 38.5 today. She was found to have altered mental status as well. I did call [facility] and spoke to Dmitriy. He stated that approximately 8:45 AM this morning the [employer] was administering her medications and stated that she seemed not herself. She was not as chatty as usual. Dmitriy went to evaluate her and noted that she seemed lethargic. He does not know her very well. He asked her to squeeze his fingers and she seemed weak on the left side. She was feb rile and a bit hypertensive at the time otherwise he stated her vitals were unremarkable. He states there is no report of COVID-19 at the facility. She was known to be well when she went to bed last night. She has had no vomiting or cough or reports of pain. Home Medications Home Medications Medication Instructions Recorded Confirmed Type ascorbic acid (vitamin C) 500 mg 500 mg PO BIDM cap 07/03/19 06/21/20 History capsule baclofen 10 mg tablet 5 mg PO HS tab 07/03/19 06/21/20 History calcium carbonate 600 mg calcium 600 mg PO QAM tab 07/03/19 06/21/20 History (1,500 mg) tablet docusate sodium 100 mg capsule 100 mg PO HS cap 07/03/19 06/21/20 History furosemide 40 mg tablet 40 mg PO BIDM tab 07/03/19 06/21/20 History gabapentin 300 mg capsule 300 mg PO TID cap 07/03/19 06/21/20 History levothyroxine 25 mcg tablet 25 mcg PO QAM tab 07/03/19 06/21/20 History metoprolol tartrate 75 mg tablet 75 mg PO BIDM tab 07/03/19 06/21/20 History montelukast 10 mg tablet 10 mg PO HS tab 07/03/19 06/21/20 History polyethylene glycol 3350 17 17 g PO QAM gm 07/03/19 06/21/20 History gram/dose oral powder potassium chloride 20 mEq 40 meq PO BIDM tab 07/03/19 06/21/20 History tablet,extended release Combivent Respimat 1 puff INHALATION Q6 10/31/19 06/21/20 History acetaminophen 1,000 mg PO TID 10/31/19 06/21/20 History amiloride 5 mg PO DAILY@0830 10/31/19 06/21/20 History cholecalciferol (vitamin D3) 50 mcg PO HS 10/31/19 06/21/20 History [Vitamin D3] diltiazem HCl 180 mg PO QAM 10/31/19 06/21/20 History donepezil 10 mg PO HS 10/31/19 06/21/20 History felodipine 2.5 mg PO HS 10/31/19 06/21/20 History fluticasone propion-salmeterol 1 inh INHALATION Q12 10/31/19 06/21/20 History [Advair Diskus] famotidine 20 mg PO BID 05/24/20 06/21/20 History venlafaxine 225 mg PO QAM 06/10/20 06/21/20 History Saccharomyces boulardii [Florastor] 0 mg PO TIDM 06/21/20 06/21/20 History cephalexin 500 mg PO BIDM 06/21/20 06/21/20 History therapeutic multivitamin 1 tab PO HS 06/21/20 06/21/20 History [Thera-Tabs] Allergies Allergy/AdvReac Type Severity Reaction Status Date / Time house dust mite Allergy Mild Unknown Verified 06/21/20 11:07 pollen extracts Allergy Mild HAYFEVER Verified 06/21/20 11:07 hydrochlorothiazide Allergy Unknown PT UNSURE Verified 06/21/20 11:07 Penicillins Allergy Unknown Unknown Verified 06/21/20 11:07 Past Med/Surg History Medical History Atrial flutter (09/27/13) With Afib. Per records, onset 2013, was not anticoagulated at discharge, just started on BB. Afib with RVR again noted at 2017 admission, likely due to acute illness, spontaneously converted. Rate control approach with no anticoagulation at discharge, presumably due to fall risk. Bipolar 1 disorder, depressed Cervical disc disease COPD (chronic obstructive pulmonary disease) Dysphagia Hepatitis C (~12/1995) History of pulmonary embolism 2-3 yrs ago, spontaneous History of TIA (transient ischemic attack) Hypertension Hypotension Hypothyroid Iron deficiency anemia Metabolic encephalopathy Monoclonal B-cell lymphocytosis of unknown significance (~10/05/13) PVD (peripheral vascular disease) Repeated falls Is mostly wheelchair-bound, reports leg weakness Sepsis 2013 Thrombocytopenia Thrombocytosis Surgical History History of bilateral carpal tunnel release History of cervical spinal surgery 2006, 2013 History of hip surgery ORIF, LEFT HIP- APRIL 2013 @ [facility] History of laparoscopy Status post hip surgery Family History Other No family history of adverse response to anesthesia No family history of bleeding disorder Social History Smoking Status: Former smoker Age Started Using Tobacco: 19; Second Hand Exposure: No; Do You Dip or Chew Tobacco: No; Tobacco Cessation Education Requested by Patient: No Hx Alcohol Use: No Hx Substance Use: No Preferred Language: Pashto Communication Ability: Impaired Communication Ability Comment: altered mental status Human Resource Assistant Required: No Beliefs That Will Affect Care: None marital status: Current Living Situation: Longterm current occupational status: retired How many Children do You have: 2 Other Information That Helps Us Care for You: No Feels Safe at Home: Yes Safety Concerns: Feels Safe At This Time Assistive Devices: Denture - Upper, Denture - Lower and Wheelchair Review of Systems See HPI for pertinent positives & negatives. Unobtainable due to cognitive status Physical Exam Vital Signs Vital Signs - 24 hr 06/21/20 09:55 06/21/20 11:00 06/21/20 12:47 Temperature 38.5 C H Temperature Source Oral Pulse Rate 102 H Pulse Rate [Apical] 90 98 H Pulse Rate from SpO2 Sensor Respiratory Rate 20 20 20 Blood Pressure 148/80 H Blood Pressure [Left Arm] 174/75 H 129/72 Blood Pressure Mean 102 Blood Pressure Mean [Left Arm] 108 91 Pulse Oximetry 96 98 98 Oxygen Delivery Method Nasal Cannula Nasal Cannula Nasal Cannula Oxygen Flow Rate 2 2 2 Sepsis Recent Fever Within 48 Hours Yes Sepsis New/Unexplained Change in Mental Status Yes Sepsis Action Taken by Nursing Physician Notified 06/21/20 14:00 06/21/20 15:26 06/21/20 15:32 Temperature Temperature Source Pulse Rate 111 H 111 H Pulse Rate [Apical] 98 H Pulse Rate from SpO2 Sensor 111 H 111 H Respiratory Rate 20 25 H 24 Blood Pressure 160/69 H 125/97 Blood Pressure [Left Arm] Blood Pressure Mean 73 104 Blood Pressure Mean [Left Arm] Pulse Oximetry 100 98 98 Oxygen Delivery Method Nasal Cannula Oxygen Flow Rate 2 Sepsis Recent Fever Within 48 Hours Sepsis New/Unexplained Change in Mental Status Sepsis Action Taken by Nursing 06/21/20 16:01 Temperature Temperature Source Pulse Rate 119 H Pulse Rate [Apical] Pulse Rate from SpO2 Sensor 119 H Respiratory Rate 26 H Blood Pressure 145/73 H Blood Pressure [Left Arm] Blood Pressure Mean 77 Blood Pressure Mean [Left Arm] Pulse Oximetry 98 Oxygen Delivery Method Oxygen Flow Rate Sepsis Recent Fever Within 48 Hours Sepsis New/Unexplained Change in Mental Status Sepsis Action Taken by Nursing The physical exam is limited due to the patient's condition. Constitutional: Vital signs reviewed. Eyes: Pupils are equal round reactive to light. Conjunctiva are noninjected. HENT: Normocephalic atraumatic. Mucous membranes are dry. Respiratory: Clear to auscultation bilaterally. Breath sounds are equal bilaterally. Cardiovascular: Regular rate and rhythm. No murmurs, rubs or gallops. GI: Soft, nondistended and nontender. Bowel sounds are present. Musculoskeletal: No peripheral edema. Integumentary: No cyanosis. Neurological: The patient is awake but nonverbal. She does move all extremities. Psychiatric: Unable to assess. Course Administered Medications Daptomycin 350 mg/ Syringe 7 mls @ 3.5 mls/min IV Q24H [facility]; Protocol Stop: 06/23/20 12:14 Last Admin: 06/21/20 12:19 Dose: 3.5 mls/min Documented by: [id number] Discontinued Medications Acetaminophen (Acetaminophen 650 Mg Supp) 650 mg IL NOW STA Stop: 06/21/20 10:28 Last Admin: 06/21/20 10:50 Dose: Not Given Documented by: [id number] Acetaminophen (Acetaminophen 1000 Mg/100 Ml Iv) Confirm Administered Dose 1,000 mg IV .STK-MED ONE Stop: 06/21/20 10:39 Last Admin: 06/21/20 10:50 Dose: Not Given Documented by: [id number] Levofloxacin/Dextrose (Levaquin/D5w) 750 mg in 150 mls @ 100 mls/hr IV NOW STA Stop: 06/21/20 11:56 Last Infusion: 06/21/20 12:28 Dose: 0 mls/hr Documented by: [id number] Admin: 06/21/20 10:49 Dose: 100 mls/hr Documented by: [id number] Acetaminophen (Ofirmev) 65 mls @ 200 mls/hr IV NOW ONE; Protocol Stop: 06/21/20 11:07 Last Infusion: 06/21/20 11:11 Dose: 0 mls/hr Documented by: [id number] Admin: 06/21/20 10:50 Dose: 200 mls/hr Documented by: [id number] Imipenem/Cilastatin Sodium 300 (mg/ Dextrose) 106 mls @ 100 mls/hr IV NOW STA Stop: 06/21/20 16:01 Last Admin: 06/21/20 16:00 Dose: 100 mls/hr Documented by: [id number] Critical Care Time Critical Care Time: Yes Total Critical Care Time: 35 I have personally spent approximately 35 minutes of critical care time in the direct management of this patient. This includes bedside care, interpretation of diagnostic studies, and testing, discussion with consultants, patient, and family members, and other required patient management activities. These minutes are in excess of all separately billable procedures. Medical Decision Making Differential Diagnosis Sepsis, UTI, pneumonia, COVID-19, ICH, CVA Medical Records Attestation: I reviewed the patient's medical records. The patient was admitted to the hospital in October of this year for altered mental status and fever. She did have a pneumonia at the time. Home Medications Current Medication List: was personally reviewed by me Laboratory Data Attestation: I reviewed the patient's lab results. Result diagrams: 06/21/20 09:50 06/21/20 09:50 Lab Results 06/21/20 06/21/20 06/21/20 Range/Units 09:50 09:50 09:50 WBC 26.32 H (4.8-10.8) K/uL RBC 4.19 L (4.2-5.4) M/uL Hgb 12.9 (12.0-16.0) g/dL Hct 39.4 (37-47) % MCV 94.0 (80-100) fL MCH 30.8 (25-34) pg MCHC 32.7 (32-36) g/dL RDW Std Deviation 51.8 H (36.4-46.3) fL RDW Coeff of Rene 15.1 H (11.5-14.5) % Plt Count 471 H (130-400) K/uL MPV 10.1 (7.4-10.4) fL Immature Gran % (Auto) 0.5 % Neut % (Auto) 90.2 % Lymph % (Auto) 2.7 % Dickinson % (Auto) 6.4 % Eos % (Auto) 0.1 % Baso % (Auto) 0.1 % Neut # (Auto) 23.75 H (1.4-6.5) K/uL Lymph # (Auto) 0.72 L (1.2-3.4) K/uL Dickinson # (Auto) 1.68 H (0.11-0.59) K/uL Eos # (Auto) 0.02 (0-0.5) K/uL Baso # (Auto) 0.02 (0-0.2) K/uL Immature Gran # (Auto) 0.13 H (0.00-0.02) K/uL PT 11.5 (9.0-12.0) Seconds INR 1.1 (0.9-1.1) APTT 32.8 H (21.0-31.0) Seconds PTT Ratio 1.2 Sodium 141 (136-145) mmol/L Potassium 4.3 (3.5-5.1) mmol/L Chloride 111 H (98-107) mmol/L Carbon Dioxide 22 (21-32) mmol/L Anion Gap 8.0 (3-11) BUN 31 H (7-18) mg/dl Creatinine 1.40 H (0.6-1.2) mg/dl Est Cr Clr Drug Dosing 36.7 ml/min Est GFR ( Amer) 43.1 Est GFR (Non-Af Amer) 37.2 BUN/Creatinine Ratio 21.8 H (10-20) Glucose 155 H (70-99) mg/dl Lactate (0.4-2.0) mmol/L Calcium 10.7 H (8.5-10.1) mg/dl Magnesium 2.4 (1.8-2.4) mg/dl Total Bilirubin 0.3 (0.2-1) mg/dl AST 29 (15-37) U/L ALT 53 (12-78) U/L Alkaline Phosphatase 242 H (45-117) U/L Ammonia (11-32) umol/L Troponin I < 0.015 (0-0.045) ng/ml Total Protein 9.4 H (6.4-8.2) gm/dl Albumin 3.1 L (3.4-5.0) gm/dl Globulin 6.3 H (2.5-4.0) gm/dl Albumin/Globulin Ratio 0.5 L (0.9-2) Urine Color Urine Appearance (Clear) Urine pH (4.5-7.5) Ur Specific Burna (1.000-1.030) Urine Protein (Negative) Urine Glucose (UA) (Negative) Urine Ketones (Negative) Urine Blood (Negative) Urine Nitrite (Negative) Urine Bilirubin (Negative) Urine Urobilinogen (Negative) Ur Leukocyte Esterase (Negative) Urine WBC (Auto) (0-5) /hpf Urine RBC (Auto) (0-4) /hpf U Hyaline Cast (Auto) (0-5) /lpf U Epithel Cells (Auto) (0-5) /lpf Urine Bacteria (Auto) (Negative) COVID-19 Eval Order COVID-19 PCR (Negative) Influ A Molecular Assay (Negative) Influ B Molecular Assay (Negative) 06/21/20 06/21/20 06/21/20 Range/Units 10:31 10:31 10:40 WBC (4.8-10.8) K/uL RBC (4.2-5.4) M/uL Hgb (12.0-16.0) g/dL Hct (37-47) % MCV (80-100) fL MCH (25-34) pg MCHC (32-36) g/dL RDW Std Deviation (36.4-46.3) fL RDW Coeff of Rene (11.5-14.5) % Plt Count (130-400) K/uL MPV (7.4-10.4) fL Immature Gran % (Auto) % Neut % (Auto) % Lymph % (Auto) % Dickinson % (Auto) % Eos % (Auto) % Baso % (Auto) % Neut # (Auto) (1.4-6.5) K/uL Lymph # (Auto) (1.2-3.4) K/uL Dickinson # (Auto) (0.11-0.59) K/uL Eos # (Auto) (0-0.5) K/uL Baso # (Auto) (0-0.2) K/uL Immature Gran # (Auto) (0.00-0.02) K/uL PT (9.0-12.0) Seconds INR (0.9-1.1) APTT (21.0-31.0) Seconds PTT Ratio Sodium (136-145) mmol/L Potassium (3.5-5.1) mmol/L Chloride (98-107) mmol/L Carbon Dioxide (21-32) mmol/L Anion Gap (3-11) BUN (7-18) mg/dl Creatinine (0.6-1.2) mg/dl Est Cr Clr Drug Dosing ml/min Est GFR ( Amer) Est GFR (Non-Af Amer) BUN/Creatinine Ratio (10-20) Glucose (70-99) mg/dl Lactate 0.4 (0.4-2.0) mmol/L Calcium (8.5-10.1) mg/dl Magnesium (1.8-2.4) mg/dl Total Bilirubin (0.2-1) mg/dl AST (15-37) U/L ALT (12-78) U/L Alkaline Phosphatase (45-117) U/L Ammonia < 10.0 L (11-32) umol/L Troponin I (0-0.045) ng/ml Total Protein (6.4-8.2) gm/dl Albumin (3.4-5.0) gm/dl Globulin (2.5-4.0) gm/dl Albumin/Globulin Ratio (0.9-2) Urine Color Urine Appearance (Clear) Urine pH (4.5-7.5) Ur Specific Burna (1.000-1.030) Urine Protein (Negative) Urine Glucose (UA) (Negative) Urine Ketones (Negative) Urine Blood (Negative) Urine Nitrite (Negative) Urine Bilirubin (Negative) Urine Urobilinogen (Negative) Ur Leukocyte Esterase (Negative) Urine WBC (Auto) (0-5) /hpf Urine RBC (Auto) (0-4) /hpf U Hyaline Cast (Auto) (0-5) /lpf U Epithel Cells (Auto) (0-5) /lpf Urine Bacteria (Auto) (Negative) COVID-19 Eval Order Covid19 Done at [facility] COVID-19 PCR (Negative) Influ A Molecular Assay (Negative) Influ B Molecular Assay (Negative) 06/21/20 06/21/20 06/21/20 Range/Units 10:40 10:40 11:00 WBC (4.8-10.8) K/uL RBC (4.2-5.4) M/uL Hgb (12.0-16.0) g/dL Hct (37-47) % MCV (80-100) fL MCH (25-34) pg MCHC (32-36) g/dL RDW Std Deviation (36.4-46.3) fL RDW Coeff of Rene (11.5-14.5) % Plt Count (130-400) K/uL MPV (7.4-10.4) fL Immature Gran % (Auto) % Neut % (Auto) % Lymph % (Auto) % Dickinson % (Auto) % Eos % (Auto) % Baso % (Auto) % Neut # (Auto) (1.4-6.5) K/uL Lymph # (Auto) (1.2-3.4) K/uL Dickinson # (Auto) (0.11-0.59) K/uL Eos # (Auto) (0-0.5) K/uL Baso # (Auto) (0-0.2) K/uL Immature Gran # (Auto) (0.00-0.02) K/uL PT (9.0-12.0) Seconds INR (0.9-1.1) APTT (21.0-31.0) Seconds PTT Ratio Sodium (136-145) mmol/L Potassium (3.5-5.1) mmol/L Chloride (98-107) mmol/L Carbon Dioxide (21-32) mmol/L Anion Gap (3-11) BUN (7-18) mg/dl Creatinine (0.6-1.2) mg/dl Est Cr Clr Drug Dosing ml/min Est GFR ( Amer) Est GFR (Non-Af Amer) BUN/Creatinine Ratio (10-20) Glucose (70-99) mg/dl Lactate (0.4-2.0) mmol/L Calcium (8.5-10.1) mg/dl Magnesium (1.8-2.4) mg/dl Total Bilirubin (0.2-1) mg/dl AST (15-37) U/L ALT (12-78) U/L Alkaline Phosphatase (45-117) U/L Ammonia (11-32) umol/L Troponin I (0-0.045) ng/ml Total Protein (6.4-8.2) gm/dl Albumin (3.4-5.0) gm/dl Globulin (2.5-4.0) gm/dl Albumin/Globulin Ratio (0.9-2) Urine Color Yellow Urine Appearance Cloudy A (Clear) Urine pH 8.0 H (4.5-7.5) Ur Specific Burna 1.014 (1.000-1.030) Urine Protein 3+ H (Negative) Urine Glucose (UA) Negative (Negative) Urine Ketones Negative (Negative) Urine Blood 2+ H (Negative) Urine Nitrite Negative (Negative) Urine Bilirubin Negative (Negative) Urine Urobilinogen Negative (Negative) Ur Leukocyte Esterase 3+ H (Negative) Urine WBC (Auto) >30 H (0-5) /hpf Urine RBC (Auto) 5-10 H (0-4) /hpf U Hyaline Cast (Auto) 10-30 H (0-5) /lpf U Epithel Cells (Auto) >30 H (0-5) /lpf Urine Bacteria (Auto) 1+ H (Negative) COVID-19 Eval Order COVID-19 PCR NEGATIVE (Negative) Influ A Molecular Assay Negative (Negative) Influ B Molecular Assay Negative (Negative) Imaging Data Attestation: I personally reviewed and interpreted this imaging study as follows: Radiologist's Impression: CT head/brain wo con CLINICAL HISTORY: 75 years-old Female with ams eval for bleed. Acutely altered mental status TECHNIQUE: Multiple axial CT images of the head were obtained without contrast. A dose lowering technique was utilized adhering to the principles of ALARA. CT DOSE: 614.27 mGy.cm COMPARISON: Head CT 07/11/2019. FINDINGS: No acute intracranial hemorrhage, midline shift, intracranial mass, hydrocephalus, territorial ischemia or abnormal extra-axial collection. Age- related involutional changes with ex vacuo ventriculomegaly. Extensive white matter hypodensities suggest chronic microvascular ischemic disease. The calvarium is intact. The paranasal sinuses, mastoid air cells, and middle ear cavities are clear. IMPRESSION: No acute intracranial abnormality. ACT 112: Negative or not required by law. The above report was generated using voice recognition software. It may contain grammatical, syntax or spelling errors. Electronically signed by: Harsha Sams M.D. 06/21/2020 11:42 AM XR chest 1V portable CLINICAL HISTORY: SEPSIS COMPARISON STUDY: Chest radiograph November 03, 2019. FINDINGS: Anterior spinal fusion is noted. There is no pneumothorax. Trace left pleural effusion is noted. Note is made of moderate cardiomegaly. There is pulmonary vascular congestion with suspected mild pulmonary edema. There is mild left basilar opacity. IMPRESSION: 1. Small right pleural effusion with left basilar opacity that favors atelectasis. Radiographic follow-up is recommended. 2. Pulmonary vascular congestion with suspected mild pulmonary edema. ACT 112: Negative or not required by law. Electronically signed by: Eddy Sellers M.D. 06/21/2020 10:09 AM ECG Data Attestation: I personally reviewed and interpreted this ECG as follows: Indication: + other (Altered mental status) Rate (beats per minute): 102 Rhythm: + sinus tachycardia ECG Intervals/blocks: + Right Bundle branch block ECG Findings: + Q waves; no PVCs MDM Narrative I did evaluate the patient as noted above. The patient is nonverbal so history is very limited. I did obtain further history from the staff at [facility]. Apparently she has had altered mental status starting this morning. She was well when she went to bed last night. She did have a fever. 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 I did not note this on exam here. She is not following commands but does move all extremities. She was placed in respiratory isolation. Rapid Covid testing was obtained and was negative. IV access was established. She was given Tylenol IV. I did place an order for continuous cardiac monitoring. The monitor showed sinus tachycardia rate of 105 bpm. I did order and personally review the patient's 12-lead EKG as described above. She has a right bundle branch block. I did order and personally reviewed the images of the patient's chest x-ray as described above. There is a question of pneumonia in the left base. She does have a small right pleural effusion as well. I did treat her with Levaquin IV after blood cultures were obtained. I d id order a urine analysis. She does appear to have a UTI. I did add daptomycin IV as well. I did order and review the patient's blood work as noted in the electronic medical record. Her white count is over 26,000. She is not anemic. Creatinine is 1.4. Glucose is 155. Lactate is not elevated. Troponin is negative. I did order a CT of the head. I did review the images myself as well as the radiology report as described above. There is no evidence of acute stroke or ICH. I did reassess the patient multiple times. She remained hemodynamically stable. She was still unable to verbalize but she seem to follow commands no longer she was in the emergency department. I did discuss the case with the skilled nursing case manager and hospitalist. Impression & Plan Sepsis, UTI (urinary tract infection), Acute alteration in mental status, E levated serum creatinine, Pleural effusion on right, Abnormal chest x-ray Discharge Plan Visit Data Chief Complaint: Illness Stated Complaint: AMS Fever ED Provider: Brady Salomon Discharge Problem: Sepsis, UTI (urinary tract infection), Acute alteration in mental status, Elevated serum creatinine, Pleural effusion on right, Abnormal chest x-ray Forms Stand Alone Forms: My [facility] Prescriptions Prescriptions: No Action metoprolol tartrate 75 mg tablet 75 mg PO BIDM RF: 0 potassium chloride 20 mEq tablet extended release 40 meq PO BIDM RF: 0 ascorbic acid (vitamin C) 500 mg capsule 500 mg PO BIDM RF: 0 furosemide 40 mg tablet 40 mg PO BIDM RF: 0 levothyroxine 25 mcg tablet 25 mcg PO QAM RF: 0 baclofen 10 mg tablet 5 mg PO HS RF: 0 gabapentin 300 mg capsule 300 mg PO TID RF: 0 docusate sodium 100 mg capsule 100 mg PO HS RF: 0 montelukast 10 mg tablet 10 mg PO HS RF: 0 polyethylene glycol 3350 17 gram/dose powder 17 g PO QAM RF: 0 calcium carbonate 600 mg calcium (1,500 mg) tablet 600 mg PO QAM RF: 0 Thera-Tabs Tablet 1 tab PO HS RF: 0 cephalexin 500 mg capsule 500 mg PO BIDM RF: 0 Saccharomyces boulardii [Florastor] 250 mg Capsule 0 mg PO TIDM RF: 0 diltiazem HCl 180 mg capsule,extended release 24 hr 180 mg PO QAM RF: 0 felodipine 2.5 mg tablet extended release 24 hr 2.5 mg PO HS RF: 0 donepezil 10 mg tablet 10 mg PO HS RF: 0 amiloride 5 mg tablet 5 mg PO DAILY@0830 RF: 0 fluticasone propion-salmeterol [Advair Diskus] 500-50 mcg/dose blister with d evice 1 inh INHALATION Q12 RF: 0 Combivent Respimat 20-100 mcg/actuation mist 1 puff INHALATION Q6 RF: 0 acetaminophen 500 mg Tablet 1,000 mg PO TID RF: 0 cholecalciferol (vitamin D3) [Vitamin D3] 50 mcg (2,000 unit) Tablet 50 mcg PO HS RF: 0 famotidine 20 mg Tablet 20 mg PO BID RF: 0 venlafaxine 225 mg Tablet Extended Release 24hr 225 mg PO QAM RF: 0 Referrals Referrals: Braeden Ojeda [Primary Care Provider] - Discharge Problem: Sepsis Qualifiers: Sepsis type: sepsis due to unspecified organism Sepsis acute organ dysfunction status: unspecified Qualified Code(s): A41.9 - Sepsis, unspecified organism UTI (urinary tract infection) Qualifiers: Urinary tract infection type: site unspecified Hematuria presence: without hematuria Qualified Code(s): N39.0 - Urinary tract infection, site not specified
--- NOTE | 2020-06-21 10:11 | XRay Report ---
XR chest 1V portable CLINICAL HISTORY: SEPSIS COMPARISON STUDY: Chest radiograph November 03, 2019. FINDINGS: Anterior spinal fusion is noted. There is no pneumothorax. Trace left pleural effusion is n oted. Note is made of moderate cardiomegaly. There is pulmonary vascular congestion with suspected mi ld pulmonary edema. There is mild left basilar opacity. IMPRESSION: 1. Small right pleural effusion with left basilar opacity that favors atelectasis. Radiographic follo w-up is recommended. 2. Pulmonary vascular congestion with suspected mild pulmonary edema. ACT 112: Negative or not required by law. Electronically signed by: Eddy Sellers M.D. 06/21/2020 10:09 AM
[2020-06-21 10:12] LABS: INR 1.1 (0.9-1.1); Partial Thromboplastin Ratio 1.2; Partial Thromboplastin Time 32.8 Seconds (21.0-31.0); Prothrombin Time 11.5 Seconds (9.0-12.0)
[2020-06-21 10:17] LABS: Alanine Aminotransferase 53 U/L (12-78); Albumin Level 3.1 gm/dl (3.4-5.0); Aspartate Aminotransferase 29 U/L (15-37); BUN Creatinine Ratio 21.8 (10-20); Blood Urea Nitrogen 31 mg/dl (7-18); Calcium 10.7 mg/dl (8.5-10.1); Carbon Dioxide 22 mmol/L (21-32); Chloride 111 mmol/L (98-107); Creatinine Clr Calc Pharmacy 36.7 ml/min; Est GFR (African American) 43.1; Est GFR (Non-African American) 37.2; Glucose 155 mg/dl (70-99); Magnesium 2.4 mg/dl (1.8-2.4); Potassium 4.3 mmol/L (3.5-5.1); Sodium 141 mmol/L (136-145)
[2020-06-21 10:22] LABS: Albumin Globulin Ratio 0.5 (0.9-2); Alkaline Phosphatase 242 U/L (45-117); Bilirubin,Total 0.3 mg/dl (0.2-1); Globulin 6.3 gm/dl (2.5-4.0); Total Protein 9.4 gm/dl (6.4-8.2); Troponin I < 0.015 ng/ml (0-0.045)
[2020-06-21] MEDS ORDERED: ACETAMINOPHEN 650 MG SUPP PR STA (10:27)
[2020-06-21] MEDS ORDERED: levoFLOXacin/D5W 750 MG/150 ML BAG IV STA (10:27)
[2020-06-21 10:29] LABS: Basophils # (auto) 0.02 K/uL (0-0.2); Basophils % (auto) 0.1 %; Eosinophils # (auto) 0.02 K/uL (0-0.5); Eosinophils % (auto) 0.1 %; Immature Granulocytes # (auto) 0.13 K/uL (0.00-0.02); Immature Granulocytes % (auto) 0.5 %; Lymphocytes # (auto) 0.72 K/uL (1.2-3.4); Lymphocytes % (auto) 2.7 %; Monocytes # (auto) 1.68 K/uL (0.11-0.59); Monocytes % (auto) 6.4 %; Neutrophils # (auto) 23.75 K/uL (1.4-6.5); Neutrophils % (auto) 90.2 %
[2020-06-21] MEDS ORDERED: ACETAMINOPHEN 1000 MG/100 ML IV IV ONE (10:38)
[2020-06-21] MEDS ORDERED: ACETAMINOPHEN 65 ML IV ONE (10:48)
[2020-06-21 11:14] LABS: Appearance Urine Cloudy (Clear); Bacteria Urine Automated 1+ (Negative); Bilirubin Urine Negative (Negative); Blood Urine 2+ (Negative); Color Urine Yellow; Epithelial Cell Urine Auto >30 /lpf (0-5); Glucose Urine UA Negative (Negative); Ketones Urine Negative (Negative); Leukocyte Esterase Urine 3+ (Negative); Nitrite Urine Negative (Negative); Specific Gravity Urine 1.014 (1.000-1.030); Urobilinogen Urine Negative (Negative); WBC Urine Automated >30 /hpf (0-5)
[2020-06-21 11:15] LABS: Protein Urine 3+ (Negative)
[2020-06-21 11:16] LABS: Sulfosalicylic Acid Urine Positive (Negative)
[2020-06-21 11:33] LABS: Influenza A virus by PCR Negative (Negative); Influenza B virus by PCR Negative (Negative)
--- NOTE | 2020-06-21 11:43 | CT Scan Report ---
CT head/brain wo con CLINICAL HISTORY: 75 years-old Female with ams eval for bleed. Acutely altered mental status TECHNIQUE: Multiple axial CT images of the head were obtained without contrast. A dose lowering tech nique was utilized adhering to the principles of ALARA. CT DOSE: 614.27 mGy.cm COMPARISON: Head CT 07/11/2019. FINDINGS: No acute intracranial hemorrhage, midline shift, intracranial mass, hydrocephalus, territorial ischem ia or abnormal extra-axial collection. Age-related involutional changes with ex vacuo ventriculomegal y. Extensive white matter hypodensities suggest chronic microvascular ischemic disease. The calvarium is intact. The paranasal sinuses, mastoid air cells, and middle ear cavities are clear . IMPRESSION: No acute intracranial abnormality. ACT 112: Negative or not required by law. The above report was generated using voice recognition software. It may contain grammatical, syntax o r spelling errors. Electronically signed by: Harsha Sams M.D. 06/21/2020 11:42 AM
[2020-06-21] MEDS: DAPTOmycin 350 MG in SYRINGE 0 ML IV SCH (12:19)
[2020-06-21] MEDS ORDERED: IMIPENEM/CILASTATIN CONSULT ACTIVE PRN (14:16)
--- NOTE | 2020-06-21 14:19 | History & Physical Report ---
Date of Service June 21, 2020 Assessment & Plan (1) Sepsis secondary to UTI: Recent left-sided lithotripsy 10 days previously with insertion of ureteral stent. Previous Pseudomonas UTI Daptomycin and Levaquin given in ER given recent urological procedure, sepsis and prior Pseudomonas we will switch to daptomycin and imipenem Lactic acid WNL Mildly hypervolemic on exam, start D5W half-normal NSS @ 80 ml/hr Cotto catheter placed. CT A/P stat to assess for obstruction requiring utology consult (2) Acute alteration in mental status: Suspect secondary to infection above. Do not suspect stroke at the current time as no laterlizing findings. Unclear baseline speech deficit but knoen paralysis of right vocal cord and although altered able to say she was having abdominal pain. (3) Solitary kidney: Notable history of this. (4) Left renal stone: Recent lithotripsy and ureteral stent placed on 06/10 (5) Elevated serum creatinine: Not diagnostic of MONA. Suspect secondary to dehydration at current time. Start IV fluids. (6) Pleural effusion on right: Noted on CXR. (7) Complete paralysis of right vocal cord: Notable history of this in EHR. Appears longstanding from ENT note. (8) Chronic obstructive asthma: Continue usual maintenance inhalers. Combivent + Advair Diskus. Continue montelukast 10 mg nightly (9) Hypothyroid: Continue levothyroxine 25 mcg p.o. daily (10) Hypertension: Continue metoprolol tartrate 75 mg p.o. twice daily with hold parameters, felodipine 2.5 mg p.o. at bedtime, diltiazem 180 mg p.o. qam Admission and Anticipated Discharge Date Admission Date: 06/21/2020 History of Present Illness Chief Complaint: Altered mental state, fever Primary Care Provider: [facility] Mady Vela is a 75-year-old female from [facility] who presents to the ER with fever. Patient was found this morning with concerns for stroke-like symptoms with left eyelid drooping, altered mental status and trouble speaking. However she was also having a fever and the nurse at [facility] was unsure of her baseline. Unable to get any significant history from the patient due to altered mental state. She is alert and tells me she is [facility], unable to answer questions about date/year. While examining she does note having abdominal pain but is unable to give me any history of this other than it is generalized. Tried contacting both her sons with numbers in electronic health record but without success. Contacted [facility] and talked to Dmitriy who confirmed history on hand over sheet although no convincing facial droop but she did have mild eye lid drooping. Allergies Allergy/AdvReac Type Severity Reaction Status Date / Time house dust mite Allergy Mild Unknown Verified 06/21/20 11:07 pollen extracts Allergy Mild HAYFEVER Verified 06/21/20 11:07 hydrochlorothiazide Allergy Unknown PT UNSURE Verified 06/21/20 11:07 Penicillins Allergy Unknown Unknown Verified 06/21/20 11:07 Home Medications Home Medications Medication Instructions Recorded Confirmed Type ascorbic acid (vitamin C) 500 mg 500 mg PO BIDM cap 07/03/19 06/21/20 History capsule baclofen 10 mg tablet 5 mg PO HS tab 07/03/19 06/21/20 History calcium carbonate 600 mg calcium 600 mg PO QAM tab 07/03/19 06/21/20 History (1,500 mg) tablet docusate sodium 100 mg capsule 100 mg PO HS cap 07/03/19 06/21/20 History furosemide 40 mg tablet 40 mg PO BIDM tab 07/03/19 06/21/20 History gabapentin 300 mg capsule 300 mg PO TID cap 07/03/19 06/21/20 History levothyroxine 25 mcg tablet 25 mcg PO QAM tab 07/03/19 06/21/20 History metoprolol tartrate 75 mg tablet 75 mg PO BIDM tab 07/03/19 06/21/20 History montelukast 10 mg tablet 10 mg PO HS tab 07/03/19 06/21/20 History polyethylene glycol 3350 17 17 g PO QAM gm 07/03/19 06/21/20 History gram/dose oral powder potassium chloride 20 mEq 40 meq PO BIDM tab 07/03/19 06/21/20 History tablet,extended release Combivent Respimat 1 puff INHALATION Q6 10/31/19 06/21/20 History acetaminophen 1,000 mg PO TID 10/31/19 06/21/20 History amiloride 5 mg PO DAILY@0830 10/31/19 06/21/20 History cholecalciferol (vitamin D3) 50 mcg PO HS 10/31/19 06/21/20 History [Vitamin D3] diltiazem HCl 180 mg PO QAM 10/31/19 06/21/20 History donepezil 10 mg PO HS 10/31/19 06/21/20 History felodipine 2.5 mg PO HS 10/31/19 06/21/20 History fluticasone propion-salmeterol 1 inh INHALATION Q12 10/31/19 06/21/20 History [Advair Diskus] famotidine 20 mg PO BID 05/24/20 06/21/20 History venlafaxine 225 mg PO QAM 06/10/20 06/21/20 History Saccharomyces boulardii [Florastor] 0 mg PO TIDM 06/21/20 06/21/20 History cephalexin 500 mg PO BIDM 06/21/20 06/21/20 History therapeutic multivitamin 1 tab PO HS 06/21/20 06/21/20 History [Thera-Tabs] Past Med/Surg History Medical History Atrial flutter (09/27/13) With Afib. Per records, onset 2013, was not anticoagulated at discharge, just started on BB. Afib with RVR again noted at 2017 admission, likely due to acute illness, spontaneously converted. Rate control approach with no anticoagulation at discharge, presumably due to fall risk. Bipolar 1 disorder, depressed Cervical disc disease COPD (chronic obstructive pulmonary disease) Dysphagia Hepatitis C (~12/1995) History of pulmonary embolism 2-3 yrs ago, spontaneous History of TIA (transient ischemic attack) Hypertension Hypotension Hypothyroid Iron deficiency anemia Metabolic encephalopathy Monoclonal B-cell lymphocytosis of unknown significance (~10/05/13) PVD (peripheral vascular disease) Repeated falls Is mostly wheelchair-bound, reports leg weakness Sepsis 2013 Thrombocytopenia Thrombocytosis Surgical History History of bilateral carpal tunnel release History of cervical spinal surgery 2006, 2013 History of hip surgery ORIF, LEFT HIP- APRIL 2013 @ [facility] History of laparoscopy Status post hip surgery Family History Other No family history of adverse response to anesthesia No family history of bleeding disorder Social History Smoking Status: Former smoker Age Started Using Tobacco: 19; Second Hand Exposure: No; Do You Dip or Chew Tobacco: No; Tobacco Cessation Education Requested by Patient: No Hx Alcohol Use: No Hx Substance Use: No Preferred Language: Azeri Communication Ability: Impaired Communication Ability Comment: altered mental status Digital Media Intern Required: No Beliefs That Will Affect Care: None marital status: Current Living Situation: [facility] current occupational status: retired How many Children do You have: 2 Other Information That Helps Us Care for You: No Feels Safe at Home: Yes Safety Concerns: Feels Safe At This Time Assistive Devices: Oxygen - Continuous Review of Systems Review of Systems: Unobtainable due to cognitive status Physical Exam Constitutional: well developed and + frail appearing; + not well nourished and no acute distress Diaphoretic Eyes: PERRL, conjunctivae normal, anicteric sclerae Neck: trachea midline, no thyromegaly Respiratory: normal respiratory effort, lungs clear to auscultation Cardiovascular: Rate/Rhythm: regular rhythm and + tachycardic Heart Sounds: no murmur Extremities: normal capillary refill; no calf tenderness and no pedal edema Gastrointestinal (Abdomen): Inspection/Auscultation: normal bowel sounds; abdomen not distended Percussion/Palpation: + abdomen tender (Generalized) and abdomen soft; no guarding and abdomen not rigid Musculoskeletal: no cyanosis or clubbing, extremities motor strength 5/5 Skin: no rashes, warm and dry (No areas of cellulitis) Neurologic: moves all extremities and awake; not confused Psychiatric: Orientation: alert; + not oriented x 3 Genitourinary: no CVA tenderness Lymphatic: no cervical or axillary lymphadenopathy Results & Data Results & Data ([facility]) Vital Signs (Past 12 Hours) Vital Signs Temp Pulse Pulse Resp BP BP Pulse Ox 06/21/20 12:47 98 H 20 129/72 98 06/21/20 11:00 90 20 174/75 H 98 06/21/20 09:55 38.5 C H 102 H 20 148/80 H 96 Diagnostic Findings XR chest 1V portable IMPRESSION: 1. Small right pleural effusion with left basilar opacity that favors atelectasis. Radiographic follow-up is recommended. 2. Pulmonary vascular congestion with suspected mild pulmonary edema. CT head/brain wo con IMPRESSION: No acute intracranial abnormality. ABDOMEN AND PELVIS CT WITHOUT CONTRAST IMPRESSION: 1. Interval placement of a left ureteral stent which appears in good position. No ureteral calculi. No left-sided hydronephrosis. 2. Multiple left renal calculi. 3. Atrophic right kidney. 4. No change in the hypodense thickening of the endometrium. This is concerning for an endometrial lesion/mass. Gynecologic consultation recommended for further evaluation. 4. No definite bowel wall thickening or obstruction. 5. Additional findings as described above. ECG Indication: abdominal pain Rate (beats per minute): 102 Rhythm: sinus tachycardia Findings: + other (T wave flattening in lateral leads) and + RBBB Comparison ECG Date: from (October 31, 2019) Change: the following changes noted (T wave flattening in leads is new) Code Status & VTE Plan Code Status Full - as per [facility] notes VTE Prophylaxis Plan VTE Prophylaxis will be ordered: Yes PG Care Time/CCT Total # of Minutes Spent Total Time Spent with Patient: Total time spent is greater than 50% in coordination of care (as documented) at patient's floor/unit and/or counseling patient: Coding Level of Care Code 80895 Initial Inpt Care Lvl 3 Diagnoses Sepsis secondary to UTI A41.9; N39.0 Acute alteration in mental status R41.82 Solitary kidney Q60.0 Left renal stone N20.0 Elevated serum creatinine R79.89 Pleural effusion on right J90 Complete paralysis of right vocal cord J38.01 Chronic obstructive asthma J44.9 Hypothyroid E03.9 Hypertension I10
--- NOTE | 2020-06-21 14:52 | Electrocardiogram Report ---
Test Reason : Blood Pressure : / mmHG Vent. Rate : 102 BPM Atrial Rate : 102 BPM P-R Int : 182 ms QRS Dur : 142 ms QT Int : 362 ms P-R-T Axes : 057 012 -01 degrees QTc Int : 471 ms Sinus tachycardia Right bundle branch block Inferior infarct , age undetermined Abnormal ECG When compared with ECG of 31-OCT-2019 06:30, Premature atrial complexes are no longer Present Inferior infarct is now Present Nonspecific T wave abnormality now evident in Lateral leads Confirmed by Patric Damon ([id number]) on 06/21/2020 2:52:00 PM Referred By: [facility] Confirmed By:Patric Damon
[2020-06-21] MEDS ORDERED: IMIPENEM/CILASTATIN SODIUM 300 MG in DEXTROSE 5% 100 ML IV STA (14:58)
[2020-06-21] MEDS ORDERED: MEROPENEM CONSULT ACITVE PRN (16:05)
--- NOTE | 2020-06-21 16:48 | CT Scan Report ---
ABDOMEN AND PELVIS CT WITHOUT CONTRAST CT DOSE: 953.68 mGy.cm HISTORY: sepsis, generalized abdominal pain TECHNIQUE: Multiaxial CT images of the abdomen and pelvis were performed without contrast. A dose lo wering technique was utilized adhering to the principles of ALARA. COMPARISON STUDY: Abdomen and pelvis CT 12/11/2019. FINDINGS: Mild dependent changes seen at the lung bases. No pneumoperitoneum. No pneumatosis. Prior i nternal fixation of an old, healed left femoral neck fracture. Patchy sclerosis within the left femor al head consistent with avascular necrosis. This is also unchanged. No suspicious lytic or blastic os seous lesions. The unenhanced liver, spleen, adrenal glands, pancreas, gallbladder within normal limi ts. There is an atrophic right kidney, unchanged. There is mild left perinephric edema which has slig htly progressed. Multiple stones seen within the left kidney. Dominant stone within the lower pole me asures 1.2 cm. No left-sided hydronephrosis. There is been interval placement left ureteral stent whi ch appears in good position. No ureteral or bladder calculi identified. There is a Cotto catheter dec ompressing the bladder. No retroperitoneal lymphadenopathy. No change in the 9 mm saccular aneurysm a t the distal abdominal aorta. Abdominal aorta measures up to 2.9 cm in diameter at this level. There is extensive calcified plaque within the aorta and iliac arteries. Left periureteral edema is likely reactive to the ureteral stent. Suboptimal evaluation for bowel pathology due to the lack of intraven ous and oral contrast. However, there is no definite bowel wall thickening or obstruction. A few colo jayda diverticula. No evidence for diverticulitis. Persistent endometrial thickening. Moderate amount o f well-formed stool seen within the colon and rectum. IMPRESSION: 1. Interval placement of a left ureteral stent which appears in good position. No ureteral calculi. N o left-sided hydronephrosis. 2. Multiple left renal calculi. 3. Atrophic right kidney. 4. No change in the hypodense thickening of the endometrium. This is concerning for an endometrial le marnie/mass. Gynecologic consultation recommended for further evaluation. 4. No definite bowel wall thickening or obstruction. 5. Additional findings as described above. ACT 112: Negative or not required by law. Electronically signed by: Deng Zuniga M.D. 06/21/2020 4:47 PM
[2020-06-21] MEDS ORDERED: IPRATROPIUM BROMIDE/ALBUTEROL respimat INH INH SCH (18:09)
[2020-06-21] MEDS: D5W AND 1/2NSS 1,000 ML IV SCH (19:03)
[2020-06-21] MEDS: ASCORBIC ACID 500 MG TAB PO SCH (19:50)
[2020-06-21] MEDS: METOPROLOL TARTRATE 25 MG TAB PO SCH (19:50)
[2020-06-21] MEDS: DOCUSATE SODIUM 100 MG CAP PO SCH (20:36)
[2020-06-21] MEDS: BACLOFEN 10 MG TAB PO SCH (20:36)
[2020-06-21] MEDS: FAMOTIDINE 20 MG TAB PO SCH (20:37)
[2020-06-21] MEDS: GABAPENTIN 300 MG CAP PO SCH (20:37)
[2020-06-21] MEDS: MONTELUKAST SODIUM 10 MG TABLET PO SCH (20:38)
[2020-06-21] MEDS: ACETAMINOPHEN 500 MG TAB PO SCH (20:38)
[2020-06-21] MEDS: FELODIPINE 2.5 MG TABCR PO SCH (20:41)
[2020-06-21] MEDS ORDERED: CHOLECALCIFEROL 1,000 UNITS 25 MCG TAB PO SCH (21:00)
[2020-06-21] MEDS: MEROPENEM 500 MG in SYRINGE 0 ML IV SCH (22:57)
[2020-06-22] MEDS: IPRATROPIUM BROMIDE HFA INHALER INH SCH ×5 (01:14→19:25)
[2020-06-22] MEDS: ALBUTEROL HFA 8 GM INHALER INH SCH ×5 (01:14→19:25)
[2020-06-22] MEDS: MEROPENEM 500 MG in SYRINGE 0 ML IV SCH ×3 (05:20→21:52)
[2020-06-22] MEDS: D5W AND 1/2NSS 1,000 ML IV SCH (06:22)
[2020-06-22] MEDS: LEVOTHYROXINE SODIUM 25 MCG TABLET PO SCH (06:23)
[2020-06-22 07:28] LABS: Hematocrit (blood only) 34.8 % (37-47); Hemoglobin 11.2 g/dL (12.0-16.0); Mean Corpuscular Hemoglobin 30.4 pg (25-34); Mean Corpuscular Hgb Conc 32.2 g/dL (32-36); Mean Corpuscular Volume 94.3 fL (80-100); Mean Platelet Volume 10.2 fL (7.4-10.4); Platelet Count 382 K/uL (130-400); RDW Coefficient of Variation 15.4 % (11.5-14.5); RDW Standard Deviation 53.1 fL (36.4-46.3); Red Blood Count 3.69 M/uL (4.2-5.4); White Blood Count 23.14 K/uL (4.8-10.8)
[2020-06-22 07:52] LABS: Alanine Aminotransferase 34 U/L (12-78); Albumin Level 2.4 gm/dl (3.4-5.0); Aspartate Aminotransferase 15 U/L (15-37); BUN Creatinine Ratio 18.6 (10-20); Blood Urea Nitrogen 28 mg/dl (7-18); Calcium 9.9 mg/dl (8.5-10.1); Carbon Dioxide 21 mmol/L (21-32); Chloride 113 mmol/L (98-107); Creatinine Clr Calc Pharmacy 33.8 ml/min; Est GFR (Non-African American) 33.7; Glucose 144 mg/dl (70-99); Potassium 3.7 mmol/L (3.5-5.1); Sodium 143 mmol/L (136-145)
[2020-06-22 07:57] LABS: Albumin Globulin Ratio 0.4 (0.9-2); Alkaline Phosphatase 197 U/L (45-117); Bilirubin,Total 0.2 mg/dl (0.2-1); Globulin 5.9 gm/dl (2.5-4.0); Total Protein 8.3 gm/dl (6.4-8.2); Troponin I < 0.015 ng/ml (0-0.045)
[2020-06-22 08:22] LABS: Basophils # (auto) 0.01 K/uL (0-0.2); Immature Granulocytes # (auto) 0.11 K/uL (0.00-0.02); Immature Granulocytes % (auto) 0.5 %; Lymphocytes # (auto) 0.81 K/uL (1.2-3.4); Lymphocytes % (auto) 3.5 %; Monocytes # (auto) 1.75 K/uL (0.11-0.59); Monocytes % (auto) 7.6 %; Neutrophils # (auto) 20.46 K/uL (1.4-6.5); Neutrophils % (auto) 88.4 %
[2020-06-22] MEDS: VENLAFAXINE HCL XR 75 MG CAPXR PO SCH (08:45)
[2020-06-22] MEDS: dilTIAZem ER 180 MG CAPCR PO SCH (08:45)
[2020-06-22] MEDS: GABAPENTIN 300 MG CAP PO SCH ×2 (08:45→14:41)
[2020-06-22] MEDS: FAMOTIDINE 20 MG TAB PO SCH ×2 (08:45→20:06)
[2020-06-22] MEDS: ASCORBIC ACID 500 MG TAB PO SCH ×2 (08:46→16:30)
[2020-06-22] MEDS: FLUTICASONE/VILANTEROL 100/25MCG 14 PUFFS/INHALER INH SCH (08:46)
[2020-06-22] MEDS: ACETAMINOPHEN 500 MG TAB PO SCH ×3 (08:46→20:04)
[2020-06-22] MEDS: METOPROLOL TARTRATE 25 MG TAB PO SCH ×2 (08:46→16:41)
[2020-06-22] MEDS: POLYETHYLENE (MIRALAX) 17 GM PACK PO SCH (08:55)
[2020-06-22] MEDS ORDERED: CALCIUM 600MG + VIT D 400 IU TAB PO SCH (09:00)
[2020-06-22] MEDS: DAPTOmycin 350 MG in SYRINGE 0 ML IV SCH (11:53)
--- NOTE | 2020-06-22 17:11 | Hospitalist Progress Note ---
Date of Service June 22, 2020 Assessment & Plan (1) Sepsis secondary to UTI: Recent left-sided lithotripsy 10 days previously with insertion of ureteral stent. Previous Pseudomonas UTI. CT a/p on 06/21 showed good placement of the stent without hydronephrosis. - Continue daptomycin and meropenem - Blood and urine cultures growing Gram(-) bacilli - Follow (2) Left renal stone: Recent lithotripsy and ureteral stent placed on 06/[address] Gerson Walter. (3) Acute alteration in mental status: Suspect secondary to infection above. - As above (4) Elevated serum creatinine: Baseline Cr ~1.0 - 1.1, eGFR ~55. CKD Stage III. - Cr up to 1.5 on 06/22. - Continue IV fluids (5) Solitary kidney: Notable history of this. (6) Pleural effusion on right: Noted on CXR. Presently breathing comfortably on room air. - Monitor (7) Complete paralysis of right vocal cord: Notable history of this in EHR. Appears longstanding from ENT note. (8) Chronic obstructive asthma: No shortness of breath today. - Continue usual maintenance inhalers. Combivent + Advair Diskus. - Continue montelukast 10 mg nightly (9) Hypothyroid: TSH was last checked in our system in 2019. - Continue levothyroxine 25 mcg p.o. daily - Recheck TSH (10) Hypertension: BP presently 110/60. - Continue metoprolol, felodipine, and diltiazem (11) DVT prophylaxis: Heparin 5,000 units SQ Q12h Admission and Anticipated Discharge Date Admission Date: June 21, 2020 Subjective Still tired today, but no fevers. No pain. Reports no fevers/chills, chest pain, shortness of breath, abdominal pain, nausea, or vomiting. Physical Exam Constitutional: WD/WN, vitals as above Eyes: EOM intact bilaterally; no conjunctival abnormality ENMT: external ear and nose normal, oropharynx normal Neck: trachea midline, no thyromegaly normal visual inspection Respiratory: normal respiratory effort, lungs clear to auscultation no respiratory distress Cardiovascular: RRR, no murmur, no edema Gastrointestinal (Abdomen): Inspection/Auscultation: abdomen normal to inspection; abdomen not distended Musculoskeletal: no cyanosis or clubbing, extremities motor strength 5/5 Skin: no rashes, warm and dry Neurologic: moves all extremities and awake Psychiatric: Orientation: alert, oriented to person and cooperative Results & Data Results & Data ([facility]) Vital Signs (Past 12 Hours) Vital Signs Temp Pulse Pulse Resp BP Pulse Ox 06/22/20 14:04 70 20 93 06/22/20 11:40 91 06/22/20 11:03 37.3 C 77 110/62 96 06/22/20 08:43 90 156/66 H 96 06/22/20 08:39 37.5 C 06/22/20 08:14 37.5 C 94 H 16 136/73 94 06/22/20 07:16 102 H 20 97 PG Care Time/CCT Total # of Minutes Spent Total Time Spent with Patient: Total time spent is greater than 50% in coordination of care (as documented) at patient's floor/unit and/or counseling patient: Coding Level of Care Code 41804 Subseq Hosp Care Lvl 3 Diagnoses Sepsis secondary to UTI A41.9; N39.0 Left renal stone N20.0 Acute alteration in mental status R41.82 Elevated serum creatinine R79.89 Solitary kidney Q60.0 Pleural effusion on right J90 Complete paralysis of right vocal cord J38.01 Chronic obstructive asthma J44.9 Hypothyroid E03.9 Hypertension I10 DVT prophylaxis Z29.9
[2020-06-22] MEDS ORDERED: NORMOSOL-R 1,000 ML IV ONE (17:15)
[2020-06-22] MEDS: BACLOFEN 10 MG TAB PO SCH (20:04)
[2020-06-22] MEDS: MONTELUKAST SODIUM 10 MG TABLET PO SCH (20:05)
[2020-06-22] MEDS: FELODIPINE 2.5 MG TABCR PO SCH (20:06)
[2020-06-22] MEDS: DOCUSATE SODIUM 100 MG CAP PO SCH (20:08)
[2020-06-22] MEDS: HEPARIN SOD 5,000 UNIT/0.5 ML VIAL SQ SCH (20:14)
[2020-06-23] MEDS: ALBUTEROL HFA 8 GM INHALER INH SCH ×4 (00:42→18:55)
[2020-06-23] MEDS: IPRATROPIUM BROMIDE HFA INHALER INH SCH ×4 (00:42→18:55)
[2020-06-23] MEDS: MEROPENEM 500 MG in SYRINGE 0 ML IV SCH ×3 (05:29→21:23)
[2020-06-23] MEDS: LEVOTHYROXINE SODIUM 25 MCG TABLET PO SCH (05:31)
[2020-06-23 07:30] LABS: Hematocrit (blood only) 32.7 % (37-47); Hemoglobin 10.3 g/dL (12.0-16.0); Mean Corpuscular Hemoglobin 29.9 pg (25-34); Mean Corpuscular Hgb Conc 31.5 g/dL (32-36); Mean Corpuscular Volume 94.8 fL (80-100); Mean Platelet Volume 10.3 fL (7.4-10.4); Platelet Count 387 K/uL (130-400); RDW Coefficient of Variation 15.8 % (11.5-14.5); RDW Standard Deviation 54.6 fL (36.4-46.3); Red Blood Count 3.45 M/uL (4.2-5.4); White Blood Count 18.47 K/uL (4.8-10.8)
[2020-06-23 08:11] LABS: BUN Creatinine Ratio 19.9 (10-20); Calcium 9.8 mg/dl (8.5-10.1); Est GFR (African American) 42.4; Est GFR (Non-African American) 36.5; Magnesium 2.5 mg/dl (1.8-2.4); Potassium 3.1 mmol/L (3.5-5.1)
[2020-06-23 08:21] LABS: Thyroid Stimulating Hormone 0.442 uIu/ml (0.300-4.500)
[2020-06-23] MEDS: dilTIAZem ER 180 MG CAPCR PO SCH (08:52)
[2020-06-23] MEDS: FAMOTIDINE 20 MG TAB PO SCH ×2 (08:52→19:42)
[2020-06-23] MEDS: FLUTICASONE/VILANTEROL 100/25MCG 14 PUFFS/INHALER INH SCH (08:52)
[2020-06-23] MEDS: VENLAFAXINE HCL XR 75 MG CAPXR PO SCH (08:52)
[2020-06-23] MEDS: ACETAMINOPHEN 500 MG TAB PO SCH ×2 (08:53→14:45)
[2020-06-23] MEDS: POLYETHYLENE (MIRALAX) 17 GM PACK PO SCH (08:53)
[2020-06-23] MEDS: HEPARIN SOD 5,000 UNIT/0.5 ML VIAL SQ SCH ×2 (08:53→21:51)
[2020-06-23] MEDS: ASCORBIC ACID 500 MG TAB PO SCH ×2 (08:53→17:23)
[2020-06-23] MEDS: METOPROLOL TARTRATE 25 MG TAB PO SCH ×2 (08:53→17:23)
--- NOTE | 2020-06-23 08:56 | Urology Consultation ---
Date of Consultation June 23, 2020 Assessment & Plan (1) Sepsis secondary to UTI: UTI/Sepsis s/p cysto, left uscope, laser litho, and stent. Cont broad spectrum abx IV fluids CR and WBC improving Will plan for stent removal or repeat Uscope after infx resolves. (2) Altered mental status: History of Present Illness Attending Physician: Fer Mckoy MD 75-year-old female from [facility] who presents to the ER with fever. Patient was found with concerns for stroke-like symptoms with left eyelid drooping, altered mental status and trouble speaking. However she was also having a fever and the nurse at [facility] was unsure of her baseline. She underwent uscope and laser litho with stent placement on 06/[address] Walter. She had a large stone in a solitary kidney. The right kidney is atrophic. Upon admission she was found to have an elevated WBC and Cr. Both of these are now trending down. Urine cx shows morganella. CT scan showed stent in good position with no sign of hydronephrosis. Allergies Allergy/AdvReac Type Severity Reaction Status Date / Time house dust mite Allergy Mild Unknown Verified 06/21/20 11:07 pollen extracts Allergy Mild HAYFEVER Verified 06/21/20 11:07 hydrochlorothiazide Allergy Unknown PT UNSURE Verified 06/21/20 11:07 Penicillins Allergy Unknown Unknown Verified 06/21/20 11:07 Home Medications Home Medications Medication Instructions Recorded Confirmed Type ascorbic acid (vitamin C) 500 mg 500 mg PO BIDM cap 07/03/19 06/21/20 History capsule baclofen 10 mg tablet 5 mg PO HS tab 07/03/19 06/21/20 History calcium carbonate 600 mg calcium 600 mg PO QAM tab 07/03/19 06/21/20 History (1,500 mg) tablet docusate sodium 100 mg capsule 100 mg PO HS cap 07/03/19 06/21/20 History furosemide 40 mg tablet 40 mg PO BIDM tab 07/03/19 06/21/20 History gabapentin 300 mg capsule 300 mg PO TID cap 07/03/19 06/21/20 History levothyroxine 25 mcg tablet 25 mcg PO QAM tab 07/03/19 06/21/20 History metoprolol tartrate 75 mg tablet 75 mg PO BIDM tab 07/03/19 06/21/20 History montelukast 10 mg tablet 10 mg PO HS tab 07/03/19 06/21/20 History polyethylene glycol 3350 17 17 g PO QAM gm 07/03/19 06/21/20 History gram/dose oral powder potassium chloride 20 mEq 40 meq PO BIDM tab 07/03/19 06/21/20 History tablet,extended release Combivent Respimat 1 puff INHALATION Q6 10/31/19 06/21/20 History acetaminophen 1,000 mg PO TID 10/31/19 06/21/20 History amiloride 5 mg PO DAILY@0830 10/31/19 06/21/20 History cholecalciferol (vitamin D3) 50 mcg PO HS 10/31/19 06/21/20 History [Vitamin D3] diltiazem HCl 180 mg PO QAM 10/31/19 06/21/20 History donepezil 10 mg PO HS 10/31/19 06/21/20 History felodipine 2.5 mg PO HS 10/31/19 06/21/20 History fluticasone propion-salmeterol 1 inh INHALATION Q12 10/31/19 06/21/20 History [Advair Diskus] famotidine 20 mg PO BID 05/24/20 06/21/20 History venlafaxine 225 mg PO QAM 06/10/20 06/21/20 History Saccharomyces boulardii [Florastor] 0 mg PO TIDM 06/21/20 06/21/20 History cephalexin 500 mg PO BIDM 06/21/20 06/21/20 History therapeutic multivitamin 1 tab PO HS 06/21/20 06/21/20 History [Thera-Tabs] Patient History Medical History (Updated 06/22/20 @ 17:10 by Fer Mckoy MD) Atrial flutter (09/27/13) With Afib. Per records, onset 2013, was not anticoagulated at discharge, just started on BB. Afib with RVR again noted at 2017 admission, likely due to acute illness, spontaneously converted. Rate control approach with no anticoagulation at discharge, presumably due to fall risk. Bipolar 1 disorder, depressed Cervical disc disease COPD (chronic obstructive pulmonary disease) Dysphagia Hepatitis C (~12/1995) History of pulmonary embolism 2-3 yrs ago, spontaneous History of TIA (transient ischemic attack) Hypertension Hypotension Hypothyroid Iron deficiency anemia Metabolic encephalopathy Monoclonal B-cell lymphocytosis of unknown significance (~10/05/13) PVD (peripheral vascular disease) Repeated falls Is mostly wheelchair-bound, reports leg weakness Sepsis 2013 Thrombocytopenia Thrombocytosis Surgical History History of bilateral carpal tunnel release History of cervical spinal surgery 2006, 2013 History of hip surgery ORIF, LEFT HIP- APRIL 2013 @ [facility] History of laparoscopy Status post hip surgery Family History Other No family history of adverse response to anesthesia No family history of bleeding disorder Social History Smoking Status: Former smoker Age Started Using Tobacco: 19; Second Hand Exposure: No; Do You Dip or Chew Tobacco: No; Tobacco Cessation Education Requested by Patient: No Hx Alcohol Use: No Hx Substance Use: No Preferred Language: Tongan Communication Ability: Impaired Communication Ability Comment: altered mental status Hotel Desk Clerk Required: No Beliefs That Will Affect Care: None marital status: Current Living Situation: Detention current occupational status: retired How many Children do You have: 2 Other Information That Helps Us Care for You: No Feels Safe at Home: Yes Safety Concerns: Feels Safe At This Time Assistive Devices: Oxygen - Continuous Review of Systems Review of Systems: All systems reviewed & are unremarkable except as noted in HPI & below Physical Exam Constitutional: WD/WN, vitals as above ENMT: external ear and nose normal, oropharynx normal Neck: trachea midline, no thyromegaly Respiratory: normal respiratory effort, lungs clear to auscultation Cardiovascular: RRR, no murmur, no edema Gastrointestinal (Abdomen): normal bowel sounds, soft, nontender, no hepatosplenomegaly Neurologic: patellar DTR's 2+ bilat, sensation intact Psychiatric: Orientation: alert Lymphatic: no cervical or axillary lymphadenopathy Results & Data ([facility]) Vital Signs (Past 12 Hours) Vital Signs Temp Pulse Pulse Resp BP Pulse Ox 06/23/20 08:50 36.9 C 94 H 20 140/75 94 06/23/20 07:24 90 06/23/20 04:30 37.6 C H 87 20 161/62 H 92 06/23/20 02:55 75 06/23/20 00:42 74 20 90 06/23/20 00:02 36.8 C 80 16 94/[address] Scan: 1. Interval placement of a left ureteral stent which appears in good position. No ureteral calculi. No left-sided hydronephrosis. 2. Multiple left renal calculi. 3. Atrophic right kidney. 4. No change in the hypodense thickening of the endometrium. This is concerning for an endometrial lesion/mass. Gynecologic consultation recommended for further evaluation. 4. No definite bowel wall thickening or obstruction. 5. Additional findings as described above PG Care Time/CCT Total # of Minutes Spent Total Time Spent with Patient: Total time spent is greater than 50% in coordination of care (as documented) at patient's floor/unit and/or counseling patient: 30 Coding Level of Care Code 85802 Initial Inpt Care Lvl 3 Diagnoses Sepsis secondary to UTI A41.9; N39.0 Altered mental status R41.82
[2020-06-23] MEDS: DAPTOmycin 350 MG in SYRINGE 0 ML IV SCH (12:12)
--- NOTE | 2020-06-23 18:54 | Hospitalist Progress Note ---
Date of Service June 23, 2020 Assessment & Plan (1) Sepsis secondary to UTI: Recent left-sided lithotripsy 10 days previously with insertion of ureteral stent. Previous Pseudomonas UTI. CT a/p on 06/21 showed good placement of the stent without hydronephrosis. - Blood cultures from 06/21 grew Proteus. Urine culture grew Morganella. Both sensitive to meropenem. - Continue meropenem; daptomycin stopped on 06/23 (2) Elevated serum creatinine: Baseline Cr ~1.0 - 1.1, eGFR ~55. CKD Stage III. - Cr up to 1.5 on 06/22. - Continue IV fluids -> Presently 1.4 today. (3) Left renal stone: Recent lithotripsy and ureteral stent placed on 06/[address] Gerson Walter. - Seen by urology on 06/23; plan to remove stent after infection resolves; otherwise no inpatient recs. (4) Pleural effusion on right: Noted on CXR. Presently breathing comfortably on 2L NC. This is a slight increase as she came in on room air. - Repeat CXR in the morning. (5) Acute alteration in mental status: Suspect secondary to infection above. Infectious encephalopathy. - Improving with treatment. (6) Solitary kidney: Notable history of this. (7) Complete paralysis of right vocal cord: Notable history of this in EHR. Appears longstanding from ENT note. (8) Chronic obstructive asthma: No shortness of breath today. - Continue usual maintenance inhalers. Combivent + Advair Diskus. - Continue montelukast 10 mg nightly - DuoNebs PRN (9) Hypothyroid: TSH was 0.442 this admission. - Continue levothyroxine 25 mcg p.o. daily (10) Hypertension: BP presently 130/75. - Continue metoprolol, felodipine, and diltiazem (11) DVT prophylaxis: Heparin 5,000 units SQ Q12h Admission and Anticipated Discharge Date Admission Date: June 21, 2020 Subjective Feeling some better today. Maybe a bit more energy. Otherwise, no major changes. Reports no fevers/chills, chest pain, shortness of breath, abdominal pain, nausea, or vomiting. Physical Exam Constitutional: WD/WN, vitals as above Eyes: EOM intact bilaterally; no conjunctival abnormality ENMT: external ear and nose normal, oropharynx normal Neck: trachea midline, no thyromegaly normal visual inspection Respiratory: normal respiratory effort, lungs clear to auscultation no respiratory distress Cardiovascular: RRR, no murmur, no edema Gastrointestinal (Abdomen): Inspection/Auscultation: abdomen normal to inspection; abdomen not distended Musculoskeletal: no cyanosis or clubbing, extremities motor strength 5/5 Skin: no rashes, warm and dry Neurologic: moves all extremities and awake Psychiatric: Orientation: alert, oriented to person and cooperative Results & Data Results & Data ([facility]) Vital Signs (Past 12 Hours) Vital Signs Temp Pulse Pulse Resp BP Pulse Ox 06/23/20 15:19 71 06/23/20 14:42 36.7 C 75 18 129/75 95 06/23/20 11:10 36.8 C 75 18 127/68 95 06/23/20 08:50 36.9 C 94 H 20 140/75 94 06/23/20 07:24 90 PG Care Time/CCT Total # of Minutes Spent Total Time Spent with Patient: Total time spent is greater than 50% in coordination of care (as documented) at patient's floor/unit and/or counseling patient: Coding Level of Care Code 31902 Subseq Hosp Care Lvl 3 Diagnoses Sepsis secondary to UTI A41.9; N39.0 Elevated serum creatinine R79.89 Left renal stone N20.0 Pleural effusion on right J90 Acute alteration in mental status R41.82 Solitary kidney Q60.0 Complete paralysis of right vocal cord J38.01 Chronic obstructive asthma J44.9 Hypothyroid E03.9 Hypertension I10 DVT prophylaxis Z29.9
[2020-06-23] MEDS ORDERED: ALBUTEROL HFA 8 GM INHALER INH PRN (18:56)
[2020-06-23] MEDS ORDERED: IPRATROPIUM BROMIDE HFA INHALER INH PRN (18:56)
[2020-06-23] MEDS: MONTELUKAST SODIUM 10 MG TABLET PO SCH (19:41)
[2020-06-23] MEDS: DOCUSATE SODIUM 100 MG CAP PO SCH (19:43)
[2020-06-23] MEDS: FELODIPINE 2.5 MG TABCR PO SCH (19:43)
[2020-06-23] MEDS: BACLOFEN 10 MG TAB PO SCH (19:44)
[2020-06-24] MEDS: MEROPENEM 500 MG in SYRINGE 0 ML IV SCH ×3 (05:11→21:46)
[2020-06-24] MEDS: LEVOTHYROXINE SODIUM 25 MCG TABLET PO SCH (05:12)
[2020-06-24 07:26] LABS: Hematocrit (blood only) 36.4 % (37-47); Hemoglobin 11.4 g/dL (12.0-16.0); Mean Corpuscular Hemoglobin 29.6 pg (25-34); Mean Corpuscular Hgb Conc 31.3 g/dL (32-36); Mean Corpuscular Volume 94.5 fL (80-100); Mean Platelet Volume 10.5 fL (7.4-10.4); Platelet Count 420 K/uL (130-400); RDW Coefficient of Variation 15.7 % (11.5-14.5); RDW Standard Deviation 54.6 fL (36.4-46.3); Red Blood Count 3.85 M/uL (4.2-5.4)
[2020-06-24 07:53] LABS: BUN Creatinine Ratio 20.2 (10-20); Calcium 9.9 mg/dl (8.5-10.1); Creatinine Clr Calc Pharmacy 36.4 ml/min; Est GFR (African American) 47.6; Magnesium 2.5 mg/dl (1.8-2.4)
[2020-06-24] MEDS: ACETAMINOPHEN 500 MG TAB PO PRN ×2 (09:09→17:16)
[2020-06-24] MEDS: HEPARIN SOD 5,000 UNIT/0.5 ML VIAL SQ SCH ×2 (09:09→21:01)
[2020-06-24] MEDS: FLUTICASONE/VILANTEROL 100/25MCG 14 PUFFS/INHALER INH SCH (09:09)
[2020-06-24] MEDS: FAMOTIDINE 20 MG TAB PO SCH ×2 (09:10→21:04)
[2020-06-24] MEDS: dilTIAZem ER 180 MG CAPCR PO SCH (09:10)
[2020-06-24] MEDS: POLYETHYLENE (MIRALAX) 17 GM PACK PO SCH (09:10)
[2020-06-24] MEDS: VENLAFAXINE HCL XR 75 MG CAPXR PO SCH (09:11)
[2020-06-24] MEDS: METOPROLOL TARTRATE 25 MG TAB PO SCH ×2 (09:11→17:11)
[2020-06-24] MEDS: ASCORBIC ACID 500 MG TAB PO SCH ×2 (09:11→17:12)
[2020-06-24] MEDS ORDERED: POTASSIUM CHLORIDE CRTAB 20 MEQ TABCR PO STA (10:25)
--- NOTE | 2020-06-24 10:33 | XRay Report ---
XR chest 1V portable CLINICAL HISTORY: per previous order, increased o2 use COMPARISON STUDY: Chest radiograph June 21, 2020. FINDINGS: Anterior spinal fusion is incidentally noted. Cardiomegaly is noted. There is pulmonary vas cular congestion, similar to prior exam. Minimal left basilar opacity favors atelectasis. No pneumoth orax or pleural effusion is noted. IMPRESSION: 1. Pulmonary vascular congestion without overt pulmonary edema. 2. Mild left basilar opacity which favors atelectasis. ACT 112: Negative or not required by law. Electronically signed by: Eddy Sellers M.D. 06/24/2020 10:31 AM
--- NOTE | 2020-06-24 12:26 | Urology Progress Note ---
Date of Service June 24, 2020 Assessment & Plan (1) Sepsis secondary to UTI: 75 year-old female patient admitted with UTI and sepsis status post left ureteroscopy, laser lithotripsy, and left stent placement. - Plan of care reviewed with Dr. Walter. - Patient clinically improving with IV antibiotic therapy and supportive care. - Afebrile, white count and creatinine improving. - Okay to continue schuster catheter. - Recommend continuing with supportive care and antibiotic therapy. - Will arrange outpatient follow-up to discuss stent/stone management after infection resolves. - Plan to continue to follow while inpatient. Admission and Anticipated Discharge Date Admission Date: June 21, 2020 Subjective Patient examined at bedside, does appear comfortable. She is pleasantly confused during exam. Denies flank or abdominal pain. Denies fevers or chills. Has been tolerating diet without nausea or vomiting. Schuster catheter remains intact, draining clear yellow urine. No reported bladder pain or pressure. Chart review: Afebrile overnight Wbc 11.80 (previously 18.47) Hgb 11.4 Creatinine 1.29 (previously 1.42) Urine culture 06/21 - Morganella Morganii Blood culture 06/21 - positive for Proteus. Patient currently on Meropenem. Denies additional concerns. Review of Systems Constitutional: as per Subjective / HPI; no fever and no chills Gastrointestinal: as per Subjective / HPI; no nausea and no vomiting Genitourinary: as per Subjective / HPI Psychiatric: as per Subjective / HPI Physical Exam Constitutional: well developed and comfortable; no acute distress and not ill appearing Respiratory: normal respiratory effort and able to speak in complete sentences; no respiratory distress and no audible wheezes Gastrointestinal (Abdomen): Inspection/Auscultation: abdomen normal to inspection; abdomen not distended Percussion/Palpation: abdomen soft; abdomen nontender and no guarding Psychiatric: Orientation: alert, oriented to person and cooperative; + not oriented to place and + not oriented to time Affect: euthymic affect Genitourinary: no CVA tenderness Schuster catheter intact, draining clear yellow urine. Results & Data ([facility]) Vital Signs (Past 12 Hours) Vital Signs Temp Pulse Pulse Resp BP Pulse Ox 06/24/20 11:40 36.8 C 68 18 120/73 92 06/24/20 08:24 36.2 C L 76 20 141/77 H 93 06/24/20 08:16 72 06/24/20 04:00 36.8 C 71 16 138/76 94 06/24/20 00:37 71 PG Care Time/CCT Total # of Minutes Spent Total Time Spent with Patient: Total time spent is greater than 50% in coordination of care (as documented) at patient's floor/unit and/or counseling patient: Coding Level of Care Code 04433 Subseq Hosp Care Lvl 2 Diagnoses Sepsis secondary to UTI A41.9; N39.0
[2020-06-24] MEDS: DOCUSATE SODIUM 100 MG CAP PO SCH (21:01)
[2020-06-24] MEDS: POTASSIUM CHLORIDE CRTAB 20 MEQ TABCR PO SCH (21:02)
[2020-06-24] MEDS: BACLOFEN 10 MG TAB PO SCH (21:03)
[2020-06-24] MEDS: MONTELUKAST SODIUM 10 MG TABLET PO SCH (21:04)
[2020-06-24] MEDS: FELODIPINE 2.5 MG TABCR PO SCH (21:04)
--- NOTE | 2020-06-24 22:28 | Hospitalist Progress Note ---
Date of Service June 24, 2020 Assessment & Plan (1) Sepsis secondary to UTI: Recent left-sided lithotripsy 10 days previously with insertion of ureteral stent. Previous Pseudomonas UTI. CT a/p on 06/21 showed good placement of the stent without hydronephrosis. - Blood cultures from 06/21 grew Proteus. Urine culture grew Morganella. Both sensitive to meropenem. - Continue meropenem; daptomycin stopped on 06/23 (2) Elevated serum creatinine: Baseline Cr ~1.0 - 1.1, eGFR ~55. CKD Stage III. - Cr up to 1.5 on 06/22. - Continue IV fluids -> Presently 1.29 today. (3) Left renal stone: Recent lithotripsy and ureteral stent placed on 06/[address] Gerson Walter. - Seen by urology on 06/23; plan to remove stent after infection resolves; otherwise no inpatient recs. (4) Pleural effusion on right: Noted on CXR. Presently breathing comfortably on 2L NC. This is a slight increase as she came in on room air. - Repeat CXR in the morning. (5) Acute alteration in mental status: Suspect secondary to infection above. Infectious encephalopathy. - Improving with treatment. (6) Solitary kidney: Notable history of this. (7) Complete paralysis of right vocal cord: Notable history of this in EHR. Appears longstanding from ENT note. (8) Chronic obstructive asthma: No shortness of breath today. - Continue usual maintenance inhalers. Combivent + Advair Diskus. - Continue montelukast 10 mg nightly - DuoNebs PRN (9) Hypothyroid: TSH was 0.442 this admission. - Continue levothyroxine 25 mcg p.o. daily (10) Hypertension: BP presently 130/75. - Continue metoprolol, felodipine, and diltiazem (11) DVT prophylaxis: Heparin 5,000 units SQ Q12h Admission and Anticipated Discharge Date Admission Date: June 21, 2020 Subjective 75 yo female reports no new symptoms today. Review of Systems Review of Systems: All systems reviewed & are unremarkable except as noted in HPI & below Physical Exam Physical Exam: Constitutional: WD/WN, vitals as above Eyes: EOM intact bilaterally; no conjunctival abnormality ENMT: external ear and nose normal, oropharynx normal Neck: trachea midline, no thyromegaly normal visual inspection Respiratory: normal respiratory effort, lungs clear to auscultation no respiratory distress Cardiovascular: RRR, no murmur, no edema Gastrointestinal (Abdomen): Inspection/Auscultation: abdomen normal to inspection; abdomen not distended Musculoskeletal: no cyanosis or clubbing, extremities motor strength 5/5 Skin: no rashes, warm and dry Neurologic: moves all extremities and awake Psychiatric: Orientation: alert, oriented to person and cooperative Results & Data Results & Data ([facility]) Vital Signs (Past 12 Hours) Vital Signs Temp Pulse Pulse Resp BP Pulse Ox 06/24/20 19:57 71 06/24/20 19:52 36.3 C L 61 21 124/74 93 06/24/20 17:03 69 126/86 06/24/20 15:23 36.6 C 72 20 109/65 92 06/24/20 11:40 36.8 C 68 18 120/73 92 PG Care Time/CCT Total # of Minutes Spent Total Time Spent with Patient: Total time spent is greater than 50% in coordination of care (as documented) at patient's floor/unit and/or counseling patient: Coding Level of Care Code 64615 Subseq Hosp Care Lvl 3 Diagnoses Sepsis secondary to UTI A41.9; N39.0 Elevated serum creatinine R79.89 Left renal stone N20.0 Pleural effusion on right J90 Acute alteration in mental status R41.82 Solitary kidney Q60.0 Complete paralysis of right vocal cord J38.01 Chronic obstructive asthma J44.9 Hypothyroid E03.9 Hypertension I10 DVT prophylaxis Z29.9 Time Spent (min) 35
[2020-06-25] MEDS: MEROPENEM 500 MG in SYRINGE 0 ML IV SCH ×3 (05:38→21:40)
[2020-06-25] MEDS: LEVOTHYROXINE SODIUM 25 MCG TABLET PO SCH (05:38)
[2020-06-25 06:23] LABS: Hematocrit (blood only) 35.9 % (37-47); Hemoglobin 11.9 g/dL (12.0-16.0); Mean Corpuscular Hemoglobin 31.2 pg (25-34); Mean Corpuscular Hgb Conc 33.1 g/dL (32-36); Mean Corpuscular Volume 94.2 fL (80-100); Mean Platelet Volume 10.5 fL (7.4-10.4); Platelet Count 489 K/uL (130-400); RDW Coefficient of Variation 15.7 % (11.5-14.5); RDW Standard Deviation 54.1 fL (36.4-46.3); Red Blood Count 3.81 M/uL (4.2-5.4); White Blood Count 12.24 K/uL (4.8-10.8)
[2020-06-25] MEDS: FLUTICASONE/VILANTEROL 100/25MCG 14 PUFFS/INHALER INH SCH (08:00)
[2020-06-25] MEDS: VENLAFAXINE HCL XR 75 MG CAPXR PO SCH (08:01)
[2020-06-25] MEDS: POLYETHYLENE (MIRALAX) 17 GM PACK PO SCH (08:02)
[2020-06-25] MEDS: POTASSIUM CHLORIDE CRTAB 20 MEQ TABCR PO SCH ×2 (08:06→19:35)
[2020-06-25] MEDS: FAMOTIDINE 20 MG TAB PO SCH ×2 (08:06→19:47)
[2020-06-25] MEDS: dilTIAZem ER 180 MG CAPCR PO SCH (08:06)
[2020-06-25] MEDS: ASCORBIC ACID 500 MG TAB PO SCH ×2 (08:06→16:13)
[2020-06-25] MEDS: METOPROLOL TARTRATE 25 MG TAB PO SCH ×2 (08:06→16:13)
[2020-06-25] MEDS: HEPARIN SOD 5,000 UNIT/0.5 ML VIAL SQ SCH ×2 (08:08→19:54)
[2020-06-25 10:17] LABS: BUN Creatinine Ratio 21.4 (10-20); Calcium 9.8 mg/dl (8.5-10.1); Creatinine Clr Calc Pharmacy 39.4 ml/min; Est GFR (African American) 52.4; Est GFR (Non-African American) 45.3; Potassium 3.9 mmol/L (3.5-5.1)
[2020-06-25 10:23] LABS: Basophils # (auto) 0.02 K/uL (0-0.2); Basophils % (auto) 0.2 %; Eosinophils # (auto) 0.18 K/uL (0-0.5); Eosinophils % (auto) 1.4 %; Immature Granulocytes # (auto) 0.47 K/uL (0.00-0.02); Immature Granulocytes % (auto) 3.7 %; Lymphocytes # (auto) 1.62 K/uL (1.2-3.4); Lymphocytes % (auto) 12.6 %; Monocytes # (auto) 1.16 K/uL (0.11-0.59); Neutrophils # (auto) 9.39 K/uL (1.4-6.5); Neutrophils % (auto) 73.1 %
--- NOTE | 2020-06-25 11:16 | Urology Progress Note ---
Date of Service June 25, 2020 Assessment & Plan (1) Sepsis secondary to UTI: 75 year-old female patient admitted with UTI and sepsis status post left ureteroscopy, laser lithotripsy, and left stent placement. - Plan of care reviewed with Dr. Walter. - Patient clinically improving with IV antibiotic therapy and supportive care. - Afebrile, creatinine stable. - Okay to continue schuster catheter. - Recommend continuing with supportive care and antibiotic therapy. - Will arrange outpatient follow-up to discuss stent/stone management after infection resolves. - No emergent intervention indicated at this time. - Please consult our service urgently if patient develops fever >101F or intractable pain or nausea. - Thank you for the consultation and we will continue to follow the patient peripherally. Admission and Anticipated Discharge Date Admission Date: June 21, 2020 Subjective Patient examined at bedside, alert and comfortable. She remains pleasantly confused. Denies flank or abdominal pain. Denies fevers or chills. Has been tolerating diet without nausea or vomiting. Schuster catheter remains intact, draining clear yellow urine. No reported bladder pain or pressure. Chart review: Afebrile Wbc 12.24 (previously 11.80) Hgb 11.9 Creatinine 1.19 (previously 1.29) Urine culture 06/21 - Morganella Morganii Blood culture 06/21 - positive for Proteus. Patient currently on Meropenem. Denies additional concerns. Review of Systems Constitutional: as per Subjective / HPI; no fever and no chills Gastrointestinal: as per Subjective / HPI; no nausea and no vomiting Genitourinary: as per Subjective / HPI Psychiatric: as per Subjective / HPI Physical Exam Constitutional: well developed and comfortable; no acute distress and not ill appearing Respiratory: normal respiratory effort and able to speak in complete sentences; no respiratory distress and no audible wheezes Gastrointestinal (Abdomen): Inspection/Auscultation: abdomen normal to inspection; abdomen not distended Percussion/Palpation: abdomen soft; abdomen nontender and no guarding Psychiatric: Orientation: alert, oriented to person and cooperative; + not oriented to place and + not oriented to time Affect: euthymic affect Genitourinary: no CVA tenderness Results & Data ([facility]) Vital Signs (Past 12 Hours) Vital Signs Temp Pulse Resp BP Pulse Ox 06/25/20 06:52 37.1 C 95 H 17 178/85 H 91 06/24/20 23:28 37.1 C 63 16 136/74 95 PG Care Time/CCT Total # of Minutes Spent Total Time Spent with Patient: Total time spent is greater than 50% in coordination of care (as documented) at patient's floor/unit and/or counseling patient: Coding Level of Care Code 06843 Subseq Hosp Care Lvl 2 Diagnoses Sepsis secondary to UTI A41.9; N39.0
[2020-06-25] MEDS: DOCUSATE SODIUM 100 MG CAP PO SCH (19:34)
[2020-06-25] MEDS: FELODIPINE 2.5 MG TABCR PO SCH (19:35)
[2020-06-25] MEDS: BACLOFEN 10 MG TAB PO SCH (19:35)
[2020-06-25] MEDS: MONTELUKAST SODIUM 10 MG TABLET PO SCH (19:43)
[2020-06-25] MEDS: ACETAMINOPHEN 500 MG TAB PO PRN (19:44)
--- NOTE | 2020-06-25 22:39 | Hospitalist Progress Note ---
Date of Service June 25, 2020 Assessment & Plan (1) Sepsis secondary to UTI: Recent left-sided lithotripsy 10 days previously with insertion of ureteral stent. Previous Pseudomonas UTI. CT a/p on 06/21 showed good placement of the stent without hydronephrosis. - Blood cultures from 06/21 grew Proteus. Urine culture grew Morganella. Both sensitive to meropenem. - Continue meropenem; daptomycin stopped on 06/23 -will continue to monitor. (2) Elevated serum creatinine: Baseline Cr ~1.0 - 1.1, eGFR ~55. CKD Stage III. - Cr up to 1.5 on 06/22. - Continue IV fluids -> Presently 1.29 today. (3) Left renal stone: Recent lithotripsy and ureteral stent placed on 06/[address] Gerson Walter. - Seen by urology on 06/23; plan to remove stent after infection resolves; otherwise no inpatient recs. (4) Pleural effusion on right: Noted on CXR. now on room air. (5) Acute alteration in mental status: Suspect secondary to infection above. Infectious encephalopathy. - Improving with treatment. (6) Solitary kidney: Notable history of this. (7) Complete paralysis of right vocal cord: Notable history of this in EHR. Appears longstanding from ENT note. (8) Chronic obstructive asthma: No shortness of breath today. - Continue usual maintenance inhalers. Combivent + Advair Diskus. - Continue montelukast 10 mg nightly - DuoNebs PRN (9) Hypothyroid: TSH was 0.442 this admission. - Continue levothyroxine 25 mcg p.o. daily (10) Hypertension: BP presently 130/75. - Continue metoprolol, felodipine, and diltiazem (11) DVT prophylaxis: Heparin 5,000 units SQ Q12h Admission and Anticipated Discharge Date Admission Date: June 21, 2020 Subjective 75 yo female does not report significant new symptoms today. Review of Systems Review of Systems: All systems reviewed & are unremarkable except as noted in HPI & below Physical Exam Physical Exam: Constitutional: WD/WN, vitals as above Eyes: EOM intact bilaterally; no conjunctival abnormality ENMT: external ear and nose normal, oropharynx normal Neck: trachea midline, no thyromegaly normal visual inspection Respiratory: normal respiratory effort, lungs clear to auscultation no respiratory distress Cardiovascular: RRR, no murmur, no edema Gastrointestinal (Abdomen): Inspection/Auscultation: abdomen normal to inspection; abdomen not distended Musculoskeletal: no cyanosis or clubbing, extremities motor strength 5/5 Skin: no rashes, warm and dry Neurologic: moves all extremities and awake Psychiatric: Orientation: alert, oriented to person and cooperative Results & Data Results & Data ([facility]) Vital Signs (Past 12 Hours) Vital Signs Temp Pulse Pulse Resp BP Pulse Ox 06/25/20 19:30 77 179/91 H 06/25/20 16:13 96 H 135/102 H 06/25/20 14:54 36.6 C 99 H 18 165/100 H 93 PG Care Time/CCT Total # of Minutes Spent Total Time Spent with Patient: Total time spent is greater than 50% in coordination of care (as documented) at patient's floor/unit and/or counseling patient: Coding Level of Care Code 79454 Subseq Hosp Care Lvl 2 Diagnoses Sepsis secondary to UTI A41.9; N39.0 Elevated serum creatinine R79.89 Left renal stone N20.0 Pleural effusion on right J90 Acute alteration in mental status R41.82 Solitary kidney Q60.0 Complete paralysis of right vocal cord J38.01 Chronic obstructive asthma J44.9 Hypothyroid E03.9 Hypertension I10 DVT prophylaxis Z29.9 Time Spent (min) 25
[2020-06-26] MEDS: LEVOTHYROXINE SODIUM 25 MCG TABLET PO SCH (05:25)
[2020-06-26] MEDS: MEROPENEM 500 MG in SYRINGE 0 ML IV SCH ×3 (05:25→22:01)
[2020-06-26] MEDS: ACETAMINOPHEN 500 MG TAB PO PRN ×2 (08:03→15:46)
[2020-06-26] MEDS: VENLAFAXINE HCL XR 75 MG CAPXR PO SCH (08:03)
[2020-06-26] MEDS: METOPROLOL TARTRATE 25 MG TAB PO SCH ×2 (08:04→16:59)
[2020-06-26] MEDS: ASCORBIC ACID 500 MG TAB PO SCH ×2 (08:08→16:59)
[2020-06-26] MEDS: HEPARIN SOD 5,000 UNIT/0.5 ML VIAL SQ SCH ×2 (08:08→21:56)
[2020-06-26] MEDS: POTASSIUM CHLORIDE CRTAB 20 MEQ TABCR PO SCH (08:08)
[2020-06-26] MEDS: FLUTICASONE/VILANTEROL 100/25MCG 14 PUFFS/INHALER INH SCH (08:08)
[2020-06-26] MEDS: dilTIAZem ER 180 MG CAPCR PO SCH (08:08)
[2020-06-26] MEDS: POLYETHYLENE (MIRALAX) 17 GM PACK PO SCH (08:09)
[2020-06-26] MEDS: FAMOTIDINE 20 MG TAB PO SCH ×2 (08:09→20:49)
[2020-06-26 08:13] LABS: Creatinine Clr Calc Pharmacy 42.6 ml/min; Est GFR (African American) 57.7; Est GFR (Non-African American) 49.8
[2020-06-26] MEDS: BACLOFEN 10 MG TAB PO SCH (20:49)
[2020-06-26] MEDS: MONTELUKAST SODIUM 10 MG TABLET PO SCH (20:49)
[2020-06-26] MEDS: FELODIPINE 2.5 MG TABCR PO SCH (20:49)
[2020-06-26] MEDS: DOCUSATE SODIUM 100 MG CAP PO SCH (20:50)
--- NOTE | 2020-06-26 22:49 | Hospitalist Progress Note ---
Date of Service June 26, 2020 Assessment & Plan (1) Sepsis secondary to UTI: Recent left-sided lithotripsy 10 days previously with insertion of ureteral stent. Previous Pseudomonas UTI. CT a/p on 06/21 showed good placement of the stent without hydronephrosis. - Blood cultures from 06/21 grew Proteus. Urine culture grew Morganella. Both sensitive to meropenem. - Continue meropenem; daptomycin stopped on 06/23 -will continue to monitor. consulted ID. (2) Elevated serum creatinine: Baseline Cr ~1.0 - 1.1, eGFR ~55. CKD Stage III. - Cr up to 1.5 on 06/22. - Continue IV fluids ->creatinine improved. (3) Left renal stone: Recent lithotripsy and ureteral stent placed on 06/[address] Gerson Walter. - Seen by urology on 06/23; plan to remove stent after infection resolves; otherwise no inpatient recs. (4) Pleural effusion on right: Noted on CXR. now on room air. (5) Acute alteration in mental status: Suspect secondary to infection above. Infectious encephalopathy. - waxing and waning. (6) Solitary kidney: Notable history of this. (7) Complete paralysis of right vocal cord: Notable history of this in EHR. Appears longstanding from ENT note. (8) Chronic obstructive asthma: No shortness of breath today. - Continue usual maintenance inhalers. Combivent + Advair Diskus. - Continue montelukast 10 mg nightly - DuoNebs PRN (9) Hypothyroid: TSH was 0.442 this admission. - Continue levothyroxine 25 mcg p.o. daily (10) Hypertension: BP presently 130/75. - Continue metoprolol, felodipine, and diltiazem (11) DVT prophylaxis: Heparin 5,000 units SQ Q12h Admission and Anticipated Discharge Date Admission Date: June 21, 2020 Subjective 75 yo female is confused today. Review of Systems Review of Systems: All systems reviewed & are unremarkable except as noted in HPI & below Physical Exam Physical Exam: Constitutional: WD/WN, vitals as above Eyes: EOM intact bilaterally; no conjunctival abnormality ENMT: external ear and nose normal, oropharynx normal Neck: trachea midline, no thyromegaly normal visual inspection Respiratory: normal respiratory effort,unable to obtain auscultation, no respiratory distress Cardiovascular: RRR, no murmur, no edema Gastrointestinal (Abdomen): Inspection/Auscultation: abdomen normal to inspection; abdomen not distended Musculoskeletal: no cyanosis or clubbing Skin: no rashes, warm and dry Neurologic: moves all extremities and awake Psychiatric: Orientation: alert, oriented to person and not cooperative Results & Data Results & Data ([facility]) Vital Signs (Past 12 Hours) Vital Signs Temp Pulse Resp BP Pulse Ox 06/26/20 16:02 36.4 C L 69 18 117/85 97 PG Care Time/CCT Total # of Minutes Spent Total Time Spent with Patient: Total time spent is greater than 50% in coordination of care (as documented) at patient's floor/unit and/or counseling patient: Coding Level of Care Code 58561 Subseq Hosp Care Lvl 2 Diagnoses Sepsis secondary to UTI A41.9; N39.0 Elevated serum creatinine R79.89 Left renal stone N20.0 Pleural effusion on right J90 Acute alteration in mental status R41.82 Solitary kidney Q60.0 Complete paralysis of right vocal cord J38.01 Chronic obstructive asthma J44.9 Hypothyroid E03.9 Hypertension I10 DVT prophylaxis Z29.9 Time Spent (min) 25
[2020-06-27] MEDS: LEVOTHYROXINE SODIUM 25 MCG TABLET PO SCH (06:20)
[2020-06-27] MEDS: dilTIAZem ER 180 MG CAPCR PO SCH (08:14)
[2020-06-27] MEDS: ACETAMINOPHEN 500 MG TAB PO PRN (08:14)
[2020-06-27] MEDS: ASCORBIC ACID 500 MG TAB PO SCH ×2 (08:14→17:14)
[2020-06-27] MEDS: VENLAFAXINE HCL XR 75 MG CAPXR PO SCH (08:14)
[2020-06-27] MEDS: HEPARIN SOD 5,000 UNIT/0.5 ML VIAL SQ SCH ×2 (08:15→21:11)
[2020-06-27] MEDS: POLYETHYLENE (MIRALAX) 17 GM PACK PO SCH (08:15)
[2020-06-27] MEDS: METOPROLOL TARTRATE 25 MG TAB PO SCH ×2 (08:15→17:14)
[2020-06-27] MEDS: FLUTICASONE/VILANTEROL 100/25MCG 14 PUFFS/INHALER INH SCH (08:23)
[2020-06-27] MEDS: FAMOTIDINE 20 MG TAB PO SCH ×2 (08:29→21:10)
[2020-06-27 10:09] LABS: Creatinine Clr Calc Pharmacy 38.1 ml/min; Est GFR (African American) 50.4; Est GFR (Non-African American) 43.5
[2020-06-27] MEDS: MEROPENEM 500 MG in SYRINGE 0 ML IV SCH ×2 (10:51→17:17)
[2020-06-27] MEDS ORDERED: Nursing to Pharmacy Communication SCH (13:15)
[2020-06-27] MEDS: DOCUSATE SODIUM 100 MG CAP PO SCH (21:04)
[2020-06-27] MEDS: BACLOFEN 10 MG TAB PO SCH (21:07)
[2020-06-27] MEDS: MONTELUKAST SODIUM 10 MG TABLET PO SCH (21:10)
[2020-06-27] MEDS: FELODIPINE 2.5 MG TABCR PO SCH (21:10)
--- NOTE | 2020-06-27 23:20 | Hospitalist Progress Note ---
Date of Service June 27, 2020 Assessment & Plan (1) Sepsis secondary to UTI: Recent left-sided lithotripsy 10 days previously with insertion of ureteral stent. Previous Pseudomonas UTI. CT a/p on 06/21 showed good placement of the stent without hydronephrosis. - Blood cultures from 06/21 grew Proteus. Urine culture grew Morganella. Both sensitive to meropenem. - Continue meropenem; daptomycin stopped on 06/23/ this will be day 6 of meropenem. -will continue to monitor. consulted ID. Awaiting for input from ID. -Likely can discharge on 06/28 in late afternoon which would equate to 7 days of treatment. (2) Elevated serum creatinine: Baseline Cr ~1.0 - 1.1, eGFR ~55. CKD Stage III. - Cr up to 1.5 on 06/22. - ->creatinine improved. (3) Left renal stone: Recent lithotripsy and ureteral stent placed on 06/[address] Gerson Walter. - Seen by urology on 06/23; plan to remove stent after infection resolves; otherwise no inpatient recs. (4) Pleural effusion on right: Noted on CXR. now on room air. (5) Acute alteration in mental status: Suspect secondary to infection above. Infectious encephalopathy. - waxing and waning. (6) Solitary kidney: Notable history of this. (7) Complete paralysis of right vocal cord: Notable history of this in EHR. Appears longstanding from ENT note. (8) Chronic obstructive asthma: No shortness of breath today. - Continue usual maintenance inhalers. Combivent + Advair Diskus. - Continue montelukast 10 mg nightly - DuoNebs PRN (9) Hypothyroid: TSH was 0.442 this admission. - Continue levothyroxine 25 mcg p.o. daily (10) Hypertension: BP presently 130/75. - Continue metoprolol, felodipine, and diltiazem (11) DVT prophylaxis: Heparin 5,000 units SQ Q12h (12) Metabolic encephalopathy: secondary to main problem. (13) Acute kidney failure: improved after IVF and antibiotics. will monitor. Admission and Anticipated Discharge Date Admission Date: June 21, 2020 Subjective 75 yo female is confused but more cooperative today. She has no complaints and is pleasant. Review of Systems Review of Systems: All systems reviewed & are unremarkable except as noted in HPI & below Physical Exam Physical Exam: Constitutional: WD/WN, vitals as above Eyes: EOM intact bilaterally; no conjunctival abnormality ENMT: external ear and nose normal, oropharynx normal Neck: trachea midline, no thyromegaly normal visual inspection Respiratory: normal respiratory effort,unable to obtain auscultation, no respiratory distress Cardiovascular: RRR, no murmur, no edema Gastrointestinal (Abdomen): Inspection/Auscultation: abdomen normal to inspection; abdomen not distended Musculoskeletal: no cyanosis or clubbing Skin: no rashes, warm and dry Neurologic: moves all extremities and awake Psychiatric: Orientation: alert, oriented to person and cooperative Results & Data Results & Data ([facility]) Vital Signs (Past 12 Hours) Vital Signs Temp Pulse Resp BP Pulse Ox 06/27/20 15:13 36.8 C 67 18 119/65 95 PG Care Time/CCT Total # of Minutes Spent Total Time Spent with Patient: Total time spent is greater than 50% in coordination of care (as documented) at patient's floor/unit and/or counseling patient: Coding Level of Care Code 89234 Subseq Hosp Care Lvl 2 Diagnoses Sepsis secondary to UTI A41.9; N39.0 Elevated serum creatinine R79.89 Left renal stone N20.0 Pleural effusion on right J90 Acute alteration in mental status R41.82 Solitary kidney Q60.0 Complete paralysis of right vocal cord J38.01 Chronic obstructive asthma J44.9 Hypothyroid E03.9 Hypertension I10 DVT prophylaxis Z29.9 Metabolic encephalopathy G93.41 Acute kidney failure N17.9 Time Spent (min) 25
[2020-06-28] MEDS: MEROPENEM 500 MG in SYRINGE 0 ML IV SCH ×3 (01:08→17:29)
[2020-06-28] MEDS: LEVOTHYROXINE SODIUM 25 MCG TABLET PO SCH (05:26)
[2020-06-28 08:27] LABS: Hematocrit (blood only) 37.3 % (37-47); Hemoglobin 12.1 g/dL (12.0-16.0); Mean Corpuscular Hemoglobin 30.3 pg (25-34); Mean Corpuscular Hgb Conc 32.4 g/dL (32-36); Mean Corpuscular Volume 93.5 fL (80-100); Mean Platelet Volume 10.4 fL (7.4-10.4); Platelet Count 526 K/uL (130-400); RDW Coefficient of Variation 15.3 % (11.5-14.5); RDW Standard Deviation 51.9 fL (36.4-46.3); Red Blood Count 3.99 M/uL (4.2-5.4); White Blood Count 17.24 K/uL (4.8-10.8)
[2020-06-28 08:54] LABS: Est GFR (African American) 58.3; Est GFR (Non-African American) 50.3
[2020-06-28] MEDS: POLYETHYLENE (MIRALAX) 17 GM PACK PO SCH (09:27)
[2020-06-28] MEDS: dilTIAZem ER 180 MG CAPCR PO SCH (09:28)
[2020-06-28] MEDS: FAMOTIDINE 20 MG TAB PO SCH ×2 (09:28→20:16)
[2020-06-28] MEDS: VENLAFAXINE HCL XR 75 MG CAPXR PO SCH (09:28)
[2020-06-28] MEDS: ASCORBIC ACID 500 MG TAB PO SCH ×2 (09:28→17:31)
[2020-06-28] MEDS: METOPROLOL TARTRATE 25 MG TAB PO SCH ×2 (09:29→17:31)
[2020-06-28] MEDS: HEPARIN SOD 5,000 UNIT/0.5 ML VIAL SQ SCH ×2 (09:29→20:13)
[2020-06-28] MEDS: FLUTICASONE/VILANTEROL 100/25MCG 14 PUFFS/INHALER INH SCH (09:29)
--- NOTE | 2020-06-28 17:50 | Hospitalist Progress Note ---
Date of Service June 28, 2020 Assessment & Plan (1) Sepsis secondary to UTI: Recent left-sided lithotripsy 10 days previously with insertion of ureteral stent. Previous Pseudomonas UTI. CT a/p on 06/21 showed good placement of the stent without hydronephrosis. - Blood cultures from 06/21 grew Proteus. Urine culture grew Morganella. Both sensitive to meropenem. - Continue meropenem; daptomycin stopped on 06/23/ this will be day 6 of meropenem. -will continue to monitor. consulted ID. Awaiting for input from ID, c/s placed on 06/26 (2) Elevated serum creatinine: Baseline Cr ~1.0 - 1.1, eGFR ~55. CKD Stage III. - Cr up to 1.5 on 06/22. - ->creatinine improved. (3) Left renal stone: Recent lithotripsy and ureteral stent placed on 06/[address] Gerson Walter. - Seen by urology on 06/23; plan to remove stent after infection resolves; otherwise no inpatient recs. (4) Pleural effusion on right: Noted on CXR. now on room air. (5) Acute alteration in mental status: Suspect secondary to infection above. Infectious encephalopathy. - waxing and waning. (6) Solitary kidney: Notable history of this. (7) Complete paralysis of right vocal cord: Notable history of this in EHR. Appears longstanding from ENT note. (8) Chronic obstructive asthma: No shortness of breath today. - Continue usual maintenance inhalers. Combivent + Advair Diskus. - Continue montelukast 10 mg nightly - DuoNebs PRN (9) Hypothyroid: TSH was 0.442 this admission. - Continue levothyroxine 25 mcg p.o. daily (10) Hypertension: BP presently 130/75. - Continue metoprolol, felodipine, and diltiazem (11) DVT prophylaxis: Heparin 5,000 units SQ Q12h (12) Metabolic encephalopathy: secondary to main problem. (13) Acute kidney failure: improved after IVF and antibiotics. will monitor. Admission and Anticipated Discharge Date Admission Date: June 21, 2020 Subjective Nursing states that pt has had no complaints today. She is at her baseline mentation per nursing, which is pleasantly confused. Pt denies fever, SOB, chest pain, abd pain, n/v/c/d, LE pain or swelling. Per nursing, pt was sent to ED from due to AMS, which was described as pt is usually very talkative, but she stopped talking to them. Review of Systems Review of Systems: Pertinent positives and negatives reviewed in HPI--all others negative Physical Exam Constitutional: WD/WN, vitals as above Eyes: normal visual spencer by confrontation and + anicteric sclerae Neck: normal visual inspection and trachea midline Respiratory: normal respiratory effort, lungs clear to auscultation Cardiovascular: Rate/Rhythm: regular rate and regular rhythm Gastrointestinal (Abdomen): Inspection/Auscultation: abdomen not distended Percussion/Palpation: abdomen soft; abdomen nontender Musculoskeletal: Head/Neck/Chest: normocephalic and head atraumatic negative for edema, peripheral pulses intact Skin: no rashes, warm and dry Neurologic: awake and + confused Speech / Cognition: normal speech Psychiatric: Orientation: oriented to person and cooperative; + not oriented to place and + not oriented to time Results & Data Results & [facility] ([facility]) Vital Signs (Past 12 Hours) Vital Signs Temp Pulse Resp BP BP Pulse Ox 06/28/20 15:05 36.8 C 77 17 142/90 H 93 06/28/20 07:03 36.8 C 82 16 142/82 H 94 PG Care Time/CCT Total # of Minutes Spent Total Time Spent with Patient: Total time spent is greater than 50% in coordination of care (as documented) at patient's floor/unit and/or counseling patient: Coding Level of Care Code 02039 Subseq Hosp Care Lvl 3 Diagnoses Sepsis secondary to UTI A41.9; N39.0 Elevated serum creatinine R79.89 Left renal stone N20.0 Pleural effusion on right J90 Acute alteration in mental status R41.82 Solitary kidney Q60.0 Complete paralysis of right vocal cord J38.01 Chronic obstructive asthma J44.9 Hypothyroid E03.9 Hypertension I10 DVT prophylaxis Z29.9 Metabolic encephalopathy G93.41 Acute kidney failure N17.9
[2020-06-28] MEDS: DOCUSATE SODIUM 100 MG CAP PO SCH (20:12)
[2020-06-28] MEDS: BACLOFEN 10 MG TAB PO SCH (20:14)
[2020-06-28] MEDS: FELODIPINE 2.5 MG TABCR PO SCH (20:17)
[2020-06-28] MEDS: MONTELUKAST SODIUM 10 MG TABLET PO SCH (20:17)
[2020-06-29] MEDS: MEROPENEM 500 MG in SYRINGE 0 ML IV SCH ×2 (01:22→09:19)
[2020-06-29] MEDS: LEVOTHYROXINE SODIUM 25 MCG TABLET PO SCH (06:11)
[2020-06-29] MEDS: ACETAMINOPHEN 500 MG TAB PO PRN ×2 (09:14→18:07)
[2020-06-29] MEDS: HEPARIN SOD 5,000 UNIT/0.5 ML VIAL SQ SCH ×2 (09:15→20:09)
[2020-06-29] MEDS: POLYETHYLENE (MIRALAX) 17 GM PACK PO SCH (09:15)
[2020-06-29] MEDS: METOPROLOL TARTRATE 25 MG TAB PO SCH ×2 (09:15→18:07)
[2020-06-29] MEDS: dilTIAZem ER 180 MG CAPCR PO SCH (09:16)
[2020-06-29] MEDS: VENLAFAXINE HCL XR 75 MG CAPXR PO SCH (09:16)
[2020-06-29] MEDS: FLUTICASONE/VILANTEROL 100/25MCG 14 PUFFS/INHALER INH SCH (09:16)
[2020-06-29] MEDS: ASCORBIC ACID 500 MG TAB PO SCH ×2 (09:16→18:07)
[2020-06-29] MEDS: FAMOTIDINE 20 MG TAB PO SCH ×2 (09:20→20:09)
[2020-06-29] MEDS: ERTAPENEM SODIUM 1,000 MG in SODIUM CHLORIDE 0.9% 50 ML IV SCH (10:27)
--- NOTE | 2020-06-29 18:58 | Hospitalist Progress Note ---
Date of Service June 29, 2020 Assessment & Plan (1) Sepsis secondary to UTI: Recent left-sided lithotripsy 10 days previously with insertion of ureteral stent. Previous Pseudomonas UTI. CT a/p on 06/21 showed good placement of the stent without hydronephrosis. - Blood cultures from 06/21 grew Proteus. Urine culture grew Morganella. Both sensitive to meropenem. daptomycin stopped on 06/23 this will be meropenem d/c 06/29 -will continue to monitor ID c/s recs for change from meropenem to ertapenem, 2 weeks of abx--unclear if 2 weeks total or 2 weeks of ertapenem specifically I did message ID to clarify and awaiting response Advised for d/c stent prior to completion of abx US guided IV placed 06/29 in anticipation of d/c to [facility] Attempted to call POA to discuss pt's status and no return call as of Hesitant to d/c back to SNF without family being aware of current status (2) Elevated serum creatinine: Baseline Cr ~1.0 - 1.1, eGFR ~55. CKD Stage III. - Cr up to 1.5 on 06/22. - ->creatinine improved. (3) Left renal stone: Recent lithotripsy and ureteral stent placed on 06/[address] Gerson Walter. - Seen by urology on 06/23; plan to remove stent after infection resolves; otherwise no inpatient recs. (4) Pleural effusion on right: Noted on CXR. now on room air. (5) Acute alteration in mental status: Suspect secondary to infection above. Infectious encephalopathy. - waxing and waning. (6) Solitary kidney: Notable history of this. (7) Complete paralysis of right vocal cord: Notable history of this in EHR. Appears longstanding from ENT note. (8) Chronic obstructive asthma: No shortness of breath today. - Continue usual maintenance inhalers. Combivent + Advair Diskus. - Continue montelukast 10 mg nightly - DuoNebs PRN (9) Hypothyroid: TSH was 0.442 this admission. - Continue levothyroxine 25 mcg p.o. daily (10) Hypertension: BP presently 130/75. - Continue metoprolol, felodipine, and diltiazem (11) DVT prophylaxis: Heparin 5,000 units SQ Q12h (12) Metabolic encephalopathy: secondary to main problem. (13) Acute kidney failure: improved after IVF and antibiotics. will monitor. Admission and Anticipated Discharge Date Admission Date: June 21, 2020 Subjective Nursing states that pt has had no complaints today. She was much more difficult to arouse all day today, but does wake up to take her meds and eat. Pt denies fever, SOB, chest pain, abd pain, n/v/c/d, LE pain or swelling. Review of Systems Review of Systems: Pertinent positives and negatives reviewed in HPI--all others negative Physical Exam Constitutional: WD/WN, vitals as above Eyes: normal visual spencer by confrontation and + anicteric sclerae Neck: normal visual inspection and trachea midline Respiratory: normal respiratory effort, lungs clear to auscultation Cardiovascular: Rate/Rhythm: regular rate and regular rhythm Gastrointestinal (Abdomen): Inspection/Auscultation: abdomen not distended Percussion/Palpation: abdomen soft; abdomen nontender Musculoskeletal: Head/Neck/Chest: normocephalic and head atraumatic Skin: no rashes, warm and dry Neurologic: awake and + confused Speech / Cognition: normal speech Psychiatric: Orientation: oriented to person and cooperative; + not oriented to place and + not oriented to time Results & Data Results & Data ([facility]) Vital Signs (Past 12 Hours) Vital Signs Temp Pulse Resp BP Pulse Ox 06/29/20 16:03 37.4 C 59 L 18 146/81 H 94 06/29/20 07:59 36.6 C 93 H 16 163/84 H 92 PG Care Time/CCT Total # of Minutes Spent Total Time Spent with Patient: Total time spent is greater than 50% in coordination of care (as documented) at patient's floor/unit and/or counseling patient: Coding Level of Care Code 30352 Subseq Hosp Care Lvl 3 Diagnoses Sepsis secondary to UTI A41.9; N39.0 Elevated serum creatinine R79.89 Left renal stone N20.0 Pleural effusion on right J90 Acute alteration in mental status R41.82 Solitary kidney Q60.0 Complete paralysis of right vocal cord J38.01 Chronic obstructive asthma J44.9 Hypothyroid E03.9 Hypertension I10 DVT prophylaxis Z29.9 Metabolic encephalopathy G93.41 Acute kidney failure N17.9
[2020-06-29] MEDS: DOCUSATE SODIUM 100 MG CAP PO SCH (20:08)
[2020-06-29] MEDS: BACLOFEN 10 MG TAB PO SCH (20:09)
[2020-06-29] MEDS: MONTELUKAST SODIUM 10 MG TABLET PO SCH (20:10)
[2020-06-29] MEDS: FELODIPINE 2.5 MG TABCR PO SCH (20:10)
[2020-06-30] MEDS: LEVOTHYROXINE SODIUM 25 MCG TABLET PO SCH (05:59)
[2020-06-30] MEDS: ACETAMINOPHEN 500 MG TAB PO PRN (09:05)
[2020-06-30] MEDS: HEPARIN SOD 5,000 UNIT/0.5 ML VIAL SQ SCH (09:05)
[2020-06-30] MEDS: METOPROLOL TARTRATE 25 MG TAB PO SCH (09:06)
[2020-06-30] MEDS: FLUTICASONE/VILANTEROL 100/25MCG 14 PUFFS/INHALER INH SCH (09:06)
[2020-06-30] MEDS: ASCORBIC ACID 500 MG TAB PO SCH (09:06)
[2020-06-30] MEDS: VENLAFAXINE HCL XR 75 MG CAPXR PO SCH (09:06)
[2020-06-30] MEDS: ERTAPENEM SODIUM 1,000 MG in SODIUM CHLORIDE 0.9% 50 ML IV SCH (09:06)
[2020-06-30] MEDS: dilTIAZem ER 180 MG CAPCR PO SCH (09:06)
[2020-06-30] MEDS: POLYETHYLENE (MIRALAX) 17 GM PACK PO SCH (09:06)
[2020-06-30] MEDS: FAMOTIDINE 20 MG TAB PO SCH (09:09)
--- NOTE | 2020-06-30 10:10 | Discharge Summary ---
Date of Service June 30, 2020 Admission HPI Per Admitting Provider Mady Vela is a 75-year-old female from [facility] who presents to the ER with fever. Patient was found this morning with concerns for stroke-like symptoms with left eyelid drooping, altered mental status and trouble speaking. However she was also having a fever and the nurse at [facility] was unsure of her baseline. Unable to get any significant history from the patient due to altered mental state. She is alert and tells me she is [facility] care home, unable to answer questions about date/year. While examining she does note having abdominal pain but is unable to give me any history of this other than it is generalized. Tried contacting both her sons with numbers in electronic health record but without success. Contacted [facility] and talked to Dmitriy who confirmed history on hand over sheet although no convincing facial droop but she did have mild eye lid drooping. Principal Diagnosis Pt is doing much better today. She has been up and awake and more interactive than yesterday. She has been having breakfast and watching television all morning per nursing. Pt denies fever, SOB, chest pain, abd pain, n/v/c/d, LE pain or swelling. Discharge Exam Constitutional WD/WN, vitals as above Eyes normal visual spencer by confrontation and + anicteric sclerae Neck normal visual inspection and trachea midline Respiratory normal respiratory effort, lungs clear to auscultation Cardiovascular Rate/Rhythm: regular rate and regular rhythm Gastrointestinal (Abdomen) Inspection/Auscultation: abdomen not distended Percussion/Palpation: abdomen soft; abdomen nontender Musculoskeletal Head/Neck/Chest: normocephalic and head atraumatic Skin no rashes, warm and dry Neurologic awake and + confused Speech / Cognition: normal speech Psychiatric Orientation: oriented to person and cooperative; + not oriented to place and + not oriented to time Discharge Data Allergies Allergy/AdvReac Type Severity Reaction Status Date / Time house dust mite Allergy Mild Unknown Verified 06/21/20 11:07 pollen extracts Allergy Mild HAYFEVER Verified 06/21/20 11:07 hydrochlorothiazide Allergy Unknown PT UNSURE Verified 06/21/20 11:07 Penicillins Allergy Unknown Unknown Verified 06/21/20 11:07 Consultations 06/21/20 12:24 ED Decision to Admit Stat 06/22/20 17:13 Consult Urology Routine 06/26/20 13:44 Consult Infectious Diseases Routine Ordered Studies 06/21/20 09:42 CT head/brain wo con Stat 06/21/20 14:13 CT abd pelvis wo con Stat Hospital Course (1) Sepsis secondary to UTI: Recent left-sided lithotripsy on 06/10 with insertion of ureteral stent. Previous Pseudomonas UTI. CT a/p on 06/21 showed good placement of the stent without hydronephrosis. - Blood cultures from 06/21 grew Proteus. Urine culture grew Morganella. Both sensitive to meropenem. daptomycin stopped on 06/23 and started on meropenem at that time ID c/s recs for change from meropenem to ertapenem on 06/29, to finish abx on 07/07 Also advised for d/c stent prior to completion of abx US guided IV placed 06/29 in anticipation of d/c to [facility] Attempted to call POA yesterday and today to discuss pt's status and no return call Nursing states no visitors that she is aware of Attempted to check CBC, PRP prior to d/c back to [facility] today, however pt refusing labs (2) Elevated serum creatinine: Baseline Cr ~1.0 - 1.1, eGFR ~55. CKD Stage III. - Cr 1.0 06/28. - ->creatinine improved. (3) Left renal stone: Recent lithotripsy and ureteral stent placed on 06/[address] Gerson Walter. - Seen by urology on 06/23; plan to remove stent after infection resolves; otherwise no inpatient recs. (4) Pleural effusion on right: Noted on CXR. now on room air. (5) Acute alteration in mental status: Suspect secondary to infection above. Infectious encephalopathy. - waxing and waning. (6) Solitary kidney: Notable history of this. (7) Complete paralysis of right vocal cord: Notable history of this in EHR. Appears longstanding from ENT note. (8) Chronic obstructive asthma: No shortness of breath today. - Continue usual maintenance inhalers. Combivent + Advair Diskus. - Continue montelukast 10 mg nightly - DuoNebs PRN (9) Hypothyroid: TSH was 0.442 this admission. - Continue levothyroxine 25 mcg p.o. daily (10) Hypertension: BP presently 130/75. - Continue metoprolol, felodipine, and diltiazem (11) DVT prophylaxis: Heparin 5,000 units SQ Q12h (12) Metabolic encephalopathy: secondary to main problem. (13) Acute kidney failure: improved after IVF and antibiotics. will monitor. Total Time Total Time Spent Total Time Spent (In Minutes): >30 Total Time Includes: Examination of the Patient, Discharge Planning, Medication Reconciliation and Other Discharge Plan Discharge Items Patient Disposition: Transfer Residential Fac Reason For Visit: UTI SEPSIS Discharge Diagnosis: UTI sepsis Activity: Resume your previous activity Non-emergency contact: Primary Care Provider Call non-emergency contact if: you have any medication questions, your symptoms worsen and your pain is concerning for you Follow-up/Referrals: Braeden Ojeda [Primary Care Provider] - Diet: Regular Addtl Attending Provider Instructions: Pt will need to complete 14 days of antibiotics, which will end on 07/06. Pending Studies at Discharge: No Stand-Alone Forms: My [facility] Skilled Items Patient informed of condition?: Yes DNR: No Discharge Level of Care: Skilled Communicable Disease: No Discharge Prognosis: Improving Lines: US Guided Peripheral IV Urinary Catheter: No Medications and DC Order Prescriptions: New ertapenem 1 gram recon soln 1 g IV DAILY 5 Days RF: 0 Continued metoprolol tartrate 75 mg tablet 75 mg PO BIDM RF: 0 potassium chloride 20 mEq tablet extended release 40 meq PO BIDM RF: 0 ascorbic acid (vitamin C) 500 mg capsule 500 mg PO BIDM RF: 0 furosemide 40 mg tablet 40 mg PO BIDM RF: 0 levothyroxine 25 mcg tablet 25 mcg PO QAM RF: 0 baclofen 10 mg tablet 5 mg PO HS RF: 0 gabapentin 300 mg capsule 300 mg PO TID RF: 0 docusate sodium 100 mg capsule 100 mg PO HS RF: 0 montelukast 10 mg tablet 10 mg PO HS RF: 0 polyethylene glycol 3350 17 gram/dose powder 17 g PO QAM RF: 0 calcium carbonate 600 mg calcium (1,500 mg) tablet 600 mg PO QAM RF: 0 Thera-Tabs Tablet 1 tab PO HS RF: 0 Saccharomyces boulardii [Florastor] 250 mg Capsule 0 mg PO TIDM RF: 0 diltiazem HCl 180 mg capsule,extended release 24 hr 180 mg PO QAM RF: 0 felodipine 2.5 mg tablet extended release 24 hr 2.5 mg PO HS RF: 0 donepezil 10 mg tablet 10 mg PO HS RF: 0 amiloride 5 mg tablet 5 mg PO DAILY@0830 RF: 0 fluticasone propion-salmeterol [Advair Diskus] 500-50 mcg/dose blister with device 1 inh INHALATION Q12 RF: 0 Combivent Respimat 20-100 mcg/actuation mist 1 puff INHALATION Q6 RF: 0 acetaminophen 500 mg Tablet 1,000 mg PO TID RF: 0 cholecalciferol (vitamin D3) [Vitamin D3] 50 mcg (2,000 unit) Tablet 50 mcg PO HS RF: 0 famotidine 20 mg Tablet 20 mg PO BID RF: 0 venlafaxine 225 mg Tablet Extended Release 24hr 225 mg PO QAM RF: 0 Discontinued cephalexin 500 mg capsule 500 mg PO BIDM RF: 0 Discharge Orders: Discharge Order (Routine); Ordered 06/30/20 Ordered By: Radha Howard Admission Data Admit Date/Time: 06/21/20 15:41 Attending Provider: Radha Howard Admit Provider: Mateo Rasheed Primary Care Provider: Braeden Ojeda Other Providers: Fer Mckoy ; Braeden Ojeda ; Mateo Rasheed ; Brady Dickey ; Victor Manuel Bellamy ; Freya Molina ; German Dwyer I. ; Dale Garza II ; Sheri Denis ; Nikolas Moore Other Interventions: Discharge Summary Assessment (RN) Last Done: 06/30/20 11:15 Coding Level of Care Code D/C Day Management >30 mins Diagnoses Sepsis secondary to UTI A41.9; N39.0 Elevated serum creatinine R79.89 Left renal stone N20.0 Pleural effusion on right J90 Acute alteration in mental status R41.82 Solitary kidney Q60.0 Complete paralysis of right vocal cord J38.01 Chronic obstructive asthma J44.9 Hypothyroid E03.9 Hypertension I10 DVT prophylaxis Z29.9 Metabolic encephalopathy G93.41 Acute kidney failure N17.9
== END 2020-06-30 13:22 | DRG 871 ==
LOC: ED 09:27 → 2S 15:41 → SUATTDRO 15:41 → 2S 17:24 → 3N 06-24 19:21

== ENCOUNTER 2020-07-03 11:00 | Inpatient (IN) ==
[2020-07-03] MEDS ORDERED: SODIUM CHLORIDE 0.9% 1000ML 1,000 ML IV SCH (12:30)
[2020-07-03 13:03] LABS: Hematocrit (blood only) 37.2 % (37-47); Hemoglobin 12.1 g/dL (12.0-16.0); Mean Corpuscular Hemoglobin 30.2 pg (25-34); Mean Corpuscular Hgb Conc 32.5 g/dL (32-36); Mean Corpuscular Volume 92.8 fL (80-100); Mean Platelet Volume 10.4 fL (7.4-10.4); Platelet Count 580 K/uL (130-400); RDW Coefficient of Variation 14.9 % (11.5-14.5); Red Blood Count 4.01 M/uL (4.2-5.4); White Blood Count 20.53 K/uL (4.8-10.8)
--- NOTE | 2020-07-03 13:07 | Emergency Department Note ---
Impression & Plan Acute pyelonephritis, Sepsis ED Provider Note NAME: BRAULIO BUSBY AGE: 75 SEX: F : 1945 ARRIVES VIA: Ambulance INFORMANT: Patient, ED PROVIDER(S): Alex Allen MD Chief Complaint: Abdominal pain, lethargy HPI: Does present from alf due to concern for a recent discharge on June 30 for Pseudomonas UTI that did grew out Morganella and blood cultures with Proteus. The patient was discharged with a peripheral IV in place switch from meropenem to ertapenem. Patient reportedly did complain of some abdominal pain. The patient does describe it as being diffuse and achy. The patient denies any fevers, chills, chest pains or shortness of breath. Patient had reported some upper extremity pain but the pain is believed to be related to the IV insertion site for which she has received her chronic antibiotics. Patient denies any numbness tingling or focal weakness. Of note the patient has had 2 recent negative Covid test. ROS: See HPI for pertinent positives and negatives. A total of 10 systems were reviewed and otherwise negative. Past medical history: See below Surgical history: See below Social history: See below Physical Exam: GENERAL: Tired in appearance, a mask was placed on the patient. EYE EXAM: Normal conjunctiva. PERRL, no anisocoria and EOM's grossly intact w/o pain. NECK: Supple, no nuchal rigidity, no adenopathy, non-tender. No signs of meningismus. Nonstridulous. LUNGS: Clear to auscultation. Normal chest wall mechanics. HEART: NSR, no MRG. ABDOMEN: No healed surgical scar over the abdomen, mild diffuse discomfort without obvious peritonitis. Normo-active bowel sounds, no masses, no rebound or guarding. BACK: No CVA TTP. SKIN: No rashes and no bruising. UPPER EXTREMITIES: Upper extremities are grossly normal. LOWER EXTREMITIES: Grossly normal, no edema. NEURO EXAM: Opens eyes to voice, follows basic commands, moves all 4 extremities, speech is intact. No obvious facial droop. Differential diagnoses: Infection, dehydration, metabolic abnormality, hypo/hyperglycemia, electrolyte disturbance, anemia, hypoxia, cardiac sources, intracerebral event, toxicologic, neurologic, as well as other pathologies. Course: Patient was seen and evaluated the bedside. Full history physical exam was performed. EKG: Indication: Weakness Sinus tachycardia with PACs, rate of 104. Right bundle branch block, normal ID, prolonged QRS. Imaging Studies: Radiology results as stated below per my review in the radiologist's interpretation: XR chest 1V portable CLINICAL HISTORY: SEPSIS COMPARISON STUDY: 06/24/2020 FINDINGS: The heart is normal in size. There is no current evidence of failure. There is no lobar consolidation. There is minor blunting of the left lateral costophrenic angle. A trace effusion cannot be excluded. Left basilar opacities while nonspecific are likely atelectatic. Postsurgical changes are present within the cervical spine. IMPRESSION: 1. Resolution of previously described pulmonary vascular congestion 2. Left basilar opacity statistically atelectatic ACT 112: Negative or not required by law. Electronically signed by: Martinez Barraza M.D. 07/03/2020 1:25 PM Dictated: 07/03/20 1324 Transcribed: 07/03/[address] OF THE ABDOMEN AND PELVIS WITH CONTRAST CLINICAL HISTORY: Abdominal pain. Possible sepsis. COMPARISON STUDY: CT of the abdomen and pelvis July 01, 2020. TECHNIQUE: Following IV administration of 94 mL of Optiray-320, axial images of the abdomen and pelvis were obtained from the lung bases to the proximal femurs. Images were reviewed in the axial, sagittal, and coronal planes. IV contrast was administered without complication. Automated exposure control was utilized for the study. A dose lowering technique was utilized adhering to the principles of ALARA. CT DOSE: 846.62 mGycm FINDINGS: Lung bases are unremarkable. No pneumatosis, free air or portal venous gas is present. Mild cardiomegaly is noted. Liver, spleen, adrenal glands, pancreas are unremarkable. There is no biliary or pancreatic ductal dilatation. There is no peripancreatic or pericholecystic infiltration. Marked right renal atrophy is again noted. This is unchanged. Left ureteral stent is in place. There is no hydronephrosis. Left renal calculi are noted, including a 2.2 cm calculus within the lower pole. This exam is compromised by motion artifact although there is suggestion of multiple hypoenhancing foci within the left kidney. There is no perinephric infiltration. There is no renal abscess. Bladder wall thickening is noted. There is gas and a Cotto balloon within the bladder. Layering hyperdense material within the bladder could reflect calculi or excreted contrast. Infrarenal abdominal aorta is ectatic, measuring 2.9 cm. Extensive plaque. Moderate amount of stool within the rectum is noted. There is no evidence for a bowel obstruction. No bowel wall thickening is identified on this study. There is no lymphadenopathy. Note is again made of endometrial thickening versus fluid within the endometrial canal. This was shown on prior exam. Postoperative findings within the left femur are noted. 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 IMPRESSION: 1. Left ureteral stent in place. No hydronephrosis. No ureteral calculi. Left- sided nephrolithiasis. 2. Exam compromised by motion artifact. Probable hypoenhancing foci within the left kidney. This could reflect pyelonephritis. No renal abscess. Marked right renal atrophy, unchanged. Bladder wall thickening. 3. Endometrial thickening versus fluid within the endometrial canal. This is abnormal in a postmenopausal patient and gynecologic consultation is recommended as malignancy cannot be excluded. 4. No bowel obstruction. No bowel wall thickening. ACT 112: Negative or not required by law. Electronically signed by: Eddy Sellers M.D. 07/03/2020 2:52 PM Dictated: 07/03/20 143 Transcribed: 07/03/201436 Cardiac monitoring: An order was placed for continuous cardiac monitoring. The monitor shows a rate of 110 with sinus tachycardia rhythm. MDM: Patient does presents from alf due to concern for possible sepsis. Blood work was obtained. I did speak with our emergency department pharmacist to order additional IV antibiotics to be given. The patient does have a white count of 20 with mild thrombocytosis. Hemoglobin is stable at 12. Discharge white blood cell count was 17. Patient did have a CT which did show likely pyelonephritis. The patient does have the possibility of gynecologic pathology. This has been seen on prior scans per the radiologist Dr. Marlo MD. Patient already did receive broad- spectrum antibiotics given the inability of the ertapenem to suffice. Patient did receive vancomycin as well. The patient's urinalysis does appear to be grossly infected. The patient was subsequently admitted to the medicine service after speaking with Dr. Rasheed. Past Med/Surg History Medical History Atrial flutter (09/27/13) With Afib. Per records, onset 2013, was not anticoagulated at discharge, just started on BB. Afib with RVR again noted at 2017 admission, likely due to acute illness, spontaneously converted. Rate control approach with no anticoagulation at discharge, presumably due to fall risk. Bipolar 1 disorder, depressed Cervical disc disease COPD (chronic obstructive pulmonary disease) Dysphagia Hepatitis C (~12/1995) History of pulmonary embolism 2-3 yrs ago, spontaneous History of TIA (transient ischemic attack) Hypertension Hypotension Hypothyroid Iron deficiency anemia Metabolic encephalopathy Monoclonal B-cell lymphocytosis of unknown significance (~10/05/13) PVD (peripheral vascular disease) Repeated falls Is mostly wheelchair-bound, reports leg weakness Sepsis 2013 Thrombocytopenia Thrombocytosis Surgical History History of bilateral carpal tunnel release History of cervical spinal surgery 2006, 2013 History of hip surgery ORIF, LEFT HIP- APRIL 2013 @ [facility] History of laparoscopy Status post hip surgery Family History Other No family history of adverse response to anesthesia No family history of bleeding disorder Social History Smoking Status: Current some day smoker Age Started Using Tobacco: 19; Second Hand Exposure: No; Hx Alcohol Use: No Hx Substance Use: No Preferred Language: Moroccan 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 Beliefs That Will Affect Care: None marital status: Current Living Situation: [facility] current occupational status: retired How many Children do You have: 2 Feels Safe at Home: Yes Assistive Devices: Wheelchair Allergies Allergies Allergy/AdvReac Type Severity Reaction Status Date / Time house dust mite Allergy Mild Unknown Verified 07/03/20 14:32 pollen extracts Allergy Mild HAYFEVER Verified 07/03/20 14:32 hydrochlorothiazide Allergy Unknown PT UNSURE Verified 07/03/20 14:32 Penicillins Allergy Unknown Unknown Verified 07/03/20 14:32 Home Meds Home Medications Medication Instructions Recorded Confirmed ascorbic acid (vitamin C) 500 mg 500 mg PO BIDM cap 07/03/19 07/03/20 capsule baclofen 10 mg tablet 5 mg PO HS tab 07/03/19 07/03/20 calcium carbonate 600 mg calcium 600 mg PO QAM tab 07/03/19 07/03/20 (1,500 mg) tablet docusate sodium 100 mg capsule 100 mg PO HS cap 07/03/19 07/03/20 furosemide 40 mg tablet 40 mg PO BIDM tab 07/03/19 07/03/20 gabapentin 300 mg capsule 300 mg PO TID cap 07/03/19 07/03/20 levothyroxine 25 mcg tablet 25 mcg PO QAM tab 07/03/19 07/03/20 metoprolol tartrate 75 mg tablet 75 mg PO BIDM tab 07/03/19 07/03/20 montelukast 10 mg tablet 10 mg PO HS tab 07/03/19 07/03/20 polyethylene glycol 3350 17 17 g PO QAM gm 07/03/19 07/03/20 gram/dose oral powder potassium chloride 20 mEq 40 meq PO BIDM tab 07/03/19 07/03/20 tablet,extended release Combivent Respimat 1 puff INHALATION Q6 10/31/19 07/03/20 acetaminophen 1,000 mg PO TID PRN 10/31/19 07/03/20 amiloride 5 mg PO DAILY@0830 10/31/19 07/03/20 cholecalciferol (vitamin D3) 50 mcg PO HS 10/31/19 07/03/20 [Vitamin D3] diltiazem HCl 180 mg PO QAM 10/31/19 07/03/20 donepezil 10 mg PO HS 10/31/19 07/03/20 felodipine 2.5 mg PO HS 10/31/19 07/03/20 fluticasone propion-salmeterol 1 inh INHALATION Q12 10/31/19 07/03/20 [Advair Diskus] famotidine 20 mg PO BID 05/24/20 07/03/20 venlafaxine 225 mg PO QAM 06/10/20 07/03/20 Saccharomyces boulardii [Florastor] 0 mg PO TIDM 06/21/20 07/03/20 Thera-Tabs 1 tab PO HS 06/21/20 07/03/20 Previous Rx's Medication Instructions Recorded ertapenem 1 g IV DAILY 5 Days ea 06/30/20 Results & Data (ED) Vital Signs Vital Signs - 24 hr 07/03/20 11:13 07/03/20 11:20 07/03/20 11:30 Temperature 36.9 C Temperature Source Oral Pulse Rate 105 H 103 H Pulse Rate [Apical] 105 H Pulse Rate from SpO2 Sensor 104 H Respiratory Rate 20 20 20 Respiratory Effort / Characteristics Non-Labored Spontaneous Non-Labored Spontaneous Respiratory Depth Normal Normal Respiratory Pattern Regular Regular Blood Pressure 143/86 H 131/76 Blood Pressure [Right Arm] 143/86 H Blood Pressure Mean 105 101 Blood Pressure Mean [Right Arm] 105 Pulse Oximetry 93 93 93 Oxygen Delivery Method Room Air Room Air Room Air Sepsis Recent Fever Within 48 Hours No Sepsis New/Unexplained Change in Mental Status No Sepsis Action Taken by Nursing No Action Required 07/03/20 12:00 07/03/20 12:27 07/03/20 12:30 Temperature Temperature Source Pulse Rate 105 H 112 H Pulse Rate [Apical] Pulse Rate from SpO2 Sensor 99 H 113 H Respiratory Rate 21 19 Respiratory Effort / Characteristics Respiratory Depth Respiratory Pattern Blood Pressure 159/106 H 145/96 H Blood Pressure [Right Arm] Blood Pressure Mean 115 116 Blood Pressure Mean [Right Arm] Pulse Oximetry 92 98 95 Oxygen Delivery Method Room Air Room Air Room Air Sepsis Recent Fever Within 48 Hours Sepsis New/Unexplained Change in Mental Status Sepsis Action Taken by Nursing 07/03/20 13:00 07/03/20 13:25 07/03/20 13:30 Temperature Temperature Source Pulse Rate 113 H 109 H Pulse Rate [Apical] Pulse Rate from SpO2 Sensor 112 H Respiratory Rate 19 18 Respiratory Effort / Characteristics Non-Labored Spontaneous Respiratory Depth Respiratory Pattern Blood Pressure 155/80 H 140/93 Blood Pressure [Right Arm] Blood Pressure Mean 107 104 Blood Pressure Mean [Right Arm] Pulse Oximetry 96 96 Oxygen Delivery Method Room Air Room Air Sepsis Recent Fever Within 48 Hours Sepsis New/Unexplained Change in Mental Status Sepsis Action Taken by Nursing 07/03/20 14:00 07/03/20 14:48 07/03/20 14:49 Temperature Temperature Source Pulse Rate 106 H 99 H 101 H Pulse Rate [Apical] Pulse Rate from SpO2 Sensor 106 H 98 H 101 H Respiratory Rate 19 17 18 Respiratory Effort / Characteristics Respiratory Depth Respiratory Pattern Blood Pressure 157/83 H 161/82 H Blood Pressure [Right Arm] Blood Pressure Mean 114 104 Blood Pressure Mean [Right Arm] Pulse Oximetry 98 96 95 Oxygen Delivery Method Room Air Room Air Sepsis Recent Fever Within 48 Hours Sepsis New/Unexplained Change in Mental Status Sepsis Action Taken by Nursing 07/03/20 15:00 07/03/20 15:01 07/03/20 15:30 Temperature Temperature Source Pulse Rate 98 H 99 H 96 H Pulse Rate [Apical] Pulse Rate from SpO2 Sensor 98 H 99 H 96 H Respiratory Rate 16 18 17 Respiratory Effort / Characteristics Respiratory Depth Respiratory Pattern Blood Pressure 154/88 H 161/98 H Blood Pressure [Right Arm] Blood Pressure Mean 122 114 Blood Pressure Mean [Right Arm] Pulse Oximetry 95 95 96 Oxygen Delivery Method Sepsis Recent Fever Within 48 Hours Sepsis New/Unexplained Change in Mental Status Sepsis Action Taken by Nursing 07/03/20 15:31 07/03/20 16:00 07/03/20 16:30 Temperature Temperature Source Pulse Rate 104 H 95 H 103 H Pulse Rate [Apical] Pulse Rate from SpO2 Sensor 101 H 96 H 102 H Respiratory Rate 19 20 21 Respiratory Effort / Characteristics Respiratory Depth Respiratory Pattern Blood Pressure 153/107 H 145/93 H Blood Pressure [Right Arm] Blood Pressure Mean 138 129 Blood Pressure Mean [Right Arm] Pulse Oximetry 95 96 95 Oxygen Delivery Method Sepsis Recent Fever Within 48 Hours Sepsis New/Unexplained Change in Mental Status Sepsis Action Taken by Nursing 07/03/20 16:31 Temperature Temperature Source Pulse Rate 100 H Pulse Rate [Apical] Pulse Rate from SpO2 Sensor 100 H Respiratory Rate 18 Respiratory Effort / Characteristics Respiratory Depth Respiratory Pattern Blood Pressure Blood Pressure [Right Arm] Blood Pressure Mean Blood Pressure Mean [Right Arm] Pulse Oximetry 95 Oxygen Delivery Method Sepsis Recent Fever Within 48 Hours Sepsis New/Unexplained Change in Mental Status Sepsis Action Taken by [facility] Medications Current Medication List: was personally reviewed by me Laboratory Data Attestation: I reviewed the patient's lab results. Result diagrams: 07/03/20 12:46 07/03/20 12:46 Lab Results 07/03/20 07/03/20 07/03/20 Range/Units 12:46 12:46 12:46 WBC 20.53 H (4.8-10.8) K/uL RBC 4.01 L (4.2-5.4) M/uL Hgb 12.1 (12.0-16.0) g/dL Hct 37.2 (37-47) % MCV 92.8 (80-100) fL MCH 30.2 (25-34) pg MCHC 32.5 (32-36) g/dL RDW Std Deviation 51.0 H (36.4-46.3) fL RDW Coeff of Rene 14.9 H (11.5-14.5) % Plt Count 580 H (130-400) K/uL MPV 10.4 (7.4-10.4) fL Neutrophils % (Manual) 86.0 % Lymphocytes % (Manual) 9.6 % Monocytes % (Manual) 3.5 % Myelocytes % (Man) 0.9 % Neutrophils # (Manual) 17.66 H (1.4-6.5) K/uL Total Absolute Neuts 17.66 H (1.4-6.5) K/uL Lymphocytes # (Manual) 1.97 (1.2-3.4) K/uL Total Abs Lymphocytes 1.97 (1.2-3.4) K/uL Monocytes # (Manual) 0.72 H (0.11-0.59) K/uL Myelocytes # (Manual) 0.18 H (0-0) K/uL RBC Morphology Unremarkable PT 11.7 (9.0-12.0) Seconds INR 1.1 (0.9-1.1) APTT 33.1 H (21.0-31.0) Seconds PTT Ratio 1.2 Sodium 136 (136-145) mmol/L Potassium 3.7 (3.5-5.1) mmol/L Chloride 104 (98-107) mmol/L Carbon Dioxide 21 (21-32) mmol/L Anion Gap 10.0 (3-11) BUN 19 H (7-18) mg/dl Creatinine 0.83 (0.6-1.2) mg/dl Est Cr Clr Drug Dosing 55.9 ml/min Est GFR ( Amer) 81.1 Est GFR (Non-Af Amer) 70.0 BUN/Creatinine Ratio 22.5 H (10-20) Glucose 108 H (70-99) mg/dl Lactate (0.4-2.0) mmol/L Calcium 9.4 (8.5-10.1) mg/dl Magnesium 2.4 (1.8-2.4) mg/dl Total Bilirubin 0.2 (0.2-1) mg/dl AST 21 (15-37) U/L ALT 19 (12-78) U/L Alkaline Phosphatase 148 H (45-117) U/L Troponin I < 0.015 (0-0.045) ng/ml Total Protein 8.4 H (6.4-8.2) gm/dl Albumin 2.6 L (3.4-5.0) gm/dl Globulin 5.8 H (2.5-4.0) gm/dl Albumin/Globulin Ratio 0.5 L (0.9-2) Procalcitonin (0-0.5) ng/ml Urine Color Urine Appearance (Clear) Urine pH (4.5-7.5) Ur Specific [place] (1.000-1.030) Urine Protein (Negative) Urine Glucose (UA) (Negative) Urine Ketones (Negative) Urine Blood (Negative) Urine Nitrite (Negative) Urine Bilirubin (Negative) Urine Urobilinogen (Negative) Ur Leukocyte Esterase (Negative) Urine WBC (Auto) (0-5) /hpf Urine RBC (Auto) (0-4) /hpf U Hyaline Cast (Auto) (0-5) /lpf U Epithel Cells (Auto) (0-5) /lpf Urine Bacteria (Auto) (Negative) Urine Mucus (None Prsent) Urine Yeast (None Prsent) 07/03/20 07/03/20 07/03/20 Range/Units 12:46 12:46 13:15 WBC (4.8-10.8) K/uL RBC (4.2-5.4) M/uL Hgb (12.0-16.0) g/dL Hct (37-47) % MCV (80-100) fL MCH (25-34) pg MCHC (32-36) g/dL RDW Std Deviation (36.4-46.3) fL RDW Coeff of Rene (11.5-14.5) % Plt Count (130-400) K/uL MPV (7.4-10.4) fL Neutrophils % (Manual) % Lymphocytes % (Manual) % Monocytes % (Manual) % Myelocytes % (Man) % Neutrophils # (Manual) (1.4-6.5) K/uL Total Absolute Neuts (1.4-6.5) K/uL Lymphocytes # (Manual) (1.2-3.4) K/uL Total Abs Lymphocytes (1.2-3.4) K/uL Monocytes # (Manual) (0.11-0.59) K/uL Myelocytes # (Manual) (0-0) K/uL RBC Morphology PT (9.0-12.0) Seconds INR (0.9-1.1) APTT (21.0-31.0) Seconds PTT Ratio Sodium (136-145) mmol/L Potassium (3.5-5.1) mmol/L Chloride (98-107) mmol/L Carbon Dioxide (21-32) mmol/L Anion Gap (3-11) BUN (7-18) mg/dl Creatinine (0.6-1.2) mg/dl Est Cr Clr Drug Dosing ml/min Est GFR ( Amer) Est GFR (Non-Af Amer) BUN/Creatinine Ratio (10-20) Glucose (70-99) mg/dl Lactate 0.8 (0.4-2.0) mmol/L Calcium (8.5-10.1) mg/dl Magnesium (1.8-2.4) mg/dl Total Bilirubin (0.2-1) mg/dl AST (15-37) U/L ALT (12-78) U/L Alkaline Phosphatase (45-117) U/L Troponin I (0-0.045) ng/ml Total Protein (6.4-8.2) gm/dl Albumin (3.4-5.0) gm/dl Globulin (2.5-4.0) gm/dl Albumin/Globulin Ratio (0.9-2) Procalcitonin 0.06 (0-0.5) ng/ml Urine Color Yellow Urine Appearance Cloudy A (Clear) Urine pH 5.5 (4.5-7.5) Ur Specific [place] 1.019 (1.000-1.030) Urine Protein 3+ H (Negative) Urine Glucose (UA) Negative (Negative) Urine Ketones Trace H (Negative) Urine Blood 3+ H (Negative) Urine Nitrite Negative (Negative) Urine Bilirubin Negative (Negative) Urine Urobilinogen Negative (Negative) Ur Leukocyte Esterase 2+ H (Negative) Urine WBC (Auto) >30 H (0-5) /hpf Urine RBC (Auto) 10-30 H (0-4) /hpf U Hyaline Cast (Auto) 10-30 H (0-5) /lpf U Epithel Cells (Auto) >30 H (0-5) /lpf Urine Bacteria (Auto) 1+ H (Negative) Urine Mucus Present A (None Prsent) Urine Yeast Budding A (None Prsent) Administered Medications Discontinued Medications Sodium Chloride (Nss 1000ml) 1,000 mls @ 999 mls/hr IV .Q1H1M HOLA Stop: 07/03/20 13:30 Last Infusion: 07/03/20 14:46 Dose: 0 mls/hr Documented by: [id number] Admin: 07/03/20 13:24 Dose: 999 mls/hr Documented by: [id number] Vancomycin HCl 1,500 mg/ (Sodium Chloride) 530 mls @ 200 mls/hr IV NOW STA Stop: 07/03/20 15:54 Last Infusion: 07/03/20 17:12 Dose: 0 mls/hr Documented by: [id number] Admin: 07/03/20 13:39 Dose: 200 mls/hr Documented by: [id number] Meropenem 500 mg/ Syringe 10 mls @ 2 mls/min IV NOW STA; Protocol Stop: 07/03/20 13:20 Last Admin: 07/03/20 13:40 Dose: 2 mls/min Documented by: [id number] Ioversol (Ioversol 100ml) 94 ml IV ONCE ONE Stop: 07/03/20 14:12 Last Admin: 07/03/20 14:11 Dose: 94 ml Documented by: [id number] Discharge Plan Visit Data Chief Complaint: Illness ED Provider: Alex Allen Discharge Problem: Acute pyelonephritis, Sepsis Patient Disposition: Admitted As Inpatient Discharge Instructions Interventions: ED Discharge Assessment Last Done: 07/03/20 17:54 Discharge Problem: Sepsis Qualifiers: Sepsis type: sepsis due to unspecified organism Sepsis acute organ dysfunction status: unspecified Qualified Code(s): A41.9 - Sepsis, unspecified organism
[2020-07-03] MEDS ORDERED: MEROPENEM 500 MG in SYRINGE 0 ML IV STA (13:16)
[2020-07-03] MEDS ORDERED: VANCOMYCIN HCL 1,500 MG in SODIUM CHLORIDE 0.9% 500 ML IV STA (13:16)
[2020-07-03 13:18] LABS: INR 1.1 (0.9-1.1); Partial Thromboplastin Ratio 1.2; Partial Thromboplastin Time 33.1 Seconds (21.0-31.0); Prothrombin Time 11.7 Seconds (9.0-12.0)
[2020-07-03 13:21] LABS: ALC (manual) 1.97 K/uL (1.2-3.4); ANC (manual) 17.66 K/uL (1.4-6.5); Lymphocytes # (manual) 1.97 K/uL (1.2-3.4); Lymphocytes % (manual) 9.6 %; Monocytes # (manual) 0.72 K/uL (0.11-0.59); Monocytes % (manual) 3.5 %; Myelocytes # (manual) 0.18 K/uL (0-0); Myelocytes % (manual) 0.9 %; Neutrophils # (manual) 17.66 K/uL (1.4-6.5); RBC Morphology Unremarkable
[2020-07-03 13:24] LABS: Alanine Aminotransferase 19 U/L (12-78); Albumin Level 2.6 gm/dl (3.4-5.0); Aspartate Aminotransferase 21 U/L (15-37); BUN Creatinine Ratio 22.5 (10-20); Blood Urea Nitrogen 19 mg/dl (7-18); Calcium 9.4 mg/dl (8.5-10.1); Carbon Dioxide 21 mmol/L (21-32); Chloride 104 mmol/L (98-107); Creatinine Clr Calc Pharmacy 55.9 ml/min; Est GFR (African American) 81.1; Glucose 108 mg/dl (70-99); Magnesium 2.4 mg/dl (1.8-2.4); Potassium 3.7 mmol/L (3.5-5.1); Sodium 136 mmol/L (136-145)
--- NOTE | 2020-07-03 13:26 | XRay Report ---
XR chest 1V portable CLINICAL HISTORY: SEPSIS COMPARISON STUDY: 06/24/2020 FINDINGS: The heart is normal in size. There is no current evidence of failure. There is no lobar con solidation. There is minor blunting of the left lateral costophrenic angle. A trace effusion cannot b e excluded. Left basilar opacities while nonspecific are likely atelectatic. Postsurgical changes are present within the cervical spine. IMPRESSION: 1. Resolution of previously described pulmonary vascular congestion 2. Left basilar opacity statistically atelectatic ACT 112: Negative or not required by law. Electronically signed by: Martinez Barraza M.D. 07/03/2020 1:25 PM
[2020-07-03 13:29] LABS: Albumin Globulin Ratio 0.5 (0.9-2); Alkaline Phosphatase 148 U/L (45-117); Bilirubin,Total 0.2 mg/dl (0.2-1); Globulin 5.8 gm/dl (2.5-4.0); Total Protein 8.4 gm/dl (6.4-8.2); Troponin I < 0.015 ng/ml (0-0.045)
[2020-07-03 13:41] LABS: Appearance Urine Cloudy (Clear); Bilirubin Urine Negative (Negative); Blood Urine 3+ (Negative); Color Urine Yellow; Epithelial Cell Urine Auto >30 /lpf (0-5); Glucose Urine UA Negative (Negative); Ketones Urine Trace (Negative); Leukocyte Esterase Urine 2+ (Negative); Nitrite Urine Negative (Negative); Protein Urine 3+ (Negative); Specific Gravity Urine 1.019 (1.000-1.030); Urobilinogen Urine Negative (Negative); WBC Urine Automated >30 /hpf (0-5); pH Urine 5.5 (4.5-7.5)
[2020-07-03 13:56] LABS: Mucus Urine Present (None Prsent)
[2020-07-03 13:57] LABS: Bacteria Urine Automated 1+ (Negative)
[2020-07-03] MEDS ORDERED: IOVERSOL 100ml IV ONE (14:11)
--- NOTE | 2020-07-03 14:53 | CT Scan Report ---
CT OF THE ABDOMEN AND PELVIS WITH CONTRAST CLINICAL HISTORY: Abdominal pain. Possible sepsis. COMPARISON STUDY: CT of the abdomen and pelvis July 01, 2020. TECHNIQUE: Following IV administration of 94 mL of Optiray-320, axial images of the abdomen and pelvi s were obtained from the lung bases to the proximal femurs. Images were reviewed in the axial, sagitt al, and coronal planes. IV contrast was administered without complication. Automated exposure contro l was utilized for the study. A dose lowering technique was utilized adhering to the principles of A ALONDRA. CT DOSE: 846.62 mGycm FINDINGS: Lung bases are unremarkable. No pneumatosis, free air or portal venous gas is present. Mild cardiomegaly is noted. Liver, spleen, adrenal glands, pancreas are unremarkable. There is no biliary or pancreatic ductal dilatation. There is no peripancreatic or pericholecystic infiltration. Marked right renal atrophy is again noted. This is unchanged. Left ureteral stent is in place. There is no h ydronephrosis. Left renal calculi are noted, including a 2.2 cm calculus within the lower pole. This exam is compromised by motion artifact although there is suggestion of multiple hypoenhancing foci wi thin the left kidney. There is no perinephric infiltration. There is no renal abscess. Bladder wall t hickening is noted. There is gas and a Cotto balloon within the bladder. Layering hyperdense material within the bladder could reflect calculi or excreted contrast. Infrarenal abdominal aorta is ectatic , measuring 2.9 cm. Extensive plaque. Moderate amount of stool within the rectum is noted. There is n o evidence for a bowel obstruction. No bowel wall thickening is identified on this study. There is no lymphadenopathy. Note is again made of endometrial thickening versus fluid within the endometrial ca nal. This was shown on prior exam. Postoperative findings within the left femur are noted. There is s uspected avascular necrosis of the left femoral head. IMPRESSION: 1. Left ureteral stent in place. No hydronephrosis. No ureteral calculi. Left-sided nephrolithiasis. 2. Exam compromised by motion artifact. Probable hypoenhancing foci within the left kidney. This coul d reflect pyelonephritis. No renal abscess. Marked right renal atrophy, unchanged. Bladder wall thick ening. 3. Endometrial thickening versus fluid within the endometrial canal. This is abnormal in a postmenopa usal patient and gynecologic consultation is recommended as malignancy cannot be excluded. 4. No bowel obstruction. No bowel wall thickening. ACT 112: Negative or not required by law. Electronically signed by: Eddy Sellers M.D. 07/03/2020 2:52 PM
--- NOTE | 2020-07-03 16:51 | History & Physical Report ---
Date of Service July 03, 2020 Assessment & Plan (1) Sepsis secondary to UTI: patient with ureteral stent in place, plan to keep it there until infection cleared was on Ertapenem, should be covering recent Morganella UTI based on sensitivity prior urine culture grew out Pseudomonas and Enterococcus which the Ertapenem would not cover will treat with Cefepime which will cover Pseudomonas, Morganella and Proteus use Vancomycin to cover for h/o Enterococcus follow up CBC and urine and blood cultures observation status for now as she was just discharged, may be able to send back to [facility] (2) Bacteremia: recent bacteremia with Proteus that should be sensitive to Ertapenem will follow up blood cultures drawn in the ED WBC is up to 20k today compared to 17k on 06/28 no reported fever but she does have abdominal and flank pain use Cefepime and Vanco as described above, follow up blood cultures (3) Acute pyelonephritis: see above treat with Vanco and Cefepime (4) Hypothyroid: continue Synthroid (5) Hypertension: continue home regimen (6) Depression: mood stable on admission History of Present Illness Chief Complaint: My belly hurts Primary Care Provider: [facility] 75 yo female who went to [facility] on 06/30 for treatment of Morganella UTI and Proteus bacteremia with Ertapenem was sent to the ED today for complaints of abdominal pain and generally not feeling well despite appropriate treatment. She had an US guided IV placed prior to discharge, she complained that it was hurting her. She is a poor historian. She said she has been eating and moving her bowels. She denies chest pain, dyspnea, cough, fever/chills. In the ED she was febrile, vitals stable. WBC was 20k, Cr stable and electrolytes normal. CT abdomen/pelvis shows left sided ureteral stent with possible signs of pyelonephritis. No bowel obstruction, no signs of infection in the bowel, no pancreatitis. Blood and urine cultures were obtained. UA shows > 30WBC and signs of ongoing infection. Reviewed previous urine cultures, she has grown out Pseudomonas and Enterococcus in the past. Allergies Allergy/AdvReac Type Severity Reaction Status Date / Time house dust mite Allergy Mild Unknown Verified 07/03/20 14:32 pollen extracts Allergy Mild HAYFEVER Verified 07/03/20 14:32 hydrochlorothiazide Allergy Unknown PT UNSURE Verified 07/03/20 14:32 Penicillins Allergy Unknown Unknown Verified 07/03/20 14:32 Home Medications Home Medications Medication Instructions Recorded Confirmed Type ascorbic acid (vitamin C) 500 mg 500 mg PO BIDM cap 07/03/19 07/03/20 History capsule baclofen 10 mg tablet 5 mg PO HS tab 07/03/19 07/03/20 History calcium carbonate 600 mg calcium 600 mg PO QAM tab 07/03/19 07/03/20 History (1,500 mg) tablet docusate sodium 100 mg capsule 100 mg PO HS cap 07/03/19 07/03/20 History furosemide 40 mg tablet 40 mg PO BIDM tab 07/03/19 07/03/20 History gabapentin 300 mg capsule 300 mg PO TID cap 07/03/19 07/03/20 History levothyroxine 25 mcg tablet 25 mcg PO QAM tab 07/03/19 07/03/20 History metoprolol tartrate 75 mg tablet 75 mg PO BIDM tab 07/03/19 07/03/20 History montelukast 10 mg tablet 10 mg PO HS tab 07/03/19 07/03/20 History polyethylene glycol 3350 17 17 g PO QAM gm 07/03/19 07/03/20 History gram/dose oral powder potassium chloride 20 mEq 40 meq PO BIDM tab 07/03/19 07/03/20 History tablet,extended release Combivent Respimat 1 puff INHALATION Q6 10/31/19 07/03/20 History acetaminophen 1,000 mg PO TID PRN 10/31/19 07/03/20 History amiloride 5 mg PO DAILY@0830 10/31/19 07/03/20 History cholecalciferol (vitamin D3) 50 mcg PO HS 10/31/19 07/03/20 History [Vitamin D3] diltiazem HCl 180 mg PO QAM 10/31/19 07/03/20 History donepezil 10 mg PO HS 10/31/19 07/03/20 History felodipine 2.5 mg PO HS 10/31/19 07/03/20 History fluticasone propion-salmeterol 1 inh INHALATION Q12 10/31/19 07/03/20 History [Advair Diskus] famotidine 20 mg PO BID 05/24/20 07/03/20 History venlafaxine 225 mg PO QAM 06/10/20 07/03/20 History Saccharomyces boulardii [Florastor] 0 mg PO TIDM 06/21/20 07/03/20 History Thera-Tabs 1 tab PO HS 06/21/20 07/03/20 History ertapenem 1 g IV DAILY 5 Days ea 06/30/20 07/03/20 Rx Past Med/Surg History Medical History Atrial flutter (09/27/13) With Afib. Per records, onset 2013, was not anticoagulated at discharge, just started on BB. Afib with RVR again noted at 2017 admission, likely due to acute illness, spontaneously converted. Rate control approach with no anticoagulation at discharge, presumably due to fall risk. Bipolar 1 disorder, depressed Cervical disc disease COPD (chronic obstructive pulmonary disease) Dysphagia Hepatitis C (~12/1995) History of pulmonary embolism 2-3 yrs ago, spontaneous History of TIA (transient ischemic attack) Hypertension Hypotension Hypothyroid Iron deficiency anemia Metabolic encephalopathy Monoclonal B-cell lymphocytosis of unknown significance (~10/05/13) PVD (peripheral vascular disease) Repeated falls Is mostly wheelchair-bound, reports leg weakness Sepsis 2013 Thrombocytopenia Thrombocytosis Surgical History History of bilateral carpal tunnel release History of cervical spinal surgery 2006, 2013 History of hip surgery ORIF, LEFT HIP- APRIL 2013 @ [facility] History of laparoscopy Status post hip surgery Family History Other No family history of adverse response to anesthesia No family history of bleeding disorder Social History Smoking Status: Unknown if ever smoked Age Started Using Tobacco: 19; Second Hand Exposure: No; Hx Alcohol Use: No Hx Substance Use: No Preferred Language: Israeli Communication Ability: Effective Pipe Coverer Required: No Beliefs That Will Affect Care: None marital status: Current Living Situation: Senior Living current occupational status: retired How many Children do You have: 2 Other Information That Helps Us Care for You: No Feels Safe at Home: Yes Safety Concerns: Feels Safe At This Time Assistive Devices: Denture - Upper Review of Systems Review of Systems: All systems reviewed & are unremarkable except as noted in Subjective Physical Exam Constitutional: well developed, well nourished and + frail appearing; no acute distress Eyes: PERRL, conjunctivae normal, anicteric sclerae ENMT: external ear and nose normal, oropharynx normal Neck: trachea midline, no thyromegaly Respiratory: normal respiratory effort, lungs clear to auscultation Cardiovascular: RRR, no murmur, no edema Gastrointestinal (Abdomen): normal bowel sounds, soft, nontender, no hepatosplenomegaly Musculoskeletal: no cyanosis or clubbing, extremities motor strength 5/5 Skin: no rashes, warm and dry Neurologic: patellar DTR's 2+ bilat, sensation intact and PERRL, EOMI, accommodation nl, no face palsy, no dysarthria Psychiatric: A+Ox3, euthymic affect Lymphatic: no cervical or axillary lymphadenopathy Results & Data Results & [facility] ([facility]) Vital Signs (Past 12 Hours) Vital Signs Temp Pulse Pulse Resp BP BP Pulse Ox 07/03/20 16:31 100 H 18 95 07/03/20 16:30 103 H 21 145/93 H 95 07/03/20 16:00 95 H 20 153/107 H 96 07/03/20 15:31 104 H 19 95 07/03/20 15:30 96 H 17 161/98 H 96 07/03/20 15:01 99 H 18 95 07/03/20 15:00 98 H 16 154/88 H 95 07/03/20 14:49 101 H 18 95 07/03/20 14:48 99 H 17 161/82 H 96 07/03/20 14:00 106 H 19 157/83 H 98 07/03/20 13:30 109 H 18 140/93 96 07/03/20 13:00 113 H 19 155/80 H 96 07/03/20 12:30 112 H 19 145/96 H 95 07/03/20 12:27 98 07/03/20 12:00 105 H 21 159/106 H 92 07/03/20 11:30 103 H 20 131/76 93 07/03/20 11:20 105 H 20 143/86 H 93 07/03/20 11:13 36.9 C 105 H 20 143/86 H 93 Laboratory Results Laboratory Results - last 24 hr 07/03/20 07/03/20 07/03/20 12:46 12:46 12:46 WBC 20.53 H RBC 4.01 L Hgb 12.1 Hct 37.2 MCV 92.8 MCH 30.2 MCHC 32.5 RDW Std Deviation 51.0 H RDW Coeff of Rene 14.9 H Plt Count 580 H MPV 10.4 Neutrophils % (Manual) 86.0 Lymphocytes % (Manual) 9.6 Monocytes % (Manual) 3.5 Myelocytes % (Man) 0.9 Neutrophils # (Manual) 17.66 H Total Absolute Neuts 17.66 H Lymphocytes # (Manual) 1.97 Total Abs Lymphocytes 1.97 Monocytes # (Manual) 0.72 H Myelocytes # (Manual) 0.18 H RBC Morphology Unremarkable PT 11.7 INR 1.1 APTT 33.1 H PTT Ratio 1.2 Sodium 136 Potassium 3.7 Chloride 104 Carbon Dioxide 21 Anion Gap 10.0 BUN 19 H Creatinine 0.83 Est Cr Clr Drug Dosing 55.9 Est GFR ( Amer) 81.1 Est GFR (Non-Af Amer) 70.0 BUN/Creatinine Ratio 22.5 H Glucose 108 H Lactate Calcium 9.4 Magnesium 2.4 Total Bilirubin 0.2 AST 21 ALT 19 Alkaline Phosphatase 148 H Troponin I < 0.015 Total Protein 8.4 H Albumin 2.6 L Globulin 5.8 H Albumin/Globulin Ratio 0.5 L Procalcitonin Urine Color Urine Appearance Urine pH Ur Specific [place] Urine Protein Urine Glucose (UA) Urine Ketones Urine Blood Urine Nitrite Urine Bilirubin Urine Urobilinogen Ur Leukocyte Esterase Urine WBC (Auto) Urine RBC (Auto) U Hyaline Cast (Auto) U Epithel Cells (Auto) Urine Bacteria (Auto) Urine Mucus Urine Yeast Nasal Screen MRSA (PCR) 07/03/20 07/03/20 07/03/20 12:46 12:46 13:15 WBC RBC Hgb Hct MCV MCH MCHC RDW Std Deviation RDW Coeff of Rene Plt Count MPV Neutrophils % (Manual) Lymphocytes % (Manual) Monocytes % (Manual) Myelocytes % (Man) Neutrophils # (Manual) Total Absolute Neuts Lymphocytes # (Manual) Total Abs Lymphocytes Monocytes # (Manual) Myelocytes # (Manual) RBC Morphology PT INR APTT PTT Ratio Sodium Potassium Chloride Carbon Dioxide Anion Gap BUN Creatinine Est Cr Clr Drug Dosing Est GFR ( Amer) Est GFR (Non-Af Amer) BUN/Creatinine Ratio Glucose Lactate 0.8 Calcium Magnesium Total Bilirubin AST ALT Alkaline Phosphatase Troponin I Total Protein Albumin Globulin Albumin/Globulin Ratio Procalcitonin 0.06 Urine Color Yellow Urine Appearance Cloudy A Urine pH 5.5 Ur Specific [place] 1.019 Urine Protein 3+ H Urine Glucose (UA) Negative Urine Ketones Trace H Urine Blood 3+ H Urine Nitrite Negative Urine Bilirubin Negative Urine Urobilinogen Negative Ur Leukocyte Esterase 2+ H Urine WBC (Auto) >30 H Urine RBC (Auto) 10-30 H U Hyaline Cast (Auto) 10-30 H U Epithel Cells (Auto) >30 H Urine Bacteria (Auto) 1+ H Urine Mucus Present A Urine Yeast Budding A Nasal Screen MRSA (PCR) 07/03/20 19:22 WBC RBC Hgb Hct MCV MCH MCHC RDW Std Deviation RDW Coeff of Rene Plt Count MPV Neutrophils % (Manual) Lymphocytes % (Manual) Monocytes % (Manual) Myelocytes % (Man) Neutrophils # (Manual) Total Absolute Neuts Lymphocytes # (Manual) Total Abs Lymphocytes Monocytes # (Manual) Myelocytes # (Manual) RBC Morphology PT INR APTT PTT Ratio Sodium Potassium Chloride Carbon Dioxide Anion Gap BUN Creatinine Est Cr Clr Drug Dosing Est GFR ( Amer) Est GFR (Non-Af Amer) BUN/Creatinine Ratio Glucose Lactate Calcium Magnesium Total Bilirubin AST ALT Alkaline Phosphatase Troponin I Total Protein Albumin Globulin Albumin/Globulin Ratio Procalcitonin Urine Color Urine Appearance Urine pH Ur Specific [place] Urine Protein Urine Glucose (UA) Urine Ketones Urine Blood Urine Nitrite Urine Bilirubin Urine Urobilinogen Ur Leukocyte Esterase Urine WBC (Auto) Urine RBC (Auto) U Hyaline Cast (Auto) U Epithel Cells (Auto) Urine Bacteria (Auto) Urine Mucus Urine Yeast Nasal Screen MRSA (PCR) Pending Diagnostic Findings CT abdomen/pelvis IMPRESSION: 1. Left ureteral stent in place. No hydronephrosis. No ureteral calculi. Left- sided nephrolithiasis. 2. Exam compromised by motion artifact. Probable hypoenhancing foci within the left kidney. This could reflect pyelonephritis. No renal abscess. Marked right renal atrophy, unchanged. Bladder wall thickening. 3. Endometrial thickening versus fluid within the endometrial canal. This is abnormal in a postmenopausal patient and gynecologic consultation is recommended as malignancy cannot be excluded. 4. No bowel obstruction. No bowel wall thickening. CXR : atelectasis, no infiltrate, no pulmonary edema Code Status & VTE Plan VTE Prophylaxis Plan VTE Prophylaxis will be ordered: Yes PG Care Time/CCT Total # of Minutes Spent Total Time Spent with Patient: Total time spent is greater than 50% in coordination of care (as documented) at patient's floor/unit and/or counseling patient: Coding Level of Care Code 96632 OBS Care - Level 3 Diagnoses Sepsis secondary to UTI A41.9; N39.0 Bacteremia R78.81 Acute pyelonephritis N10 Hypothyroid E03.9 Hypertension I10 Depression F32.9
[2020-07-03] MEDS ORDERED: IPRATROPIUM BROMIDE/ALBUTEROL respimat INH INH SCH (18:42)
[2020-07-03] MEDS ORDERED: ONDANSETRON INJ 2 MG/ML 2 ML VIAL IV PRN (18:42)
[2020-07-03] MEDS ORDERED: VANCOMYCIN CONSULT ACTIVE PRN (18:42)
[2020-07-03] MEDS: ENOXAPARIN INJ 40 MG/0.4 ML SYR SQ SCH (20:30)
[2020-07-03] MEDS: POTASSIUM CHLORIDE CRTAB 20 MEQ TABCR PO SCH (20:31)
[2020-07-03] MEDS: METOPROLOL TARTRATE 25 MG TAB PO SCH (20:32)
[2020-07-03] MEDS: MONTELUKAST SODIUM 10 MG TABLET PO SCH (20:33)
[2020-07-03] MEDS: FELODIPINE 2.5 MG TABCR PO SCH (20:33)
[2020-07-03] MEDS: FAMOTIDINE 20 MG TAB PO SCH (20:33)
[2020-07-03] MEDS: DONEPEZIL HCL 10 MG TAB PO SCH (20:34)
[2020-07-03] MEDS: DOCUSATE SODIUM 100 MG CAP PO SCH (20:34)
[2020-07-03] MEDS: FUROSEMIDE 40 MG TAB PO SCH (20:34)
[2020-07-03] MEDS: GABAPENTIN 300 MG CAP PO SCH (20:35)
[2020-07-03] MEDS: BACLOFEN 10 MG TAB PO SCH (20:51)
[2020-07-03] MEDS ORDERED: CEFEPIME 2,000 MG in SYRINGE 0 ML IV SCH (21:00)
[2020-07-04] MEDS: VANCOMYCIN HCL 1,000 MG in SODIUM CHLORIDE 0.9% 250 ML IV SCH ×2 (02:14→13:31)
[2020-07-04] MEDS: Ipratropium HFA Inhaler (Combivent Respimat P&T Subs) INH SCH ×5 (02:42→20:10)
[2020-07-04] MEDS: Albuterol HFA 8 GM Inhaler (Combivent Respimat P&T Subs) INH SCH ×4 (02:43→20:11)
[2020-07-04] MEDS: LEVOTHYROXINE SODIUM 25 MCG TABLET PO SCH ×2 (05:40→06:42)
[2020-07-04] MEDS: ACETAMINOPHEN 325 MG TAB PO PRN (05:41)
--- NOTE | 2020-07-04 06:20 | Electrocardiogram Report ---
Test Reason : Blood Pressure : / mmHG Vent. Rate : 104 BPM Atrial Rate : 104 BPM P-R Int : 162 ms QRS Dur : 134 ms QT Int : 382 ms P-R-T Axes : 062 004 013 degrees QTc Int : 502 ms Sinus tachycardia with Premature atrial complexes with Aberrant conduction Right bundle branch block Inferior infarct (cited on or before 21-JUN-2020) Abnormal ECG When compared with ECG of 21-JUN-2020 09:33, Aberrant conduction is now Present Confirmed by Marlo Khalil ([id number]) on 07/04/2020 6:19:47 AM Referred By: Confirmed By:Marlo Khalil
--- NOTE | 2020-07-04 06:54 | Communication Note ---
Date of Service: July 04, 2020 Notified by nursing that pt was not as responsive as she was yesterday. On my exam, she was somewhat responsive to verbal stimuli but quickly fell back asleep. Continue to monitor mental status throughout the day. 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
[2020-07-04 08:44] LABS: Basophils # (auto) 0.01 K/uL (0-0.2); Basophils % (auto) 0.1 %; Eosinophils # (auto) 0.14 K/uL (0-0.5); Hematocrit (blood only) 35.3 % (37-47); Hemoglobin 11.3 g/dL (12.0-16.0); Immature Granulocytes # (auto) 0.31 K/uL (0.00-0.02); Immature Granulocytes % (auto) 2.1 %; Lymphocytes # (auto) 1.49 K/uL (1.2-3.4); Lymphocytes % (auto) 10.3 %; Mean Corpuscular Hemoglobin 29.9 pg (25-34); Mean Corpuscular Volume 93.4 fL (80-100); Mean Platelet Volume 10.2 fL (7.4-10.4); Monocytes # (auto) 1.32 K/uL (0.11-0.59); Monocytes % (auto) 9.1 %; Neutrophils # (auto) 11.25 K/uL (1.4-6.5); Neutrophils % (auto) 77.4 %; Platelet Count 548 K/uL (130-400); RDW Coefficient of Variation 15.1 % (11.5-14.5); RDW Standard Deviation 51.1 fL (36.4-46.3); Red Blood Count 3.78 M/uL (4.2-5.4); White Blood Count 14.52 K/uL (4.8-10.8)
[2020-07-04 09:13] LABS: BUN Creatinine Ratio 17.4 (10-20); Calcium 8.7 mg/dl (8.5-10.1); Creatinine Clr Calc Pharmacy 55.1 ml/min; Est GFR (African American) 81.1; Potassium 3.8 mmol/L (3.5-5.1)
[2020-07-04] MEDS: FLUTICASONE/VILANTEROL 100/25MCG 14 PUFFS/INHALER INH SCH (09:23)
[2020-07-04] MEDS: VENLAFAXINE HCL XR 75 MG CAPXR PO SCH (09:23)
[2020-07-04] MEDS: aMILoride HCL 5 MG TAB PO SCH (09:23)
[2020-07-04] MEDS: FAMOTIDINE 20 MG TAB PO SCH ×2 (09:24→20:35)
[2020-07-04] MEDS: dilTIAZem ER 180 MG CAPCR PO SCH (09:24)
[2020-07-04] MEDS: GABAPENTIN 300 MG CAP PO SCH ×3 (09:24→20:35)
[2020-07-04] MEDS: POTASSIUM CHLORIDE CRTAB 20 MEQ TABCR PO SCH ×2 (09:24→17:47)
[2020-07-04] MEDS: FUROSEMIDE 40 MG TAB PO SCH ×2 (09:25→17:46)
[2020-07-04] MEDS: POLYETHYLENE (MIRALAX) 17 GM PACK PO SCH (09:25)
[2020-07-04] MEDS: METOPROLOL TARTRATE 25 MG TAB PO SCH ×2 (09:25→17:46)
--- NOTE | 2020-07-04 13:43 | Pharmacy Report ---
Pharmacy Abx Initial Consult - Date of Service July 04, 2020 - Pharmacy Dosing Scope Date of Consult: 07/03/20 Consultation requested by: Dr. Abreu Pharmacy is consulted to initiate vancomycin IV dosing therapy, order appropriate labs and adjust drug dose/frequency. - Subjective The patient is a 75 year old F admitted on 07/03/20 16:46. - Objective Height: 5 ft 2 in Weight: 69.4 kg Vital Signs (Past 12hrs): Vital Signs Temp Pulse Resp BP BP Pulse Ox 07/04/20 07:57 58 L 20 92 07/04/20 07:36 36.7 C 81 18 138/79 95 07/04/20 06:40 73 18 125/79 92 07/04/20 05:46 37.3 C 81 18 120/76 92 Lab Results (24hrs): Laboratory Tests (24 Hours) 07/04/20 07/04/20 07/03/20 08:29 08:29 12:46 WBC 14.52 H Neut # (Auto) 11.25 H Creatinine 0.83 Est Cr Clr Drug Dosing 55.1 Procalcitonin 0.06 07/03/20 12:46 WBC Neut # (Auto) Creatinine 0.83 Est Cr Clr Drug Dosing 55.9 Procalcitonin Micro Results: 07/03/20 12:51 Aerobic Blood Culture - Pending Blood Anaerobic Blood Culture - Pending 07/03/20 12:46 Aerobic Blood Culture - Pending Blood Anaerobic Blood Culture - Pending - Assessment & Plan Assessment 75 year old F presenting from [facility] with suspected urosepsis. Patient recently discharged on 06/30/20 after treatment for Proteus mirabilis bacteremia. History of MDROs including Morganella morganii, Pseudomonas aeruginosa, and Enterococcus faecalis. Unfortunately, patient has penicillin allergy (unknown reaction) and is a poor historian, otherwise monotherapy with a Zosyn could be utilized. Additionally, ECG was abnormal and QTc is 502 ms, so fluoroquinolone therapy would not be preferred. At this point, empiric vancomycin and cefepime will cover all recent pathogens. Blood cultures x 2 show no growth at 24 hours, urine culture pending. Leukocytosis on admission at 20 K, slight resolution overnight to 14 K. Patient is afebrile. Plan Vancomycin IV * Vancomycin 1000 mg IV q12h * Patient meets criteria for vancomycin AUC dosing nomogram * AUC/CARROLL is the preferred PK/PD target for vancomycin * Target AUC/CARROLL = 400-600 * AUC guided dosing is effective and associated with decreased risk of nephrotoxicity Cefepime IV * Target dose of cefepime at this time should be 2 g IV q8h given concern for bacteremia and history of Pseudomonas * Cefepime 2 g IV q12h based on eCrCl of 55 mL/min Pharmacy will continue to follow and will adjust dose/frequency as necessary. Thank you.
[2020-07-04] MEDS: CEFEPIME 2,000 MG in SYRINGE 0 ML IV SCH (15:16)
--- NOTE | 2020-07-04 18:09 | Hospitalist Progress Note ---
Date of Service July 04, 2020 Assessment & Plan (1) Sepsis secondary to UTI: patient with ureteral stent in place, plan to keep it there until infection cleared was on Ertapenem, should be covering recent Morganella UTI based on sensitivity prior urine culture grew out Pseudomonas and Enterococcus which the Ertapenem would not cover Continue Cefepime which will cover Pseudomonas, Morganella and Proteus Continue Vancomycin to cover for h/o Enterococcus Leukocytosis improving, urine with pinpoint growth and blood cultures ngtd (2) Bacteremia: recent bacteremia with Proteus that should be sensitive to Ertapenem will follow up blood cultures drawn in the ED Leukocytosis improving Afebrile, denies any further flank pain, VSS use Cefepime and Vanco as described above, follow up blood cultures ngtd (3) Acute pyelonephritis: see above treat with Vanco and Cefepime (4) Hypothyroid: continue Synthroid (5) Hypertension: continue home regimen (6) Depression: mood stable on admission (7) Gout: Possible flair of right thumb MCP. Will continue to monitor. Does not seem to be overly bothersome to her Does not take chronic meds for this If worsening, could consider colchicine Admission and Anticipated Discharge Date Admission Date: July 03, 2020 Subjective Ms. Vela is pleasant but a rather poor historian. Per nursing she has been somewhat sleepy this morning but she awakens right away for me and appears alert. It does appear from notes from her previous admission that she had periods of day time somnolence then as well. She denies any complaints. Attempted to call primary contact Mr. Roth, but no answer, secondary contact was a wrong number ROS Constitutional: no chills, aches, sweats or fever Respiratory: no sob,cough, sputum, or wheezing Cardiac: no chest pain, palpitations, edema, orthopnea or lightheadedness GI: no abdominal pain, nausea, vomiting, diarrhea or constipation : no dysuria or hesitancy Extremities: no joint pain or weakness Skin: no rash All other systems reviewed and negative Physical Exam Physical Exam: General: no distress Eyes: normal inspection, PERLL Respiratory: chest non tender, clear to auscultation, normal breath sounds, no respiratory distress, no accessory muscle use Cardiac: regular rate and rhythm, no rub or gallop, no murmur, no edema, no jvd GI/: active bowel sounds, no abd pain or tenderness, soft, non distended Extremities: normal range of motion, normal strength, Right MCP with erythema and mild swelling Neuro/Psych: alert and oriented to self, normal mood and affect Skin: normal color, dry Results & Data Results & Data ([facility]) Vital Signs (Past 12 Hours) Vital Signs Temp Pulse Pulse Resp BP BP Pulse Ox 07/04/20 17:41 88 120/74 07/04/20 15:38 36.5 C 69 18 113/71 92 07/04/20 13:37 78 18 91 07/04/20 07:57 58 L 20 92 07/04/20 07:36 36.7 C 81 18 138/79 95 07/04/20 06:40 73 18 125/79 92 PG Care Time/CCT Total # of Minutes Spent Total Time Spent with Patient: Total time spent is greater than 50% in coordination of care (as documented) at patient's floor/unit and/or counseling patient: Coding Level of Care Code 09661 Subseq Hosp Care Lvl 3 Diagnoses Sepsis secondary to UTI A41.9; N39.0 Bacteremia R78.81 Acute pyelonephritis N10 Hypothyroid E03.9 Hypertension I10 Depression F32.9 Gout M10.9
[2020-07-04] MEDS ORDERED: COLCHICINE 0.6 MG TAB PO ONE ×2 (19:15→20:00)
[2020-07-04] MEDS: FELODIPINE 2.5 MG TABCR PO SCH (20:34)
[2020-07-04] MEDS: DONEPEZIL HCL 10 MG TAB PO SCH (20:34)
[2020-07-04] MEDS: BACLOFEN 10 MG TAB PO SCH (20:35)
[2020-07-04] MEDS: MONTELUKAST SODIUM 10 MG TABLET PO SCH (20:35)
[2020-07-04] MEDS: DOCUSATE SODIUM 100 MG CAP PO SCH (20:35)
[2020-07-04] MEDS: ENOXAPARIN INJ 40 MG/0.4 ML SYR SQ SCH (20:42)
[2020-07-05] MEDS: Ipratropium HFA Inhaler (Combivent Respimat P&T Subs) INH SCH ×3 (00:42→13:24)
[2020-07-05] MEDS: Albuterol HFA 8 GM Inhaler (Combivent Respimat P&T Subs) INH SCH ×3 (00:43→13:24)
[2020-07-05] MEDS: CEFEPIME 2,000 MG in SYRINGE 0 ML IV SCH ×2 (00:59→14:51)
[2020-07-05] MEDS: VANCOMYCIN HCL 1,000 MG in SODIUM CHLORIDE 0.9% 250 ML IV SCH (00:59)
[2020-07-05] MEDS: LEVOTHYROXINE SODIUM 25 MCG TABLET PO SCH (05:52)
[2020-07-05] MEDS: FLUTICASONE/VILANTEROL 100/25MCG 14 PUFFS/INHALER INH SCH (08:35)
[2020-07-05] MEDS: FAMOTIDINE 20 MG TAB PO SCH ×2 (08:36→21:05)
[2020-07-05] MEDS: POLYETHYLENE (MIRALAX) 17 GM PACK PO SCH (08:36)
[2020-07-05] MEDS: aMILoride HCL 5 MG TAB PO SCH (08:36)
[2020-07-05] MEDS: POTASSIUM CHLORIDE CRTAB 20 MEQ TABCR PO SCH ×2 (08:37→17:09)
[2020-07-05] MEDS: FUROSEMIDE 40 MG TAB PO SCH ×2 (08:37→17:10)
[2020-07-05] MEDS: GABAPENTIN 300 MG CAP PO SCH ×3 (08:37→21:05)
[2020-07-05] MEDS: dilTIAZem ER 180 MG CAPCR PO SCH (08:37)
[2020-07-05] MEDS: VENLAFAXINE HCL XR 75 MG CAPXR PO SCH (08:38)
[2020-07-05] MEDS: METOPROLOL TARTRATE 25 MG TAB PO SCH ×2 (08:38→17:10)
[2020-07-05 09:24] LABS: Calcium 9.2 mg/dl (8.5-10.1); Creatinine Clr Calc Pharmacy 46.2 ml/min; Est GFR (African American) 65.5; Est GFR (Non-African American) 56.5; Potassium 4.3 mmol/L (3.5-5.1)
[2020-07-05] MEDS ORDERED: VANCOMYCIN TROUGH ONE (13:30)
[2020-07-05] MEDS ORDERED: ALBUTEROL HFA 8 GM INHALER INH PRN (13:53)
[2020-07-05] MEDS ORDERED: IPRATROPIUM BROMIDE HFA INHALER INH PRN (14:17)
--- NOTE | 2020-07-05 16:43 | Hospitalist Progress Note ---
Date of Service July 05, 2020 Assessment & Plan (1) Sepsis secondary to UTI: patient with ureteral stent in place, plan to keep it there until infection cleared was on Ertapenem, should be covering recent Morganella UTI based on sensitivity prior urine culture grew out Pseudomonas and Enterococcus which the Ertapenem would not cover Continue Cefepime which was started to cover for Pseudomonas, Morganella and Proteus. Patient will need abx until 07/07 for coverage of initial infection Discontinue Vancomycin as bc, uc are negative for infection Leukocytosis improving Repeat labs am (2) Bacteremia: recent bacteremia with Proteus that should be sensitive to Ertapenem BC ngtd Leukocytosis improving Afebrile, denies any further flank pain, VSS use Cefepime as described above, follow up blood cultures ngtd (3) Acute pyelonephritis: see above treat with Cefepime (4) Hypothyroid: continue Synthroid (5) Hypertension: continue home regimen (6) Depression: mood stable on admission (7) Gout: Flair of right thumb MCP. Given colchicine 07/04 and appears to be improving today (8) DVT prophylaxis: enoxaparin Admission and Anticipated Discharge Date Admission Date: July 05, 2020 Subjective Ms. Vela continues to be somnolent today, awakens briefly when I speak with her and is pleasant. She does say she hurts everywhere. She otherwise does not give a ROS. Attempted to call patient's son but no answer. Left a message, will try again tomorrow. ROS Constitutional: no chills, aches, sweats or fever Respiratory: no sob,cough, sputum, or wheezing Cardiac: no chest pain, palpitations, edema, orthopnea or lightheadedness GI: no abdominal pain, nausea, vomiting, diarrhea or constipation : no dysuria or hesitancy Extremities: no joint pain or weakness Skin: no rash All other systems reviewed and negative Physical Exam Physical Exam: General: no distress Eyes: normal inspection, PERLL Respiratory: chest non tender, clear to auscultation, normal breath sounds, no respiratory distress, no accessory muscle use Cardiac: regular rate and rhythm, no rub or gallop, no murmur, no edema, no jvd GI/: active bowel sounds, no abd pain or tenderness, soft, non distended Extremities: normal range of motion, normal strength, right thumb MCP tenderness and erythema improved Neuro/Psych: drowsy and oriented to person and place, normal mood and affect Skin: normal color, dry Results & Data Results & Data ([facility]) Vital Signs (Past 12 Hours) Vital Signs Temp Pulse Pulse Resp BP BP Pulse Ox 07/05/20 15:51 37.3 C 91 H 16 136/81 90 07/05/20 13:24 88 18 94 07/05/20 12:00 07/05/20 07:27 80 18 92 07/05/20 07:12 36.9 C 76 16 116/71 94 Pulse Ox 07/05/20 15:51 07/05/20 13:24 07/05/20 12:00 94 07/05/20 07:27 07/05/20 07:12 PG Care Time/CCT Total # of Minutes Spent Total Time Spent with Patient: Total time spent is greater than 50% in coordination of care (as documented) at patient's floor/unit and/or counseling patient: Coding Level of Care Code 14520 Subseq Hosp Care Lvl 2 Diagnoses Sepsis secondary to UTI A41.9; N39.0 Bacteremia R78.81 Acute pyelonephritis N10 Hypothyroid E03.9 Hypertension I10 Depression F32.9 Gout M10.9 DVT prophylaxis Z29.9
[2020-07-05] MEDS: ENOXAPARIN INJ 40 MG/0.4 ML SYR SQ SCH (20:58)
[2020-07-05] MEDS: DONEPEZIL HCL 10 MG TAB PO SCH (21:02)
[2020-07-05] MEDS: DOCUSATE SODIUM 100 MG CAP PO SCH (21:03)
[2020-07-05] MEDS: BACLOFEN 10 MG TAB PO SCH (21:04)
[2020-07-05] MEDS: FELODIPINE 2.5 MG TABCR PO SCH (21:05)
[2020-07-05] MEDS: MONTELUKAST SODIUM 10 MG TABLET PO SCH (21:06)
[2020-07-06] MEDS: CEFEPIME 2,000 MG in SYRINGE 0 ML IV SCH ×2 (02:03→15:02)
[2020-07-06] MEDS: ACETAMINOPHEN 325 MG TAB PO PRN ×2 (05:31→10:06)
[2020-07-06] MEDS: LEVOTHYROXINE SODIUM 25 MCG TABLET PO SCH (05:32)
[2020-07-06] MEDS: FLUTICASONE/VILANTEROL 100/25MCG 14 PUFFS/INHALER INH SCH (08:45)
[2020-07-06] MEDS: POLYETHYLENE (MIRALAX) 17 GM PACK PO SCH (08:45)
[2020-07-06] MEDS: FUROSEMIDE 40 MG TAB PO SCH ×2 (08:46→17:27)
[2020-07-06] MEDS: aMILoride HCL 5 MG TAB PO SCH (08:46)
[2020-07-06] MEDS: POTASSIUM CHLORIDE CRTAB 20 MEQ TABCR PO SCH ×2 (08:46→17:28)
[2020-07-06] MEDS: METOPROLOL TARTRATE 25 MG TAB PO SCH ×2 (08:46→17:28)
[2020-07-06] MEDS: GABAPENTIN 300 MG CAP PO SCH ×3 (08:47→21:02)
[2020-07-06] MEDS: FAMOTIDINE 20 MG TAB PO SCH ×2 (08:47→21:00)
[2020-07-06] MEDS: VENLAFAXINE HCL XR 75 MG CAPXR PO SCH (08:48)
[2020-07-06] MEDS: dilTIAZem ER 180 MG CAPCR PO SCH (08:48)
[2020-07-06 10:19] LABS: Mean Corpuscular Hemoglobin 29.4 pg (25-34); Mean Corpuscular Hgb Conc 31.4 g/dL (32-36); Mean Corpuscular Volume 93.6 fL (80-100); Mean Platelet Volume 10.2 fL (7.4-10.4); Platelet Count 598 K/uL (130-400); RDW Coefficient of Variation 15.1 % (11.5-14.5); Red Blood Count 3.74 M/uL (4.2-5.4); White Blood Count 9.97 K/uL (4.8-10.8)
[2020-07-06 10:56] LABS: BUN Creatinine Ratio 18.8 (10-20); Calcium 8.9 mg/dl (8.5-10.1); Creatinine Clr Calc Pharmacy 49.2 ml/min; Est GFR (African American) 70.7; Potassium 3.7 mmol/L (3.5-5.1)
--- NOTE | 2020-07-06 13:29 | Hospitalist Progress Note ---
Date of Service July 06, 2020 Assessment & Plan (1) Sepsis secondary to UTI: patient with ureteral stent in place, plan to keep it there until infection cleared was on Ertapenem, should be covering recent Morganella UTI based on sensitivity prior urine culture grew out Pseudomonas and Enterococcus which the Ertapenem would not cover Continue Cefepime which was started to cover for Pseudomonas, Morganella and Proteus. Patient will need abx until 07/07 for coverage of initial infection. Urine growing yeast, not lucila Discontinue Vancomycin as bc ngtid, UC with yeast Leukocytosis resolved (2) Bacteremia: recent bacteremia with Proteus that should be sensitive to Ertapenem BC ngtd Leukocytosis improving Afebrile, denies any further flank pain, VSS use Cefepime as described above, follow up blood cultures ngtd (3) Acute pyelonephritis: see above treat with Cefepime (4) Hypothyroid: continue Synthroid (5) Hypertension: continue home regimen (6) Depression: mood stable on admission (7) Gout: Flair of right thumb MCP. Given colchicine 07/04 with improvement, denies any pain in joints today (8) DVT prophylaxis: enoxaparin Dispo: likely back to [facility] tomorrow or Wednesday Admission and Anticipated Discharge Date Admission Date: July 05, 2020 Subjective Ms. Vela is more alert today. She has no complaints. ROS Constitutional: no chills, aches, sweats or fever Respiratory: no sob,cough, sputum, or wheezing Cardiac: no chest pain, palpitations, edema, orthopnea or lightheadedness GI: no abdominal pain, nausea, vomiting, diarrhea or constipation : no dysuria or hesitancy Extremities: no joint pain or weakness Skin: no rash All other systems reviewed and negative Physical Exam Physical Exam: General: no distress Eyes: normal inspection, PERLL Respiratory: chest non tender, clear to auscultation, normal breath sounds, no respiratory distress, no accessory muscle use Cardiac: regular rate and rhythm, no rub or gallop, no murmur, no edema, no jvd GI/: active bowel sounds, no abd pain or tenderness, soft, non distended Extremities: normal range of motion, normal strength, non tender Neuro/Psych: alert and oriented x 3, normal mood and affect Skin: normal color, dry Results & Data Results & Data ([facility]) Vital Signs (Past 12 Hours) Vital Signs Temp Pulse Resp BP Pulse Ox 07/06/20 07:16 36.7 C 91 H 16 112/75 92 PG Care Time/CCT Total # of Minutes Spent Total Time Spent with Patient: Total time spent is greater than 50% in coordination of care (as documented) at patient's floor/unit and/or counseling patient: Coding Level of Care Code 42756 Subseq Hosp Care Lvl 2 Diagnoses Sepsis secondary to UTI A41.9; N39.0 Bacteremia R78.81 Acute pyelonephritis N10 Hypothyroid E03.9 Hypertension I10 Depression F32.9 Gout M10.9 DVT prophylaxis Z29.9
[2020-07-06] MEDS: ENOXAPARIN INJ 40 MG/0.4 ML SYR SQ SCH (20:58)
[2020-07-06] MEDS: FELODIPINE 2.5 MG TABCR PO SCH (21:00)
[2020-07-06] MEDS: DOCUSATE SODIUM 100 MG CAP PO SCH (21:01)
[2020-07-06] MEDS: MONTELUKAST SODIUM 10 MG TABLET PO SCH (21:01)
[2020-07-06] MEDS: DONEPEZIL HCL 10 MG TAB PO SCH (21:02)
[2020-07-06] MEDS: BACLOFEN 10 MG TAB PO SCH (21:07)
[2020-07-07] MEDS: CEFEPIME 2,000 MG in SYRINGE 0 ML IV SCH (01:25)
[2020-07-07] MEDS: LEVOTHYROXINE SODIUM 25 MCG TABLET PO SCH (05:47)
[2020-07-07 07:35] VITALS: TEMP 98.8; O2SAT 91
[2020-07-07] MEDS: FUROSEMIDE 40 MG TAB PO SCH (09:04)
[2020-07-07] MEDS: POTASSIUM CHLORIDE CRTAB 20 MEQ TABCR PO SCH (09:04)
[2020-07-07] MEDS: METOPROLOL TARTRATE 25 MG TAB PO SCH (09:04)
[2020-07-07] MEDS: POLYETHYLENE (MIRALAX) 17 GM PACK PO SCH (09:05)
[2020-07-07] MEDS: aMILoride HCL 5 MG TAB PO SCH (09:05)
[2020-07-07] MEDS: FLUTICASONE/VILANTEROL 100/25MCG 14 PUFFS/INHALER INH SCH (09:05)
[2020-07-07] MEDS: VENLAFAXINE HCL XR 75 MG CAPXR PO SCH (09:05)
[2020-07-07] MEDS: dilTIAZem ER 180 MG CAPCR PO SCH (09:06)
[2020-07-07] MEDS: GABAPENTIN 300 MG CAP PO SCH ×2 (09:06→13:27)
[2020-07-07] MEDS: FAMOTIDINE 20 MG TAB PO SCH (09:06)
--- NOTE | 2020-07-07 10:33 | Discharge Summary ---
Date of Service July 07, 2020 Admission HPI Per Admitting Provider 75 yo female who went to [facility] on 06/30 for treatment of Morganella UTI and Proteus bacteremia with Ertapenem was sent to the ED today for complaints of abdominal pain and generally not feeling well despite appropriate treatment. She had an US guided IV placed prior to discharge, she complained that it was hurting her. She is a poor historian. She said she has been eating and moving her bowels. She denies chest pain, dyspnea, cough, fever/chills. In the ED she was febrile, vitals stable. WBC was 20k, Cr stable and electrolytes normal. CT abdomen/pelvis shows left sided ureteral stent with possible signs of pyelonephritis. No bowel obstruction, no signs of infection in the bowel, no pancreatitis. Blood and urine cultures were obtained. UA shows > 30WBC and signs of ongoing infection. Reviewed previous urine cultures, she has grown out Pseudomonas and Enterococcus in the past. Principal Diagnosis UTI Discharge Exam Constitutional WD/WN, vitals as above Respiratory normal respiratory effort, lungs clear to auscultation Cardiovascular RRR, no murmur, no edema Gastrointestinal (Abdomen) normal bowel sounds, soft, nontender, no hepatosplenomegaly Musculoskeletal no cyanosis or clubbing, extremities motor strength 5/5 Skin no rashes, warm and dry Neurologic moves all extremities and awake Psychiatric Orientation: alert, oriented to person and oriented to place Discharge Data Allergies Allergy/AdvReac Type Severity Reaction Status Date / Time house dust mite Allergy Mild Unknown Verified 07/03/20 14:32 pollen extracts Allergy Mild HAYFEVER Verified 07/03/20 14:32 hydrochlorothiazide Allergy Unknown PT UNSURE Verified 07/03/20 14:32 Penicillins Allergy Unknown Unknown Verified 07/03/20 14:32 Consultations 07/03/20 15:20 ED Decision to Admit Stat 07/03/20 18:42 Consult Case Management - Discharge Planning Routine Ordered Studies 07/03/20 12:16 CT abd pelvis IV con only Stat Hospital Course (1) Sepsis secondary to UTI: patient with ureteral stent in place was on Ertapenem, should be covering recent Morganella UTI based on sensitivity prior urine culture grew out Pseudomonas and Enterococcus which the Ertapenem would not cover Given Cefepime inpatient which was started to cover for Pseudomonas, Morganella and Proteus. Patient will need abx until 07/07 for coverage of initial infection however rec was to continue abx until stent pulled so will continue with Ertapenem at discharge until follow up with urology. Urine growing yeast, not lucila Discontinue Vancomycin as bc ngtd, UC with yeast Leukocytosis resolved (2) Bacteremia: recent bacteremia with Proteus sensitive Ertapenem BC ngtd Leukocytosis resolved Afebrile, denies any further flank pain, VSS BC ngtd Abx as above (3) Acute pyelonephritis: Equivocal finding on CT - urine culture did not grow bacteria, grew yeast, no need to treat unless patient were to worsen with urinary complaints, but at this point her leukocytosis has resolved and she appears clinically improved treated with Cefepime and then changed back to ertapenem on 07/07 (4) Hypothyroid: continue Synthroid (5) Hypertension: continue home regimen (6) Depression: mood stable on admission (7) Gout: Flair of right thumb MCP. Given colchicine 07/04 with improvement, joint pain resolved after this (8) Thrombocytosis: acute phase reactant. Could recheck in a week or so to ensure resolution. (9) DVT prophylaxis: enoxaparin Total Time Total Time Spent Total Time Spent (In Minutes): greater than 30 mintues Discharge Plan Discharge Items Patient Disposition: Transfer Alf Fac Reason For Visit: UTI, RECENT BACTEREMIA Discharge Diagnosis: UTI Activity: Resume your previous activity Non-emergency contact: Primary Care Provider Call non-emergency contact if: you have any medication questions, your symptoms worsen and you have a fever Follow-up/Referrals: Braeden Ojeda [Primary Care Provider] - Diet: Heart Healthy Addtl Attending Provider Instructions: (1) Sepsis secondary to UTI: Recent left-sided lithotripsy on 06/10 with insertion of ureteral stent. Previous Pseudomonas UTI. CT a/p on 06/21 showed good placement of the stent without hydronephrosis. - Blood cultures from 06/21 grew Proteus. Urine culture grew Morganella. Both sensitive to meropenem. daptomycin stopped on 06/23 and started on meropenem at that time ID consult recs for change from meropenem to ertapenem on 06/29, to finish abx on 07/07 HOWEVER patient is to have stent dc'd prior to discontinuation of antibiotics so would recommend continuing Ertapenem until stent removal. She will have a dose of ertapenem before leaving the hospital so next dose will be tomorrow. Patient will need to see urology this week to have this done. US guided IV placed 06/29 Leukocytosis resolved, blood culture no growth after 48 hours. Urine grew yeast, not lucila albicans (2) Bacteremia: recent bacteremia with Proteus, as above (3) Endometrial thickening As seen on CT. Will need to follow up with gynecology for possible biopsy Pending Studies at Discharge: No Stand-Alone Forms: My [facility] Skilled Items Patient informed of condition?: Yes DNR: No Discharge Level of Care: Skilled Communicable Disease: No Discharge Prognosis: Improving Lines: US Guided Peripheral IV Urinary Catheter: Yes Medications and DC Order Prescriptions: Continued metoprolol tartrate 75 mg tablet 75 mg PO BIDM RF: 0 potassium chloride 20 mEq tablet extended release 40 meq PO BIDM RF: 0 ascorbic acid (vitamin C) 500 mg capsule 500 mg PO BIDM RF: 0 furosemide 40 mg tablet 40 mg PO BIDM RF: 0 levothyroxine 25 mcg tablet 25 mcg PO QAM RF: 0 baclofen 10 mg tablet 5 mg PO HS RF: 0 gabapentin 300 mg capsule 300 mg PO TID RF: 0 docusate sodium 100 mg capsule 100 mg PO HS RF: 0 montelukast 10 mg tablet 10 mg PO HS RF: 0 polyethylene glycol 3350 17 gram/dose powder 17 g PO QAM RF: 0 calcium carbonate 600 mg calcium (1,500 mg) tablet 600 mg PO QAM RF: 0 Thera-Tabs Tablet 1 tab PO HS RF: 0 Saccharomyces boulardii [Florastor] 250 mg Capsule 0 mg PO TIDM RF: 0 diltiazem HCl 180 mg capsule,extended release 24 hr 180 mg PO QAM RF: 0 felodipine 2.5 mg tablet extended release 24 hr 2.5 mg PO HS RF: 0 donepezil 10 mg tablet 10 mg PO HS RF: 0 amiloride 5 mg tablet 5 mg PO DAILY@0830 RF: 0 fluticasone propion-salmeterol [Advair Diskus] 500-50 mcg/dose blister with device 1 inh INHALATION Q12 RF: 0 Combivent Respimat 20-100 mcg/actuation mist 1 puff INHALATION Q6 RF: 0 acetaminophen 500 mg Tablet 1,000 mg PO TID PRN (Reason: Pain) RF: 0 cholecalciferol (vitamin D3) [Vitamin D3] 50 mcg (2,000 unit) Tablet 50 mcg PO HS RF: 0 famotidine 20 mg Tablet 20 mg PO BID RF: 0 venlafaxine 225 mg Tablet Extended Release 24hr 225 mg PO QAM RF: 0 Discharge Orders: Discharge Order (Routine); Ordered 07/07/20 Ordered By: Lidia Lamar Admission Data Admit Date/Time: 07/03/20 16:46 Attending Provider: Troy Abreu Admit Provider: Troy Abreu Primary Care Provider: [facility] Other Providers: Mateo Rasheed Other Interventions: Discharge Summary Assessment (RN) Last Done: 07/07/20 14:18 Supervising Physician Co-Signing Physician Notes Patient seen and examined on the day of discharge. I agree with the discharge summary by Lidia ZAMORA. I have reviewed the chart including labs, imaging and plans for discharge. patient is stable, no acute issues, no fever, WBC normal stay on Ertapenem until follow up with urology to have stent removed - UTI, pyelonephritis, ureteral stents in place: treated with Cefepime to cover for Pseudomonas which was on prior cultures, but not most recent with Morganella and Proteus no further Vanco as urine and blood cultures without bacterial growth continue on Ertapenem once a day at [facility] until ureteral stent pulled by urology Coding Level of Care Code D/C Day Management >30 mins Diagnoses Sepsis secondary to UTI A41.9; N39.0 Bacteremia R78.81 Acute pyelonephritis N10 Hypothyroid E03.9 Hypertension I10 Depression F32.9 Gout M10.9 Thrombocytosis D47.3 DVT prophylaxis Z29.9
[2020-07-07] MEDS ORDERED: ERTAPENEM SODIUM 1,000 MG in SODIUM CHLORIDE 0.9% 50 ML IV SCH (12:25)
[2020-07-07 12:34] VITALS: BP 110/69; PULSE 92
== END 2020-07-07 15:09 | DRG 872 ==
LOC: ED 11:00 → 3N 11:00